=== PATIENT | male | born 1950 | race Caucasian/White ===

== ENCOUNTER 2018-02-23 08:00 | Outpatient (RCR) | payer MEDICARE, BC, SELFPAY ==
--- NOTE | 2018-01-28 13:27 | HP.PTEVAL_ITS ---
Patient's Visit Information IZABEL WAHL is a 67 year old M referred to Physical Therapy by Aletha Moon with a diagnosis of Cervical radiculopathy and low back pain. Date of Evaluation: 01/28/18 Physical Therapist: Tyron Steinberg PT, - Visit Plan Frequency: 2x /Week Duration: 4 Weeks Plan: Cervical: manual work to improve L rotation, thoracic extension. Posture strengthening when mobility improves. Mech traction at end of session. Lumbar: REIL initially, LE flexibility, core strengthening when mobility improves. - Subjective Subjective: Pt is 67 y/o male referred for cervical radiculopathy and low back pain. He reports neck pain that started about 6 months ago and intermittent LBP. He has had previous PT for his neck pain 3 years ago that helped. His symptoms feel about the same as it did then. He reports L sided neck pain that worsens with L rotation. Describes as stiff. Denies radicular symptoms in UE/ LE's. He reports low back pain that worsens with prolonged sitting. Feels better when he sits with better support and when he stands up and walks around. Location of low back symptoms are in the R side and describes as achy. 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 - Pain Neck pain Pain Intensity (Out of 10): 5 Back pain Pain Intensity (Out of 10): 6 - Objective OBSERVATION: forward flexed sitting posture, forward head, exagerated thoracic kyphosis. PALPATION: No alignment issues. No tenderness. ROM: Lumbar: flexion nil, extension 75%, R LF 75%, L LF* 75%. Cervical flexion 50%, extension 50%, R rotation 75%, L rotation* 50%. STRENGTH: Gross B LE/UE 5/5. ASSESSORY MOTION: Hypomobile PA glides throughout cervical and thoracic spines. SPECIAL TESTS: Cervical distraction (+), Cervical flexion/rotation test (+) for L rotation. FLEXIBILITY: Decreased B hip flexors and hamstrings - Goals Goal 1:: Pt will improve L cervical rotation to 75% of uninvolved side to improve tolerance with driving. Goal Time Frame: 4-6 Weeks Goal 2:: Pt will demonstrate correct seated posture without VC's to improve self management of low back symptoms. Goal Time Frame: 4-6 Weeks Goal 3:: Pt will report min limitation with sitting at home to improve tolerance with leisure tasks. Goal Time Frame: 4-6 Weeks Goal 4:: Pt will be independent with HEP to sustain gains made in the clinic. Goal Time Frame: 4-6 Weeks Goal 5:: Pt will demonstrate full lumbar ROM without pain to improve tolerance to self care tasks. Goal Time Frame: 4-6 Weeks - Rehabilitation Potential Physical Therapy Diagnosis: Pt is 67 y/o male referred for cervical radiculopathy and low back pain. He reports gradually worsening neck pain and low back pain that worsens with prolonged sitting. Lumbar objective testing shows a minimal loss of extension. His symptoms likely coorelate with a posterior derangement with a directional preference of extension. Cervical testing reveals a moderate loss of motion with reproduction of pain at end range , predominantely rotation and extension, and hypomobile assessory motion for the cervical and thoracic spines. He has activity limitations that affect his sitting and turning his head. Pt will benefit from skilled PT to address the above mentioned impairments. Rehabilitation Potential: Good - Anticipated Interventions Patient/Client Instruction: Educate patient on: Condition, Plan of Care For the Purpose of:: To decrease pain, To increase ROM, To improve muscle performance and motor function, To increase tolerance to activity/condition/ position, To improve ability of physical actions for home/community/work/leisure , To improve health of tissue, To decrease soft tissue restriction, To increase flexibility/ROM, To reduce risk of recurrence, To improve self management Therapeutic Exercise to Include: Strength training, Endurance training, Body mechanics, Postural training, Flexibilty training, Passive ROM, Active ROM, Mart Exercises For the Purpose of:: To decrease pain, To increase ROM, To improve muscle performance and motor function, To improve performance and independence with ADL 's, To improve ability of physical actions for home/community/work/leisure, To improve health of tissue, To decrease soft tissue restriction, To increase flexibility/ROM, To reduce risk of recurrence, To improve self management Manual Therapy Techniques to Include: Mobilization, Soft tissue mobilization For the Purpose of:: To decrease pain, To increase ROM, To improve muscle performance and motor function, To increase tolerance to activity/condition/ position, To improve ability of physical actions for home/community/work/leisure , To decrease soft tissue restriction, To increase flexibility/ROM, To improve endurance, To reduce risk of recurrence TENS: Yes IF ES: Yes Other electric stimulation: Yes Cryotherapy (ice pack, ice massage): Yes Thermo therapy (hot pack): Yes Ultrasound (thermal/non thermal): Yes Intermittent cervical traction: Yes For the Purpose of:: To decrease pain, To increase ROM, To improve muscle performance and motor function, To increase tolerance to activity/condition/ position, To improve performance and independence with ADL's, To improve ability of physical actions for home/community/work/leisure, To decrease soft tissue restriction, To increase flexibility/ROM Thank you for the opportunity to evaluate your patient. For Medicare and Medicare HMO plans, please review the plan of care and approve it. It will need to be FAXED BACK to us at [phone] for Medicare purposes. Please let me know if there are questions or concerns regarding this plan of care. Physician Signature: Date:
--- NOTE | 2018-06-09 09:53 | HP.PTDCNRP_ITS ---
HP - Discharge Summary (1) - Patient Information IZABEL WAHL was seen in my office for initial evaluation on 01/28/18. The following Plan of Care was established for this patient: Initial Frequency: 2x /Week Initial Duration: 4 Weeks - Anticipated Interventions Patient/Client Instruction: Educate patient on: Condition, Plan of Care For the Purpose of:: To decrease pain, To increase ROM, To improve muscle perfo rmance and motor function, To increase tolerance to activity/condition/position, To improve ability of physical actions for home/community/work/leisure, To improve health of tissue, To decrease soft tissue restriction, To increase flexibility/ROM, To reduce risk of recurrence, To improve self management Therapeutic Exercise to Include: Strength training, Endurance training, Body mechanics, Postural training, Flexibilty training, Passive ROM, Active ROM, Mart Exercises For the Purpose of:: To decrease pain, To increase ROM, To improve muscle performance and motor function, To improve performance and independence with ADL's, To improve ability of physical actions for home/community/work/leisure, To improve health of tissue, To decrease soft tissue restriction, To increase flexibility/ROM, To reduce risk of recurrence, To improve self management Manual Therapy Techniques to Include: Mobilization, Soft tissue mobilization For the Purpose of:: To decrease pain, To increase ROM, To improve muscle performance and motor function, To increase tolerance to activity/condition/position, To improve ability of physical actions for home/community/work/leisure, To decrease soft tissue restriction, To increase flexibility/ROM, To improve endurance, To reduce risk of recurrence TENS: Yes IF ES: Yes Other electric stimulation: Yes Cryotherapy (ice pack, ice massage): Yes Thermo therapy (hot pack): Yes Ultrasound (thermal/non thermal): Yes Intermittent cervical traction: Yes For the Purpose of:: To decrease pain, To increase ROM, To improve muscle performance and motor function, To increase tolerance to activity/condition/position, To improve performance and independence with ADL's, To improve ability of physical actions for home/community/work/leisure, To decrease soft tissue restriction, To increase flexibility/ROM This patient was last seen in our office 02/23/18. Pertinent comments regarding their Physical therapy will appear below: This patient seen for PT for cervcal radiculopathy for 7 visits focusing on manual therapy ,ICTX,CERVICAL POSTURAL EX'S . Patient progressing well towards goals thus is d/c. At this point I will be discontinuing this patient from physical therapy. I would be happy to see this patient again in the future if found appropriate by the physician. Thank you! Tyron Steinberg, PT,
== END 2018-02-23 19:00 | disposition home or self-care (01) ==
LOC: PT 08:00
PROVIDERS: Family Provider Internal Medicine; PCP Internal Medicine; Visit Provider Internal Medicine
DX: M54.12 Radiculopathy, cervical region (principal); M54.5 Low back pain
CPT/HCPCS: 97012; 97035; 97110; 97140; 97161

== ENCOUNTER 2018-06-05 21:42 | Emergency (ER) | payer MEDICARE, BC, SELFPAY ==
[2018-06-05 21:42] VITALS: BP 145/75; PULSE 66; RESP 16; TEMP 36.9; O2SAT 100; BMI 28.0
--- NOTE | 2018-06-05 22:20 | RAD_ITS ---
STUDY: X-RAY - PELVIS AND RIGHT HIP REASON FOR EXAM: Male, 68 years old. Hip pain. TECHNIQUE: Radiological exam, hip, unilateral, with pelvis when performed; 2 or 3 views. COMPARISON: None. FINDINGS: There is a non-specific bowel gas pattern. There are anchoring appearing densities projecting over the pelvis which may be postsurgical in nature. There are surgical clips projecting over the right humeral head. Normal bilateral iliac wings, sacroiliac joints and visualized sacrum. Normal bilateral superior and inferior pubic rami. Normal pubic symphysis. Normal bilateral ischial tuberosities. There are mild degenerative changes of the hips. RAD/HIP, UNI W/ Pelvis 2-3 Views IMPRESSION: Degenerative changes of the hips. Electronically Signed: Arely Viramontes MD at 23:15 EDT Tel , Service support ,
[2018-06-05 22:26] LABS: Absolute Lymphocyte Count 1.68 X10^3/ul (0.83-4.51); Absolute Neutrophil Count 2.2 X10^3/uL (2.0-7.7); Basophil# 0.02 X10^3/uL; Basophil% 0.5 % (0-1); Eosinophil# 0.11 X10^3/uL; Eosinophils% 2.5 % (0-5); Hematocrit 44.3 % (40-54); Hemoglobin 14.9 g/dl (13.0-16.5); Lymphocyte # 1.68 X10^3/ul (4.0); Lymphocyte % 38.4 % (19-41); Mean Corp Hgb Conc 33.6 g/gl (32-36); Mean Corpuscular Hgb 30.1 pg (27.0-32.0); Mean Corpuscular Volume 89.5 fL (80-94); Mean Platelet Vol. 10.9 fl (6.2-12.0); Monocyte% 9.2 % (0-10); Neutrophil # 2.15 X10^3/uL (2.7-7.7); Neutrophil % 49.2 % (47-70); Platelet Count 133 K/mm3 (150-450); RBC Distribution Width CV 13.6 % (11.6-14.6); RBC Distribution Width SD 44.1 fl (35.1-43.9); Red Blood Count 4.95 M/mm3 (4.6-6.2); White Blood Count 4.4 K/mm3 (4.4-11.0)
[2018-06-05 22:27] LABS: POSITIVE COUNT NO; POSITIVE DIFFERENTIAL NO; POSITIVE MORPHOLOGY NO
[2018-06-05 22:29] LABS: International Normalized Ratio 2.8
[2018-06-05 22:36] LABS: Erythrocyte Sedimentation Rate 5 mm/hr (0-20)
[2018-06-05] MEDS: Triamcinolone Acetonide 40 MG/ML Vial IM (23:05)
[2018-06-05] MEDS: HYDROcodone Bitartrate/Apap 5/325 Tablet PO ×2 (23:05→23:53)
--- NOTE | 2018-06-05 23:30 | ED.DCSUM_ITS ---
- ER Visit Summary Date of Service: 06/05/18 Chief Complaint: Hip pain History of Present Illness: The patient is a 68 M with right hip pain. This started yesterday overnight. Nothing seemed to bring it on. It is worse with weightbearing. Better with rest. Pain is isolated in his right hip and does not radiate. No other associated symptoms like back pain or other leg pain. No weakness or numbness. No fevers or skin changes. He had this in the past quite a while ago. His doctor put him on some medications and did x-rays, and his pain resolved. Denies any surgical history. Denies any history of septic joints. Denies any history of gout. He does have a history of mitral valve replacement and takes Coumadin. Physical Examination: Afebrile and vital signs unremarkable. Patient is alert and oriented and in no acute distress. Inspection normal. Skin normal. No shortening or abnormal rotation. Negative logroll. Full range of motion. Normal strength and sensation. No edema noted. Calf soft and supple. Neurovascular intact distally. Test Results: X-rays show degenerative changes but nothing acute. CBC shows a platelets of 133, stable. INR 2.8, therapeutic. ESR 5. Emergency Department Course and Treatment: Patient treated with Kenalog and [place]. I am not sure what is causing his pain. He has some degenerative changes but otherwise his evaluation is unremarkable. No trauma or inciting event. I do not believe there is indication for further imaging with CT or MRI. Nothing to suggest gout or septic arthropathy. Nothing to suggest vascular pathology. Skin appears normal. Patient will be treated with a short course of [place]. He has a walker that he can use at home. He will follow-up with his primary care doctor. Return for any new or worsening issues. Treatment Plan: As above Disposition: Discharge Impression: 1. Right hip pain This note was generated with [employer] dictation software. It may contain incorrect words, spelling, and punctuation that were not noted in review of the chart prior to signing ED Disposition - Plan for ED Patient: Chief Complaint: Lower Extremity Injury Referrals: Aletha Moon DO [Primary Care Provider] -
--- NOTE | 2018-06-05 23:30 | ED.DEP ---
ED Disposition - Plan for ED Patient: Chief Complaint: Lower Extremity Injury Instructions: ED Sprain Hip Prescriptions: Hydrocodone Bitart/Apap 5-325 [[place] 5MG-325MG] 1 tab PO Q6H PRN PRN 3 Days #10 tab PRN Reason: Pain Referrals: Aletha Moon DO [Primary Care Provider] -
--- NOTE | 2018-06-05 23:33 | DCINST.ED_ITS ---
ED Disposition - Plan for ED Patient: Chief Complaint: Lower Extremity Injury Instructions: ED Sprain Hip Prescriptions: Hydrocodone Bitart/Apap 5-325 [[place] 5MG-325MG] 1 tab PO Q6H PRN PRN 3 Days #10 tab PRN Reason: Pain Referrals: Aletha Moon DO [Primary Care Provider] -
[2018-06-05 23:50] VITALS: BP 124/71; PULSE 65; RESP 17; O2SAT 99
== END 2018-06-05 23:58 | disposition home or self-care (01) ==
PROVIDERS: Emergency Provider Emergency Medicine; Family Provider Internal Medicine; PCP Internal Medicine
DX: M25.551 Pain in right hip (principal); K21.9 Gastro-esophageal reflux disease without esophagitis; K51.90 Ulcerative colitis, unspecified, without complications; Z95.2 Presence of prosthetic heart valve; Z79.01 Long term (current) use of anticoagulants; Z79.899 Other long term (current) drug therapy
CPT/HCPCS: 73502; 85025; 85610; 85652; 96372; 99284; A4216

== ENCOUNTER 2018-06-22 08:15 | Outpatient (RCR) | payer MEDICARE, BC, SELFPAY ==
--- NOTE | 2018-06-22 09:34 | HP.PTEVAL_ITS ---
Patient's Visit Information IZABEL WAHL is a 68 year old M referred to Physical Therapy by Aletha Zamudio with a diagnosis of RIGHT HIP IT BAND/GREATER TROCH BURSITIS AND HIP PAIN - OA.. Date of Evaluation: 06/22/18 Physical Therapist: Socorro Scherer Visit Plan Frequency: 1x/Week Duration: 1 Week Plan: D/C - Subjective Subjective: Work/Leisure: RETIRED. DOES WORK IN [employer]. Disability: NO. Present symptoms: PATIENT CURRENTLY DENIES ANY SX'S. STATES THAT THE HIP PAIN THAT HE WAS SENT FOR IS ALL GONE AND HE HAS RECOVERED ALL OF HIS FUNCTION TO PRIOR LEVEL. HE REPORTS THAT ABOUT 2 AND A HALF WEEKS AGO THE PAIN WAS SO BAD HE COULDN'T WALK AND HAD TO EVEN USE A WALKER. JUST RETURNED FROM [place] VACATION AND STATES HIS ACTIVITY WAS UNLIMITED AND PAINFREE WHILE THERE. Present since: ABOUT 2 AND A HALF WEEKS AGO. Pain Scale: N/A. Currently: 0/10. Commenced as a result of: 06/04/18 WORKED IN [employer] FOR ABOUT 12 HOURS IN THE COLD ON HIS FEET AND THE NEXT DAY SEVERE RIGH T HIP PAIN AND COULDN'T WALK. ENDED UP GOING TO THE EMERGENCY ROOM. Symptoms at onset: RIGHT HIP. Worse: N/A. Better: N/A. Disturbed sleep: NOT ANY LONGER. Previous history/Previous treatment: UNREMARKABLE. Coughing/sneezing/straining: NEGATIVE. Gait: INDEP AND PAINFREE AT THIS TIME. Difficulty initiating urinatin: NO. Accidents: NO. Unexplained weight loss: NO. Imaging: RIGHT HIP AND PELVIC X-RAY IN ED 06/05/18 SHOWING MILD DEGENERATIVE CHANGES RIGHT HIP. PMH: HEART SURGERY FOR VALVE REPLACEMENT 3 YEARS. HERNIA REPAIR. HTN. ULCERATIVE COLITIS. H/O NECK PAIN AND STIFFNESS - RESOLVED WITH PT HERE AT [facility] EARLIER THIS YEAR. PLOF (Prior Level of Function): UNLIMITED. OTHER: RECEIVED SHOT IN RIGHT HIP FROM DR. ZAMUDIO AND A COUPLE DAYS LATER ALL OF HIS PAIN WENT AWAY AND HIS FULL FUNCTION RETURNED. IS INTERESTED IN KNOWING IF THERE ARE ANY EX'S HE SHOULD DO AT HOME AT THIS POINT. - Objective THIS PATIENT AMBULATES INDEP INTO PT WITHOUT ANY ASSISTIVE DEVICES OR GROSS DEVICATIONS NOTED. MARGOT LE LIGHT TOUCH SENSATION IS INTACT AND SYMMETRICAL. MARGOT LE DTR'S ARE 2/3. MARGOT LE STRENGTH IS 5/5 WITH MMT'ING AND THERE IS NO C/O PAIN WITH TESTING. MARGOT LE ROM WFL WITH MILD TIGHTNESS OF HS'S AND GASTROC SOLEUS COMPLEX'S BUT RIGHT HIP IR, ER AND EXTENSION ARE MILDLY TIGHTER THAN LEFT. MARGOT JENNIFER TESTING IS NEGATIVE. LUMBAR SPINE WAS SCREENED AND ALL TESTING WAS NEGATIVE INCLUDING MARGOT LE DURAL TESTING AND SLR TESTING. CORE STRENGTH IS FAIR. LUMBAR MVMT LOSS: FLEX - MIN, EXT - MOD, MARGOT SG - MOD. NO C/O PAIN OR ASSYMETRY WITH LUMBAR ROM TESTING. NO TENDERNESS WITH PALPATION OF LUMBAR, SACRAL, PELVIC, BUTTOCK OR HIP REGIONS. TREATMENT: PATIENT WAS SEEN TODAY FOR HOME INSTRUCTIONS INCLUDING PROPER BODY MECHANICS FOR ADL'S AND HEP. HEP: STANDING HIP ABD AND EXT, KNEE FLEX, HEEL RAISES, CHAIR SITS, CALF STRETCHING, HAMSTRING STRETCHING AND PIRIFORMIS STRETCHING IN SITTING. EMPHASIS ON PROPER POSTURE CONTROL AND ISO ABDOMINALS WITH ALL EX'S. WRITTEN HEP GIVEN. PATIENT DEMONSTRATED AND COMMUNICATED A GOOD UNDERSTANDING OF ALL INSTRUCTIONS AFTER GIVEN. CHALLENGE BUT NO C/O PAIN WITH EX. - Goals Goal 1:: INDEP HEP Goal Time Frame: 1 VISIT - Rehabilitation Potential Rehabilitation Potential: Excellent - Anticipated Interventions Therapeutic Exercise to Include: Strength training, Flexibilty training For the Purpose of:: To increase ROM, To improve muscle performance and motor function Thank you for the opportunity to evaluate your patient. For Medicare and Medicare HMO plans, please review the plan of care and approve it. It will need to be FAXED BACK to us at [phone] for Medicare purposes. Please let me know if there are questions or concerns regarding this plan of care. Physician Sign ature: Date:
--- NOTE | 2018-10-29 16:46 | HP.PTDCSUM ---
HP - PT D/C Summary It has been my pleasure to treat IZABEL WAHL under orders from Aletha Moon DO, for the diagnosis of RIGHT HIP IT BAND/GREATER TROCH BURSITIS AND HIP PAIN - OA. for a total of 1 visit(s). Discharge Date: Please see the following information for a summary of their discharge status. - Goals Goal 1:: INDEP HEP - Plan Plan: D/C - D/C Information If there are questions or concerns regarding this patient's physical therapy, please feel free to call me at [phone]. Thank you for the referral of this patient. Sincerely, Socorro Dejesus, PT, Cert MDT
== END 2018-06-22 19:00 | disposition home or self-care (01) ==
LOC: PT 08:15
PROVIDERS: Family Provider Internal Medicine; PCP Internal Medicine; Referring Provider Internal Medicine; Visit Provider Internal Medicine
DX: M76.31 Iliotibial band syndrome, right leg (principal); M76.01 Gluteal tendinitis, right hip; M25.551 Pain in right hip; M16.11 Unilateral primary osteoarthritis, right hip
CPT/HCPCS: 97161; 97530

== ENCOUNTER → 2018-06-28 16:11 | Outpatient (CLI) | payer MEDICARE, BC, SELFPAY ==
[2018-06-05 21:42] VITALS: BMI 28.0
[2018-06-28 17:53] LABS: Hemoglobin A1c 5.5 % (4.2-6.3)
== END ==
PROVIDERS: Family Provider Internal Medicine; PCP Internal Medicine
DX: N48.1 Balanitis (principal)
CPT/HCPCS: 36415; 83036

== ENCOUNTER → 2018-07-06 08:23 | Outpatient (CLI) | payer MEDICARE, BC, SELFPAY ==
--- NOTE | 2018-07-06 09:00 | RAD_ITS ---
STUDY: X-RAY - ESOPHAGUS (BARIUM SWALLOW) WITH FLUOROSCOPY REASON FOR EXAM: Male, 68 years old. Dysphagia. History of gastroesophageal reflux. TECHNIQUE: 13 view(s) of the esophagus were obtained following swallowing of barium. FLUOROSCOPY TIME (if supplied): (0:29) minutes/seconds COMPARISON: None. FINDINGS: There is no demonstrated esophageal foreign body. There is no demonstrated stricture or mucosal abnormality. Normal gastroesophageal junction, without a demonstrated hiatal hernia. The patient ingested a 12 mm tablet of barium without any difficulty. There is atherosclerotic tortuosity of the aortic arch and descending thoracic aorta. Normal visualized pulmonary parenchyma. Normal visualized osseous structures of the thorax. RAD/Esophagus Only IMPRESSION: Normal plain film x-ray examination (barium swallow) of the esophagus. Electronically Signed: Tanner Shaffer MD at 13:21 EST Tel [phone], Service support ,
--- OUTSIDE RECORDS SUMMARY | 2018-08-17 20:46 | XMS RPT_ITS | Continuity of Care Document ---
:1950 Author Organization [facility] Address [facility] [address] [place] [address] Phone Care Team Providers Name Role Phone Aletha Zamudio DO Unavailable Dr. Fabrizio Moran Unavailable [facility], [facility] Unavailable MARY ANN Gardner Unavailable Unavailable Long Katherine REESE Unavailable Unavailable Jennifer Wong Unavailable Unavailable FIDELIA Garcia Unavailable Unavailable Unavailable Unavailable Problems Name Dates Details Abnormal urine (R82.90, 791.9) Status: Active Acute maxillary sinusitis, recurrence not specified (J01.00, 461.0) Status: Active Acute pain of right hip (M25.551, 719.45) Status: Active Acute pharyngitis (J02.9, 462) Status: Active Acute sinusitis, unspecified (J01.90, 461.9) Status: Active Allergic rhinitis (J30.9, 477.9) Status: Active Anemia due to blood loss (D50.0, 280.0) Status: Active Annual Medicare Physical WITH abnormal findings (Renamed from Encounter for general adult medical examination with abnormal findings) (Z00.01, V70.0) Status: Active Atrial fibrillation, controlled (I48.91, 427.31) Comments: rate controlled Status: Active Balantidiasis (A07.0, 007.0) Comments: has yeast infection and likely transferred to treating with monistat and probiotic Status: Active 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 Contact dermatitis (L25.9, 692.9) Status: Active DISORDER, MITRAL VALVE (424.0) Status: Active Dysuria (R30.0, 788.1) Status: Active Dysuria (R30.0, 788.1) Status: Active ED (erectile dysfunction) (N52.9, 607.84) Comments: on integratvie support Status: Active Elevated blood-pressure reading without diagnosis of hypertension (R03.0, 796.2) Status: Active Encounter for immunization (Z23, V03.89) Status: Active Encounter for screening for malignant neoplasm of prostate (Renamed from Screening for prostate cancer) (Z12.5, V76.44) Status: Active Esophageal reflux disease (K21.9, 530.81) Status: Active Eustachian tube dysfunction (H69.80, 381.81) Status: Active Family history of 5,10-methylenetetrahydrofolate reductase (MTHFR) deficiency (Z83.49, V18.9) Status: Active Family history of carcinoma in situ of prostate (Z84.89, V19.8) Status: Active Fatigue (R53.83, 780.79) Status: Active GERD (gastroesophageal reflux disease) (K21.9, 530.81) Status: Active Greater trochanteric bursitis, right (M70.61, 726.5) Status: Active Hemorrhoids (455.8) Comments: Internal, non-bleeding - Colonoscopy otherwise normal Status: Active Hyperglyceridemia (E78.1, 272.1) Status: Active Hypertensive heart disease without congestive heart failure (I11.9, 402.90) Status: Active Hypoglycemia (E16.2, 251.2) Status: Active Influenza A (J10.1, 487.1) Status: Active It band syndrome, right (M76.31, 728.89) Status: Active Laryngitis (J04.0, 464.00) Status: Active Lipoma of back (D17.1, 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) Comments: watch and follow - its not infected and never noticed before Status: Active Low back pain, episodic (M54.5, 724.2) Status: Active Low HDL (under 40) (E78.6, 272.5) Comments: increase exercise Status: Active Metabolic syndrome (E88.81, 277.7) Status: Active Mitral regurgitation, acute (I34.0, 424.0) Status: Active Mitral valve prolapse (I34.1, 424.0) Comments: stable Status: Active Nausea (R11.0, 787.02) Comments: i think drainage related or acid -- will add and refill nasal spray qhs& cont antihistamine// also swith ppi to qhs and see if helsp Status: Active Neck Pain (Renamed from Cervical pain) (M54.2, 723.1) Status: Active Need for prophylactic vaccination (Renamed from Need for immunization against influenza) (Z23, V04.81) Status: Active Need for prophylactic vaccination and inoculation against influenza (Renamed from Need for immunization against influenza) (Z23, V04.81) Status: Active Neoplasm of unspecified behavior of bone, soft tissue, and skin (D49.2, 239.2) Status: Active Non-smoker (Z78.9, V49.89) Status: Active Nutritional counseling (Z71.3, V65.3) Status: Active Otalgia (H92.09, 388.70) Status: Active Other and unspecified hyperlipidemia (E78.5, 272.4) Status: Active Other and unspecified hyperlipidemia (E78.5, 272.4) Status: Active Other specified abnormal findings of blood chemistry (R79.89, 790.6) Status: Active Other specified viral infection, in conditions classified elsewhere and of unspecified site (B97.89, 079.89) Comments: oral ulcers ? HSV Status: Active Other ulcerative colitis (K51.80, 556.8) Status: Active Pharyngitis, acute (J02.9, 462) Comments: think viral if not getting better by day 7-10 may need atb Status: Active Post-nasal drainage (R09.82, 473.9) Status: Active Prostate cancer screening (Z12.5, V76.44) Comments: 01/25 Status: Active Rash (R21, 782.1) Status: Active S/P mitral valve replacement with porcine valve (Z95.3, V42.2) Status: Active SCREENING FOR CANCER OF THE PROSTATE (Z12.5, V76.44) Status: Active Sore throat (J02.9, 462) Status: Active Sore throat and laryngitis (J06.0, 465.0) Status: Active Thrombocytopenia, unspecified (D69.6, 287.5) Status: Active Medications Name Dates Details Aspirin EC Low Strength 81 MG Oral Tablet Delayed Release 1 (one) Tablet DR qd for 30 days Refills: 0 Ordered:18-Feb-2016 Viji Zamudio DO, DO, Kathleen Start : 18-Feb-2016 Active Balsalazide Disodium 750 MG Oral Capsule 6-9 Capsule daily as directed for 30 days Quantity: 180 {Capsule} Refills: 12 Ordered:22-Jan-2018 Viji Zamudio DO, DO, Kathleen Start : 22-Jan-2018 Active Coumadin 1 MG Oral Tablet 1 (one) Tablet daily as directed for 30 days Quantity: 30 {Tablet} Refills: 6 Ordered:22-Jan-2018 Viji Zamudio DO, DO, Kathleen Start : 22-Jan-2018 Active Comments:Dr Milton DE LA PAZ, 50MCG/ACT (Nasal Suspension) 2 (two) Puff Puff daily for 0 days Quantity: 1 {Bottle} Refills: 0 Ordered:03-Oct-2014 Karla Gardner LPN Start : 03-Oct-2014 Active Lisinopril 5 MG Oral Tablet 1 qd (5 MG) Active Magnesium Oxide 400 MG Oral Capsule 2 (two) Capsule daily for 30 days Quantity: 60 {Capsule} Refills: 3 Ordered:22-Jan-2018 Viji Zamudio DO, DO, Kathleen Start : 22-Jan-2018 Active OMEPRAZOLE, 20MG (Oral Capsule Delayed Release) [address] QD for 0 days Quantity: 90 {Capsule_DR} Refills: 3 Ordered:15-Aug-2011 Karla Gardner LPN Start : 15-Aug-2011 Active Zocor 20 MG Oral Tablet 1 Tablet QD for 0 days Quantity: 90 {Tablet} Refills: 3 Ordered:03-May-2018 Viji Zamudio DO, DO, Kathleen Start : 03-May-2018 Active Amiodarone HCl 200 MG Oral Tablet 1 (one) Tablet bid for 30 days Refills: 0 Ordered:06-Nov-2016 Karla Gardner LPN Start : 18-Feb-2016 End : 06-Nov-2016 Inactive Augmentin 875-125 MG Oral Tablet 1 (one) Tablet bid for 0 days Quantity: 20 {Tablet} Refills: 0 Ordered:05-May-2018 Jennifer Wong Start : 21-Apr-2018 End : 05-May-2018 Inactive AUGMENTIN, 875-125MG (Oral Tablet) 1 Tablet bid for 0 days Quantity: 20 {Tablet} Refills: 0 Ordered:18-Oct-2013 Zoe Mercado LPN Start : 06-Jun-2013 End : 18-Oct-2013 Inactive BIAXIN XL PAC, 500MG (Oral Tablet Extended Release 24 Hour) 2 (two) Tablet ER 24HR daily for 14 days Quantity: 28 {Tablet_ER_24HR} Refills: 0 Ordered:13-Jul-2007 Shannon PEREZ Rosanne Start : 13-Jul-2007 End : 13-Sep-2007 Inactive CELEBREX, 200MG (Oral Capsule) 1 Capsule bid for 7 days Quantity: 14 {Capsule} Refills: 0 Ordered:20-Aug-2012 Viji Zamudio DO, DO, Kathleen Start : 30-Jul-2012 End : 06-Aug-2012 Inactive CHERATUSSIN AC, 100-10MG/5ML (Oral Syrup) 1-2 Teaspoon qhs prn for 0 days Quantity: 6 {Ounce} Refills: 0 Ordered:09-Oct-2014 Karla Gardner LPN Start : 03-Oct-2014 End : 09-Oct-2014 Inactive Ciprofloxacin HCl 500 MG Oral Tablet 1 (one) Tablet bid for 0 days Quantity: 20 {Tablet} Refills: 0 Ordered:27-Oct-2016 FIDELIA Garcia Start : 23-Jun-2016 End : 27-Oct-2016 Inactive Diflucan 150 MG Oral Tablet 1 (one) Tablet repeat in 3 days for 2 days Quantity: 2 {Tablet} Refills: 0 Ordered:31-May-2018 Viji Zamudio DO, DO, Kathleen Start : 31-May-2018 End : 02-Jun-2018 Inactive Dipentum 250 MG Oral Capsule 1 Capsule QD for 90 days Quantity: 90 {Capsule} Refills: 3 Ordered:22-Jan-2018 Katherine Spangler LPN Start : 18-Feb-2016 End : 22-Jan-2018 Inactive HYCODEN (Oral Syrup) (Free Text) 1 Teaspoon(s) q 6 hr prn for 30 days Quantity: 60 {Milliliter} Refills: 0 Ordered:06-Jun-2013 Viji Zamudio DO, DO, Kathleen Start : 06-Jun-2013 End : 06-Jul-2013 Inactive Comments:sixty LEVAQUIN, 500MG (Oral Tablet) 1 Tablet qd for 10 days Quantity: 10 {Tablet} Refills: 0 Ordered:09-Oct-2014 Karla Gardner LPN Start : 03-Oct-2014 End : 09-Oct-2014 Inactive Lisinopril-Hydrochlorothiazide 20-12.5 MG Oral Tablet 1 (one) Tablet bid for 0 days Quantity: 180 {Tablet} Refills: 3 Ordered:18-Feb-2016 Karla Gardner LPN Start : 28-May-2015 End : 18-Feb-2016 Inactive Lisinopril-Hydrochlorothiazide 20-12.5 MG Oral Tablet 1 (one) Tablet bid for 0 days Quantity: 180 {Tablet} Refills: 3 Ordered:18-Feb-2016 Karla Gardner LPN Start : 28-May-2015 End : 18-Feb-2016 Inactive Metoprolol Tartrate 25 MG Oral Tablet 1/2 (one half) Tablet bid for 30 days Quantity: 30 {Tablet} Refills: 3 Ordered:20-Apr-2018 Jennifer Wong Start : 22-Jan-2018 End : 20-Apr-2018 Inactive Montelukast Sodium 10 MG Oral Tablet 1 (one) Tablet qd for 30 days Refills: 0 Ordered:22-Jan-2018 Katherine Spangler LPN Start : 18-Feb-2016 End : 22-Jan-2018 Inactive OxyCODONE HCl 5 MG Oral Capsule 1 (one) Capsule qhs for 10 days Refills: 0 Ordered:06-Nov-2016 Karla Gardner LPN Start : 18-Feb-2016 End : 06-Nov-2016 Inactive PENICILLIN V POTASSIUM, 250MG (Oral Tablet) 1 (one) Tablet tid for 10 days Quantity: 30 {Tablet} Refills: 0 Ordered:21-Dec-2008 Natali Ortega CNP Start : 21-Dec-2008 End : 24-Jan-2009 Inactive Potassium Chloride ER 10 MEQ Oral Capsule Extended Release 1 (one) Capsule ER qd for 30 days Refills: 0 Ordered:22-Jan-2018 Katherine Spangler LPN Start : 18-Feb-2016 End : 22-Jan-2018 Inactive PREDNISONE, 20MG (Oral Tablet) 1 (one) Tablet bid for 2days then 1 qd for 4 days then 1/2 qd for 4days for 10 days Refills: 0 Ordered:19-Apr-2015 Viji Zamudio DO, DO, Kathleen Start : 19-Apr-2015 End : 29-Apr-2015 Inactive ProAir HFA 108 (90 Base) MCG/ACT Inhalation Aerosol Solution 2 (two) Puff Puff daily for 0 days Quantity: 1 {Inhaler} Refills: 0 Ordered:18-Feb-2016 Karla Gardner LPN Start : 03-Oct-2014 End : 18-Feb-2016 Inactive SINGULAIR, 10MG (Oral Tablet) 1 Tablet qd for 30 days Refills: 0 Ordered:15-Jul-2010 Karla Gardner LPN Start : 03-Jun-2010 End : 03-Jul-2010 Inactive TAMIFLU, 75MG (Oral Capsule) 1 (one) Tablet bid for 5 days Quantity: 10 {Tablet} Refills: 0 Ordered:26-Sep-2014 Natali Ortega CNP Start : 26-Sep-2014 End : 01-Oct-2014 Inactive TESSALON PERLES, 100MG (Oral Capsule) 1 (one) Capsule tid prn cough for 0 days Quantity: 30 {Capsule} Refills: 0 Ordered:09-Oct-2014 Karla Gardner LPN Start : 03-Oct-2014 End : 09-Oct-2014 Inactive Topicort 0.25 % External Cream apply to affected area Cream Cream bid for 0 days Quantity: 15 {Gram} Refills: 0 Ordered:06-Nov-2016 Karla Gardner LPN Start : 19-Apr-2015 End : 06-Nov-2016 Inactive VALTREX, 1GM (Oral Tablet) 2 (two) Tablet bid for 3 days Quantity: 12 {Tablet} Refills: 0 Ordered:16-Feb-2008 Shannon DINKEY ENGINE FIRER/FIREMANNatali Start : 16-Feb-2008 End : 21-Feb-2008 Inactive DALLERGY, 12-20-2.5MG (PO Tab SR 12HR) 1 BID for 0 days Refills: 0 Ordered:22-Jan-2018 Katherine Spangler LPN End : 22-Jan-2018 Discontinued Comments:This order discontinued per [employer]. HYDROCHLOROTHIAZIDE, 25MG (Oral Tablet) 1 (one) Tablet Daily for 0 days Refills: 0 Ordered:04-Jun-2009 Viji Zamudio DO, DO, Kathleen Start : 03-May-2009 End : 04-Jun-2009 Discontinued MUCINEX, 600MG (Oral Tablet Extended Release 12 Hour) 1 for 0 days Refills: 0 Ordered:26-Sep-2014 Zoe Mercado LPN Start : 18-Oct-2013 End : 26-Sep-2014 Discontinued NASACORT AQ, 55MCG/ACT (Nasal Aerosol Solution) 2 (two) Aerosol Soln daily for 0 days Refills: 0 Ordered:13-Jul-2007 Zee Ashton Start : 13-Jul-2007 End : 21-Dec-2008 Discontinued NASONEX, 50MCG/ACT (Nasal Suspension) 2 (two) Suspension qd for 0 days Quantity: 1 {Canister} Refills: 2 Ordered:26-Sep-2014 Zoe Mercado LPN Start : 03-Apr-2014 End : 26-Sep-2014 Discontinued Allergies and Adverse Reactions Name Dates Details bee stings carries an epi pen. (Allergy) Status: Active Shellfish (Allergy) Status: Active Past Medical History Name Dates Details Acute bronchospasm due to viral infection (J98.01, 519.11) Status: Inactive as of 09-Oct-2014 Benign essential hypertension (I10, 401.1) Status: Inactive as of 22-Jan-2018 BMI 27.0-27.9,adult (Z68.27, V85.23) Status: Inactive as of 22-Jan-2018 Bronchitis (J40, 490) Status: Inactive as of 09-Oct-2014 Cerumen impaction (H61.20, 380.4) Status: Inactive as of 09-Oct-2014 Cough (R05, 786.2) Status: Inactive as of 09-Oct-2014 Encounter for screening for malignant neoplasm of testis (Z12.71, V76.45) Status: Inactive as of 31-Jan-2009 Fever (R50.9, 780.60) Status: Inactive as of 09-Oct-2014 Heart murmur (R01.1, 785.2) Status: Resolved as of 18-Feb-2016 Hip pain (M25.559, 719.45) Comments: improving Status: Inactive as of 09-Oct-2014 Irritation of external ear canal (H61.899, 380.89) Status: Inactive as of 24-Jan-2009 Pain in unspecified hip (M25.559, 719.45) Status: Inactive as of 09-Oct-2014 Shoulder pain (M25.519, 719.41) Status: Inactive as of 09-Oct-2014 Throat pain (R07.0, 784.1) Status: Inactive as of 24-Jan-2009 Thumb pain, left (M79.645, 729.5) Status: Inactive as of 22-Jan-2018 Trigger finger of left thumb (M65.312, 727.03) Status: Inactive as of 22-Jan-2018 Procedures Procedure Dates Details PNEUM VAC ADLT/IMUMNOSPR, SBC/INTRM (06818) Date: 28-May-2015 Completed 28-May-2015 Heart Surgery Completed Heart Valve Surgery Completed Comments: Date Value Details 23-Jun-2018 Inital Evaluation (1) - PT Result: Comments: See Note; NOTES: [facility] Physical [facility] [address] [place] [address]. [address] [place] [address] Fax REHABILITATION SERVICES INITIAL EVALUATION MR#: [id number] Acct: [id number] Name: IZABEL GARCÍA Rep #: [id number] : 1950 68 From: Socorro Dejesus PT, Cert. MDT Referring Dr.: Aletha Zamudio DO Status: REG RCR Insurance: MEDICARE PART A B ANTHEM Patient's Visit Information IZABEL GARCÍA is a 68 year old M referred to Physical Therapy by Aletha Zamudio with a diagnosis of RIGHT HIP IT BAND/GREATER TROCH BURSITIS A ND HIP PAIN - OA.. Date of Evaluation: 06/22/18 Physical Therapist: Socorro Dejesus - Visit Plan Frequency: 1x/Week Duration: 1 Week Plan: D/C - Subjective Subjective: Work/Leisure: RETIRED. DOES WORK IN [employer]. Disability: NO. Present symptoms: PATIENT CURRENTLY DENIES ANY SX'S. STATES THAT THE HIP PAIN THAT HE WAS SENT FOR IS ALL GONE AND HE HAS RECOVERED ALL OF HIS FUNCTION TO PRIOR LE MARTY. HE REPORTS THAT ABOUT 2 AND A HALF WEEKS AGO THE PAIN WAS SO BAD HE COULDN'T WALK AND HAD TO EVEN USE A WALKER. [facility] AND STATES HIS ACTIVITY WAS UNLIMITED AND PAINFRE E WHILE THERE. Present since: ABOUT 2 AND A HALF WEEKS AGO. Pain Scale: N/A. Currently: 0/10. Commenced as a result of: 06/04/18 WORKED IN [employer] FOR ABOUT 12 HOURS IN THE COLD ON HIS FEET AND THE NEXT DAY SEVERE RIGHT HIP PAIN AND COULDN'T WALK. ENDED UP GOING TO THE EMERGENCY ROOM. Symptoms at onset: RIGHT HIP. Worse: N/A. Better: N/A. Disturbed sleep: NOT ANY LONGER. Previous history/ Previous treatment: UNREMARKABLE. Coughing/sneezing/straining: NEGATIVE. Gait: INDEP AND PAINFREE AT THIS TIME. Difficulty initiating urinatin: NO. Accidents: NO. Unexplained weight loss: NO. Imaging: R IGHT HIP AND PELVIC X-RAY IN ED 06/05/18 SHOWING MILD DEGENERATIVE CHANGES RIGHT HIP. PMH: HEART SURGERY FOR VALVE REPLACEMENT 3 YEARS. HERNIA REPAIR. HTN. ULCERATIVE COLITIS. H/O NECK PAIN AND STIFFNES S - RESOLVED WITH PT HERE AT [facility] EARLIER THIS YEAR. PLOF (Prior Level of Function): UNLIMITED. OTHER: RECEIVED SHOT IN RIGHT HIP FROM DR. ZAMUDIO AND A COUPLE DAYS LATER ALL OF HIS PAIN WENT AWAY AND HIS FULL FUNCTION RETURNED. IS INTERESTED IN KNOWING IF THERE ARE ANY EX'S HE SHOULD DO AT HOME AT THIS POINT. - Objective THIS PATIENT AMBULATES INDEP INTO PT WITHOUT ANY ASSISTIVE DEVICES OR KEVIN SS DEVICATIONS NOTED. MARGOT LE LIGHT TOUCH SENSATION IS INTACT AND SYMMETRICAL. MARGOT LE DTR'S ARE 2/3. MARGOT LE STRENGTH IS 5/5 WITH MMT'ING AND THERE IS NO C/O PAIN WITH TESTING. MARGOT LE ROM WFL WITH MILD TI GHTNESS OF HS'S AND GASTROC SOLEUS COMPLEX'S BUT RIGHT HIP IR, ER AND EXTENSION ARE MILDLY TIGHTER THAN LEFT. MARGOT JENNIFER TESTING IS NEGATIVE. LUMBAR SPINE WAS SCREENED AND ALL TESTING WAS NEGATIVE INCLUD ING MARGOT LE DURAL TESTING AND SLR TESTING. CORE STRENGTH IS FAIR. LUMBAR MVMT LOSS: FLEX - MIN, EXT - MOD, MARGOT SG - MOD. NO C/O PAIN OR ASSYMETRY WITH LUMBAR ROM TESTING. NO TENDERNESS WITH PALPATION OF LUMBAR, SACRAL, PELVIC, BUTTOCK OR HIP REGIONS. TREATMENT: PATIENT WAS SEEN TODAY FOR HOME INSTRUCTIONS INCLUDING PROPER BODY MECHANICS FOR ADL'S AND HEP. HEP: STANDING HIP ABD AND EXT, KNEE FLEX, HEEL RAISES, CHAIR SITS, CALF STRETCHING, HAMSTRING STRETCHING AND PIRIFORMIS STRETCHING IN SITTING. EMPHASIS ON PROPER POSTURE CONTROL AND ISO ABDOMINALS WITH ALL EX'S. WRITTEN HEP GIVEN. PATIENT DEMONSTRAT ED AND COMMUNICATED A GOOD UNDERSTANDING OF ALL INSTRUCTIONS AFTER GIVEN. CHALLENGE BUT NO C/O PAIN WITH EX. - Goals Goal 1:: INDEP HEP Goal Time Frame: 1 VISIT - Rehabilitation Potential Rehabilitati on Potential: Excellent - Anticipated Interventions Therapeutic Exercise to Include: Strength training, Flexibilty training For the Purpose of:: To increase ROM, To improve muscle performance and motor function Thank you for the opportunity to evaluate your patient. For Medicare and Medicare HMO plans, please review the plan of care and approve it. It will need to be FAXED BACK to us at [phone] for Medicare purposes. Please let me know if there are questions or concerns regarding this plan of care. Physician Signature: Date: <Electronically signed by Socorro Dejesus PTCheo. MDT> 06/23/18 0845 CC: Aletha Zamudio DO FRANSISCA Signed For Medicare only, by signing this I certify the p noel of care. Physicians Signature Date 05-Jun-2018 Discharge Instruction Result: Comments: See Note; NOTES: [facility] Medical Records Department [address] [place] [address] Discharge Instruction 06/05/18 2330 MR#: [id number] Acct: [id number] Name: IZABEL GARCÍA Rep #: [id number] : 1950 68 From: Frederick Hoskins MD PCP: Aletha Zamudio DO Status: REG ER ED Disposition - Plan for ED Patient: Chief Complaint: Lower Extremity Injury Instructions: ED Sprain Hip Prescriptions: Hydrocodone Bitart/Apap 5-325 [[place] 5MG-325MG] 1 tab PO Q6H PRN PRN 3 Days #10 tab PRN Reason: Pain Referrals: Aletha Zamudio DO [Primary Care Provider] - What to do if you have Problems For any increased pain, shortness of breath, bleeding, nausea or vomiting, chest pain, or any unexpected problems, contact your Primary Care Provider. Call [facility] ([phone]) or report to the closest Emergency Room. Call 911 if necessary. 06/05/18 8296 <Electronically signed by Frederick Hoskins MD> Date Da brittanie Hoskins MD Cosigner Signature (If Indicated): Date CC: Aletha Zamudio DO 05-Jun-2018 Emergency Department Summary Result: Comments: See Note; NOTES: [facility] Medical Records Department [address] [place] [address] Emergency Department Summary 06/05/18 2326 MR#: [id number] Acct: [id number] Name: IZABEL GARCÍA Rep #: [id number] : 1950 68 From: Frederick Hoskins MD PCP: Aletha Zamudio DO Status: REG ER - ER Visit Summary Date of Service: 06/05/18 Chief Complaint: Hip pain History of P resent Illness: The patient is a 68 M with right hip pain. This started yesterday overnight. Nothing seemed to bring it on. It is worse with weightbearing. Better with rest. Pain is isolated in his righ t hip and does not radiate. No other associated symptoms like back pain or other leg pain. No weakness or numbness. No fevers or skin changes. He had this in the past quite a while ago . His doctor put him on some medications and did x-rays, and his pain resolved. Denies any surgical history. Denies any history of septic joints. Denies any history of gout. He does have a history of mi tral valve replacement and takes Coumadin. Physical Examination: Afebrile and vital signs unremarkable. Patient is alert and oriented and in no acute distress. Inspection normal. Skin normal. No shorte enedelia or abnormal rotation. Negative logroll. Full range of motion. Normal strength and sensation. No edema noted. Calf soft and supple. Neurovascular intact distally. Test Results: X-rays show degenera tive changes but nothing acute. CBC shows a platelets of 133, stable. INR 2.8, therapeutic. ESR 5. Emergency Department Course and Treatment: Patient treated with Kenalog and [place]. I am not sure what is causing his pain. He has some degenerative changes but otherwise his evaluation is unremarkable. No trauma or inciting event. I do not believe there is indication for further imaging with CT or MRI. Nothing to suggest gout or septic arthropathy. Nothing to suggest vascular pathology. Skin appears normal. Patient will be treated with a short course of [place]. He has a walker that he can use at home . He will follow-up with his primary care doctor. Return for any new or worsening issues. Treatment Plan: As above Disposition: Discharge Impression: 1. Right hip pain This note was generated with Fanear dictation software. It may contain incorrect words, spelling, and punctuation that were not noted in review of the chart prior to signing ED Disposition - Plan for ED Patient: Chief Complaint : Lower Extremity Injury Referrals: Aletha Zamudio, [Primary Care Provider] - What to do if you have Problems For any increased pain, shortness of breath, bleeding, nausea or vomiting, chest vannessa n, or any unexpected problems, contact your Primary Care Provider. Call [facility] ([phone]) or report to the closest Emergency Room. Call 911 if necessary. 06/05/18 2346 <Electroni olga signed by Frederick Hoskins MD> Date Frederick Hoskins MD Cosigner Signature (If Indicated): Date CC: Aletha Zamudio DO 05-Jun-2018 HIP, UNI W/ Pelvis 2-3 Views Result: Comments: See Note; NOTES: [facility] Imaging Services [address] [place] [address] HIP, UNI W/ Pelvis 2-3 Views MR#: [id number] Acct: [id number] Name: IZABEL GARCÍA Rep # : [id number] : 1950 68 From: Arely Viramontes MD PCP: Aletha Zamudio DO Status: [facility] ER Study: HIP, UNI W/ Pelvis 2-3 Views Date of Exam: 06/05/18 Exam# [id number] Ordering Dr: Frederick Hoskins MD STUDY: X-RAY - PELVIS AND RIGHT HIP REASON FOR EXAM: Male, 68 years old. Hip pain. TECHNIQUE: Radiological exam, hip, unilateral, with pelvis when performed; 2 or 3 views. COMPARISON: None. FINDINGS: There is a non-specific bowel gas pattern. There are anchoring appearing densities projecting over the pelvis which may be postsurgical in nature. There are surgic al clips projecting over the right humeral head. Normal bilateral iliac wings, sacroiliac joints and visualized sacrum. Normal bilateral superior and inferior pubic rami. Normal pubic symphysis. Normal bilateral ischial tuberosities. There are mild degenerative changes of the hips. RAD/HIP, UNI W/ Pelvis 2-3 Views IMPRESSION: Degenerative gay ges of the hips. Electronically Signed: Arely Viramontes MD at 23:15 EDT Tel , Service support , CC: Frederick Hoskins MD; Aletha Zamudio DO Clinical Assoc: Signed 29-Jan-2018 Inital Evaluation (1) - PT Result: Comments: See Note; NOTES: [facility] Physical Therapy [facility] [address] [place] [address]. [address] [place] [address] Fax REHABILITATION SERVICES INITIAL EVALUATION MR#: [id number] Acct: [id number] Name: IZABEL GARCÍA Rep #: [id number] : 1950 67 From: Tyron Steinberg PT, Cert. T, OCS Referring DrZbigniew: Aletha Zamudio DO Status: REG RCR Insu loraine: MEDICARE PART A B ANTHEM Patient's Visit Information IZABEL GARCÍA is a 67 year old M referred to Physical Therapy by Aletha Zamudio with a diagnosis of Cervical radiculopathy and low back pain. Date of Evaluation: 01/28/18 Physical Therapist: Tyron Steinberg PT, - Visit Plan Frequency: 2x /Week Duration: 4 Weeks Plan: Cervical: manual work to improve L rotation, thoracic extension. P osture strengthening when mobility improves. Mech traction at end of session. Lumbar: REIL initially, LE flexibility, core strengthening when mobility improves. - Subjective Subjective: Pt is 67 y/o ma nancie referred for cervical radiculopathy and low back pain. He reports neck pain that started about 6 months ago and intermittent LBP. He has had previous PT for his neck pain 3 years ago that helped. His symptoms feel about the same as it did then. He reports L sided neck pain that worsens with L rotation. Describes as stiff. Denies radicular symptoms in UE/LE's. He reports low back p ain that worsens with prolonged sitting. Feels better when he sits with better support and when he stands up and walks around. Location of low back symptoms are in the R side and describes as achy. 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 - Pain Neck pain Pain Intensity (Out of 10): 5 Back pain Pain Intensity (Out of 10): 6 - Objective OBSERVATION: forward flexed sitting posture, forward hea d, exagerated thoracic kyphosis. PALPATION: No alignment issues. No tenderness. ROM: Lumbar: flexion nil, extension 75%, R LF 75%, L LF* 75%. Cervical flexion 50%, extension 50%, R rotation 75%, L rotat ion* 50%. STRENGTH: Gross B LE/UE 5/5. ASSESSORY MOTION: Hypomobile PA glides throughout cervical and thoracic spines. SPECIAL TESTS: Cervical distraction (+), Cervical flexion/rotation test (+) for L r otation. FLEXIBILITY: Decreased B hip flexors and hamstrings - Goals Goal 1:: Pt will improve L cervical rotation to 75% of uninvolved side to improve tolerance with driving. Goal Time Frame: 4-6 Weeks Goal 2:: Pt will demonstrate correct seated posture without VC's to improve self management of low back symptoms. Goal Time Frame: 4-6 Weeks Goal 3:: Pt will report min limitation with sitting at home to improve tolerance with leisure tasks. Goal Time Frame: 4-6 Weeks Goal 4:: Pt will be independent with HEP to sustain gains made in the clinic. Goal Time Frame: 4-6 Weeks Goal 5:: Pt will demonstrate full lumbar ROM without pain to improve tolerance to self care tasks. Goal Time Frame: 4-6 Weeks - Rehabilitation Potential Physical Therapy Diagnosis: Pt is 67 y/o male referred for cervical radiculop athy and low back pain. He reports gradually worsening neck pain and low back pain that worsens with prolonged sitting. Lumbar objective testing shows a minimal loss of extension. His symptoms likely co orelate with a posterior derangement with a directional preference of extension. Cervical testing reveals a moderate loss of motion with reproduction of pain at end range, predominantely rotation and ex tension, and hypomobile assessory motion for the cervical and thoracic spines. He has activity limitations that affect his sitting and turning his head. Pt will benefit from skilled PT to address the ab ove mentioned impairments. Rehabilitation Potential: Good - Anticipated Interventions Patient/Client Instruction: Educate patient on: Condition, Plan of Care For the Purpose of:: To decrease pain, To i ncrease ROM, To improve muscle performance and motor function, To increase tolerance to activity/condition/position, To improve ability of physical actions for home/community/work/leisure, To improve he alth of tissue, To decrease soft tissue restriction, To increase flexibility/ROM, To reduce risk of recurrence, To improve self management Therapeutic Exercise to Include: Strength training, Endurance t raining, Body mechanics, Postural training, Flexibilty training, Passive ROM, Active ROM, Mart Exercises For the Purpose of:: To decrease pain, To increase ROM, To improve muscle performance and mot or function, To improve performance and independence with ADL's, To improve ability of physical actions for home/community/work/leisure, To improve health of tissue, To decrease soft tissue restriction, To increase flexibility/ROM, To reduce risk of recurrence, To improve self management Manual Therapy Techniques to Include: Mobilization, Soft tissue mobilization For the Purpose of:: To decrease pain, To increase ROM, To improve muscle performance and motor function, To increase tolerance to activity/condition/position, To improve ability of physical actions for home/community/work/leisure, To decre ase soft tissue restriction, To increase flexibility/ROM, To improve endurance, To reduce risk of recurrence TENS: Yes IF ES: Yes Other electric stimulation: Yes Cryotherapy (ice pack, ice massage): Yes Thermo therapy (hot pack): Yes Ultrasound (thermal/non thermal): Yes Intermittent cervical traction: Yes For the Purpose of:: To decrease pain, To increase ROM, To improve muscle performance and motor function, To increase tolerance to activity/condition/position, To improve performance and independence with ADL's, To improve ability of physical actions for home/community/work/leisure, To decrease so ft tissue restriction, To increase flexibility/ROM Thank you for the opportunity to evaluate your patient. For Medicare and Medicare HMO plans, please review the plan of care and approve it. It maira l need to be FAXED BACK to us at [phone] for Medicare purposes. Please let me know if there are questions or concerns regarding this plan of care. Physician Signature: Date: <Electronically signed by Tyron Steinberg PT, Cert. T, OCS> 01/29/18 0835 CC: Aletha Zamudio DO JLA Signed Fo r Medicare only, by signing this I certify the plan of care. Physicians Signature Date 06-Nov-2016 Finger(s) Min 2 Views Result: Comments: See Note; NOTES: [facility] Imaging Services [address] [place] [address] Verdana 4d Finger(s) Min 2 Views MR#: [id number] Acct: [id number] Name: IZABEL GARCÍA ep #: [id number] : 1950 M 66 From: Tanner Shaffer MD PCP: Aletha Zamudio DO Status: REG CLI Study: Finger(s) Min 2 Views Date of Exam: 11/06/16 Exam# [id number] Ordering Dr: Itzel Zamudio DO STUDY: X-RAY - LEFT HAND, ATTENTION LEFT THUMB. REASON FOR EXAM: Male, 66 years old. Pain following injury. TECHNIQUE: 3 view(s) of the finger were obtained. COMPARISON: None. FINDINGS: Normal metacarpal head. Normal metacarpophalangeal joint. Normal proximal phalanx. Normal middle phalanx. Normal distal phalanx. Normal proximal interphalangeal joint. N ormal distal interphalangeal joint. RAD/Finger(s) Min 2 Views IMPRESSION: Normal x-ray examination of the finger. Electronically Signed: Matthew Meyer MD at 13:48 EDT Tel [phone], Service support [phone], CC: Aletha Zamudio DO Clinical Assoc: Signed 20-Jun-2015 Sinus/Facial Bone Result: Comments: See Note; NOTES: [facility] Imaging Services [address] [place] [address] Verdana 4d Sinus/Facial Bone MR#: [id number] Acct: [id number] Name: DM GARCÍA Rep #: [id number] : 1950 65 From: Claribel Luna MD PCP: Aletha Zamudio DO Status: REG CLI Study: Sinus/Facial Bone Date of Exam: 06/20/15 Exam# [id number] Ordering Dr: Mauri Lopez MD STUDY: CT MAXILLOFACIAL SINUSES REASON FOR EXAM: Male, 65 years old sinusitis possible antral fistula history of tooth extraction. RADIATION DOSAGE (If Supplied By Facility): CTDIvol = ( 42.79 ) mGy, DLP = ( 593.83 ) mGycm TECHNIQUE: The patient was scanned in a multi detector CT scanner. High resolution axial imaging was performed without the administration of intraven ous contrast material. Sagittal and coronal images were reconstructed. COMPARISON: None. FINDINGS: FRONTAL SINUSES: Normal aeration, without mucosal inflammat ory disease. ETHMOIDAL SINUSES: There is mild scattered chronic mucosal inflammatory disease. MAXILLARY SINUSES: There is moderate opacification of the right maxillary sinus with a defect in the f osmel of the right maxillary sinus at the site of extraction consistent with silvano- antral fistula. Left maxillary sinus is clear. SPHENOIDAL SINUSES: Normal aeration, without mucosal inflammatory disea se. There is patency narrowing of the right maxillary sinus. Normal bilateral middle turbinates. Normal bilateral inferior turbinates. There is deviation of the nasal septum. There is patency of th e bilateral nasal airways. The visualized osseous structures are normal. The visualized bilateral orbital contents are normal. IMPRESSION: Moderate opacifica tion of the right maxillary sinus with a defect at the site of tooth extraction, in the location of the right posterior maxillary molar confirming presence of silvano-antral fistula. Electronically Sign ed: Claribel Luna MD at 22:37 EST Tel , Service support [phone], CC: Satinder Chavez MD; Aletha Zamudio DO Clinical Assoc: Signed 17-Jan-2015 Emergency Department Summary Result: Comments: See Note; NOTES: [facility] Medical Records Department [address] [place] [address] Emergency Department Summary MR#: [id number] Acct: [id number] Name: IZABEL CERDA Rep #: [id number] : 1950 64 From: Izabel Jones MD PCP: Aletha Zamudio DO Status: DEP ER DATE OF SERVICE: 01/15/2015 METHOD OF ARRIVAL: By private car. CHIEF COMPLAINT: N ear-syncope. PRIMARY CARE: Dr. Zamudio. SUMNER HISTORY: A 64-year-old male with history of hypertension, ulcerative colitis, mitral valve prolapse. The patient comes in with near-syncope. This occurr ed today about 3:00 p.m. The patient states he had a tooth extracted about 10:30 or 11:30 this morning. It is in the right upper. He was given a local, also given Vicodin. He was home sitting and sta rted having some pain in his tooth and then took a Vicodin at about 1:30. Later on, he got up again about 3, could he felt nauseated, lightheaded and sweaty. He felt like he might pass out, but he sta milad he did not. He denies any fever, chest pain, shortness of breath, cough. No vomiting or diarrhea. He just state he got a little bit nauseous, no abdominal pain, urinary symptoms. Denies any weakne ss, paresthesias, speech problems or anything to suggest localizing or focal neurologic symptoms. He states by the time he comes in he feels back to normal. PHYSICAL EXAMINATION: VITAL SIGNS: Stabl e, a little bit bradycardic, but afebrile. HEENT: No visible signs of trauma. He has got a tooth extraction, right upper tooth. There are no signs of dry socket, has a cotton placed. NECK: Supple. H EART: Regular, but bradycardic. LUNGS: Clear with no wheezes, rhonchi, stridor or accessory muscle use. ABDOMEN: Soft, nontender. No CVA tenderness. EXTREMITIES: Show no swelling or edema or calf ten derness. NEUROLOGIC: He is intact with no focal findings. NIH is 0. TESTS: EKG is sinus cleo at 52, no ischemia. CBC: His white count is normal, hemoglobin is slightly up at 15.7, platelet count i s 121. I have no old to compare to, 81 percent neutrophils, 11 percent lymphocytes. Chemistry panel is remarkable for sodium of 134, his troponin is negative. EMERGENCY DEPARTMENT COURSE: He was gi everton IV fluids. I checked orthostatics, they are negative. The heart rate did go up a little bit, but is not considered positive. At this time, on reevaluation, he feels a lot better. He wishes to go h ome. I do suspect this may be a vasovagal or combination with his tooth extraction, pain, the Vicodin as well he had not been eating as much. The patient agrees and plan will be home. Encouraged to fo llow up with his primary care. CLINICAL IMPRESSION: 1. Near syncopal, suspect vasovagal. 2. Recent tooth extraction. DISPOSITION: Home. MD Nael Dumont C: Alteha Zamudio DO T: NTS J OB: [id number] 01/17/15 0902 <Electronically signed by Izabel Jones MD> Date Izabel Jones MD CC: Aletha Zamudio DO Date Dictated: 1839 Date Transcribed: 01/15/151839 Clinical Assoc: Signed 16-Jan-2015 12 Lead Electrocardiogram Result: Comments: See Note; NOTES: [facility] Cardiovascular Services [address] [place] [address] 12 Lead EKG 01/15/151644 MR#: [id number] Acct: [id number] Name: BRANDIE GARCÍA Rep #: [id number] : 1950 64 From: Roberto Haynes MD Attending Dr: Status: DEP ER Ordering Dr: Izabel Jones MD Date: 01/15/15 Location: ED Sex: M C Admitted: Test Reason : NEAR S YNCOPE Blood Pressure : / mmHG Vent. Rate : 052 BPM Atrial Rate : 052 BPM P-R Int : 148 ms QRS Dur : 096 ms QT Int : 438 ms P-R-T Axes : 028 036 032 degrees QTc Int : 407 ms Sinus bradyc ardia Otherwise normal ECG Confirmed by IVY LEAVITT, ROBERTO ([id number]), graphic editor GEO WATTERS ([id number]) on 01/16/2015 9:52:23 AM Referred By: PRINCESS Confirmed By:ROBERTO HAYNES MD 01/16/15 0952 Date ____ Roberto Haynes MD CC: Aletha Zamudio DO Date Dictated: 01/15/151644 Date Transcribed: 01/15/151644 Clinical Assoc: Signed 15-Jan-2015 Discharge Instruction Result: Comments: See Note; NOTES: [facility] Medical Records Department [address] [place] [address] Discharge Instruction 01/15/15 1836 MR#: [id number] Acct: [id number] Name: IZABEL GARCÍA Rep #: [id number] : 1950 64 From: Izabel Jones MD PCP: Aletha Zamudio DO Status: REG ER ED Disposition - Plan for ED Patient: Disposition: Home Chief Complaint: Syn cope Instructions: ED Near Syncope, Vasovagal Referrals: Aletha Zamudio DO [Primary Care Provider] - 2 Days Additional Instructions: follow up with Dr Zamudio. fluids. return with problems. rest. recommend try to avoid taking vicodin What to do if you have Problems For any increased pain, shortness of breath, bleeding, nausea or vomiting, chest pain, or any unexpected problems, contact [facility]. Call [facility] ([phone]) or report to the closest Emergency Room. Call 911 if necessary. 01/15/15 1837 <Electronically signed by Izabel Jones MD> Date Izabel Jones MD Cosigner Signature (If Indicated): Date CC: Aletha Zamudio DO 17-Nov-2014 Inital Evaluation - PT Result: Comments: See Note; NOTES: [facility] Physical Therapy [facility] [address] [place] [address]. [address] [place] [address] Fax REHABILITATION SERVICES INITIAL EVALUATION MR#: [id number] Acct: [id number] Name: IZABEL GARCÍA Rep #: [id number] : 1950 64 From: Socorro Dejesus Referring : Aletha Zamudio DO Status: REG R Insurance: [facility] [employer] Eval Date: DATE OF SERVICE: 11/10/2014 SUBJECTIVE: This patient was referred to physical therapy by Dr. Aletha Zamudio with diagnoses of neck pain, cervical radiculitis and trap ezius spasm. 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 It started 5-6 weeks ago for no apparent reason and is currently unchanging. He reports he gets pain when he sleeps on his right side and it is stiff in the morning. The pain is disturbing his sleep. He has had some pain in the past, but yuniel berry reports this is different. He has had physical therapy for upper back pain and shoulder and neck pain a few years ago. He currently denies dizziness, ringing in the ears, nausea or difficulty swallowing. He reports being able to use his arms normally. He denies any recent or major surgery, having been in any accidents or any unexplained weight loss. He reports that neck x- rays revealed normal deterioration of the neck. He has not had a cervical MRI. PAST MEDICAL HISTORY: Significant for high cholesterol, ulcerative colitis, high blood pressure and mitral valve pro lapse. OBJECTIVE: This patient ambulates independently into physical therapy with no gross deviations noted. His sitting posture is poor. His standing posture is fair. He has a protruded head, but no torticollis. Active correction of his sitting posture has no effect on his symptoms. Bilateral upper extremity strength is 5/5 with manual muscle testing with a bilateral wildland fire fighter strength of 95 margarita nds. Bilateral upper extremity light touch sensation is intact and symmetrical. Bilateral upper extremity reflexes are 1/2. Cervical movement loss: Protrusion -- nil, flexion -- nil, retraction -- m oderate, extension -- moderate , right side bending -- moderate, left side bending -- moderate, bilateral rotation -- minimal. The patient denies pain with cervical range of motion testing in all stacia tabatha. He has a negative right rotator cuff test. He is not tender with palpation. Bilateral external rotation testing is strong, but right rotator cuff testing provokes right upper trapezius pain in the area of the pain that he came here for today and then it quickly abolished. He has increased muscle tone of bilateral posterior cervical and upper trapezius regions with palpation. ASSESSMENT: This patient is a 64-year-old male with complaint of intermittent right neck pain with chief complaint of not being able to sleep on his right side. This is disturbing his sleep. GOALS: 1. Decr ease complaint of right neck pain. 2. Improve sleep function. 3. Instruct in prophylaxis. PLAN: We plan to see this patient 2 times a week x5 weeks for cervical soft tissue mobilization, modaliti es as needed, posture correction/strengthening, instruction in proper workstation ergonomics and home exercise program instruction. We will consider cervical traction too, but try manual first. Ailyn goldman cervical traction testing today had no overall effect. He was agreeable with this plan of care. Socorro Dejesus, PT T: NTS JOB: [id number] <Electronically signed by Socorro Dejesus &# 62; 11/17/14 1538 CC: Signed For Medicare only, by signing this I certify the plan of care. Physicians Signature Date 03-Nov-2014 Cerv Spine 4 or 5 Views Result: Comments: See Note; NOTES: [facility] Imaging Services [address] [place] [address] Radiology Report MR#: [id number] Acct: [id number] Name: IZABEL GARCÍA Rep #: [id number] : 1950 64 From: Carter Pavon MD PCP: Aletha Zamudio DO Status: REG CLI Study: Cerv Spine 4 or 5 Views Date of Exam: 11/03/14 Exam# [id number] Ordering Dr: Aletha Zamudio DO STUDY: X-RAY - CERVICAL SPINE REASON FOR EXAM: Male, 64 years old. Right posterior neck pain. TECHNIQUE: 6 view(s) of the cervical spine were obtained. COMPARISON: None FINDINGS: Normal anterior atlantoaxial articulation. Normal odontoid process. Normal cervical lordosis. Degenerative endplate spondylosis seen at C4-5 and C5-6. There is degenerative luicna rowing of the C4-5 and C5-6 intervertebral disc heights. Degenerative change at the uncovertebral and apophyseal joints result in mild to moderate bony encroachment on the right C4-5 intervertebral n euroforamen. There are atherosclerotic vascular calcifications of the right carotid artery. There is no demonstrated osseous destructive process or fracture of the cervical spine. IMPRESSION: Degenerative changes of the cervical spine, as described. Electronically Signed: Adrian Pavon MD at 19:55 EDT , Service support [phone], CC: Aletha Zamudio DO Clinical Assoc: Signed Immunization Name Dates Details Pneumococcal (2 years and up) on: 28-May-2015 Comments: Site: Deltoid (Left) Lot #: [id number] Tdap (7 years and up) on: 28-Mar-2009 Comments: Tdap given in Left DeltoidLot# [id number] 07-14-2011 Social History Name Dates Details Caffeine Use Comments: occ. 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 Comments: 09/01/11 Status: Active Smoking Status Name Dates Details Never smoker Vital Signs Date Test Result Details [id number] Pulse 62 /min Comments: Pattern: Regular Respiration Rate 18 /min Comments: Pattern: Unlabored O2 SAT 98 % Comments: Room air BP Systolic 142 mm[Hg] Comments: Patient Position: Sitting; Cuff Location: Left Arm; Cuff Size: Large BP Diastolic 80 mm[Hg] Comments: Patient Position: Sitting; Cuff Location: Left Arm; Cuff Size: Large Weight 194.375 lb Height 70 in Body Mass Index Calculated 27.89 kg/m2 Body Surface Area Calculated 2.06 m2 [id number] Comments: Dr. Mcneill and had a glaucoma test donehearing wn Temperature 97.4 f Comments: Method: Temporal Pulse 69 /min Comments: Pattern: Regular Respiration Rate 16 /min Comments: Pattern: Unlabored O2 SAT 97 % Comments: Room air BP Systolic 124 mm[Hg] Comments: Patient Position: Standing; Cuff Location: Left Arm; Cuff Size: Large BP Diastolic 76 mm[Hg] Comments: Patient Position: Standing; Cuff Location: Left Arm; Cuff Size: Large Weight 194.375 lb Height 70 in Body Mass Index Calculated 27.89 kg/m2 Body Surface Area Calculated 2.06 m2 :30 Temperature 98.3 f Comments: Method: Temporal Pulse 64 /min Comments: Pattern: Regular Respiration Rate 16 /min Comments: Pattern: Unlabored O2 SAT 98 % Comments: Room air BP Systolic 122 mm[Hg] Comments: Patient Position: Sitting; Cuff Location: Left Arm; Cuff Size: Standard BP Diastolic 68 mm[Hg] Comments: Patient Position: Sitting; Cuff Location: Left Arm; Cuff Size: Standard Weight 205 lb Height 70 in Body Mass Index Calculated 29.41 kg/m2 Body Surface Area Calculated 2.11 m2 :00 Temperature 97.9 f Comments: Method: Temporal Pulse 64 /min Comments: Pattern: Regular Respiration Rate 16 /min Comments: Pattern: Unlabored O2 SAT 98 % Comments: Room air BP Systolic 132 mm[Hg] Comments: Patient Position: Sitting; Cuff Location: Left Arm; Cuff Size: Standard BP Diastolic 78 mm[Hg] Comments: Patient Position: Sitting; Cuff Location: Left Arm; Cuff Size: Standard Weight 205 lb Height 70 in Body Mass Index Calculated 29.41 kg/m2 Body Surface Area Calculated 2.11 m2 :47 Comments: Pulse 54 - takes BB but has not taken his dose 0- Sees Dr Juárez and he has him splitting them to 12.5 bid. Blood Pressures at home -- 122/80, 118/80 -- in that area Temperature 94 f Comments: Method: Temporal Pulse 54 /min Comments: Pattern: Regular Respiration Rate 16 /min Comments: Pattern: Unlabored O2 SAT 94 % Comments: Room air BP Systolic 126 mm[Hg] Comments: Patient Position: Sitting; Cuff Location: Left Arm; Cuff Size: Standard BP Diastolic 70 mm[Hg] Comments: Patient Position: Sitting; Cuff Location: Left Arm; Cuff Size: Standard Weight 205 lb Height 70 in Body Mass Index Calculated 29.41 kg/m2 Body Surface Area Calculated 2.11 m2 :44 Pulse 61 /min Comments: Pattern: Regular Respiration Rate 18 /min Comments: Pattern: Unlabored O2 SAT 97 % Comments: Room air BP Systolic 128 mm[Hg] Comments: Patient Position: Sitting; Cuff Location: Left Arm; Cuff Size: Standard BP Diastolic 78 mm[Hg] Comments: Patient Position: Sitting; Cuff Location: Left Arm; Cuff Size: Standard Weight 206.125 lb Height 70 in Body Mass Index Calculated 29.58 kg/m2 Body Surface Area Calculated 2.11 m2 :36 Pulse 67 /min Comments: Pattern: Regular Respiration Rate 18 /min Comments: Pattern: Unlabored O2 SAT 98 % Comments: Room air BP Systolic 132 mm[Hg] Comments: Patient Position: Sitting; Cuff Location: Left Arm; Cuff Size: Large BP Diastolic 80 mm[Hg] Comments: Patient Position: Sitting; Cuff Location: Left Arm; Cuff Size: Large Weight 191.375 lb Height 70 in Body Mass Index Calculated 27.46 kg/m2 Body Surface Area Calculated 2.05 m2 :55 Temperature 98.5 f Comments: Method: Temporal Pulse 67 /min Comments: Pattern: Regular Respiration Rate 18 /min Comments: Pattern: Unlabored O2 SAT 100 % Comments: Room air BP Systolic 122 mm[Hg] Comments: Patient Position: Sitting; Cuff Location: Left Arm; Cuff Size: Large BP Diastolic 82 mm[Hg] Comments: Patient Position: Sitting; Cuff Location: Left Arm; Cuff Size: Large Weight 175 lb Height 70 in Body Mass Index Calculated 25.11 kg/m2 Body Surface Area Calculated 1.97 m2 :21 Pulse 57 /min Comments: Pattern: Regular Respiration Rate 18 /min Comments: Pattern: Unlabored O2 SAT 97 % Comments: Room air BP Systolic 102 mm[Hg] Comments: Patient Position: Sitting; Cuff Location: Left Arm; Cuff Size: Standard BP Diastolic 64 mm[Hg] Comments: Patient Position: Sitting; Cuff Location: Left Arm; Cuff Size: Standard Weight 175 lb Height 70 in Body Mass Index Calculated 25.11 kg/m2 Body Surface Area Calculated 1.97 m2 :07 Pulse 64 /min Comments: Pattern: Regular Respiration Rate 18 /min Comments: Pattern: Unlabored O2 SAT 98 % Comments: Room air BP Systolic 118 mm[Hg] Comments: Patient Position: Sitting; Cuff Location: Left Arm; Cuff Size: Standard BP Diastolic 64 mm[Hg] Comments: Patient Position: Sitting; Cuff Location: Left Arm; Cuff Size: Standard Weight 175 lb Height 70 in Body Mass Index Calculated 25.11 kg/m2 Body Surface Area Calculated 1.97 m2 :23 Comments: recheck BP 138/78 Pulse 62 /min Comments: Pattern: Regular Respiration Rate 18 /min Comments: Pattern: Unlabored O2 SAT 98 % Comments: Room air BP Systolic 148 mm[Hg] Comments: Patient Position: Sitting; Cuff Location: Left Arm; Cuff Size: Large BP Diastolic 82 mm[Hg] Comments: Patient Position: Sitting; Cuff Location: Left Arm; Cuff Size: Large Weight 189.25 lb Height 70 in Body Mass Index Calculated 27.15 kg/m2 Body Surface Area Calculated 2.04 m2 :54 Temperature 97.8 f Comments: Method: Temporal Pulse 79 /min Comments: Pattern: Regular Respiration Rate 16 /min Comments: Pattern: Unlabored O2 SAT 99 % Comments: Room air BP Systolic 124 mm[Hg] Comments: Patient Position: Sitting; Cuff Location: Left Arm; Cuff Size: Standard BP Diastolic 64 mm[Hg] Comments: Patient Position: Sitting; Cuff Location: Left Arm; Cuff Size: Standard Weight 193.375 lb Height 70 in Body Mass Index Calculated 27.75 kg/m2 Body Surface Area Calculated 2.06 m2 :02 Temperature 98.8 f Comments: Method: Temporal Pulse 60 /min Comments: Pattern: Regular Respiration Rate 18 /min Comments: Pattern: Unlabored O2 SAT 98 % Comments: Room air BP Systolic 132 mm[Hg] Comments: Patient Position: Sitting; Cuff Location: Left Arm; Cuff Size: Large BP Diastolic 72 mm[Hg] Comments: Patient Position: Sitting; Cuff Location: Left Arm; Cuff Size: Large Weight 193.375 lb Height 70 in Body Mass Index Calculated 27.75 kg/m2 Body Surface Area Calculated 2.06 m2 :14 Pulse 61 /min Comments: Pattern: Regular Respiration Rate 18 /min Comments: Pattern: Unlabored O2 SAT 98 % Comments: Room air BP Systolic 132 mm[Hg] Comments: Patient Position: Sitting; Cuff Location: Left Arm; Cuff Size: Large BP Diastolic 82 mm[Hg] Comments: Patient Position: Sitting; Cuff Location: Left Arm; Cuff Size: Large Weight 193.375 lb Height 70 in Body Mass Index Calculated 27.75 kg/m2 Body Surface Area Calculated 2.06 m2 :32 Temperature 98.2 f Comments: Method: Oral Pulse 60 /min Comments: Pattern: Regular O2 SAT 98 % Comments: Room air BP Systolic 110 mm[Hg] Comments: Patient Position: Sitting; Cuff Location: Left Arm; Cuff Size: Standard BP Diastolic 70 mm[Hg] Comments: Patient Position: Sitting; Cuff Location: Left Arm; Cuff Size: Standard Weight 193.1875 lb Height 70 in Body Mass Index Calculated 27.72 kg/m2 Body Surface Area Calculated 2.06 m2 :26 Temperature 98.6 f Comments: Method: Oral Pulse 66 /min Comments: Pattern: Regular Respiration Rate 18 /min O2 SAT 98 % Comments: Room air BP Systolic 120 mm[Hg] Comments: Patient Position: Sitting; Cuff Location: Left Arm; Cuff Size: Standard BP Diastolic 72 mm[Hg] Comments: Patient Position: Sitting; Cuff Location: Left Arm; Cuff Size: Standard Weight 193.1875 lb Height 70 in Body Mass Index Calculated 27.72 kg/m2 Body Surface Area Calculated 2.06 m2 :23 Temperature 96.6 f Comments: Method: Oral Pulse 66 /min Comments: Pattern: Regular Respiration Rate 18 /min Comments: Pattern: Unlabored O2 SAT 98 % Comments: Room air BP Systolic 132 mm[Hg] Comments: Patient Position: Sitting; Cuff Location: Left Arm; Cuff Size: Standard BP Diastolic 70 mm[Hg] Comments: Patient Position: Sitting; Cuff Location: Left Arm; Cuff Size: Standard Weight 193.1875 lb Height 70 in Body Mass Index Calculated 27.72 kg/m2 Body Surface Area Calculated 2.06 m2 :05 Temperature 97.9 f Comments: Method: Oral Pulse 64 /min Comments: Pattern: Regular Respiration Rate 16 /min O2 SAT 97 % Comments: Room air BP Systolic 126 mm[Hg] Comments: Patient Position: Sitting; Cuff Location: Left Arm; Cuff Size: Standard BP Diastolic 74 mm[Hg] Comments: Patient Position: Sitting; Cuff Location: Left Arm; Cuff Size: Standard Weight 193 lb Height 70 in Body Mass Index Calculated 27.69 kg/m2 Body Surface Area Calculated 2.06 m2 :53 Temperature 97 f Comments: Method: Oral Pulse 60 /min Comments: Pattern: Regular Respiration Rate 20 /min Comments: Pattern: Unlabored BP Systolic 122 mm[Hg] Comments: Patient Position: Sitting; Cuff Location: Left Arm; Cuff Size: Standard BP Diastolic 78 mm[Hg] Comments: Patient Position: Sitting; Cuff Location: Left Arm; Cuff Size: Standard Weight 193 lb Height 70 in Body Mass Index Calculated 27.69 kg/m2 Body Surface Area Calculated 2.06 m2 :56 Temperature 97.9 f Comments: Method: Oral Pulse 60 /min Comments: Pattern: Regular Respiration Rate 16 /min Comments: Pattern: Unlabored BP Systolic 142 mm[Hg] Comments: Patient Position: Sitting; Cuff Location: Left Arm; Cuff Size: Standard BP Diastolic 98 mm[Hg] Comments: Patient Position: Sitting; Cuff Location: Left Arm; Cuff Size: Standard Weight 193 lb Height 70 in Body Mass Index Calculated 27.69 kg/m2 Body Surface Area Calculated 2.06 m2 :56 Temperature 97.3 f Comments: Method: Oral Pulse 72 /min Comments: Pattern: Regular Respiration Rate 18 /min Comments: Pattern: Unlabored BP Systolic 142 mm[Hg] Comments: Patient Position: Sitting; Cuff Location: Left Arm; Cuff Size: Standard BP Diastolic 80 mm[Hg] Comments: Patient Position: Sitting; Cuff Location: Left Arm; Cuff Size: Standard Weight 191.25 lb Height 70 in Body Mass Index Calculated 27.44 kg/m2 Body Surface Area Calculated 2.05 m2 :03 Temperature 97.7 f Comments: Method: Oral Pulse 68 /min Comments: Pattern: Regular Respiration Rate 20 /min Comments: Pattern: Unlabored BP Systolic 138 mm[Hg] Comments: Patient Position: Sitting; Cuff Location: Left Arm; Cuff Size: Large BP Diastolic 78 mm[Hg] Comments: Patient Position: Sitting; Cuff Location: Left Arm; Cuff Size: Large Weight 0.25 lb Height 70 in Body Mass Index Calculated 0.04 kg/m2 Body Surface Area Calculated 0.12 m2 :57 Temperature 98.3 f Comments: Method: Oral Pulse 64 /min Comments: Pattern: Regular Respiration Rate 18 /min Comments: Pattern: Unlabored BP Systolic 122 mm[Hg] Comments: Patient Position: Sitting; Cuff Location: Left Arm; Cuff Size: Large BP Diastolic 80 mm[Hg] Comments: Patient Position: Sitting; Cuff Location: Left Arm; Cuff Size: Large Weight 213.25 lb Height 70 in Body Mass Index Calculated 30.6 kg/m2 Body Surface Area Calculated 2.15 m2 :07 Pulse 60 /min Comments: Pattern: Regular Respiration Rate 20 /min Comments: Pattern: Unlabored BP Systolic 124 mm[Hg] Comments: Patient Position: Sitting; Cuff Location: Left Arm; Cuff Size: Large BP Diastolic 70 mm[Hg] Comments: Patient Position: Sitting; Cuff Location: Left Arm; Cuff Size: Large Weight 215.25 lb Height 70 in Body Mass Index Calculated 30.88 kg/m2 Body Surface Area Calculated 2.15 m2 :25 Temperature 96.2 f Comments: Method: Oral Pulse 60 /min Comments: Pattern: Regular Respiration Rate 18 /min Comments: Pattern: Unlabored BP Systolic 124 mm[Hg] Comments: Patient Position: Sitting; Cuff Location: Left Arm; Cuff Size: Standard BP Diastolic 80 mm[Hg] Comments: Patient Position: Sitting; Cuff Location: Left Arm; Cuff Size: Standard Weight 209.3125 lb Height 70 in Body Mass Index Calculated 30.03 kg/m2 Body Surface Area Calculated 2.13 m2 :00 Pulse 60 /min Comments: Pattern: Regular Respiration Rate 20 /min Comments: Pattern: Unlabored BP Systolic 122 mm[Hg] Comments: Patient Position: Sitting; Cuff Location: Left Arm; Cuff Size: Large BP Diastolic 78 mm[Hg] Comments: Patient Position: Sitting; Cuff Location: Left Arm; Cuff Size: Large Weight 212.5 lb Height 70 in Body Mass Index Calculated 30.49 kg/m2 Body Surface Area Calculated 2.14 m2 :03 Pulse 68 /min Comments: Pattern: Regular Respiration Rate 20 /min Comments: Pattern: Unlabored BP Systolic 122 mm[Hg] Comments: Patient Position: Sitting; Cuff Location: Left Arm; Cuff Size: Large BP Diastolic 60 mm[Hg] Comments: Patient Position: Sitting; Cuff Location: Left Arm; Cuff Size: Large Weight 214.5 lb Height 70 in Body Mass Index Calculated 30.78 kg/m2 Body Surface Area Calculated 2.15 m2 :59 Pulse 64 /min Comments: Pattern: Regular Respiration Rate 20 /min Comments: Pattern: Unlabored BP Systolic 140 mm[Hg] Comments: Patient Position: Sitting; Cuff Location: Left Arm; Cuff Size: Large BP Diastolic 78 mm[Hg] Comments: Patient Position: Sitting; Cuff Location: Left Arm; Cuff Size: Large Weight 208.0625 lb Height 70 in Body Mass Index Calculated 29.85 kg/m2 Body Surface Area Calculated 2.12 m2 :03 Pulse 72 /min Comments: Pattern: Regular Respiration Rate 20 /min Comments: Pattern: Unlabored BP Systolic 122 mm[Hg] Comments: Patient Position: Sitting; Cuff Location: Left Arm; Cuff Size: Large BP Diastolic 78 mm[Hg] Comments: Patient Position: Sitting; Cuff Location: Left Arm; Cuff Size: Large Weight 217.375 lb Height 70 in Body Mass Index Calculated 31.19 kg/m2 Body Surface Area Calculated 2.16 m2 Head Circumference 0.00 cm :46 Pulse 80 /min Comments: Pattern: Regular Respiration Rate 20 /min Comments: Pattern: Unlabored BP Systolic 142 mm[Hg] Comments: Patient Position: Sitting; Cuff Location: Left Arm; Cuff Size: Large BP Diastolic 84 mm[Hg] Comments: Patient Position: Sitting; Cuff Location: Left Arm; Cuff Size: Large Weight 217.375 lb Height 70 in Body Mass Index Calculated 31.19 kg/m2 Body Surface Area Calculated 2.16 m2 Head Circumference 0.00 cm :20 Temperature 95.3 f Comments: Method: Oral Pulse 60 /min Comments: Pattern: Regular Respiration Rate 16 /min Comments: Pattern: Unlabored BP Systolic 142 mm[Hg] Comments: Patient Position: Sitting; Cuff Location: Left Arm; Cuff Size: Standard BP Diastolic 76 mm[Hg] Comments: Patient Position: Sitting; Cuff Location: Left Arm; Cuff Size: Standard Weight 0 lb Height 0 in Head Circumference 0.00 cm :24 Pulse 60 /min Comments: Pattern: Regular Respiration Rate 16 /min Comments: Pattern: Unlabored BP Systolic 140 mm[Hg] Comments: Patient Position: Supine; Cuff Location: Left Arm; Cuff Size: Large BP Diastolic 78 mm[Hg] Comments: Patient Position: Supine; Cuff Location: Left Arm; Cuff Size: Large Weight 217.375 lb Height 70 in Body Mass Index Calculated 31.19 kg/m2 Body Surface Area Calculated 2.16 m2 Head Circumference 0.00 cm :51 Pulse 60 /min Comments: Pattern: Regular Respiration Rate 12 /min Comments: Pattern: Unlabored BP Systolic 120 mm[Hg] Comments: Patient Position: Sitting; Cuff Location: Left Arm; Cuff Size: Standard BP Diastolic 78 mm[Hg] Comments: Patient Position: Sitting; Cuff Location: Left Arm; Cuff Size: Standard Weight 217.375 lb Height 70 in Body Mass Index Calculated 31.19 kg/m2 Body Surface Area Calculated 2.16 m2 Head Circumference 0.00 cm :52 Temperature 99.2 f Comments: Method: Oral Pulse 66 /min Comments: Pattern: Regular Respiration Rate 16 /min Comments: Pattern: Unlabored O2 SAT 96 % Comments: Room air BP Systolic 132 mm[Hg] Comments: Patient Position: Sitting; Cuff Location: Left Arm; Cuff Size: Large BP Diastolic 82 mm[Hg] Comments: Patient Position: Sitting; Cuff Location: Left Arm; Cuff Size: Large Weight 217.375 lb Height 70 in Body Mass Index Calculated 31.19 kg/m2 Body Surface Area Calculated 2.16 m2 Head Circumference 0.00 cm :48 Temperature 98 f Comments: Method: Oral Pulse 68 /min Comments: Pattern: Regular Respiration Rate 20 /min Comments: Pattern: Unlabored BP Systolic 142 mm[Hg] Comments: Patient Position: Sitting; Cuff Location: Left Arm; Cuff Size: Standard BP Diastolic 80 mm[Hg] Comments: Patient Position: Sitting; Cuff Location: Left Arm; Cuff Size: Standard Weight 217.375 lb Height 70 in Body Mass Index Calculated 31.19 kg/m2 Body Surface Area Calculated 2.16 m2 Head Circumference 0.00 cm :53 Pulse 64 /min Comments: Pattern: Regular Respiration Rate 20 /min Comments: Pattern: Unlabored BP Systolic 132 mm[Hg] Comments: Patient Position: Sitting; Cuff Location: Left Arm; Cuff Size: Standard BP Diastolic 78 mm[Hg] Comments: Patient Position: Sitting; Cuff Location: Left Arm; Cuff Size: Standard Weight 217.375 lb Height 70 in Body Mass Index Calculated 31.19 kg/m2 Body Surface Area Calculated 2.16 m2 Head Circumference 0.00 cm :53 Temperature 98.4 f Comments: Method: Oral Pulse 74 /min Comments: Pattern: Regular Respiration Rate 18 /min Comments: Pattern: Unlabored BP Systolic 120 mm[Hg] Comments: Patient Position: Sitting; Cuff Location: Left Arm; Cuff Size: Standard BP Diastolic 80 mm[Hg] Comments: Patient Position: Sitting; Cuff Location: Left Arm; Cuff Size: Standard Weight 0 lb Height 0 in Head Circumference 0.00 cm :48 Temperature 98.4 f Comments: Method: Undefined Pulse 88 /min Comments: Pattern: Regular Respiration Rate 16 /min Comments: Pattern: Undefined BP Systolic 142 mm[Hg] Comments: Patient Position: Sitting; Cuff Location: Left Arm; Cuff Size: Standard BP Diastolic 70 mm[Hg] Comments: Patient Position: Sitting; Cuff Location: Left Arm; Cuff Size: Standard Weight 213.0625 lb Height 70 in Body Mass Index Calculated 30.57 kg/m2 Body Surface Area Calculated 2.14 m2 Head Circumference 0.00 cm Results Date Description Value Details :15 CBC W/Diff, Automated Comments: [facility] [id number] [place], [place], [id number] Absolute Lymph 1.68 {X10_3/ul} (Normal) Range: 0.83-4.51 Absolute Neut 2.2 {X10_3/uL} (Normal) Range: 2.0-7.7 IM GRAN % 0.200 % (Normal) Range: 0.0-0.9 Comments: IG% - Immature Granulocytes (promyelocytes, myelocytes andmetamyelocytes) > 1% indicates that a LEFT SHIFT is Present. BASO% 0.5 % (Normal) Range: 0-1 EO% 2.5 % (Normal) Range: 0-5 MONO% 9.2 % (Normal) Range: 0-10 LY% 38.4 % (Normal) Range: 19-41 NEUT% 49.2 % (Normal) Range: 47-70 MPV 10.9 fL (Normal) Range: 6.2-12.0 PLT 133 K/mm3 (Abnormal) Range: 150-450 RDW SD 44.1 fL (Abnormal) Range: 35.1-43.9 RDW CV 13.6 % (Normal) Range: 11.6-14.6 MCHC 33.6 {g/gl} (Normal) Range: 32-36 MCH 30.1 pg (Normal) Range: 27.0-32.0 MCV 89.5 fL (Normal) Range: 80-94 HCT 44.3 % (Normal) Range: 40-54 HGB 14.9 g/dL (Normal) Range: 13.0-16.5 RBC 4.95 {M/mm3} (Normal) Range: 4.6-6.2 WBC 4.4 K/mm3 (Normal) Range: 4.4-11.0 :15 Erythrocyte Sed Rate Comments: [facility] [id number] [place], [place], [id number] SED RATE 5 mm/h (Normal) Range: 0-20 [id number]-[id number]:15 Prothrombin Time w/INR Comments: [facility] [id number] [place], [address] INR 2.8 (Normal) PROTIME 30.0 s (Abnormal) Range: 11.7-14.9 21-Gfd-[id number]:55 Urinalysis, Office ([id number]) UA - LEUKOCYTE ESTERASE Trace (Normal) UA - NITRITE Negative (Normal) URINE UROBILINGN SHANIQUE TIMED Normal mg/dL (Normal) UA - PROTEIN Negative mg/dL (Normal) UA - PH 6 (Abnormal) UA - BLOOD Non Hemolyzed Trace (Normal) UA - SPECIFIC GRAVITY 1.025 (Normal) UA - KETONES Negative mg/dL (Normal) UA - BILIRUBIN Negative (Normal) UA - GLUCOSE Negative (Normal) 78-Ltq-43511:36 THROAT CULTURE ([id number]) Comments: PATIENT NOT FASTINGPERFORMED BY: [employer] [facility] [id number] Information: SRC:TH Result 1 RRF (Normal) Comments: Routine respiratory natalie Upper Respiratory Culture Final report (Normal) 63-Scf-28572:01 Rapid Strep Test, Office ([id number]) Rapid Strep Test, Office Negative (Normal) 26-Lii-977543:48 PSA (Medicare - G0103) Comments: PATIENT WAS FASTINGPERFORMED BY: [employer] [facility] [id number] ([id number]) Prostate Specific Ag, 0.8 ng/mL (Normal) Range: 0.0-4.0 Serum Comments: [employer] ECLIA methodology. .According to the [employer] [employer], Serum PSA shoulddecrease and remain at undetectable levels after radicalprostatectomy. The AUA defines biochemical recurrence as an initialPSA value 0.2 ng/mL or greater followed by a subsequent confirmatoryPSA value 0.2 ng/mL or greater.Values obtained with d ifferent assay methods or kits cannot be usedinterchangeably. Results cannot be interpreted as absolute evidenceof the presence or absence of malignant disease. [id number]-Atr-[id number]:48 TSH ([id number]) Comments: PATIENT WAS FASTINGPERFORMED BY: [facility] RehabilitationFfebqb3516 [facility] [id number] TSH 0.464 {uIU/mL} (Normal) Range: 0.450-4.500 89-Lhe-448536:48 Metabolic Panel, Comprehensive Comments: PATIENT WAS FASTINGPERFORMED BY: [facility]ageUN[facility] HospitalGtafaf2984 [facility] [id number] (20203) ALT (SGPT) 26 [iU]/L (Normal) Range: 0-44 AST (SGOT) 32 [iU]/L (Normal) Range: 0-40 Alkaline Phosphatase 77 [iU]/L (Normal) Range: 39-117 Bilirubin, Total 0.7 mg/dL (Normal) Range: 0.0-1.2 A/G Ratio 1.8 (Normal) Range: 1.2-2.2 Globulin, Total 2.5 g/dL (Normal) Range: 1.5-4.5 Albumin 4.6 g/dL (Normal) Range: 3.6-4.8 Protein, Total 7.1 g/dL (Normal) Range: 6.0-8.5 Calcium 9.2 mg/dL (Normal) Range: 8.6-10.2 Carbon Dioxide, Total 21 mmol/L (Normal) Range: 20-29 Comments: Please note reference interval change Chloride 101 mmol/L (Normal) Range: 96-106 Potassium 5.0 mmol/L (Normal) Range: 3.5-5.2 Sodium 139 mmol/L (Normal) Range: 134-144 BUN/Creatinine Ratio 23 (Normal) Range: 10-24 eGFR If Africn Am 100 mL/min/1.73 (Normal) eGFR If NonAfricn Am 87 mL/min/1.73 (Normal) Creatinine 0.91 mg/dL (Normal) Range: 0.76-1.27 BUN 21 mg/dL (Normal) Range: 8-27 Glucose 98 mg/dL (Normal) Range: 65-99 12-Jcd-855054:48 Lipid Panel ([id number]) Comments: PATIENT WAS FASTINGPERFORMED BY: [facility] RehabilitationKdggxg8393 [facility] [id number] LDL/HDL Ratio 2.4 {ratio} (Normal) Range: 0.0-3.6 Comments: LDL/HDL Ratio Men Women 1/2 Avg.Risk 1.0 1.5 Av g.Risk 3.6 3.2 2X Avg.Risk 6.2 5.0 3X Avg.Risk 8.0 6.1 LDL Cholesterol Calc 92 mg/dL (Normal) Range: 0-99 VLDL Cholesterol Brandon 29 mg/dL (Normal) Range: 5-40 HDL Cholesterol 38 mg/dL (Abnormal) Triglycerides 146 mg/dL (Normal) Range: 0-149 Cholesterol, Total 159 mg/dL (Normal) Range: 100-199 96-Ceb-624305:48 URINALYSIS (15251) Comments: PATIENT WAS FASTINGPERFORMED BY: [employer] [facility] [id number] Microscopic Examination MICNIP (Normal) Comments: Microscopic not indicated and not performed. Nitrite, Urine Negative (Normal) Urobilinogen,Semi-Qn 0.2 mg/dL (Normal) Range: 0.2-1.0 Bilirubin Negative (Normal) Occult Blood Negative (Normal) Ketones Negative (Normal) Glucose Negative (Normal) Protein Trace (Normal) WBC Esterase Negative (Normal) Appearance Clear (Normal) Urine-Color Yellow (Normal) pH 7.0 (Normal) Range: 5.0-7.5 Specific Ramsey 1.026 (Normal) Range: 1.005-1.030 18-Lfz-[id number]:48 MICROALBUMIN: CREATININE RATIO Comments: PATIENT WAS FASTINGPERFORMED BY: [employer] [facility] [id number] ([id number]) AND (76576) Alb/Creat Ratio 9.9 {mg/g_creat} (Normal) Range: 0.0-30.0 Albumin, Urine 19.3 ug/mL (Normal) Creatinine, Urine 194.2 mg/dL (Normal) 45-Zee-[id number]:48 CBC WITH MANUAL DIFF ([id number]) Comments: PATIENT WAS FASTINGPERFORMED BY: [employer] Knmdds6564 [facility] [id number] Immature Grans (Abs) 0.0 {x10E3/uL} (Normal) Range: 0.0-0.1 Immature Granulocytes 0 % (Normal) Baso (Absolute) 0.0 {x10E3/uL} (Normal) Range: 0.0-0.2 Eos (Absolute) 0.1 {x10E3/uL} (Normal) Range: 0.0-0.4 Monocytes(Absolute) 0.5 {x10E3/uL} (Normal) Range: 0.1-0.9 Lymphs (Absolute) 1.6 {x10E3/uL} (Normal) Range: 0.7-3.1 Neutrophils (Absolute) 2.6 {x10E3/uL} (Normal) Range: 1.4-7.0 Basos 0 % (Normal) Eos 1 % (Normal) Monocytes 10 % (Normal) Lymphs 33 % (Normal) Neutrophils 56 % (Normal) Platelets 149 {x10E3/uL} (Abnormal) Range: 150-379 RDW 14.6 % (Normal) Range: 12.3-15.4 MCHC 33.5 g/dL (Normal) Range: 31.5-35.7 MCH 29.9 pg (Normal) Range: 26.6-33.0 MCV 89 fL (Normal) Range: 79-97 Hematocrit 49.6 % (Normal) Range: 37.5-51.0 Hemoglobin 16.6 g/dL (Normal) Range: 13.0-17.7 RBC 5.56 {x10E6/uL} (Normal) Range: 4.14-5.80 WBC 4.8 {x10E3/uL} (Normal) Range: 3.4-10.8 :00 Homocysteine, Plasma (07885) Comments: PATIENT NOT FASTINGPERFORMED BY: [facility] Wolefc0546 [facility] [id number] Homocyst(e)ine, Plasma 11.5 umol/L (Normal) Range: 0.0-15.0 :41 MTHFR (85476) Comments: PATIENT NOT FASTINGPERFORMED BY: TG [facility] [id number] [facility] [id number] MTHFR, DNA Analysis [id number] (Normal) Comments: Result: C677T/C677T Two copies of the same mutation (C677T and C677T) identified .Interpretation: .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 Homozygosity for [id number] mutation confers an increased risk for the development ofhyperhomocysteinemia when the individual is deficient in folate,vitamin B6, or vitamin B12. A fasting homocysteine level should bemeasured. Hyperhomocysteinemia may also occur due to mutations inenzymes other than MTHFR that are involved in homocysteine metabolism,or arise due to acquired factors. If homocysteine falls within thenormal range, there is no increased risk for venous thromboembolism vera women, recurrent loss. Elevated homocysteine may beassociated with a mildly increased risk for venous thrombosis, coronaryartery disease and recurrent preg ted loss. Women homozygous forMTHFR C677T also have a modestly increased risk of neural tube defectswith , with a greater risk if the fetus is also homozygousfor MTHFR C677T. Other risk facto rs may be detected through systematicclinical laboratory analysis.Methylenetetrahydrofoloate reductase (MTHFR) is a smuner enzyme in thefolate pathway and is responsible for the metabolism of homocysteine. There are two common variants in the MTHFR gene, c.655c>T([id number]), referred to as C677T, and c.1286A>C (p.Lyq430Lrv),referred to as [id number]. Individuals homozygous for C677T (two copiesof the variant), have decreased activity of the MTHFR enzyme and apredisposition to hyperhomocysteinemia, particularly when deficient infolate. Hyperhomocysteinemia is a risk factor for venous thrombosisand c oronary artery disease and is associated with an increased riskof open neural tube defects. The C677T variant does notindependently increase risk of these conditions in the absence ofhyperhomocyst einemia. The X3301P variant is not associated withelevated homocysteine levels unless a C677T variant is also present;however, the clinical significance of heterozygosity for both [id number] is con troversial. Population data suggest that these twovariants are not present on the same chromosome, but rare exceptionshave been reported of triple variant MTHFR genotypes (ie. homozygousfor one variant and heterozygous for the other). Homozygosity [id number] has an estimated frequency of 10% to 15% in Caucasians and 25%in Hispanics. .Ad ditional information:Dietary folic acid, B6 and B12 supplementation has been suggested tolower homocysteine levels in some people. Folic acid supplementationhas been shown to reduce the occurrence of ne ural tube defects. .Genetic counselors are available for health care providers to discussresults at [phone]. .Methodology:DNA analysis of the MTHFR gene was performed by PCRamplification followed by restriction analysis. Thediagnostic sensitivity is >99% for both. Molecular-basedtesting is highly accurate, but as in any laboratory test,rare diagnostic errors may occur. All test results must becombined with clinical information for the most accurateinterpre tation. .This test was developed and its performance characteristicsdetermined by [employer]. It has not been cleared or approved byUT [facility] od and Drug Administration. .References:Sima LD, Franklyn Q. Am J Epidemiol 2000; 151(9):862-877.Kurt MM, Rhiannon JA. Arch Pathol Lab Med 2007; 131(6):872-884.Frosst P et al. Nuris Fifi 1995; 10(1):111-113.Hickey SE et al. Fifi Med 2013; 15(2):153-156.[place] C et al. Obstet Gynecol 2011; 118(3):730-740.Nicolas B et al. Eur J Epidemio l 2013; 28(8):621-647. .Nba Lopes, PhD, Raphael Valladares, PhD, Jose Yepez, PhD, Armand Flores MZbigniewSZbigniew, PhD, Jane Castaneda, PhD, Georgia Mcgee, PhD, Cici Rosa, PhD, [facility] 1-Zzh-229854:52 Miscellaneous Lab Procedure Comments: Test(s) Ordered: [id number] ALLERGEN PROFILE FOOD IGE W REFL 3TI [facility] [address] [place], [address] [facility] [place]: TEST RESULT LIMITSIgE Food w/Component Reflex IIClass DescriptionLevels of Specific IgE Class Description of Class ----- --------- LAB (Normal) < 0.10 0 Negative 0.10 - 0.31 0/I Equivocal/Low 0.32 - 0.55 I Low 0.56 - 1.40 TEST II Moderate 1.41 - 3.90 III High 3.91 - 19.00 IV Very High 19.01 - 100.00 V Very High >100.0 0 Very QcwlQ681-CmK Clam <0.10 kU/L Class 8Y570-WzQ Codfish <0.10 kU/L Class 0F008- IgE [place] <0.10 kU/L Class 8T409-SjP Scallop 0.12 Abnormal kU/L Class 0/IF010- IgE Sesame Seed <0.10 kU/L Class 4K675-RqY Shrimp 1.83 Abnormal kU/L Class MVRB858-CqL Soybean <0.10 kU/L Class 0O259-EiL Wheat <0.10 kU/L Class 2V104-PzE Milk 0.49 Abnormal kU/L Class IF076- IgE Alpha Lactalbumin 0.19 Abnormal kU /L Class 0/QC810-ToQ Beta Lactoglobulin 0.32 Abnormal kU/L Class IF078- IgE Casein 0.20 Abnormal kU/L Class 0/UL588-FeA Egg White 0.12 Abnormal kU/L Class 0/IG615-EvQ Peanut 0.12 Abnormal kU/L Class 0/MT803-DuS Margy h 1 <0.10 kU/L Class 6J025-JjU Margy h 2 <0.10 kU/L Class 0Z005-ScZ Margy h 3 <0.10 kU/L Class 3X706-WmH Margy h 8 0.53 Abnormal kU/L Class IF427- IgE Margy h 9 <0.10 kU/L Class 7J901-IhX Hazelnut ([place]) 1.86 Abnormal kU/L Class SAAD262-YpJ Cor a 1 2.55 Abnormal kU/L Class ADPZ165-ZqH Cor a 8 <0.10 kU/L Class 5Y227-InY Cor a 9 <0.10 kU/L Class 8Q977-IgI Cor a 14 <0.10 kU /L Class 1W613-QkL [place] <0.10 kU/L Class 8H046-MyS Cashew Nut <0.10 kU/L Class 9N734-FtL [place] Nut <0.10 kU/L Class 0*F34 5-IgE Macadamia Nut <0.10 kU/L Class 6B326-ApC Pecan Nut <0.10 kU/L Class 8C416-WpN Pistachio Nut <0.10 kU/L Class 3S289-OzB [place] 0 .31 Abnormal kU/L Class 0/I TESTING PERFORMED AT [facility]. ORIGINAL REPORT ON FILE IN LAB CONTAINS ADDITIONAL TEST SITE INFORMATION. :52 Miscellaneous Lab Procedure 2 Comments: List Test(s) Ordered by Physician: [id number], kirti, [facility] [address] [place], [address] [facility]: TEST RESULT PIQPMLB949-CvI [place] 0.16 Abnormal kU/L Class 0/I TESTING PERFORMED AT [facility]. ORIG LAB (Normal) INAL REPORT ON FILE IN LAB CONTAINS ADDITIONAL TEST SITE INFORMATION. TEST 2 :52 Miscellaneous Lab Procedure 3 Comments: List Test(s) Ordered by Physician: [id number], yellow jacket, 1 [facility] [address] [place], [address] [facility] [place]: TEST RESULT EVBDTZH772-XdC [place] <0.10 kU/L Class 0 TESTING PERFORMED AT [facility]. ORIGI LAB (Normal) NAL REPORT ON FILE IN LAB CONTAINS ADDITIONAL TEST SITE INFORMATION. TEST 3 04-Cun-538909:44 URINE CHEPE CULTURE-IDENTIFICATN Comments: PATIENT NOT FASTINGPERFORMED BY: [employer] [facility] BiosciencesMiss[facility] CenterThe [facility]EC[facility] [id number] Information: SRC: ([id number]) Result 1 Yeast isolated. (Abnormal) Comments: 100 Colonies/mL .Request for further identification must be madewithin 1 week. Urine Final report (Abnormal) Culture,Comprehensive 93-Fwi-[id number]:38 Urinalysis, Office (65814) UA - LEUKOCYTE ESTERASE Moderate (Normal) UA - NITRITE Negative (Normal) URINE UROBILINGN SHANIQUE TIMED Normal mg/dL (Normal) UA - PROTEIN Negative mg/dL (Normal) UA - PH 7 (Normal) UA - BLOOD Hemolyzed Trace (Normal) UA - SPECIFIC GRAVITY 1.025 (Normal) UA - KETONES Negative mg/dL (Normal) UA - BILIRUBIN Negative (Normal) UA - GLUCOSE Negative (Normal) 70-Lii-836402:13 PSA (PROSTATE SPECIFIC Comments: PATIENT NOT FASTINGPERFORMED BY: [employer] [facility] [id number] ANTIGEN) (V76.44) Prostate Specific Ag, 0.9 ng/mL (Normal) Range: 0.0-4.0 Serum Comments: [place] ECLIA methodology. .According to the [place] [employer], Serum PSA shoulddecrease and remain at undetectable levels after radicalprostatectomy. The AUA defines biochemical recurrence as an initialPSA value 0.2 ng/mL or greater followed by a subsequent confirmatoryPSA value 0.2 ng/mL or greater.Values obtained with d ifferent assay methods or kits cannot be usedinterchangeably. Results cannot be interpreted as absolute evidenceof the presence or absence of malignant disease. 45-Svc-872047:18 Rapid Strep Test, Office (30138) Rapid Strep Test, Office Negative (Normal) :01 CBC W/AUTO DIFF WBC Comments: PATIENT WAS FASTINGPERFORMED BY: [facility]CoK[facility] for RehabilitationOplbpf8922 [facility] [id number] Information: [id number], [id number] (06853) Immature Grans (Abs) 0.0 {x10E3/uL} (Normal) Range: 0.0-0.1 Immature Granulocytes 0 % (Normal) Baso (Absolute) 0.0 {x10E3/uL} (Normal) Range: 0.0-0.2 Eos (Absolute) 0.0 {x10E3/uL} (Normal) Range: 0.0-0.4 Monocytes(Absolute) 0.6 {x10E3/uL} (Normal) Range: 0.1-0.9 Lymphs (Absolute) 1.0 {x10E3/uL} (Normal) Range: 0.7-3.1 Neutrophils (Absolute) 4.0 {x10E3/uL} (Normal) Range: 1.4-7.0 Basos 0 % (Normal) Eos 1 % (Normal) Monocytes 11 % (Normal) Lymphs 17 % (Normal) Neutrophils 71 % (Normal) Platelets 328 {x10E3/uL} (Normal) Range: 150-379 RDW 15.0 % (Normal) Range: 12.3-15.4 MCHC 32.2 g/dL (Normal) Range: 31.5-35.7 MCH 28.6 pg (Normal) Range: 26.6-33.0 MCV 89 fL (Normal) Range: 79-97 Hematocrit 37.3 % (Abnormal) Range: 37.5-51.0 Hemoglobin 12.0 g/dL (Abnormal) Range: 12.6-17.7 RBC 4.19 {x10E6/uL} (Normal) Range: 4.14-5.80 WBC 5.6 {x10E3/uL} (Normal) Range: 3.4-10.8 :01 TSH (16830) Comments: PATIENT WAS FASTINGPERFORMED BY: [facility]6370 [facility] [id number] TSH 1.990 {uIU/mL} (Normal) Range: 0.450-4.500 :01 METABOLIC PANEL, COMPREHENSIVE Comments: PATIENT WAS FASTINGPERFORMED BY: [facility]6370 [facility] [id number] (77903) ALT (SGPT) 52 [iU]/L (Abnormal) Range: 0-44 AST (SGOT) 29 [iU]/L (Normal) Range: 0-40 Alkaline Phosphatase, S 117 [iU]/L (Normal) Range: 39-117 Bilirubin, Total 0.4 mg/dL (Normal) Range: 0.0-1.2 A/G Ratio 1.3 (Normal) Range: 1.1-2.5 Globulin, Total 2.7 g/dL (Normal) Range: 1.5-4.5 Albumin, Serum 3.6 g/dL (Normal) Range: 3.6-4.8 Protein, Total, Serum 6.3 g/dL (Normal) Range: 6.0-8.5 Calcium, Serum 9.3 mg/dL (Normal) Range: 8.6-10.2 Carbon Dioxide, Total 24 mmol/L (Normal) Range: 18-29 Chloride, Serum 98 mmol/L (Normal) Range: 97-108 Potassium, Serum 4.9 mmol/L (Normal) Range: 3.5-5.2 Sodium, Serum 139 mmol/L (Normal) Range: 134-144 BUN/Creatinine Ratio 21 (Normal) Range: 10-22 eGFR If Africn Am 101 mL/min/1.73 (Normal) eGFR If NonAfricn Am 87 mL/min/1.73 (Normal) Creatinine, Serum 0.92 mg/dL (Normal) Range: 0.76-1.27 BUN 19 mg/dL (Normal) Range: 8-27 Glucose, Serum 86 mg/dL (Normal) Range: 65-99 3-Dec-73967:00 NASAL POLYPS See Note (Normal) Comments: [facility] [address] [place], [place], [address] ; ordered by tip Comments: Patient: IZABEL GARCÍA : 1950 (65/M) Acct Num: [id number] Phys: Tip LEAVITT,[place] Unit Num: [id number] Loc: LABSPEC Specimen: [id number] Received: 07/12/15 - 1627 S pec Type: JACQUELINE POLYPS TISSUES TISSUES: GROSS DESCRIPTION A - Received is one container labeled with the patient name and designated sinus contents right. The specimen consists of mu ltiple irregular glistening fragments of light valladares mucosa with minute fragments of gritty bony tissue measuring in aggregate 7 x 3 x 0.2 cm. The specimen is totally submitted in three cassettes after l ight decalcification. B - Received is one container labeled with the patient name and designated sinus contents left. The specimen consists of multiple irregular glistening fragments of light valladares mucosa with minute fragments of gritty bony tissue measuring in aggregate 7 x 3 x 0.2 cm. The specimen is totally submitted in three cassettes after light decalcification. / AM: 07/13/15 TC: 3 CPT : 99767 x2, 46491 x2 HEADER OPERATION: Functional endoscopic sinus surgery, closure oroantral fistula PRE-OP DIAGNOSIS: Chronic pain sinusitis, right maxillary oroantral fistula TISSUE SUBMITTE D: A. Right sinus content, B. Left sinus content MICROSCOPIC DESCRIPTION Slides are reviewed. MICROSCOPIC DIAGNOSIS A. Right sinus contents: Fragments of respiratory mucosa with acute and chronic inflammation and bone. B. Left sinus contents: Fragments of respiratory mucosa with acute and chronic inflammation and bone. : 07/18/15 Signed Eric Avila 07/18/15 <signature on file> 04-Etx-988973:10 Basic Metabolic Profile (BMP) Comments: PER AMMERIST AT OFFICE, BMP AND CBCD.[facility] [address] [place], [address] GAP 6 (Normal) Range: 5-15 CO2 29.0 mmol/L (Normal) Range: 21.0-32.0 CL 101 mmol/L (Normal) Range: 98-107 K 3.8 mmol/L (Normal) Range: 3.5-5.1 NA 136 mmol/L (Normal) Range: 136-145 CA 8.7 mg/dL (Normal) Range: 8.5-10.1 BUN/CRE 16.4 {RATIO} (Normal) Range: 10-20 EST GFR - AA 107 mL/min (Normal) Comments: GFR Calc EST GFR 88 mL/min (Normal) Comments: Non- GFR Calc CREAT,SERUM 0.92 mg/dL (Normal) Range: 0.70-1.30 Comments: The validity of the calculated GFR AND GFRAA in patients over70 years has not been determined. Clinical correlation isessential. BUN 15 mg/dL (Normal) Range: 7-18 GLU 84 mg/dL (Normal) Range: 70-110 53-Hvy-276427:10 CBC W/Diff, Automated Comments: [facility] [address] [place], [address] Absolute Lymph 1.48 {X10_3/ul} (Normal) Range: 0.83-4.51 Absolute Neut 3.0 {X10_3/uL} (Normal) Range: 2.0-7.7 IM GRAN % 0.000 % (Normal) Range: 0.0-0.9 Comments: IG% - Immature Granulocytes (promyelocytes, myelocytes andmetamyelocytes) > 1% indicates that a LEFT SHIFT is Present. BASO% 0.2 % (Normal) Range: 0-1 EO% 0.0 % (Normal) Range: 0-5 MONO% 9.1 % (Normal) Range: 0-10 LY% 29.9 % (Normal) Range: 19-41 NEUT% 60.8 % (Normal) Range: 47-70 MPV 11.0 fL (Normal) Range: 6.2-12.0 PLT 136 K/mm3 (Abnormal) Range: 150-450 RDW SD 42.3 fL (Normal) Range: 35.1-43.9 RDW CV 13.7 % (Normal) Range: 11.6-14.6 MCHC 35.0 {g/gl} (Normal) Range: 32-36 MCH 30.3 pg (Normal) Range: 27.0-32.0 MCV 86.5 fL (Normal) Range: 80-94 HCT 41.7 % (Normal) Range: 40-54 HGB 14.6 g/dL (Normal) Range: 13.0-16.5 RBC 4.82 {M/mm3} (Normal) Range: 4.6-6.2 WBC 5.0 K/mm3 (Normal) Range: 4.4-11.0 :54 HEPATIC FUNCTION PANEL Comments: PATIENT WAS FASTINGPERFORMED BY: Lamsa Hwtrvq7734 [facility] [id number] (75790) ALT (SGPT) 40 [iU]/L (Normal) Range: 0-44 AST (SGOT) 39 [iU]/L (Normal) Range: 0-40 Alkaline Phosphatase, S 64 [iU]/L (Normal) Range: 39-117 Bilirubin, Direct 0.21 mg/dL (Normal) Range: 0.00-0.40 Bilirubin, Total 0.7 mg/dL (Normal) Range: 0.0-1.2 Albumin, Serum 4.1 g/dL (Normal) Range: 3.6-4.8 Protein, Total, Serum 6.5 g/dL (Normal) Range: 6.0-8.5 :54 LIPID PANEL (25171) Comments: PATIENT WAS FASTINGPERFORMED BY: Lamsa Jirsfi9161 [facility] [id number] LDL/HDL Ratio 2.5 {ratio_units} (Normal) Range: 0.0-3.6 Comments: LDL/HDL Ratio Men Women 1/2 Avg.Risk 1.0 1.5 Av g.Risk 3.6 3.2 2X Avg.Risk 6.2 5.0 3X Avg.Risk 8.0 6.1 LDL Cholesterol Calc 96 mg/dL (Normal) Range: 0-99 VLDL Cholesterol Brandon 22 mg/dL (Normal) Range: 5-40 HDL Cholesterol 38 mg/dL (Abnormal) Comments: According to ATP-III Guidelines, HDL-C >59 mg/dL is considered anegative risk factor for CHD. Triglycerides 110 mg/dL (Normal) Range: 0-149 Cholesterol, Total 156 mg/dL (Normal) Range: 100-199 :45 Basic Metabolic Profile (BMP) Comments: 'TROP' Serial specimen #1, #2, #3, or #4: 1Test performed at:[facility] [address] [place] [address] GAP 5 (Normal) Range: 5-15 CO2 28.0 mmol/L (Normal) Range: 21.0-32.0 CL 101 mmol/L (Normal) Range: 98-107 K 3.7 mmol/L (Normal) Range: 3.5-5.1 NA 134 mmol/L (Abnormal) Range: 136-145 CA 8.8 mg/dL (Normal) Range: 8.5-10.1 BUN/CRE 20.0 {RATIO} (Normal) Range: 10-20 Estimated CRCL 85.62 ml/min (Normal) EST GFR - AA 109 mL/min (Normal) EST GFR 90 mL/min (Normal) CREAT,SERUM 0.9 mg/dL (Normal) Range: 0.8-1.3 BUN 18 mg/dL (Normal) Range: 7-18 GLU 92 mg/dL (Normal) Range: 70-110 :45 CBC W/Diff, Automated Comments: Test performed at:[facility] [address] [place], [place] [id number] Absolute Lymph 1.04 {X10_3/ul} (Normal) Range: 0.83-4.51 Absolute Neut 7.1 {X10_3/uL} (Normal) Range: 2.0-7.7 IM GRAN % 0.200 % (Normal) Range: 0.0-0.9 Comments: IG% - Immature Granulocytes (promyelocytes, myelocytes andmetamyelocytes) > 1% indicates that a LEFT SHIFT is Present. BASO% 0.1 % (Normal) Range: 0-1 EO% 0.0 % (Normal) Range: 0-5 MONO% 6.7 % (Normal) Range: 0-10 LY% 11.8 % (Abnormal) Range: 19-41 NEUT% 81.2 % (Abnormal) Range: 47-70 MPV 11.0 fL (Normal) Range: 6.2-12.0 PLT 121 K/mm3 (Abnormal) Range: 150-450 RDW SD 41.1 fL (Normal) Range: 35.1-43.9 RDW CV 13.5 % (Normal) Range: 11.6-14.6 MCHC 36.2 {g/gl} (Abnormal) Range: 32-36 MCH 31.7 pg (Normal) Range: 27.0-32.0 MCV 87.5 fL (Normal) Range: 80-94 HCT 43.4 % (Normal) Range: 40-54 HGB 15.7 g/dL (Normal) Range: 13.0-16.5 RBC 4.96 {M/mm3} (Normal) Range: 4.6-6.2 WBC 8.8 K/mm3 (Normal) Range: 4.4-11.0 7-Ccg-997264:45 Troponin-I Comments: 'TROP' Serial specimen #1, #2, #3, or #4: 1Test performed at:[facility] [address] [place], [place] [address] TROPONIN-I < 0.02 ng/mL (Normal) Comments: TROPONIN-I EXPECTED VALUES <0.05 NEGATIVE 0.06 - 0.59 AT RISK OF MO > OR = 0.60 SUGGEST MO 60-Xog-876716:26 Rapid Flu (26306 x 2) Influenza A Ag positive A (Normal) 1-Ahv-909812:24 DHEA, Serum Comments: PATIENT NOT FASTINGPERFORMED BY: [employer] [address] [place] [address] [id number] BY: [address] [id number] Dehydroepiandrosterone (DHEA) 45 ng/dL (Normal) Range: 31-701 Comments: Age 1 - 5 years 0 - 67 6 - 7 years 0 - 110 8 - 10 years 0 - 185 11 - 12 years 0 - 201 13 - 14 years 0 - 318 15 - 16 years 3 9 - 481 17 - 19 years 40 - 491 >19 years 31 - 701 9-Jdd-891832:24 TESTOSTERONE TOTAL (28333) Comments: PATIENT NOT FASTINGPERFORMED BY: [facility]6370 [facility] [id number] BY: [address] [id number] Comment: TESTM (Normal) Comments: Adult male reference interval is based on a population of lean malesup to 40 years old. Testosterone, Serum 409 ng/dL (Normal) Range: 348-1197 :24 PSA (PROSTATE SPECIFIC Comments: PATIENT NOT FASTINGPERFORMED BY: EngageKessler Institute for RehabilitationQgjobv2033 [facility] [id number] BY: [address] [id number] ANTIGEN) (15682) Prostate Specific Ag, 0.8 ng/mL (Normal) Range: 0.0-4.0 Serum Comments: [employer] ECLIA methodology. .According to the [place] U[employer], Serum PSA shoulddecrease and remain at undetectable levels after radicalprostatectomy. The AUA defines biochemical recurrence as an initialPSA value 0.2 ng/mL or greater followed by a subsequent confirmatoryPSA value 0.2 ng/mL or greater.Values obtained with d ifferent assay methods or kits cannot be usedinterchangeably. Results cannot be interpreted as absolute evidenceof the presence or absence of malignant disease. :24 Metabolic Panel, Comments: PATIENT NOT FASTINGPERFORMED BY: [facility]ageKessler Institute for RehabilitationIviutg9773 [facility] [id number] BY: [address] [id number] Comprehensive (85234) ALT (SGPT) 35 [iU]/L (Normal) Range: 0-44 AST (SGOT) 27 [iU]/L (Normal) Range: 0-40 Alkaline Phosphatase, S 57 [iU]/L (Normal) Range: 39-117 Bilirubin, Total 0.8 mg/dL (Normal) Range: 0.0-1.2 A/G Ratio 2.3 (Normal) Range: 1.1-2.5 Globulin, Total 2.0 g/dL (Normal) Range: 1.5-4.5 Albumin, Serum 4.5 g/dL (Normal) Range: 3.6-4.8 Protein, Total, Serum 6.5 g/dL (Normal) Range: 6.0-8.5 Calcium, Serum 9.2 mg/dL (Normal) Range: 8.6-10.2 Carbon Dioxide, Total 24 mmol/L (Normal) Range: 18-29 Chloride, Serum 96 mmol/L (Abnormal) Range: 97-108 Potassium, Serum 4.5 mmol/L (Normal) Range: 3.5-5.2 Sodium, Serum 136 mmol/L (Normal) Range: 134-144 BUN/Creatinine Ratio 19 (Normal) Range: 10-22 eGFR If Africn Am 75 mL/min/1.73 (Normal) eGFR If NonAfricn Am 65 mL/min/1.73 (Normal) Creatinine, Serum 1.18 mg/dL (Normal) Range: 0.76-1.27 BUN 22 mg/dL (Normal) Range: 8-27 Glucose, Serum 81 mg/dL (Normal) Range: 65-99 6-Lfm-822797:24 CBC WITH MANUAL DIFF Comments: PATIENT NOT FASTINGPERFORMED BY: CB [facility] Jnnpbd1500 [facility] [id number] BY: BN [facility] [address] [id number] Inf ormation: [id number] (61667) Immature Grans (Abs) 0.0 {x10E3/uL} (Normal) Range: 0.0-0.1 Immature Granulocytes 0 % (Normal) Baso (Absolute) 0.0 {x10E3/uL} (Normal) Range: 0.0-0.2 Eos (Absolute) 0.0 {x10E3/uL} (Normal) Range: 0.0-0.4 Monocytes(Absolute) 0.4 {x10E3/uL} (Normal) Range: 0.1-0.9 Lymphs (Absolute) 1.3 {x10E3/uL} (Normal) Range: 0.7-3.1 Neutrophils (Absolute) 2.8 {x10E3/uL} (Normal) Range: 1.4-7.0 Basos 0 % (Normal) Eos 0 % (Normal) Monocytes 9 % (Normal) Lymphs 29 % (Normal) Neutrophils 62 % (Normal) Platelets 148 {x10E3/uL} (Abnormal) Range: 150-379 RDW 13.4 % (Normal) Range: 12.3-15.4 MCHC 34.6 g/dL (Normal) Range: 31.5-35.7 MCH 30.3 pg (Normal) Range: 26.6-33.0 MCV 88 fL (Normal) Range: 79-97 Hematocrit 43.1 % (Normal) Range: 37.5-51.0 Hemoglobin 14.9 g/dL (Normal) Range: 12.6-17.7 RBC 4.92 {x10E6/uL} (Normal) Range: 4.14-5.80 WBC 4.6 {x10E3/uL} (Normal) Range: 3.4-10.8 6-Hij-853175:24 TSH (36266) Comments: PATIENT NOT FASTINGPERFORMED BY: [employer] [facility] [id number] BY: [address] [id number] TSH 0.573 {uIU/mL} (Normal) Range: 0.450-4.500 :02 HEMOGLOBIN GLYCLATED (HGB A1C) Comments: PERFORMED BY: [employer] [facility] [id number] (21091) Hemoglobin A1c 5.1 % (Normal) Range: 4.8-5.6 Comments: . Increased risk for diabetes: 5.7 - 6.4 Diabetes: >6.4 Glycemic control for adults with diabetes: <7.0 :02 PSA (PROSTATE SPECIFIC Comments: PERFORMED BY: [employer] [facility] [id number] ANTIGEN) (19785) Prostate Specific Ag, 0.8 ng/mL (Normal) Range: 0.0-4.0 Serum Comments: [place] ECLIA methodology. .According to the [place] [employer], Serum PSA shoulddecrease and remain at undetectable levels after radicalprostatectomy. The AUA defines biochemical recurrence as an initialPSA value 0.2 ng/mL or greater followed by a subsequent confirmatoryPSA value 0.2 ng/mL or greater.Values obtained with d ifferent assay methods or kits cannot be usedinterchangeably. Results cannot be interpreted as absolute evidenceof the presence or absence of malignant disease. : TSH (THYROID STIMULATING Comments: PERFORMED BY: [facility]6370 [facility] [id number] HORMONE) (21001) TSH 0.985 {uIU/mL} (Normal) Range: 0.450-4.500 :02 URINALYSIS W MICROSCOPY (24210) Comments: PERFORMED BY: [facility] [place] [address] [id number] Microscopic Examination MICNIP (Normal) Comments: Microscopic not indicated and not performed. Nitrite, Urine Negative (Normal) Urobilinogen,Semi-Qn 0.2 mg/dL (Normal) Range: 0.0-1.9 Bilirubin Negative (Normal) Occult Blood Negative (Normal) Ketones Negative (Normal) Glucose Negative (Normal) Protein Trace (Normal) Appearance Clear (Normal) WBC Esterase Negative (Normal) pH 7.5 (Normal) Range: 5.0-7.5 Urine-Color Yellow (Normal) Specific Ramsey 1.020 (Normal) Range: 1.005-1.030 : MICROALB;CREAT RATION, RAND UR Comments: PERFORMED BY: [facility]6370 [facility] [id number] (48657) Microalb/Creat Ratio 3.5 {mg/g_creat} (Normal) Range: 0.0-30.0 Creatinine, Urine 163.4 mg/dL (Normal) Range: 22.0-328.0 Microalbumin, Urine 5.7 ug/mL (Normal) Range: 0.0-17.0 :02 METABOLIC PANEL, COMPREHENSIVE Comments: PERFORMED BY: [facility]6370 [facility] [id number] (76861) ALT (SGPT) 29 [iU]/L (Normal) Range: 0-44 AST (SGOT) 21 [iU]/L (Normal) Range: 0-40 Alkaline Phosphatase, S 57 [iU]/L (Normal) Range: 39-117 Bilirubin, Total 1.1 mg/dL (Normal) Range: 0.0-1.2 A/G Ratio 2.2 (Normal) Range: 1.1-2.5 Globulin, Total 2.1 g/dL (Normal) Range: 1.5-4.5 Albumin, Serum 4.6 g/dL (Normal) Range: 3.6-4.8 Protein, Total, Serum 6.7 g/dL (Normal) Range: 6.0-8.5 Calcium, Serum 9.3 mg/dL (Normal) Range: 8.6-10.2 Carbon Dioxide, Total 23 mmol/L (Normal) Range: 18-29 Chloride, Serum 99 mmol/L (Normal) Range: 97-108 Potassium, Serum 4.3 mmol/L (Normal) Range: 3.5-5.2 Sodium, Serum 136 mmol/L (Normal) Range: 134-144 BUN/Creatinine Ratio 19 (Normal) Range: 10-22 eGFR If Africn Am 94 mL/min/1.73 (Normal) eGFR If NonAfricn Am 82 mL/min/1.73 (Normal) Creatinine, Serum 0.98 mg/dL (Normal) Range: 0.76-1.27 BUN 19 mg/dL (Normal) Range: 8-27 Glucose, Serum 96 mg/dL (Normal) Range: 65-99 :02 LIPID PANEL (68265) Comments: PERFORMED BY: [facility] [id number] LDL/HDL Ratio 2.0 {ratio_units} (Normal) Range: 0.0-3.6 LDL Cholesterol Calc 73 mg/dL (Normal) Range: 0-99 VLDL Cholesterol Brandon 22 mg/dL (Normal) Range: 5-40 HDL Cholesterol 37 mg/dL (Abnormal) Comments: According to ATP-III Guidelines, HDL-C >59 mg/dL is considered anegative risk factor for CHD. Triglycerides 109 mg/dL (Normal) Range: 0-149 Cholesterol, Total 132 mg/dL (Normal) Range: 100-199 :02 CBC with manual diff (63644) Comments: PERFORMED BY: [facility] [id number] Immature Grans (Abs) 0.0 {x10E3/uL} (Normal) Range: 0.0-0.1 Immature Granulocytes 0 % (Normal) Range: 0-2 Baso (Absolute) 0.0 {x10E3/uL} (Normal) Range: 0.0-0.2 Eos (Absolute) 0.0 {x10E3/uL} (Normal) Range: 0.0-0.4 Monocytes(Absolute) 0.5 {x10E3/uL} (Normal) Range: 0.1-0.9 Lymphs (Absolute) 1.4 {x10E3/uL} (Normal) Range: 0.7-3.1 Neutrophils (Absolute) 2.8 {x10E3/uL} (Normal) Range: 1.4-7.0 Basos 0 % (Normal) Range: 0-3 Eos 0 % (Normal) Range: 0-5 Monocytes 11 % (Normal) Range: 4-12 Lymphs 30 % (Normal) Range: 14-46 Neutrophils 59 % (Normal) Range: 40-74 Platelets 134 {x10E3/uL} (Abnormal) Range: 150-379 RDW 13.7 % (Normal) Range: 12.3-15.4 MCH 30.3 pg (Normal) Range: 26.6-33.0 MCHC 33.8 g/dL (Normal) Range: 31.5-35.7 MCV 90 fL (Normal) Range: 79-97 Hematocrit 46.5 % (Normal) Range: 37.5-51.0 Hemoglobin 15.7 g/dL (Normal) Range: 12.6-17.7 RBC 5.19 {x10E6/uL} (Normal) Range: 4.14-5.80 WBC 4.8 {x10E3/uL} (Normal) Range: 3.4-10.8 :21 Microscopic Examination Comments: PATIENT WAS FASTINGPERFORMED BY: [id number] [id number] Bacteria None seen (Normal) Mucus Threads Present (Normal) Epithelial Cells (non renal) None seen {/hpf} (Normal) Range: 0 - 10 RBC 0-3 {/hpf} (Normal) Range: 0 - 3 WBC 0-5 {/hpf} (Normal) Range: 0 - 5 :21 PSA (PROSTATE SPECIFIC Comments: PATIENT WAS FASTINGPERFORMED BY: [id number] [id number] ANTIGEN) (V76.44) Prostate Specific Ag, 0.8 ng/mL (Normal) Range: 0.0-4.0 Serum Comments: [place] ECLIA methodology. .According to the [employer] [employer], Serum PSA shoulddecrease and remain at undetectable levels after radicalprostatectomy. The AUA defines biochemical recurrence as an initialPSA value 0.2 ng/mL or greater followed by a subsequent confirmatoryPSA value 0.2 ng/mL or greater.Values obtained with d ifferent assay methods or kits cannot be usedinterchangeably. Results cannot be interpreted as absolute evidenceof the presence or absence of malignant disease. :21 Hemoglobin Glyclated (HGB A1C) Comments: PATIENT WAS FASTINGPERFORMED BY: [employer]nuts70 [facility] [id number] ([id number]) Hemoglobin A1c 5.4 % (Normal) Range: 4.8-5.6 Comments: . Increased risk for diabetes: 5.7 - 6.4 Diabetes: >6.4 Glycemic control for adults with diabetes: <7.0 :21 TSH (13534) Comments: PATIENT WAS FASTINGPERFORMED BY: [employer]6370 [facility] [id number] TSH 1.280 {uIU/mL} (Normal) Range: 0.450-4.500 :21 URINALYSIS, W/ MICRO (15188) Comments: PATIENT WAS FASTINGPERFORMED BY: [employer]6370 [facility] [id number] Microscopic Examination See below: (Normal) Microscopic Examination MICRON (Normal) Comments: Microscopic follows if indicated. Nitrite, Urine Negative (Normal) Urobilinogen,Semi-Qn 0.2 mg/dL (Normal) Range: 0.0-1.9 Bilirubin Negative (Normal) Occult Blood Negative (Normal) Ketones Negative (Normal) Glucose Negative (Normal) Protein Negative (Normal) WBC Esterase Negative (Normal) Appearance Clear (Normal) Urine-Color Yellow (Normal) pH 6.5 (Normal) Range: 5.0-7.5 Specific Ramsey 1.014 (Normal) Range: 1.005-1.030 :21 MICROALBUMIN: CREATININE RATIO Comments: PATIENT WAS FASTINGPERFORMED BY: EngageKessler Institute for RehabilitationYnckjn8136 [facility] [id number] ([id number]) AND (70803) Microalb/Creat Ratio 2.6 {mg/g_creat} (Normal) Range: 0.0-30.0 Creatinine, Urine 97.0 mg/dL (Normal) Range: 22.0-328.0 Microalbumin, Urine 2.5 ug/mL (Normal) Range: 0.0-17.0 :21 METABOLIC PANEL, COMPREHENSIVE Comments: PATIENT WAS FASTINGPERFORMED BY: Lamsa Hdwvfu9402 [facility] [id number] ([id number]) ALT (SGPT) 32 [iU]/L (Normal) Range: 0-44 AST (SGOT) 24 [iU]/L (Normal) Range: 0-40 Alkaline Phosphatase, S 60 [iU]/L (Normal) Range: 25-160 Bilirubin, Total 0.6 mg/dL (Normal) Range: 0.0-1.2 A/G Ratio 2.2 (Normal) Range: 1.1-2.5 Globulin, Total 2.1 g/dL (Normal) Range: 1.5-4.5 Albumin, Serum 4.6 g/dL (Normal) Range: 3.6-4.8 Protein, Total, Serum 6.7 g/dL (Normal) Range: 6.0-8.5 Calcium, Serum 9.5 mg/dL (Normal) Range: 8.6-10.2 Carbon Dioxide, Total 25 mmol/L (Normal) Range: 20-32 Chloride, Serum 100 mmol/L (Normal) Range: 97-108 Potassium, Serum 4.2 mmol/L (Normal) Range: 3.5-5.2 Sodium, Serum 137 mmol/L (Normal) Range: 134-144 BUN/Creatinine Ratio 24 (Abnormal) Range: 10-22 eGFR If Africn Am 95 mL/min/1.73 (Normal) eGFR If NonAfricn Am 82 mL/min/1.73 (Normal) Creatinine, Serum 0.98 mg/dL (Normal) Range: 0.76-1.27 BUN 24 mg/dL (Normal) Range: 8-27 Glucose, Serum 92 mg/dL (Normal) Range: 65-99 :21 LIPID PANEL (01707) Comments: PATIENT WAS FASTINGPERFORMED BY: EngageKessler Institute for RehabilitationYrivyh7071 [facility] [id number] LDL Cholesterol Calc 82 mg/dL (Normal) Range: 0-99 LDL/HDL Ratio 2.1 {ratio_units} (Normal) Range: 0.0-3.6 VLDL Cholesterol Brandon 23 mg/dL (Normal) Range: 5-40 HDL Cholesterol 39 mg/dL (Abnormal) Comments: According to ATP-III Guidelines, HDL-C >59 mg/dL is considered anegative risk factor for CHD. Triglycerides 116 mg/dL (Normal) Range: 0-149 Cholesterol, Total 144 mg/dL (Normal) Range: 100-199 :21 CBC WITH MANUAL DIFF Comments: PATIENT WAS FASTINGPERFORMED BY: LabAdvanced Manufacturing Control SystemsKessler Institute for RehabilitationBfbmaa8011 [facility] [id number] Information: [id number] ([id number]) Immature Grans (Abs) 0.0 {x10E3/uL} (Normal) Range: 0.0-0.1 Immature Granulocytes 0 % (Normal) Range: 0-2 Baso (Absolute) 0.0 {x10E3/uL} (Normal) Range: 0.0-0.2 Eos (Absolute) 0.2 {x10E3/uL} (Normal) Range: 0.0-0.4 Monocytes(Absolute) 0.6 {x10E3/uL} (Normal) Range: 0.1-1.0 Lymphs (Absolute) 1.7 {x10E3/uL} (Normal) Range: 0.7-4.5 Neutrophils (Absolute) 3.2 {x10E3/uL} (Normal) Range: 1.8-7.8 Basos 0 % (Normal) Range: 0-3 Eos 3 % (Normal) Range: 0-7 Monocytes 10 % (Normal) Range: 4-13 Lymphs 31 % (Normal) Range: 14-46 Neutrophils 56 % (Normal) Range: 40-74 Platelets 130 {x10E3/uL} (Abnormal) Range: 140-415 RDW 13.5 % (Normal) Range: 12.3-15.4 MCHC 35.0 g/dL (Normal) Range: 31.5-35.7 MCH 30.4 pg (Normal) Range: 26.6-33.0 MCV 87 fL (Normal) Range: 79-97 Hematocrit 45.2 % (Normal) Range: 37.5-51.0 Hemoglobin 15.8 g/dL (Normal) Range: 12.6-17.7 RBC 5.19 {x10E6/uL} (Normal) Range: 4.14-5.80 WBC 5.6 {x10E3/uL} (Normal) Range: 4.0-10.5 [id number]:11 FEMUR,2 VIEWS Radiology Report See Note (Normal) Comments: PROCEDURE: X-RAY - RIGHT FEMUR REASON FOR STUDY: Male, 62 years old. Right hip pain. TECHNIQUE: Four views of the femur. COMPARISON: None. FINDINGS:Normal visualized femur. Normal visualized so ft tissue structure. IMPRESSION:Normal x-ray examination of the femur. Signed:Tanner Shaffer M.D.July 30, 2012 at 2:34:05 PM [id number] Signed GP/GP If you are the referring physician and would like to consult with theradiologist who provided this interpretation, please contact Scar Nazario at [phone]. If this radiologist is unavailable, youwill be directed to another radiologist to assist. If you are a patient with a question regarding this report, pleasecontactyour referring physician directly. Professional Interpretation Provided By: [employer], Phone , These documents contain legally protected and confidential healthinformation intended only for the use of the individual or entity namedabove. If you are not the intended recipient, you are hereby notifiedthatany disclosure, copying, distribution, or other use of these documents isstrictly prohibited. If you have received this information in error,pleasenotify the sende r immediately and arrange for the return or destructionofthese documents. Dictated on 07/30/12 1313 by Deena LEAVITT,GabrieleTranscribed on 07/30/12 1439 by ITS IMPORTSign by Deena LEAVITT,Tanner on 07/30/12 1440 Sign by: Deena LEAVITT,Tanner :51 CBCMD RBCM NORM C+C {NORMAL} (Normal) PE SLT DEC (Normal) BAS 1 % (Normal) Range: 0-1 MON 1 % (Normal) Range: 0-10 LYMPH 31 % (Normal) Range: 19-41 BAND 1 % (Normal) Range: 0-5 PMN 66 % (Normal) Range: 47-70 SARAN 100 (Normal) ANC 2.7 3/uL (Normal) Range: 2.0-7.7 PLT 117 K/mm3 (Abnormal) Range: 150-450 RDW 13.6 % (Normal) Range: 11.6-14.6 MCHC 35.5 g/dL (Normal) Range: 32-36 MCH 31.1 pg (Normal) Range: 27.0-32.0 MCV 87.6 fL (Normal) Range: 80-94 HCT 41.8 % (Normal) Range: 40-54 HGB 14.8 g/dL (Normal) Range: 14.0-18.0 RBC 4.77 {M/mm3} (Normal) Range: 4.6-6.2 WBC 4.5 K/mm3 (Normal) Range: 4.4-11.0 :51 CMP GAP 8 (Normal) Range: 5-15 CO2 29.0 mmol/L (Normal) Range: 21.0-32.0 CL 103 mmol/L (Normal) Range: 98-107 K 4.7 mmol/L (Normal) Range: 3.5-5.1 NA 140 mmol/L (Normal) Range: 136-145 BIT 0.80 mg/dL (Normal) Range: 0.00-1.00 ALT 41 U/L (Normal) Range: 12-78 ALK 54 U/L (Normal) Range: 50-136 AST 20 U/L (Normal) Range: 15-37 CA 8.7 mg/dL (Normal) Range: 8.5-10.1 AG 1.3 {RATIO} (Normal) Range: 0.9-2.4 GLOB 3.0 g/dL (Normal) Range: 2.7-4.2 ALB 4.0 g/dL (Normal) Range: 3.4-5.0 TPROT 7.0 g/dL (Normal) Range: 6.4-8.2 BC 21.0 {RATIO} (Abnormal) Range: 10-20 GFRAA 98 mL/min (Normal) GFR 81 mL/min (Normal) CREAT 1.0 mg/dL (Normal) Range: 0.8-1.3 BUN 21 mg/dL (Abnormal) Range: 7-18 GLU 98 mg/dL (Normal) Range: 70-110 :51 LIPID VLDL 19 mg/dL (Normal) Range: 5-40 LDL 79 mg/dL (Normal) Range: 0-130 HDL 30 mg/dL (Abnormal) Comments: Reference Range HDL <40 mg/dL Low HDL Cholesterol HDL >or= 60 mg/dL High HDL Cholesterol TRIG 96 mg/dL (Normal) Comments: Serum Triglycerides Reference Interval Normal <150 mg/dL Borderline high 150 - 199 mg/dL High 200 - 499 mg/dL Very High > or = 500 mg/dL CHOL 128 mg/dL (Normal) Comments: <200 mg/dL Desirable 200-240 mg/dL Borderline >240 mg/dL High Risk :51 MIACRE tMICROCREAT 8.2 {mg/g_CRE} (Normal) MIALB 13.2 mg/L (Normal) CREU 159.7 mg/dL (Normal) :51 TSH 0.86 {uIU/mL} (Normal) Range: 0.358-3.74 :51 UAC UMUC 0 SEEN {/hpf} (Normal) UBAC 0 SEEN {/hpf} (Normal) UEPIS 0 SEEN {/hpf} (Normal) Range: 0-5 URBC 0 SEEN {/hpf} (Normal) Range: 0-5 UWBC 0 SEEN {/hpf} (Normal) Range: 0-5 MAY NEGATIVE (Normal) JANIS NEGATIVE (Normal) UOB NEGATIVE (Normal) uPROTU NEGATIVE (Normal) UROBU 0.2 EU/dl (Normal) Range: 0.2 - 1.0 GITA 7.0 (Normal) Range: 5.0-8.0 SGU 1.010 (Normal) Range: 1.002-1.030 KETU NEGATIVE mg/dL (Normal) BILIU NEGATIVE (Normal) GLUR NEGATIVE (Normal) UCLAR CLEAR (Normal) UCOL YELLOW (Normal) :35 CHEPE CULTURE-OTHER ([id number]) Comments: PATIENT NOT FASTINGPERFORMED BY: [facility] Mcjyft3311 [facility] [id number] Information: SRC:MARGARITA [id number] Result 1 RRF (Normal) Comments: Routine respiratory natalie Upper Respiratory Culture Final report (Normal) :04 Rapid Strep Test, Office ([id number]) Rapid Strep Test, Office Negative (Normal) :00 COMPLETE UA BACTERIA 0 SEEN {/hpf} (Normal) MUCUS, URINE 0 SEEN {/hpf} (Normal) RBC-UA 0 SEEN {/hpf} (Normal) Range: 0-5 SQUAM EPI 0 SEEN {/hpf} (Normal) Range: 0-5 WBC SeeNote {/hpf} (Normal) Range: 0-5 Comments: Result: 0-5 SEEN LEUK ESTERASE SeeNote (Normal) Comments: Result: NEGATIVE NITRITE UR SeeNote (Normal) Comments: Result: NEGATIVE OCCULT BLOOD-UR SeeNote (Normal) Comments: Result: NEGATIVE BILIRUBIN URINE SeeNote (Normal) Comments: Result: NEGATIVE KETONE UR SeeNote mg/dL (Normal) Comments: Result: NEGATIVE pH UR 6.5 (Normal) Range: 5.0-8.0 PROT DIPSTX SeeNote (Normal) Comments: Result: NEGATIVE SP.GR. DIPSTX 1.020 (Normal) Range: 1.002-1.030 UROBILI 0.2 EU/dl (Normal) Range: 0.2 - 1.0 CLARITY CLEAR (Normal) GLUCOSE, UR SeeNote (Normal) Comments: Result: NEGATIVE COLOR YELLOW (Normal) :00 MICROALB:CRE UR MALB:CREAT 9.2 {mg/g_CRE} (Normal) MICROALBUMIN,UR 16.4 mg/L (Normal) UR CREAT 178.2 mg/dL (Normal) :55 CBCD,SMEAR DIFF RED CELL MORPH SeeNote {NORMAL} (Normal) Comments: Result: NORM C+C PLT EST SeeNote (Normal) Comments: Result: ADEQUATE LYMPH 32 % (Normal) Range: 19-41 MONOCYTE 6 % (Normal) Range: 0-10 SEGS 62 % (Normal) Range: 47-70 ABSOLUTE NEUT 2.6 3/uL (Normal) Range: 2.0-7.7 CELLS COUNTED 100 (Normal) MCHC 34.2 g/dL (Normal) Range: 32-36 PLT 128 K/mm3 (Abnormal) Range: 150-450 RDW 13.6 % (Normal) Range: 11.6-14.6 HCT 45.8 % (Normal) Range: 40-54 MCH 31.1 pg (Normal) Range: 27.0-32.0 MCV 90.8 fL (Normal) Range: 80-94 HGB 15.7 g/dL (Normal) Range: 14.0-18.0 RBC 5.05 {M/mm3} (Normal) Range: 4.6-6.2 WBC 4.5 K/mm3 (Normal) Range: 4.4-11.0 45-[id number]-[id number]:55 COMP METABOLIC CO2 28.0 mmol/L (Normal) Range: 21.0-32.0 GAP 9 (Normal) Range: 5-15 CL 100 mmol/L (Normal) Range: 98-107 K 4.0 mmol/L (Normal) Range: 3.5-5.1 NA 137 mmol/L (Normal) Range: 136-145 ALK P 59 U/L (Normal) Range: 50-136 ALT 63 U/L (Normal) Range: 12-78 T BILI 0.70 mg/dL (Normal) Range: 0.00-1.00 A/G 1.3 {RATIO} (Normal) Range: 0.9-2.4 AST 29 U/L (Normal) Range: 15-37 CA 8.9 mg/dL (Normal) Range: 8.5-10.1 GLOB 3.0 g/dL (Normal) Range: 2.7-4.2 ALB 3.9 g/dL (Normal) Range: 3.4-5.0 BUN/CRE 17.3 {RATIO} (Normal) Range: 10-20 T PROT 6.9 g/dL (Normal) Range: 6.4-8.2 CREAT,SERUM 1.1 mg/dL (Normal) Range: 0.8-1.3 EST GFR 73 mL/min (Normal) EST GFR - AA 88 mL/min (Normal) BUN 19 mg/dL (Abnormal) Range: 7-18 GLU 104 mg/dL (Normal) Range: 70-110 :55 LIPID VLDL 41 mg/dL (Abnormal) Range: 5-40 HDL 26 mg/dL (Abnormal) Comments: Reference Range HDL <40 mg/dL Low HDL Cholesterol HDL >or= 60 mg/dL High HDL Cholesterol LDL 58 mg/dL (Normal) Range: 0-130 TRIG 204 mg/dL (Abnormal) Comments: Serum Triglycerides Reference Interval Normal <150 mg/dL Borderline high 150 - 199 mg/dL High 200 - 499 mg/dL Very High > or = 500 mg/dL CHOL 125 mg/dL (Normal) Comments: <200 mg/dL Desirable 200-240 mg/dL Borderline >240 mg/dL High Risk :55 TSH 0.82 {uIU/mL} (Normal) Range: 0.358-3.74 :23 BMP CO2 28.0 mmol/L (Normal) Range: 21.0-32.0 GAP 11 (Normal) Range: 5-15 CL 99 mmol/L (Normal) Range: 98-107 K 4.2 mmol/L (Normal) Range: 3.5-5.1 NA 138 mmol/L (Normal) Range: 136-145 BUN/CRE 17.3 {RATIO} (Normal) Range: 10-20 CA 9.1 mg/dL (Normal) Range: 8.5-10.1 EST GFR 73 mL/min (Normal) EST GFR - AA 88 mL/min (Normal) CREAT,SERUM 1.1 mg/dL (Normal) Range: 0.8-1.3 BUN 19 mg/dL (Abnormal) Range: 7-18 GLU 93 mg/dL (Normal) Range: 70-110 :43 Lipid Panel With LDL/HDL Comments: PATIENT WAS FASTINGPERFORMED BY: [facility] Qzobtz2469 [facility] [id number] Ratio LDL/HDL Ratio 3.1 {ratio_units} (Normal) Range: 0.0-3.6 LDL Cholesterol Calc 109 mg/dL (Abnormal) Range: 0-99 VLDL Cholesterol Brandon 21 mg/dL (Normal) Range: 5-40 HDL Cholesterol 35 mg/dL (Abnormal) Comments: According to ATP-III Guidelines, HDL-C >59 mg/dL is considered anegative risk factor for CHD. Triglycerides 103 mg/dL (Normal) Range: 0-149 Cholesterol, Total 165 mg/dL (Normal) Range: 100-199 34-[id number]-[id number]:35 B12/FOLATES FOLATES 18.60 ng/mL (Abnormal) Range: 3.1-17.5 VITAMIN B12 440 pg/mL (Normal) Range: 254-1320 26-Pef-699625:35 C-REACTIVE PROT < 2.90 mg/L (Normal) Range: 0.0-3.0 Comments: C-Reactive Protein (CRP) provides useful information for thediagnosis, therapy and monitoring of inflammatory processesand associated diseases. For the evaluation of Relative Riskfor Cardiovascular Dise ase, a High Sensitivity CRP (HSCRP)should be ordered. [id number] CBCD BASO% 0.3 % (Normal) Range: 0-1 EO% 0.1 % (Normal) Range: 0-5 MONO% 8.6 % (Normal) Range: 0-10 HCT 45.3 % (Normal) Range: 40-54 HGB 15.9 g/dL (Normal) Range: 14.0-18.0 LY% 31.7 % (Normal) Range: 19-41 MCH 30.2 pg (Normal) Range: 27.0-32.0 MCHC 35.0 g/dL (Normal) Range: 32-36 MCV 86.2 fL (Normal) Range: 80-94 MPV 9.3 fL (Normal) Range: 6.5-12.0 NEUT% 59.3 % (Normal) Range: 47-70 PLT 135 K/mm3 (Abnormal) Range: 150-450 RBC 5.26 {M/mm3} (Normal) Range: 4.6-6.2 RDW 13.3 % (Normal) Range: 11.6-14.6 WBC 5.1 K/mm3 (Normal) Range: 4.4-11.0 :35 COMP METABOLIC A/G 1.2 {RATIO} (Normal) Range: 0.9-2.4 ALB 3.9 g/dL (Normal) Range: 3.4-5.0 ALK P 79 U/L (Normal) Range: 50-136 ALT 65 U/L (Normal) Range: 30-65 AST 25 U/L (Normal) Range: 15-37 BUN 14 mg/dL (Normal) Range: 7-18 BUN/CRE 14.0 {RATIO} (Normal) Range: 10-20 CA 8.9 mg/dL (Normal) Range: 8.5-10.1 CL 108 mmol/L (Abnormal) Range: 98-107 CO2 27.0 mmol/L (Normal) Range: 21.0-32.0 CREAT,SERUM 1.0 mg/dL (Normal) Range: 0.8-1.3 EST GFR 82 mL/min (Normal) EST GFR - AA 99 mL/min (Normal) GAP 6 (Normal) Range: 5-15 GLOB 3.3 g/dL (Normal) Range: 2.7-4.2 GLU 89 mg/dL (Normal) Range: 70-110 K 4.1 mmol/L (Normal) Range: 3.5-5.1 NA 141 mmol/L (Normal) Range: 136-145 T BILI 0.50 mg/dL (Normal) Range: 0.00-1.00 T PROT 7.2 g/dL (Normal) Range: 6.4-8.2 :35 ESR SED RATE 1 (Normal) Range: 0-15 :35 RHEUMATOID FAC < 10 {IU/mL} (Normal) :35 TSH 0.98 {uIU/mL} (Normal) Range: 0.358-3.74 :56 CBC WITH MANUAL DIFF ([id number]) Comments: PATIENT NOT FASTINGClinical Information: ADD [id number], [id number] PERFORMED BY: LabCoKessler Institute for RehabilitationJtalbw4099 [facility] [id number] Baso (Absolute) 0.0 {x10E3/uL} (Normal) Range: 0.0-0.2 Basos 0 % (Normal) Range: 0-3 Eos 0 % (Normal) Range: 0-7 Eos (Absolute) 0.0 {x10E3/uL} (Normal) Range: 0.0-0.4 Hematocrit 45.6 % (Normal) Range: 36.0-50.0 Hemoglobin 15.8 g/dL (Normal) Range: 12.5-17.0 Lymphs 31 % (Normal) Range: 14-46 Lymphs (Absolute) 1.6 {x10E3/uL} (Normal) Range: 0.7-4.5 MCH 30.6 pg (Normal) Range: 27.0-34.0 MCHC 34.7 g/dL (Normal) Range: 32.0-36.0 MCV 88 fL (Normal) Range: 80-98 Monocytes 11 % (Normal) Range: 4-13 Monocytes(Absolute) 0.6 {x10E3/uL} (Normal) Range: 0.1-1.0 Neutrophils 58 % (Normal) Range: 40-74 Neutrophils (Absolute) 3.0 {x10E3/uL} (Normal) Range: 1.8-7.8 Platelets 126 {x10E3/uL} (Abnormal) Range: 140-415 RBC 5.17 {x10E6/uL} (Normal) Range: 4.10-5.60 RDW 13.9 % (Normal) Range: 11.7-15.0 WBC 5.1 {x10E3/uL} (Normal) Range: 4.0-10.5 :56 GEOVANNY (ANTINUCLEAR ANTIBODY) Comments: PATIENT NOT FASTINGPERFORMED BY: [employer]IS[employer] Lnawda3866 [facility] [id number] ([id number]) Antinuclear Antibodies Direct Negative (Normal) :56 PT (Prothrobim Time) (76303) Comments: PATIENT NOT FASTINGPERFORMED BY: LamsaKessler Institute for RehabilitationBkeizb3751 [facility] [id number] INR 1.0 (Normal) Range: 0.8-1.2 Comments: Reference interval is for non-anticoagulated patients. . Suggested INR therapeutic range for Vitamin K anta gonist therapy: Standard Dose (moderate intensity therapeutic range): 2.0 - 3.0 Higher intensity therapeutic range 2.5 - 3.5 Prothrombin Time 10.7 {sec} (Normal) Range: 8.7-11.5 :56 PTT (Activated Partial Comments: PATIENT NOT FASTINGPERFORMED BY: [facility]6370 [facility] [id number] Thromboplastin Time) (05187) aPTT 31 {sec} (Normal) Range: 24-33 Comments: This test has not been validated for monitoring unfractionated heparintherapy. aPTT-based therapeutic ranges for unfractionated heparintherapy have not been established. For general guidelines onHeparin monitoring, refer to the [facility] Directory of Services. 01-Jcn-90680:25 CBC With Differential/Platelet Comments: PATIENT WAS FASTINGPERFORMED BY: [facility]6370 [facility] [id number] Baso (Absolute) 0.0 {x10E3/uL} (Normal) Range: 0.0-0.2 Basos 0 % (Normal) Range: 0-3 Eos 0 % (Normal) Range: 0-7 Eos (Absolute) 0.0 {x10E3/uL} (Normal) Range: 0.0-0.4 Hematocrit 47.3 % (Normal) Range: 36.0-50.0 Hemoglobin 16.3 g/dL (Normal) Range: 12.5-17.0 Lymphs 35 % (Normal) Range: 14-46 Lymphs (Absolute) 1.6 {x10E3/uL} (Normal) Range: 0.7-4.5 MCH 30.7 pg (Normal) Range: 27.0-34.0 MCHC 34.5 g/dL (Normal) Range: 32.0-36.0 MCV 89 fL (Normal) Range: 80-98 Monocytes 11 % (Normal) Range: 4-13 Monocytes(Absolute) 0.5 {x10E3/uL} (Normal) Range: 0.1-1.0 Neutrophils 54 % (Normal) Range: 40-74 Neutrophils (Absolute) 2.5 {x10E3/uL} (Normal) Range: 1.8-7.8 Platelets 121 {x10E3/uL} (Abnormal) Range: 140-415 RBC 5.32 {x10E6/uL} (Normal) Range: 4.10-5.60 RDW 14.9 % (Normal) Range: 11.7-15.0 WBC 4.7 {x10E3/uL} (Normal) Range: 4.0-10.5 :25 Comp. Metabolic Panel (14) Comments: PATIENT WAS FASTINGPERFORMED BY: organgir.am6370 [facility] [id number] A/G Ratio 2.0 (Normal) Range: 1.1-2.5 Albumin, Serum 4.6 g/dL (Normal) Range: 3.5-5.5 Alkaline Phosphatase, S 68 [iU]/L (Normal) Range: 25-150 ALT (SGPT) 50 [iU]/L (Normal) Range: 0-55 AST (SGOT) 30 [iU]/L (Normal) Range: 0-40 Bilirubin, Total 1.1 mg/dL (Normal) Range: 0.1-1.2 BUN 19 mg/dL (Normal) Range: 5-26 BUN/Creatinine Ratio 15 (Normal) Range: 8-27 Calcium, Serum 9.7 mg/dL (Normal) Range: 8.5-10.6 Carbon Dioxide, Total 22 mmol/L (Normal) Range: 20-32 Chloride, Serum 103 mmol/L (Normal) Range: 97-108 Creatinine, Serum 1.25 mg/dL (Normal) Range: 0.76-1.27 eGFR 59 mL/min/1.73 (Abnormal) eGFR AfricanAmerican >59 mL/min/1.73 Comments: Note: Persistent reduction for 3 months or more in an eGFR<60 mL/min/1.73 m2 defines CKD. Patients with eGFR values>/=60 mL/min/1.73 m2 may also have CKD if evidence of persistentproteinuria is (Normal) present. Additional information may be found [email or web address]. Globulin, Total 2.3 g/dL (Normal) Range: 1.5-4.5 Glucose, Serum 98 mg/dL (Normal) Range: 65-99 Potassium, Serum 4.5 mmol/L (Normal) Range: 3.5-5.2 Protein, Total, Serum 6.9 g/dL (Normal) Range: 6.0-8.5 Sodium, Serum 138 mmol/L (Normal) Range: 135-145 :25 Hepatic Function Panel (7) Comments: PATIENT WAS FASTINGPERFORMED BY: [employer]6370 [facility] [id number] Bilirubin, Direct 0.27 mg/dL (Normal) Range: 0.00-0.40 :25 Lipid Panel With LDL/HDL Comments: PATIENT WAS FASTINGPERFORMED BY: EngageUNM Children's HospitalMeqfkj0104 [facility] [id number] Ratio Cholesterol, Total 165 mg/dL (Normal) Range: 100-199 HDL Cholesterol 34 mg/dL (Abnormal) Comments: According to ATP-III Guidelines, HDL-C >59 mg/dL is considered anegative risk factor for CHD. LDL Cholesterol Calc 106 mg/dL (Abnormal) Range: 0-99 LDL/HDL Ratio 3.1 {ratio_units} (Normal) Range: 0.0-3.6 Triglycerides 123 mg/dL (Normal) Range: 0-149 VLDL Cholesterol Brandon 25 mg/dL (Normal) Range: 5-40 :25 Prostate-Specific Ag, Serum Comments: PATIENT WAS FASTINGPERFORMED BY: organgir.am6370 [facility] [id number] Prostate Specific Ag, Serum 0.7 ng/mL (Normal) Range: 0.0-4.0 Comments: [employer] methodology. .According to the [employer], PSA should beundetectable after radical prostatectomy. A PSA of less than0.5 ng/mL (or undetectable) is not likely to be associated withdisease recurrence within five years of treatment.Values obtained with different assay methods or kits cannot be usedinterchang eably. Results cannot be interpreted as absolute evidenceof the presence or absence of malignant disease. :25 Urinalysis, Routine Comments: PATIENT WAS FASTINGPERFORMED BY: EngageKessler Institute for RehabilitationZfmoiv1510 [facility] [id number] Appearance Clear (Normal) Bilirubin Negative (Normal) Glucose Negative (Normal) Ketones Negative (Normal) Microscopic Examination MICRON (Normal) Comments: Microscopic follows if indicated. Nitrite, Urine Negative (Normal) Occult Blood Negative (Normal) pH 7.0 (Normal) Range: 5.0-7.5 Protein Negative (Normal) Specific Ramsey 1.018 (Normal) Range: 1.005-1.030 Urine-Color Yellow (Normal) Urobilinogen,Semi-Qn 0.2 mg/dL (Normal) Range: 0.0-1.9 WBC Esterase Negative (Normal) :28 CHEPE CULTURE-OTHER ([id number]) Comments: PATIENT NOT FASTINGClinical Information: SRC:THRT ADD [id number] PERFORMED BY: LabAdvanced Manufacturing Control SystemsUNM Children's HospitalUqbdjs5230 [facility] [id number] Result 1 RRF (Normal) Comments: Routine respiratory natalie Upper Respiratory Culture Final report (Normal) :52 Rapid Strep Test, Office ([id number]) Rapid Strep Test, Office Negative (Normal) Comments: aw :05 LIPID CHOL 163 mg/dL (Normal) Comments: <200 mg/dL Desirable 200-240 mg/dL Borderline >240 mg/dL High Risk HDL 32 mg/dL (Abnormal) Comments: Reference Range HDL <40 mg/dL Low HDL Cholesterol HDL >or= 60 mg/dL High HDL Cholesterol LDL 107 mg/dL (Normal) Range: 0-130 TRIG 118 mg/dL (Normal) Comments: Serum Triglycerides Reference Interval Normal <150 mg/dL Borderline high 150 - 199 mg/dL High 200 - 499 mg/dL Very High > or = 500 mg/dL VLDL 24 mg/dL (Normal) Range: 5-40 :05 PSA,TOT SCREEN 0.91 ng/mL (Normal) Range: 0.00-4.00 Comments: This test was performed using the TPSA method for the[employer] chemistry system.Values obtained with different assay methods cannot be usedinterchangably.When changing PSA assays in the course of monito ring apatient, additional sequential testing should be carriedout to confirm baseline values. :36 Upper Respiratory Culture Comments: Clinical Information: SRC:TH PERFORMED BY: [id number] [id number] Result 1 RRF (Normal) Comments: Routine respiratory natalie Upper Respiratory Culture Final report (Normal) :51 Rapid Strep Test, Office (98278) Comments: done km Rapid Strep Test, Office Negative (Normal) [id number] COLON BX P-COLBX (Normal) Comments: OPERATION Colonoscopy w/ bx PRE-OPERATIVE DIAGNOSIS Hx of ulcerative colitis, in remission TISSUE SUBMITTED A- Random biopsies of normal appearing mucosa, B- Bx of diminutive polyp, descending colon MICROSCOPIC DIAGNOSIS A. Colon, random biopsies: Mild acute colitis. Mild architectural change. No evidence of dysplasia. B. Descending colon polyp, biopsy: Tubular adenoma.? AM:cm 10/15/06 COMMENT Reference is made to the patient's right and left colon biopsies from 04/29/01 ([id number]) in which mild architectural change was identified. GROSS DESCRIPTION A - Received in formalin l abeled with patient name and number and designated random colon biopsies are multiple irregular fragments of light valladares soft tissue that in aggregate measure 0.5 x 0.5 x 0.1 cm. The specimen is total ly submitted in one cassette. B - Received in formalin labeled with patient name and number and designated descending colon polyp biopsy are two irregular fragments of light valladares soft tissue that in aggregate measure 0.4 x 0.2 x 0.1 cm. The specimen is totally submitted in one cassette. / JANE:mariela 10/14/06 TC:2 REPORT SIGNED: MICHELLE DAMIAN 10/15/0627-Jul-20069:00 CULTURE, THROAT See Note (Normal) Comments: Normal throat natalie isolated. No beta-hemolyticstreptococcus isolated. Plan of Care Name Dates Details Instructions Hypertensive heart disease without congestive heart failure : Continue Current Prescription(s) Indication: Hypertensive heart disease without congestive heart failure Hypertensive heart disease without congestive heart failure : BP MONITORING - SELF Indication: Hypertensive heart disease without congestive heart failure Greater trochanteric bursitis, right : Hip Bursa-right Indication: Greater trochanteric bursitis, right Greater trochanteric bursitis, right : Eprescribed prescriptions (G8553) Indication: Greater trochanteric bursitis, right Other and unspecified hyperlipidemia : Follow up in 6 months Indication: Other and unspecified hyperlipidemia Annual Medicare Physical WITH abnormal findings (Renamed from Encounter for general adult medical examination with abnormal findings) : fall reduction handout Indication: Annual Medicare Physical WITH abnormal findings (Renamed from Encounter for general adult medical examination with abnormal findings) Annual Medicare Physical WITH abnormal findings (Renamed from Encounter for general adult medical examination with abnormal findings) : elderly packet given Indication: Annual Medicare Physical WITH abnormal findings (Renamed from Encounter for general adult medical examination with abnormal findings) Annual Medicare Physical WITH abnormal findings (Renamed from Encounter for general adult medical examination with abnormal findings) : advance planning information Indication: Annual Medicare Physical WITH abnormal findings (Renamed from Encounter for general adult medical examination with abnormal findings) Other ulcerative colitis : Reviewed Freight Inspector Letter Indication: Other ulcerative colitis Esophageal reflux disease : GERD Education Indication: Esophageal reflux disease Other and unspecified hyperlipidemia : Cholesterol mgmt Indication: Other and unspecified hyperlipidemia Hypertensive heart disease without congestive heart failure : HTN/CAD Red Flags Indication: Hypertensive heart disease without congestive heart failure Atrial fibrillation, controlled : Continue Current Prescription(s) Indication: Atrial fibrillation, controlled Atrial fibrillation, controlled : Reviewed Freight Inspector Letter Indication: Atrial fibrillation, controlled Non-smoker : Eprescribed prescriptions (G8553) Indication: Non-smoker Sore throat : Sore Throat *: upper respiratory infection Indication: Sore throat Sore throat : Follow up if no improvement or if symptoms worsen Indication: Sore throat Non-smoker : Eprescribed prescriptions (G8553) Indication: Non-smoker Hypertensive heart disease without congestive heart failure : Follow up in 4 months Indication: Hypertensive heart disease without congestive heart failure Hypertensive heart disease without congestive heart failure : Diet, Exercise, and Wt loss Indication: Hypertensive heart disease without congestive heart failure Other and unspecified hyperlipidemia : Cholesterol mgmt Indication: Other and unspecified hyperlipidemia Hypertensive heart disease without congestive heart failure : HTN/CAD Red Flags Indication: Hypertensive heart disease without congestive heart failure Abnormal urine : Eprescribed prescriptions (G8553) Indication: Abnormal urine Dysuria : Bladder Infection: Brief Version *: uti Indication: Dysuria Sore throat and laryngitis : Eprescribed prescriptions (G8553) Indication: Sore throat and laryngitis Acute pharyngitis : Eprescribed prescriptions (G8553) Indication: Acute pharyngitis Acute pharyngitis : Sore Throat *: acute pharyngitis Indication: Acute pharyngitis Heart murmur : Reviewed Diagnostic Tests Indication: Heart murmur Heart murmur : Reviewed Freight Inspector Letter Indication: Heart murmur Benign essential hypertension : Follow up in 6 months Indication: Benign essential hypertension GERD (gastroesophageal reflux disease) : GERD Education Indication: GERD (gastroesophageal reflux disease) Benign essential hypertension : High Blood Pressure (Essential Hypertension) *: blood Indication: Benign essential hypertension Benign essential hypertension : Eprescribed prescriptions (G8553) Indication: Benign essential hypertension Rash : Eprescribed prescriptions (G8553) Indication: Rash Benign essential hypertension : Reviewed Lab Indication: Benign essential hypertension Benign essential hypertension : Continue Current Prescription(s) Indication: Benign essential hypertension Benign essential hypertension : Follow up in 6 months Indication: Benign essential hypertension Esophageal reflux disease : GERD Education Indication: Esophageal reflux disease Other and unspecified hyperlipidemia : Follow up in 6 months Indication: Other and unspecified hyperlipidemia Other and unspecified hyperlipidemia : Cholesterol mgmt Indication: Other and unspecified hyperlipidemia Benign essential hypertension : HTN/CAD Red Flags Indication: Benign essential hypertension Bronchitis : Follow up if no improvement or if symptoms worsen Indication: Bronchitis Influenza A : Flu (Influenza) *: influenza Indication: Influenza A Benign essential hypertension : Follow up in 6 months Indication: Benign essential hypertension Benign essential hypertension : Eprescribed prescriptions (G8553) Indication: Benign essential hypertension Benign essential hypertension : Reviewed Lab Indication: Benign essential hypertension Benign essential hypertension : Diet, Exercise, and Wt loss Indication: Benign essential hypertension Benign essential hypertension : HTN/CAD Red Flags Indication: Benign essential hypertension Allergic rhinitis : Continue Current Prescription(s) Indication: Allergic rhinitis Esophageal reflux disease : Continue Current Prescription(s) Indication: Esophageal reflux disease Esophageal reflux disease : GERD Education Indication: Esophageal reflux disease Other and unspecified hyperlipidemia : Cholesterol mgmt Indication: Other and unspecified hyperlipidemia Benign essential hypertension : High Blood Pressure (Essential Hypertension) *: blood Indication: Benign essential hypertension Acute pharyngitis : Follow up if no improvement or if symptoms worsen Indication: Acute pharyngitis Other specified viral infection, in conditions classified elsewhere and of unspecified site : *URI Symptoms Indication: Other specified viral infection, in conditions classified elsewhere and of unspecified site Other specified viral infection, in conditions classified elsewhere and of unspecified site : *URI Treatment Indication: Other specified viral infection, in conditions classified elsewhere and of unspecified site Acute pharyngitis : *URI Treatment Indication: Acute pharyngitis Encounter for immunization : Shingles Vaccine Education 2005 Indication: Encounter for immunization Acute sinusitis, unspecified : *URI Symptoms Indication: Acute sinusitis, unspecified Acute sinusitis, unspecified : *Antibiotic Usage Education - Male Indication: Acute sinusitis, unspecified Hyperglyceridemia : Cholesterol mgmt Indication: Hyperglyceridemia Hypertensive heart disease without congestive heart failure : HTN/CAD Red Flags Indication: Hypertensive heart disease without congestive heart failure GERD (gastroesophageal reflux disease) : GERD Education Indication: GERD (gastroesophageal reflux disease) Hypertensive heart disease without congestive heart failure : Reviewed Freight Inspector Letter: had stress echo in 07/21 Indication: Hypertensive heart disease without congestive heart failure Pain in unspecified hip : Follow up in 2 weeks jenae and do gen med Indication: Pain in unspecified hip Acute sinusitis, unspecified : *URI Symptoms Indication: Acute sinusitis, unspecified Acute sinusitis, unspecified : *Antibiotic Usage Education - Male Indication: Acute sinusitis, unspecified Pharyngitis, acute : *URI Treatment Indication: Pharyngitis, acute Pharyngitis, acute : Sore throat: diagnosis and treatment Indication: Pharyngitis, acute Acute sinusitis, unspecified : *URI Treatment Indication: Acute sinusitis, unspecified Acute sinusitis, unspecified : *URI Symptoms Indication: Acute sinusitis, unspecified Acute sinusitis, unspecified : *Antibiotic Usage Education - Female Indication: Acute sinusitis, unspecified Fatigue : *fatigue education Indication: Fatigue Heart murmur : Reviewed Diagnostic Tests Indication: Heart murmur Hypertensive heart disease without congestive heart failure : Continue Current Prescription(s) Indication: Hypertensive heart disease without congestive heart failure Benign essential hypertension : Continue Current Prescription(s) Indication: Benign essential hypertension Benign essential hypertension : FOLLOW UP IN 6 MONTHS Indication: Benign essential hypertension Benign essential hypertension : FOLLOW UP IN 3 WEEKS Indication: Benign essential hypertension Benign essential hypertension : BP MONITORING - SELF Indication: Benign essential hypertension GERD (gastroesophageal reflux disease) : GERD Education Indication: GERD (gastroesophageal reflux disease) Other and unspecified hyperlipidemia : CHOLESTEROL MGMT. Indication: Other and unspecified hyperlipidemia Benign essential hypertension : Diet, Exercise, and Wt loss Indication: Benign essential hypertension Benign essential hypertension : HTN/CAD Red Flags Indication: Benign essential hypertension Laryngitis : Laryngitis Education Indication: Laryngitis Benign essential hypertension : Continue Current Prescription(s) Indication: Benign essential hypertension Benign essential hypertension : FOLLOW UP IN 3 WEEKS Indication: Benign essential hypertension Benign essential hypertension : BP MONITORING - SELF Indication: Benign essential hypertension Benign essential hypertension : FOLLOW UP IN 3 WEEKS Indication: Benign essential hypertension Fatigue : *fatigue education Indication: Fatigue Other and unspecified hyperlipidemia : Continue Current Prescription(s) Indication: Other and unspecified hyperlipidemia Other and unspecified hyperlipidemia : Cholesterol - Nonprescription Treatment Indication: Other and unspecified hyperlipidemia Other and unspecified hyperlipidemia : CHOLESTEROL MGMT. Indication: Other and unspecified hyperlipidemia Other and unspecified hyperlipidemia : Cholesterol - Medication Side Effects Indication: Other and unspecified hyperlipidemia Elevated blood-pressure reading without diagnosis of hypertension : FOLLOW UP IN 1 MONTH Indication: Elevated blood-pressure reading without diagnosis of hypertension Elevated blood-pressure reading without diagnosis of hypertension : BP MONITORING - SELF Indication: Elevated blood-pressure reading without diagnosis of hypertension Pharyngitis, acute : URI Symptoms Indication: Pharyngitis, acute Pharyngitis, acute : *URI Treatment Indication: Pharyngitis, acute Pharyngitis, acute : Antibiotic Usage Education - Male Indication: Pharyngitis, acute Pharyngitis, acute : *URI Treatment Indication: Pharyngitis, acute Esophageal reflux disease : GERD Education Indication: Esophageal reflux disease Other and unspecified hyperlipidemia : CHOLESTEROL MGMT. Indication: Other and unspecified hyperlipidemia Other and unspecified hyperlipidemia : Cholesterol - Nonprescription Treatment Indication: Other and unspecified hyperlipidemia Other and unspecified hyperlipidemia : Cholesterol - Medication Side Effects Indication: Other and unspecified hyperlipidemia Irritation of external ear canal : FOLLOW UP NEEDED Indication: Irritation of external ear canal Acute sinusitis, unspecified : *Antibiotic Usage Education - Male Indication: Acute sinusitis, unspecified Acute sinusitis, unspecified : *URI Treatment Indication: Acute sinusitis, unspecified Acute sinusitis, unspecified : *URI Symptoms Indication: Acute sinusitis, unspecified Other and unspecified hyperlipidemia : Cholesterol - Nonprescription Treatment Indication: Other and unspecified hyperlipidemia Other and unspecified hyperlipidemia : Cholesterol - Medication Side Effects Indication: Other and unspecified hyperlipidemia Planned Observations TSH ([id number])Indication: Atrial fibrillation, controlled On: :56 Request URINALYSIS, W/ MICRO ([id number])Indication: Hypertensive heart disease without congestive heart failure On: :56 Request MICROALBUMIN: CREATININE RATIO (12849) AND ([id number])Indication: Hypertensive heart disease without congestive heart failure On: :56 Request METABOLIC PANEL, COMPREHENSIVE ([id number])Indication: Hypertensive heart disease without congestive heart failure On: :56 Request LIPOPROTEIN, BLD, BY NMR ([id number])Indication: Other and unspecified hyperlipidemia On: :55 Request CBC W/AUTO DIFF WBC ([id number])Indication: Hypertensive heart disease without congestive heart failure On: :55 Request Lipid Panel (61588)Indication: Other and unspecified hyperlipidemia On: 4-Rzz-742138:05 Request Comments: do in 6 mo HEPATIC FUNCTION PANEL ([id number])Indication: Other and unspecified hyperlipidemia On: 2-Ers-703019:05 Request Comments: do in 6 mo DHEA (DEHYDROEPIANDROSTERONE) (17134)Indication: ED (erectile dysfunction) On: 1-Ypr-820687:31 Request MICROALBUMIN: CREATININE RATIO (82355) AND (42095)Indication: Benign essential hypertension On: :17 Request METABOLIC PANEL, COMPREHENSIVE (84039)Indication: Benign essential hypertension On: :17 Request URINALYSIS, W/ MICRO (57135)Indication: Benign essential hypertension On: :17 Request TSH (34730)Indication: Benign essential hypertension On: : Request LIPID PANEL ([id number])Indication: Benign essential hypertension On: : Request CBC WITH MANUAL DIFF (43060)Indication: Benign essential hypertension On: : Request Metabolic Panel, Basic (91416)Indication: Benign essential hypertension On: :17 Request CALCIFIDIOL (83183) VIT D 25Indication: Fatigue On: :32 Request Folate (45122)Indication: Fatigue On: :32 Request VITAMIN B-12 (CYANOCOBALAMIN) (23427)Indication: Fatigue On: :32 Request TSH (34115)Indication: Fatigue On: :32 Request SED RATE ERYTHROCYTE (81470)Indication: Fatigue On: :32 Request METABOLIC PANEL, COMPREHENSIVE (71553)Indication: Fatigue On: :32 Request C-REACTIVE PROTEIN (52462)Indication: Fatigue On: :32 Request CBC (AUTO) (11744)Indication: Fatigue On: :32 Request Metabolic Panel, Basic (72932)Indication: Benign essential hypertension On: 86-Qhq-624261:16 Request C-REACTIVE PROTEIN (33530)Indication: Fatigue On: 18-Eav-861885:03 Request CBC (AUTO) ([id number])Indication: Thrombocytopenia, unspecified On: 89-Neb-302639:03 Request Folate (33270)Indication: Fatigue On: :03 Request METABOLIC PANEL, COMPREHENSIVE (63387)Indication: Fatigue On: :03 Request RHEUMATOID FACTOR-QUANT (64730)Indication: Fatigue On: :03 Request SED RATE ERYTHROCYTE (42214)Indication: Fatigue On: 95-Eoz-915246:03 Request TSH (85735)Indication: Fatigue On: :03 Request VITAMIN B-12 (CYANOCOBALAMIN) (57619)Indication: Fatigue On: 35-Ahs-786144:03 Request LIPID PANEL (78453)Indication: Other and unspecified hyperlipidemia On: 63-Knt-268362:45 Request Comments: do in 6 mo CHEPE CULTURE-OTHER (36737)Indication: Throat pain On: :52 Request Comments: throat cx km PSA (PROSTATE SPECIFIC ANTIGEN) (V76.44)Indication: Esophageal reflux disease On: :03 Request LIPID PANEL (27619)Indication: Other and unspecified hyperlipidemia On: 6-Rct-093903:02 Request PSA (PROSTATE SPECIFIC ANTIGEN) ([id number])Indication: SCREENING FOR CANCER OF THE PROSTATE On: :22 Request Planned Encounters Medical; 1 Month FU - On: 07-Jul-2018 11:45 [facility] Aletha Zamudio DO, DO, Kathleen Planned Procedures INTENSIVE BEHAVIORAL THERAPY TO On: 31-May-2018 Intent REDUCE CARDIOVASCULAR DISEASE RISK, INDIVIDUAL, [id number], ANNUAL, 15 MINUTES (G0446)By: Aletha Zamudio DO, DO, Kathleen Flu Vaccine (Quadrivalent) [id number]: On: 31-May-2018 Intent Aletha Zamudio DO, DO, Comments: Lot #[id number] Exp-02/06/19Site-L dltd, IMDose prefilled syringegiven by: Hanh SAHAVIS reviewed and ABN signed Aletha Owusu CurettesBy: Karla Dejesus On: 20-Apr-2018 Intent Ear Irrigation ([id number])By: Oleg On: 20-Apr-2018 Intent Karla Comments: bilateral ears irrigated. Left ear irritated so stopped and sent home with drops for that ear -- peroxide/debrox. R ear irrigated and currette used. Large amount hard, fatmata to broown wax removed. Tolerated well. MLONG, SLIP LASTER ELECTROCARDIOGRAM, COMPLETE (ECG) On: 22-Jan-2018 Intent ([id number])By: Aletha Zamudio DO Comments: sinus cleo on BB - no acute chg - IVCD- poor Rwave progression Aletha Zamudio DO X-RAY OF THUMB OF LEFT HAND On: 06-Nov-2016 Intent ([id number])By: Aletha Zamudio DO Comments: attention mcp jt Aletha Zamudio DO Flu Vaccine (Quadrivalent) 17185Ud: On: 09-Jun-2016 Intent Aletha Zamudio DO, DO, Comments: Lot:[id number]:02/06/17Dose:0.5mLRoute:IMSite:L DltdGiven By:CLOVER signed Aletha Radiology - Cervical SpineBy: Red On: 03-Nov-2014 Intent Aletha KOROMA DO, Kathleen Aerosol Treatment ([id number])By: Shannon On: 03-Oct-2014 Intent DINKEY ENGINE FIRER/FIREMAN, Rosanne EKG (75753)By: Aletha Zamudio DO On: 03-Apr-2014 Intent Aletha Zamudio DO Comments: nsr no acute chg IMMUNIZ ADMNIN, 1 VAC, SNGL/COMBO On: 12-Aug-2013 Intent ([id number])By: Mima Cruz Comments: diluentLot:[id number]:12/23Dose:0.7mLRoute:sub qSite:l armGiven By:CLOVER signedzostavacLot:[id number]:05/07/14Dose:0.65mLRoute:sub qSite:l armGiven By:CLOVER signed ZOSTER VACC, SC ([id number])By: Anthony, On: 12-Aug-2013 Intent [facility] - Femur - RightBy: Red On: 30-Jul-2012 Intent Aletha KOROMA DO, Kathleen Radiology - Hip - RightBy: Red On: 30-Jul-2012 Intent Aletha KOROMA DO, Kathleen SPECIMEN HNDLNG/TRNSPRT, OFFC > LAB On: 15-Aug-2011 Intent ([id number])By: Marco Antonio LEAVITT, Pamela Ramon Ear Irrigation (28688)By: Red On: 21-Oct-2010 Aletha Foy DO, DO, Kathleen Comments: R-- tolerated well Eprescribed prescriptions (G8553)By: On: 21-Oct-2010 Intent Aletha Zamudio DO, DO, Kathleen Wax CurettesBy: Aletha Zamudio DO On: 21-Oct-2010 Intent Aletha Zamudio DO Echo CompleteBy: Aletha Zamudio DO On: 15-Jul-2010 Intent Aletha Zamudio DO EKG ([id number])By: Aletha Zamudio DO On: 03-Jun-2010 Intent Aletha Zamudio DO Comments: nsr no acute changes TDAP VACCINE >7 IM ([id number])By: Red On: 03-Jun-2010 Aletha Foy DO, DO, Kathleen Comments: Lot:[id number]:11-3-12Amt:0.5ccRoute:imSite:ltGiven By: MARY ANN Sanon EKG ([id number])By: Aletha Zamudio DO On: 28-Mar-2009 Aletha Aldana DO Comments: nsr no avute changes TDAP VACCINE >7 IM ([id number])By: Red On: 28-Mar-2009 Aletha Foy DO, DO, Kathleen Comments: Tdap given in Left DeltoidLot# [id number] 07-14-2011 EKG ([id number])By: Aletha Zamudio DO On: 14-Feb-2008 Aletha Aldana DO Comments: nsr no acute ischemic changes Instructions Name Dates Details Greater trochanteric bursitis, right : How to access health information online Indication: Greater trochanteric bursitis, right Greater trochanteric bursitis, right : How to access health information online - Detail Indication: Greater trochanteric bursitis, right Greater trochanteric bursitis, right : Patient Instructions Indication: Greater trochanteric bursitis, right Atrial fibrillation, controlled : cardiovascular counseling Indication: Atrial fibrillation, controlled Non-smoker : How to access health information online Indication: Non-smoker Non-smoker : How to access health information online - Detail Indication: Non-smoker Non-smoker : Patient Instructions Indication: Non-smoker Non-smoker : How to access health information online Indication: Non-smoker Non-smoker : How to access health information online - Detail Indication: Non-smoker Non-smoker : Patient Instructions Indication: Non-smoker Non-smoker : How to access health information online Indication: Non-smoker Non-smoker : How to access health information online - Detail Indication: Non-smoker Sore throat : Patient Instructions Indication: Sore throat BMI 29.0-29.9,adult : How to access health information online Indication: BMI 29.0-29.9,adult BMI 29.0-29.9,adult : How to access health information online - Detail Indication: BMI 29.0-29.9,adult BMI 29.0-29.9,adult : Patient Instructions Indication: BMI 29.0-29.9,adult Dysuria : Patient Instructions Indication: Dysuria Abnormal urine : How to access health information online Indication: Abnormal urine Abnormal urine : How to access health information online - Detail Indication: Abnormal urine Sore throat and laryngitis : How to access health information online Indication: Sore throat and laryngitis Sore throat and laryngitis : How to access health information online - Detail Indication: Sore throat and laryngitis Sore throat and laryngitis : Patient Instructions Indication: Sore throat and laryngitis Acute pharyngitis : How to access health information online Indication: Acute pharyngitis Acute pharyngitis : How to access health information online - Detail Indication: Acute pharyngitis Acute pharyngitis : Patient Instructions Indication: Acute pharyngitis Benign essential hypertension : How to access health information online Indication: Benign essential hypertension Benign essential hypertension : How to access health information online - Detail Indication: Benign essential hypertension Benign essential hypertension : Patient Instructions Indication: Benign essential hypertension Rash : How to access health information online Indication: Rash Rash : How to access health information online - Detail Indication: Rash Rash : Patient Instructions Indication: Rash Neck Pain (Renamed from Cervical pain) : Patient Instructions Indication: Neck Pain (Renamed from Cervical pain) Benign essential hypertension : How to access health information online Indication: Benign essential hypertension Benign essential hypertension : How to access health information online - Detail Indication: Benign essential hypertension Benign essential hypertension : Patient Instructions Indication: Benign essential hypertension SCREENING FOR CANCER OF THE PROSTATE : Patient Instructions Indication: SCREENING FOR CANCER OF THE PROSTATE Pain in unspecified hip : Patient Instructions Indication: Pain in unspecified hip Pharyngitis, acute : Sore throat: diagnosis and treatment Indication: Pharyngitis, acute Encounters Phone Encounter On: 24-Jun-2018 16:19 Encounter Diagnosis: Rash End: 24-Jun-2018 16:21 [facility] Office Visit On: 09-Jun-2018 8:22 Encounter Reason: Follow up ER - Reason for hospitalization note: (rt hip pain went to [facility] er sat and he said it is a hip strian). Patient has been compliant with instructions. Current medication use: no side effects. Th End: 09-Jun-2018 13:14 e patient feels well with minor complaints, has good energy level and is sleeping well.Encounter Diagnosis: Acute pain of right hip, It band syndrome, right, Greater trochanteric bursitis, right, Hypertensive heart disease without congestive heart failure [facility] Office Visit On: 31-May-2018 8:15 Encounter Reason: Follow up for chronic medical issues - The patient feels well with minor complaints, has good energy level and is sleeping poorly. Patient has been compliant with instructions. Current medication use: n End: 31-May-2018 12:50 o side effects and compliant with dosing regimen. Patient sleeps 7 (broken -- with tylenol pm at night) hours per night. Nutrition: balanced diet and supplemental vitamins. The medical issues the patien t is following up for include All identified problems below, high blood pressure and high cholesterol. blood pressure range : and weight :., [ADDITIONAL REASON] Annual Medicare Exam - The patient had reviewed and updated the family history, medication/s, past medical history and social history. Yes the patient did have a mini mental status exam done today. The activities of daily living the patient needs help with are none. The patient has driven in past 6 months and put area rugs through house, but the patient has not had fecal incontinence, had urinary incontinence, missed or ran out of medications to soon, fallen in the past 6 months, gotten lost, has a medalert necklace or bracelet or put handrails in bathroom. The patient has completed the following preventative measures: PSA testing (2018) and colonoscopy (1 yr). The patient does not have durable power of die fitter or living will. Other providers contributing to the patient's care are electronic scale assembler and tester and gastrologist. Encounter Diagnosis: BMI 25.0-25.9,adult, Non-smoker, Need for prophylactic vaccination and inoculation against influenza (Renamed from Need for immunization against influenza), Other and unspecified hyperlipidemia (272.4), Hypertensive heart disease without congestive heart failure, Atrial fibrillation, controlled, Chronic anticoagulation, Esophageal reflux disease, S/P mitral valve replacement with porcine valve, Other ulcerative colitis, Colon cancer screening (Renamed from Encounter for screening for malignant neoplasm of colon), Prostate cancer screening, Annual Medicare Physical WITH abnormal findings (Renamed from Encounter for general adult medical ex amination with abnormal findings) [facility] Visit On: 05-May-2018 13:26 Encounter Reason: Skin Problems - The onset of the skin problems has been sudden and they have been occurring in a persistent pattern for days. The course has been constant. The problem is characterized as itching (groin End: 05-May-2018 14:13 area) and a change in skin color. Lesions are described as red., [ADDITIONAL REASON] Dysuria - Symptoms include dysuria and burning. Onset was day(s) ago. Note for Dysuria: Itching redness on end of privates Encounter Diagnosis: Non-smoker, BMI 29.0-29.9,adult, Dysuria, Balantidiasis [facility] Office Visit On: 20-Apr-2018 7:58 Encounter Reason: Sore Throat - Symptoms include sore throat, postnasal drainage and chills, while symptoms do not include nasal congestion or fever. The symptoms are left sided. There is no radiation. Onset was 1 hour(s End: 20-Apr-2018 10:27 ) ago. The patient describes this as worsening. Symptoms are exacerbated by swallowing liquids. Associated symptoms include headache, while associated symptoms do not include ear pain, nausea or vomitin g. Note for Sore throat: Symptoms started 2 days ago with sore throat, nasal draiange- clear, chills, headache yesterday. No cough, fever, ear pain, sinus pressure, SOB, CP, wheezing. Has taken asa.Encounter Diagnosis: Non-smoker, BMI 29.0-29.9,adult, Sore throat, Cerumen impaction, Post-nasal drainage [facility] Office Visit On: 22-Jan-2018 8:41 Encounter Reason: Follow up for chronic medical issues - The patient feels well with minor complaints, has good energy level and is sleeping poorly. Patient has been compliant with instructions. Current medication use: n End: 22-Jan-2018 11:33 o side effects and compliant with dosing regimen. Patient sleeps 7 (broken -- with tylenol pm at night) hours per night. Nutrition: balanced diet and supplemental vitamins. The medical issues the patien t is following up for include All identified problems below, high blood pressure and high cholesterol. blood pressure range : and weight :.Encounter Diagnosis: BMI 29.0-29.9,adult, Non-smoker, Prostate cancer screening, Chronic anticoagulation, Atrial fibrillation, controlled, Hypertensive heart disease without congestive heart failure, Other and unspecified hyperlipidemia (272.4), Cervical radiculopathy, Low back pain, episodic, Nutritional counseling [facility] Phone Encounter On: 11-Mar-2017 12:15 Encounter Diagnosis: Family history of 5,10-methylenetetrahydrofolate reductase (MTHFR) deficiency End: 11-Mar-2017 12:18 [facility] Phone Encounter On: 23-Feb-2017 13:08 Encounter Diagnosis: Family history of 5,10-methylenetetrahydrofolate reductase (MTHFR) deficiency End: 23-Feb-2017 13:09 [facility] Office Visit On: 06-Nov-2016 7:38 Encounter Reason: Thumb painEncounter Diagnosis: Non-smoker, BMI 29.0-29.9,adult, Chronic anticoagulation, Hypoglycemia, Trigger finger of left thumb, Thumb pain, left End: 06-Nov-2016 8:30 [facility] Phone Encounter On: 26-Jun-2016 14:48 Encounter Diagnosis: Abnormal urine End: 26-Jun-2016 15:59 [facility] Office Visit On: 23-Jun-2016 14:33 Encounter Reason: UTI - The urinary symptoms are described as painful urination, frequency and burning. The symptoms have been occurring for 4 days and have been constant. The urine is described as clear. The symptoms h End: 23-Jun-2016 15:27 ave been associated with low back pain. The patient denies the use of oral contraceptives, antibiotics, hormone replacement therapy or pyridium/uristat.Encounter Diagnosis: BMI 27.0-27.9,adult, Non-smoker, Dysuria, Chronic anticoagulation, Abnormal urine [facility] Visit On: 12-Jun-2016 9:52 Encounter Reason: Follow up acute care visit - The patient worsening. Patient has been compliant with instructions. Note for Follow up acute care visit: I cant swallow water it hurts, End: 12-Jun-2016 10:54 [ADDITIONAL REASON] Sore Throat - Symptoms include sore throat. The symptoms are symmetrical. There is no radiation. Onset was 3 day(s) ago. Encounter Diagnosis: Acute maxillary sinusitis, recurrence not specified, Sore throat and laryngitis, Lipoma of back [facility] Office Visit On: 09-Jun-2016 10:13 Encounter Reason: Sore Throat - Symptoms include sore throat. The symptoms are symmetrical. There is no radiation. Onset was 3 day(s) ago.Encounter Diagnosis: Acute pharyngitis, End: 09-Jun-2016 12:07 Encounter for screening for malignant neoplasm of prostate (Renamed from Screening for prostate cancer), Family history of carcinoma in situ of prostate, Need for prophylactic vaccination and inoculation against influenza (Renamed from Need for immunization against influenza) [facility] Visit On: 18-Feb-2016 8:07 Encounter Reason: Transition into care - The patient is transitioning into care from a hospital (was at [facility] and had a echo and said the leakage was sever and I went to and had aheart cath and then back again for more End: 18-Feb-2016 9:08 testing. Had sx on 01-30 and then another sx on 02-07 I had to have the valve replaced.) and a summary of care was reviewed .Encounter Diagnosis: Heart murmur (785.2), Atrial fibrillation, controlled, Mitral regurgitation, acute, S/P mitral valve replacement with porcine valve, Anemia due to blood loss, Hypertensive heart disease without congestive heart failure [facility] Office Visit On: 28-May-2015 15:17 Encounter Reason: Follow up tests - Date: (05/10/15 labs)., [ADDITIONAL REASON] Follow up for chronic medical issues - The patient feels well with minor complai End: 28-May-2015 16:57 nts, has good energy level and is sleeping well. Patient has been compliant with instructions. Current medication use: no side effects and compliant with dosing regimen. Patient sleeps 7 hours per night . Nutrition: balanced diet and supplemental vitamins. The medical issues the patient is following up for include All identified problems below, high blood pressure and high cholesterol. blood pressure range : and weight :. Encounter Diagnosis: Benign essential hypertension (401.1), GERD (gastroesophageal reflux disease), ED (erectile dysfunction), Mitral Valve Prolapse(746.9), Low HDL (272.5), Need for prophylactic vaccination (Renamed from Need for immunization against influenza) [facility] Phone Encounter On: 10-May-2015 10:48 Encounter Diagnosis: Other and unspecified hyperlipidemia End: 10-May-2015 10:50 [facility] Office Visit On: 19-Apr-2015 6:53 Encounter Reason: Rash - The skin rash is located on the left arm and right arm.Encounter Diagnosis: Rash, Contact dermatitis End: 19-Apr-2015 7:12 [facility] Visit On: 03-Nov-2014 11:25 Encounter Reason: Neck Pain - This condition occurred without any known injury. The injury occurred 1 month(s) ago. Symptoms include neck pain, neck stiffness, impaired range of motion and shoulder pain. Symptoms are loc End: 03-Nov-2014 12:23 ated in the right anterior neck and right lateral neck. The pain radiates to the right shoulder.Encounter Diagnosis: Cervical radiculopathy (723.4), Neck Pain (Renamed from Cervical pain) [facility] Phone Encounter On: 09-Oct-2014 16:02 Encounter Diagnosis: Hyperlipidemia (272.4) End: 09-Oct-2014 16:06 [facility] Visit On: 09-Oct-2014 15:07 Encounter Reason: Follow up for chronic medical issues - The patient feels well with minor complaints, has good energy level and is sleeping poorly. Patient has been compliant with instructions. Current medication use: n End: 09-Oct-2014 15:59 o side effects and compliant with dosing regimen. Patient sleeps 6 hours per night. Nutrition: balanced diet, no supplemental vitamins & iron and supplemental vitamins. The medical issues the patien t is following up for include All identified problems below, gastric reflux and high blood pressure., [ADDITIONAL REASON] Follow up tests - Date: (09/18/14 labs). Encounter Diagnosis: Hyperlipidemia (272.4), DISEASES OF ESOPHAGUS, ESOPHAGEAL REFLUX (530.81), Benign essential hypertension (401.1), Mitral Valve Prolapse (746.9), ED (erectile dysfunction), Otalgia, Eustachian tube dysfunction [facility] Visit On: 03-Oct-2014 10:21 Encounter Reason: Follow up acute care visit - The medical issues the patient is following up for include All identified problems below and other (Flu A ).Encounter Diagnosis: Acute bronchospasm due to viral infection, Eustachian tube dysfunction, End: 03-Oct-2014 10:56 Cough, Bronchitis [facility] Visit On: 26-Sep-2014 10:21 Encounter Reason: Flu Like Symptoms - Symptoms include fever, chills, body aches, productive cough and headache. Onset was sudden. There is no known event that preceded symptom onset. The symptoms occur constantly. The p End: 26-Sep-2014 10:58 atient describes this as worsening. Associated symptoms include ear pain (R), fatigue and fever.Encounter Diagnosis: Fever, Influenza A, Cough [facility] Phone Encounter On: 14-Sep-2014 10:23 Encounter Diagnosis: ED (erectile dysfunction) End: 14-Sep-2014 10:32 [facility] Visit On: 03-Apr-2014 14:16 Encounter Reason: Follow up tests - Date: (03/17/14 labs)., [ADDITIONAL REASON] Follow up for chronic medical issues - The patient feels well with minor complai End: 03-Apr-2014 16:53 nts, has good energy level and is sleeping poorly. Patient has been compliant with instructions. Current medication use: no side effects and compliant with dosing regimen. Patient sleeps 5 hours per nig ht. Nutrition: balanced diet and no supplemental vitamins & iron. The medical issues the patient is following up for include All identified problems below, high blood pressure and high cholesterol. blood pressure range : and weight :. Encounter Diagnosis: Benign essential hypertension (401.1), DISEASES OF ESOPHAGUS, ESOPHAGEAL REFLUX (530.81), Allergic rhinitis (477.9), Hyperlipidemia (272.4), Nausea [facility] Phone Encounter On: 15-Mar-2014 14:51 Encounter Diagnosis: Hypertriglycerides (272.1), Benign essential hypertension (401.1), SCREENING FOR CANCER OF THE PROSTATE (V76.44) End: 15-Mar-2014 15:00 [facility] Office Visit On: 18-Oct-2013 8:00 Encounter Reason: Sinusitis/ - The duration of the symptoms are 3 days The course has been worsening. The sinusitis/ has no relieving factors. Associated features include The symptoms have been associated with nasal disc End: 18-Oct-2013 8:23 harge/stuffy nose and sore throat. No previous evaluations were reported.Encounter Diagnosis: PHARYNGITIS, ACUTE (462.), Viral infection, unspecified (079.99) [facility] Visit On: 12-Aug-2013 8:51 Encounter Reason: Injections - The medication the patient is here to receive is shingles vaccine IM.Encounter Diagnosis: SHINGLES,NEED FOR PROPHYLACTIC VACCINATION AND INOCULATION AGAINST (V05.8) End: 12-Aug-2013 9:13 [facility] Visit On: 06-Jun-2013 15:49 Encounter Reason: Upper Respiratory Infection (URI) - The last clinic visit was 6 day(s) ago. No changes in management were made at the last visit. Symptoms include runny nose (yelloow green brown junk), sore throat, dry End: 06-Jun-2013 16:02 cough, wheezing, fever (only first 2 days none now) and general malaise, while symptoms do not include nasal congestion or chills. Onset was sudden. The symptoms occur constantly. The patient describes this as moderate in severity and worsening. Associated symptoms do not include facial pain, facial pressure, nausea or vomiting. Note for Upper respiratory infection: no bad body aches Encounter Diagnosis: Acute sinusitis, unspecified (461.9) [facility] Visit On: 20-Aug-2012 13:56 Encounter Reason: Follow up for chronic medical issues - The patient feels well with minor complaints, has good energy level and is sleeping well. Patient has been compliant with instructions. Current medication use: no End: 20-Aug-2012 14:13 side effects and compliant with dosing regimen. Patient sleeps 6 hours per night. Nutrition: balanced diet and no supplemental vitamins & iron. The medical issues the patient is following up for inc lude All identified problems below, high blood pressure and high cholesterol. blood pressure range : and weight :.Encounter Diagnosis: Hip pain (719.45), GERD (530.81), Hypertriglycerides (272.1), Hyperglycemia (790.29), Mitral Valve Prolapse (746.9), DISEASE, HYPERTENSIVE HEART NOS, W/O HF (402.90), SCREENING FOR CANCER OF THE PROSTATE (V76.44) [facility] Office Visit On: 30-Jul-2012 11:41 Encounter Reason: Hip Problem - This condition occurred without any known injury. The injury involved the right hip. This occurred 2 month(s) ago. Symptoms include hip problem. The symptoms are located in the right hip. End: 30-Jul-2012 12:36 The patient describes the hip problem as hip pain.Encounter Diagnosis: Benign essential hypertension (401.1), Pelvis/Thigh/Hip Pain (719.45) [facility] Lab Order On: 10-Dec-2011 9:16 Encounter Diagnosis: Benign essential hypertension (401.1) End: 10-Dec-2011 9:19 [facility] Visit On: 01-Sep-2011 15:57 Encounter Reason: Sinusitis - The last clinic visit was week(s) ago. No changes in management were made at the last visit. Symptoms include nasal congestion, forehead pain, forehead pressure, cough and headache. Onset wa End: 01-Sep-2011 16:14 s sudden. The symptoms occur constantly. The patient describes this as severe and worsening. Symptoms are not relieved by lying down. Associated symptoms include sore throat. The patient is not currently being treated for this problem. Encounter Diagnosis: Acute sinusitis, unspecified (461.9) [facility] Visit On: 15-Aug-2011 6:54 Encounter Reason: Upper Respiratory Infection (URI) - The last clinic visit was 5 day(s) ago. No changes in management were made at the last visit. Symptoms include nasal congestion, runny nose and sore throat, while sym End: 15-Aug-2011 7:05 ptoms do not include sneezing, scratchy throat, hoarseness, dry cough, productive cough, wheezing, fever, chills or general malaise. Onset was sudden day(s) ago. The symptoms occur constantly. The patie nt describes this as moderate in severity and unchanged. Associated symptoms include headache and clear sputum, while associated symptoms do not include ear pain, ear plugging, nausea or vomiting.Encounter Diagnosis: GERD (530.81), ACUTE PHARYNGITIS (462.) [facility] Visit On: 20-Dec-2010 15:05 Encounter Reason: Follow up, Laboratory Test Results - Date: (12-07-10 and 12-11-10)., [ADDITIONAL REASON] Follow up for chronic medical issues - The patient feels well with minor complai End: 20-Dec-2010 15:22 nts, has decreased energy level and is sleeping poorly. Patient has been compliant with instructions. Current medication use: no side effects and compliant with dosing regimen. Patient sleeps 6 hours pe r night. Nutrition: inappropriate diet and no supplemental vitamins & iron. The medical issues the patient is following up for include All identified problems below, high blood pressure and high cholesterol. blood pressure range :. 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 The course has been constant. The cough is characterized as productive of mucoid sputum. The mendoza End: 21-Oct-2010 9:57 unt of sputum produced is scanty. The cough occurs all the time. The symptoms are aggravated by supine posture and particular position, but not by meals. The symptoms have been associated with headache, hoarseness, runny nose and wheezing, while the symptoms have not been associated with fever or sore throat.Encounter Diagnosis: Acute sinusitis, unspecified (461.9), Cerumen impaction (380.4) [facility] Visit On: 07-Aug-2010 8:35 Encounter Reason: Follow up tests - Diagnostic tests include ECHO. Date: (07-30-10).Encounter Diagnosis: Mitral Valve Prolapse (746.9), DISEASE, HYPERTENSIVE HEART NOS, W/O HF (402.90), Heart murmur (785.2), Fatigue (780.79) End: 07-Aug-2010 9:40 [facility] Visit On: 15-Jul-2010 15:46 Encounter Reason: Follow up Hypertension - blood pressure range : (did ok at home when he did take it)., [ADDITIONAL REASON] Follow up, Laboratory Test Results - Date: (06/22/10). , End: 15-Jul-2010 16:43 [ADDITIONAL REASON] Follow up Meds - The patient feels well with minor complaints, has good energy level and is sleeping well. Patient has been compliant with instructions. Current medication use: no s shruthi effects and compliant with dosing regimen. Patient sleeps 6 hours per night. Nutrition: balanced diet. Encounter Diagnosis: Benign essential hypertension (401.1), Heart murmur (785.2) [facility] Visit On: 03-Jun-2010 13:51 Encounter Reason: Follow up for chronic medical issues - The patient feels well with minor complaints, has good energy level and is sleeping well. Patient has been compliant with instructions. Current medication use: no End: 03-Jun-2010 17:18 side effects and compliant with dosing regimen. Patient sleeps 6 hours per night. Nutrition: balanced diet and no supplemental vitamins & iron. The medical issues the patient is following up for inc vannessa All identified problems below, high blood pressure and high cholesterol. blood pressure range :.Encounter Diagnosis: Benign essential hypertension (401.1), GERD (530.81), Hyperlipidemia (272.4), Benign neoplasm of colon (211.3), Allergic rhinitis (477.9) [facility] Visit On: 25-Jun-2009 15:56 Encounter Reason: Follow up Meds - The patient feels well with minor complaints ,has good energy level and is sleeping well. Patient has been compliant with instructions. Current medication use: no side effects and compl End: 25-Jun-2009 18:23 iant with dosing regimen. Patient sleeps 6 hours per night. Nutrition: balanced diet. , [ADDITIONAL REASON] Follow up Hypertension - blood pressure range : (103 to 130/70's). Encounter Diagnosis: Benign essential hypertension (401.1), Laryngitis (464.00) [facility] Office Visit On: 04-Jun-2009 15:46 Encounter Reason: Follow up Hypertension - blood pressure range : (?/80's). , [ADDITIONAL REASON] Follow up, Laboratory Test Results - Date: (05/03/09). , End: 04-Jun-2009 16:20 [ADDITIONAL REASON] Follow up Meds - The patient feels well with minor complaints ,has good energy level and is sleeping well. Patient has been compliant with instructions. Current medication use: no s shruthi effects and compliant with dosing regimen. Patient sleeps 7 hours per night. Nutrition: balanced diet. Encounter Diagnosis: Benign essential hypertension (401.1), Heart murmur (785.2) [facility] Office Visit On: 03-May-2009 15:17 Encounter Reason: high blood pressure - The patient has experienced high blood pressure for 1 months. The symptoms have been associated with family history of hypertension. blood pressure range : (122-140/74-98). Encounter Diagnosis: End: 03-May-2009 16:24 Benign essential hypertension (401.1), Thrombocytopenia, unspecified (287.5), Fatigue (780.79) [facility] Office Visit On: 28-Mar-2009 15:20 Encounter Reason: Follow up for chronic medical issues - The patient feels well with no complaints. Patient has been compliant with instructions. Current medication use: no side effects. , End: 28-Mar-2009 16:14 [ADDITIONAL REASON] Follow up, Laboratory Test Results - Lab results: other (Hepatic Panel, PSA, UA, Lipid, CMp,CBC). Date: (03/2009). Encounter Diagnosis: Hyperlipidemia (272.4), Thrombocytopenia, unspecified (287.5), Elevated Blood Pressure without diagnosis of Hypertension (796.2), Low HDL (272.5) [facility] Office Visit On: 01-Mar-2009 14:49 Encounter Reason: Shoulder Pain - The onset of the shoulder pain has been sudden following no specific incident and has been occurring in an intermittent (at times its worse then others. ) pattern for 1 months. The cours End: 01-Mar-2009 15:53 e has been worsening. The shoulder pain is moderate. The shoulder pain is characterized as a sharp stabbing. The shoulder pain is described as being located in the left shoulder and left side of the nec k (once in awhile it will go up into my neck and recently its been making my thumb go numb. ). Relieving factors include medication (aleve seems to help it a little bit but it doesnt last very long. ). Encounter Diagnosis: Cervical radiculopathy (723.4), Shoulder pain (719.41) [facility] Office Visit On: 21-Dec-2008 7:50 Encounter Reason: Sore throat - The onset of the sore throat has been acute and has been occurring in a persistent pattern for days. The course has been unchanged. The symptoms have been associated with cough ,recent con End: 21-Dec-2008 8:08 tact with a person with sore throat and runny nose. Encounter Diagnosis: ACUTE PHARYNGITIS (462.) [facility] Office Visit On: 16-Feb-2008 7:48 Encounter Reason: Mouth ulcers - The onset of the mouth ulcers has been sudden and has been occurring in a persistent pattern for 1 days. The course has been worsening. The mouth ulcers are observed in the lips and the t End: 16-Feb-2008 8:20 hroat. The mouth ulcers are described as painful. The symptoms have been associated with fever (on thursday) and sore throat. Encounter Diagnosis: SYMPTOMS INVOLVING HEAD AND NECK; THROAT PAIN (784.1), Viral infection, unspecified (079.99), ACUTE PHARYNGITIS (462.) [facility] Office Visit On: 14-Feb-2008 10:30 Encounter Reason: Follow up for chronic medical issues - The patient does not feel well ,has good energy level and is sleeping well. Patient has been compliant with instructions. Current medication use: no side effects a End: 14-Feb-2008 11:51 nd compliant with dosing regimen. Patient sleeps 6 hours per night. Nutrition: balanced diet and no supplemental vitamins & iron. The medical issues the patient is following up for include high blood pressure and high cholesterol. Encounter Diagnosis: DISEASES OF ESOPHAGUS, ESOPHAGEAL REFLUX (530.81), Hyperlipidemia (272.4), Mitral Valve Prolapse(746.9) [facility] Office Visit On: 13-Jul-2007 7:53 Encounter Reason: Sinusitis/ - The duration of the symptoms are 4 days The course has been gradually worsening. The sinusitis/ has no relieving factors. Associated features include The symptoms have been associated with End: 13-Jul-2007 8:39 cough ,nasal discharge/stuffy nose and sinus pain. Encounter Diagnosis: Acute sinusitis, unspecified (461.9), Cerumen impaction (380.4), External Ear Irritation (698.9) [facility] Historical Summary On: 16-Oct-2006 10:48 [facility] End: 19-Oct-2006 17:07 Office Visit On: 16-Apr-2006 14:42 Encounter Reason: Physical male exam - Last seen between 6-12 months ago. The patient's appetite is normal. Exercises 7 (walks or tries to walk about 30 minutes a day) days per week. Sleeps on average 5 (somtimes wakes u End: 17-Apr-2006 0:32 p at night also snores, has alot of interrupted sleep.) hours per night. Safety measures include appropriate use of safety belts. There are no current emotional problems. Encounter Diagnosis: Other ulcerative colitis (556.8), DISEASES OF ESOPHAGUS, ESOPHAGEAL REFLUX (530.81), Mitral Valve Prolapse(746.9), Hyperlipidemia (272.4), Elevated Blood Pressure without diagnosis of Hypertension (796.2), SCREENING FOR CANCER OF THE PROSTATE (V76.44), SCREEN FOR CANCER OF THE TESTIS (V76.45) [facility] Office Visit On: 14-Apr-2006 12:21 [facility] End: 14-Apr-2006 12:25 Payers MedicareAnthem/SupplementIzabel orellana guarantor
--- OUTSIDE RECORDS SUMMARY | 2018-08-17 20:47 | XMS RPT_ITS | Continuity of Care Document ---
:1950 Author Organization [facility] Address [facility]7 [facility] [address] [place] [address] Phone Care Team Providers Name Role Phone Aletha Moon DO Unavailable [facility], [facility] Unavailable MARY ANN Gardner Unavailable Unavailable Long Katherine REESE Unavailable Unavailable Jennifer Wong Unavailable Unavailable Unavailable Unavailable Problems Name Dates [...] for 30 days Refills: 0 Ordered:18-Feb-2016 Viji Moon DO, DO, Kathleen Start : 18-Feb-2016 Active Balsalazide Disodium 750 MG Oral Capsule 6-9 Capsule daily as directed for 30 days Quantity: 180 {Capsule} Refills: 12 Ordered:22-Jan-2018 Viji Moon DO, DO, Kathleen Start : 22-Jan-2018 Active Coumadin 1 MG Oral Tablet 1 (one) Tablet daily as directed for 30 days Quantity: 30 {Tablet} Refills: 6 Ordered:22-Jan-2018 Viji Moon DO, DO, Kathleen Start : 22-Jan-2018 Active [...] Quantity: 60 {Capsule} Refills: 3 Ordered:22-Jan-2018 Viji Moon DO, DO, Kathleen Start : 22-Jan-2018 Active OMEPRAZOLE, 20MG (Oral Capsule Delayed Release) [address] QD for 0 days Quantity: 90 {Capsule_DR} Refills: 3 Ordered:15-Aug-2011 Karla Gardner LPN Start : 15-Aug-2011 Active Zocor 20 MG Oral Tablet 1 Tablet QD for 0 days Quantity: 90 {Tablet} Refills: 3 Ordered:03-May-2018 Viji Moon DO, DO, Kathleen Start : 03-May-2018 Active [...] days Quantity: 28 {Tablet_ER_24HR} Refills: 0 Ordered:13-Jul-2007 Natali Ortega CNP Start : 13-Jul-2007 End : 13-Sep-2007 Inactive CELEBREX, 200MG (Oral Capsule) 1 Capsule bid for 7 days Quantity: 14 {Capsule} Refills: 0 Ordered:20-Aug-2012 Viji Moon DO, DO, Kathleen Start : 30-Jul-2012 End : 06-Aug-2012 Inactive CHERATUSSIN AC, 100-10MG/5ML (Oral Syrup) 1-2 Teaspoon qhs prn for 0 days Quantity: 6 {Ounce} Refills: 0 Ordered:2-Mar-2015 Karla Gardner LPN Start : 03-Oct-2014 End : 09-Oct-2014 Inactive Ciprofloxacin HCl 500 MG Oral Tablet 1 (one) Tablet bid for 0 days Quantity: 20 {Tablet} Refills: 0 Ordered:27-Oct-2016 FIDELIA Garcia Start : 23-Jun-2016 End : 27-Oct-2016 Inactive Diflucan 150 MG Oral Tablet 1 (one) Tablet repeat in 3 days for 2 days Quantity: 2 {Tablet} Refills: 0 Ordered:31-May-2018 Viji Moon DO, DO, Kathleen Start : 31-May-2018 End : 02-Jun-2018 Inactive Dipentum 250 MG Oral Capsule 1 Capsule QD for 90 days Quantity: 90 {Capsule} Refills: 3 Ordered:22-Jan-2018 Katherine Spangler LPN Start : 18-Feb-2016 End : 22-Jan-2018 Inactive HYCODEN (Oral Syrup) (Free Text) 1 Teaspoon(s) q 6 hr prn for 30 days Quantity: 60 {Milliliter} Refills: 0 Ordered:06-Jun-2013 Viji Moon DO, DO, Kathleen Start : 06-Jun-2013 End [...] for 10 days Refills: 0 Ordered:19-Apr-2015 Viji Moon DO, DO, Kathleen Start : 19-Apr-2015 End [...] days Quantity: 12 {Tablet} Refills: 0 Ordered:16-Feb-2008 Natali Ortega CNP Start : 16-Feb-2008 End : 21-Feb-2008 Inactive DALLERGY, 12-20-2.5MG (PO Tab SR 12HR) 1 BID for 0 days Refills: 0 Ordered:22-Jan-2018 Katherine Spangler LPN End : 22-Jan-2018 Discontinued Comments:This order discontinued per [facility]. HYDROCHLOROTHIAZIDE, 25MG (Oral Tablet) 1 (one) Tablet Daily for 0 days Refills: 0 Ordered:04-Jun-2009 Viji Moon DO, DO, Kathleen Start : 03-May-2009 End [...] Procedure Dates Details PNEUM VAC ADLT/IMUMNOSPR, SBC/INTRM (33834) Date: 28-May-2015 Completed 28-May-2015 Heart Surgery Completed Heart Valve Surgery Completed Comments: Date Value Details 05-Jun-2018 Discharge Instruction Result: Comments: See Note; NOTES: [facility] Medical Records Department [address] [place] [address] Discharge Instruction 06/05/18 2330 MR#: [id number] Acct: [id number] Name: IZABEL GARCÍA Rep #: [id number] : 1950 68 From: Frederick Hoskins MD PCP: Aletah Moon DO Status: REG ER ED Disposition - Plan for ED Patient: Chief Complaint: Lower Extremity Injury Instructions: ED Sprain Hip Prescriptions: Hydrocodone Bitart/Apap 5-325 [Middleburg 5MG-325MG] 1 tab PO Q6H PRN PRN 3 Days #10 tab PRN Reason: Pain Referrals: Aletha Moon DO [Primary Care Provider] - What to do if you have Problems For any increased pain, shortness of breath, bleeding, nausea or vomiting, chest pain, or any unexpected problems, contact your Primary Care Provider. Call [facility] ) or report to the closest Emergency Room. Call 911 if necessary. 06/05/186 <Electronically signed by Frederick Hoskins MD> Date Da brittanie Hoskins MD Cosigner Signature (If Indicated): Date CC: Aletha Moon DO 05-Jun-2018 Emergency Department Summary Result: Comments: See Note; NOTES: [facility] Medical Records Department [address] [place] [address] Emergency Department Summary 06/05/18 2326 MR#: [id number] Acct: [id number] Name: IZABEL GARCÍA Rep #: [id number] : 1950 68 From: Frederick Hoskins MD PCP: Aletha Moon DO Status: REG ER - ER Visit [...] and Treatment: Patient treated with Kenalog and [place]burg. I am not sure what is causing his pain. He has some degenerative changes but otherwise his evaluation is unremarkable. No trauma or inciting event. I do not believe there is indication for further imaging with CT or MRI. Nothing to suggest gout or septic arthropathy. Nothing to suggest vascular pathology. Skin appears normal. Patient will be treated with a short course of Middleburg. He has a walker that he can use at home . He will follow-up with his primary care doctor. Return for any new or worsening issues. Treatment Plan: As above Disposition: Discharge Impression: 1. Right hip pain This note was generated with [facility] dictation software. It may contain incorrect words, spelling, and punctuation that were not noted in review of the chart prior to signing ED Disposition - Plan for ED Patient: Chief Complaint : Lower Extremity Injury Referrals: Aletha Moon, DO [Primary Care Provider] - What to do if you have Problems For any increased pain, shortness of breath, bleeding, nausea or vomiting, chest vannessa n, or any unexpected problems, contact your Primary Care Provider. Call [facility] ([phone]) or report to the closest Emergency Room. Call 911 if necessary. 06/05/18 8718 <Mehul olga signed by Frederick Hoskins MD> Date Frederick Hoskins MD Cosigner Signature (If Indicated): Date CC: Aletha Moon DO 05-Jun-2018 HIP, UNI W/ Pelvis 2-3 Views Result: Comments: See Note; NOTES: [facility] Imaging Services [address] [place] [address] HIP, UNI W/ Pelvis 2-3 Views MR#: [id number] Acct: [id number] Name: IZABEL GARCÍA Rep # : [id number] : 1950 68 From: Arely Viramontes MD PCP: Aletha Moon DO Status: REG ER Study: HIP, UNI W/ Pelvis 2-3 Views Date of Exam: 06/05/18 Exam# [id number] Ordering Dr: Frederick Hoskins MD STUDY: X-RAY [...] support , CC: Frederick Hoskins MD; Aletha Moon DO Manufacturing Applications Engineer: Signed 29-Jan-2018 Inital Evaluation (1) - PT Result: Comments: See Note; NOTES: [facility] Physical Therapy [facility] [address] [place] [address] Fax REHABILITATION SERVICES INITIAL EVALUATION MR#: [id number] Acct: [id number] Name: IZABEL GARCÍA Rep #: [id number] : 1950 67 From: Tyron Steinberg PT, Cert. MDT, OCS Referring Dr.: Aletha Moon DO Status: REG RCR Insu loraine: MEDICARE PART A B ANTHEM Patient's Visit Information IZABEL GARCÍA is a 67 year old M referred to Physical Therapy by Aletha Moon with a diagnosis of Cervical radiculopathy and [...] Subjective Subjective: Pt is 67 y/o ma le referred for cervical radiculopathy and low back [...] to be FAXED BACK to us at [phone] for Medicare purposes. Please let me know if there are questions or concerns regarding this plan of care. Physician Signature: Date: <Electronically signed by Tyron Steinberg PT, Cert. KAITLYN, OCS> 01/29/18 0835 CC: Aletha Moon DO LAURIE Signed Fo r Medicare only, by signing this I certify the plan of care. Physicians Signature Date 06-Nov-2016 Finger(s) Min 2 Views Result: Comments: See Note; NOTES: [facility] Imaging Services [address] [place] [address] Verdana 4d Finger(s) Min 2 Views MR#: [id number] Acct: [id number] Name: IZABEL GARCÍA ep #: [id number] : 1950 M 66 From: Tanner Shaffer MD PCP: Aletha Moon DO Status: REG CLI Study: Finger(s) Min 2 Views Date of Exam: 11/06/16 Exam# [id number] Ordering Dr: Itzel Moon DO STUDY: X-RAY - LEFT HAND, ATTENTION [...] Matthew Meyer MD at 13:48 EDT Tel [phone], Service support [phone], CC: Aletha Moon DO Manufacturing Applications Engineer: Signed 20-Jun-2015 Sinus/Facial Bone Result: Comments: See Note; NOTES: [facility] Imaging Services [address] [place] [address] Verdana 4d Sinus/Facial Bone MR#: [id number] Acct: [id number] Name: DM GARCÍA Rep #: [id number] : 1950 M 65 From: Claribel Luna MD PCP: Aletha Moon DO Status: REG CLI Study: Sinus/Facial Bone Date of Exam: 06/20/15 Exam# [id number] Ordering Dr: Mauri Lopez MD STUDY: CT [...] at 22:37 EST Tel , Service support [phone], CC: Satinder Chavez MD; Aletha Moon DO Manufacturing Applications Engineer: Signed 17-Jan-2015 Emergency Department Summary Result: Comments: See Note; NOTES: [facility] Medical Records Department [address] [place] [address] Emergency Department Summary MR#: [id number] Acct: [id number] Name: IZABEL CERDA Rep #: [id number] : 1950 64 From: Izabel Jones MD PCP: Aletha Moon DO Status: [facility] ER DATE OF SERVICE: 01/15/2015 METHOD OF ARRIVAL: By private car. CHIEF COMPLAINT: N ear-syncope. PRIMARY CARE: Dr. Moon. SUMNER HISTORY: A 64-year-old male with history [...] extraction. DISPOSITION: Home. MD Nael Dumont C: Aletha Moon DO T: [facility] J OB: [id number] 01/17/15 0902 <Electronically signed by Izabel Jones MD> Date Izabel Jones MD CC: Aletha Moon DO Date Dictated: 1839 Date Transcribed: 01/15/151839 Manufacturing Applications Engineer: Signed 16-Jan-2015 12 Lead Electrocardiogram Result: Comments: See Note; NOTES: [facility] Cardiovascular Services [address] [place] [address] 12 Lead EKG 01/15/15 1645 MR#: [id number] Acct: [id number] Name: BRANDIE GARCÍA Rep #: [id number] : 1950 64 From: Roberto Haynes MD [...] normal ECG Confirmed by IVY LEAVITT, ROBERTO ([id number]), editor index GEO WATTERS ([id number]) on 01/16/2015 9:52:23 AM Referred By: PRINCESS Confirmed By:ROBERTO HAYNES MD 01/16/15 0952 Date ____ Roberto Haynes MD CC: Aletha Moon DO Date Dictated: 01/15/151644 Date Transcribed: 01/15/151644 Manufacturing Applications Engineer: Signed 15-Jan-2015 Discharge Instruction Result: Comments: See Note; NOTES: [facility] Medical Records Department [address] [place] [address] Discharge Instruction 01/15/151835 MR#: [id number] Acct: [id number] Name: IZABEL GARCÍA Rep #: [id number] : 1950 64 From: Izabel Jones MD PCP: Aletha Moon DO Status: REG ER ED Disposition - Plan for ED Patient: Disposition: Home Chief Complaint: Syn cope Instructions: ED Near Syncope, Vasovagal Referrals: Aletha Moon DO [Primary Care Provider] - 2 Days Additional Instructions: follow up with Dr Moon. fluids. return with problems. rest. recommend try to avoid taking vicodin What to do if you have Problems For any increased pain, shortness of breath, bleeding, nausea or vomiting, chest pain, or any unexpected problems, contact [facility]. Call [facility] ([phone]) or report to the closest Emergency Room. Call 911 if necessary. 01/15/151836 <Electronically signed by Izabel Jones MD> Date Izabel Jones MD Cosigner Signature (If Indicated): Date CC: Aletha Moon DO 17-Nov-2014 Inital Evaluation - PT Result: Comments: See Note; NOTES: [facility] Physical Therapy [facility] [address] [place] [address] Fax REHABILITATION SERVICES INITIAL EVALUATION MR#: [id number] Acct: [id number] Name: IZABEL GARCÍA Rep #: [id number] : 1950 64 From: Socorro Dejesus Referring Dr.: Aletha Moon DO Status: REG RCR Insurance: [facility] [employer] TPA Eval Date: DATE OF SERVICE: 11/10/2014 SUBJECTIVE: This patient was referred to physical therapy by Dr. Aletha Moon with diagnoses of neck pain, cervical radiculitis and trap ezius spasm. 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 Bilateral upper [...] care. Socorro Dejesus, PT T: NTS JOB: [id number] <Electronically signed by Socorro Dejesus &# 62; 11/17/14 1538 CC: Signed For Medicare only, by signing this I certify the plan of care. Physicians Signature Date 03-Nov-2014 Cerv Spine 4 or 5 Views Result: Comments: See Note; NOTES: [facility] Imaging Services [address] [place] [address] Radiology Report MR#: [id number] Acct: [id number] Name: IZABEL GARCÍA Rep #: [id number] : 1950 M 64 From: Carter Pavon MD PCP: Aletha Moon DO Status: REG CLI Study: Cerv Spine 4 or 5 Views Date of Exam: 11/03/14 Exam# [id number] Ordering Dr: Aletha Moon DO STUDY: X-RAY - CERVICAL SPINE REASON FOR EXAM: Male, 64 years old. Right posterior neck pain. TECHNIQUE: 6 view(s) of the cervical spine were obtained. COMPARISON: None FINDINGS: Normal anterior atlantoaxial articulation. Normal odontoid process. Normal cervical lordosis. Degenerative endplate spondylosis seen at C4-5 and C5-6. There is degenerative lucina rowing of the C4-5 and C5-6 intervertebral [...] MD at 19:55 EDT , Service support [phone], CC: Aletha Moon DO Manufacturing Applications Engineer: Signed Immunization Name Dates Details Pneumococcal (2 years and up) on: 28-May-2015 Comments: Site: Deltoid (Left) Lot #: [id number] Tdap (7 years and up) on: 28-Mar-2009 Comments: Tdap given in Left DeltoidLot# [id number] 07-14-2011 Social History Name Dates Details Caffeine [...] smoker Vital Signs Date Test Result Details : Pulse 62 /min Comments: Pattern: Regular Respiration [...] Body Surface Area Calculated 2.06 m2 :23 Comments: Dr. Mcneill and [facility] Temperature 97.4 f Comments: Method: Temporal Pulse [...] kg/m2 Body Surface Area Calculated 2.06 m2 54-Adv-926879:30 Temperature 98.3 f Comments: Method: Temporal Pulse [...] 0.00 cm Results Date Description Value Details 89-Lli-016212:15 CBC W/Diff, Automated Comments: [facility] [address] [place], [place], [id number] Absolute Lymph 1.68 {X10_3/ul} (Normal) Range: 0.83-4.51 [...] 4.6-6.2 WBC 4.4 K/mm3 (Normal) Range: 4.4-11.0 91-Xxz-609982:15 Erythrocyte Sed Rate Comments: [facility] [address] [place] [address], [address] SED RATE 5 mm/h (Normal) Range: 0-20 65-Anu-283601:15 Prothrombin Time w/INR Comments: [place] [address] [facility]. [place], [place], [id number] INR 2.8 (Normal) PROTIME 30.0 s (Abnormal) Range: 11.7-14.9 47-Uqd-266093:55 Urinalysis, Office (66119) UA - LEUKOCYTE ESTERASE Trace (Normal) UA - NITRITE Negative (Normal) URINE UROBILINGN SHANIQUE TIMED Normal mg/dL (Normal) UA - PROTEIN Negative mg/dL (Normal) UA - PH 6 (Abnormal) UA - BLOOD Non Hemolyzed Trace (Normal) UA - SPECIFIC GRAVITY 1.025 (Normal) UA - KETONES Negative mg/dL (Normal) UA - BILIRUBIN Negative (Normal) UA - GLUCOSE Negative (Normal) 30-Vbi-96534:36 THROAT CULTURE (73895) Comments: PATIENT NOT FASTINGPERFORMED BY: [facility] [facility] [id number] Information: SRC:TH Result 1 RRF (Normal) Comments: Routine respiratory natalie Upper Respiratory Culture Final report (Normal) 88-Yeg-57516:01 Rapid Strep Test, Office (17587) Rapid Strep Test, Office Negative (Normal) 15-Egc-585967:48 PSA (Medicare - G0103) Comments: PATIENT WAS FASTINGPERFORMED BY: [facility]Ilnhui7[address] [facility] [id number] (29294) Prostate Specific Ag, 0.8 ng/mL (Normal) Range: 0.0-4.0 Serum Comments: AdvitechIA methodology. .According to the [place] [employer], Serum PSA shoulddecrease and remain at undetectable levels after radicalprostatectomy. The AUA defines biochemical recurrence as an initialPSA value 0.2 ng/mL or greater followed by a subsequent confirmatoryPSA value 0.2 ng/mL or greater.Values obtained with d ifferent assay methods or kits cannot be usedinterchangeably. Results cannot be interpreted as absolute evidenceof the presence or absence of malignant disease. 39-Ebs-695938:48 TSH (52481) Comments: PATIENT WAS FASTINGPERFORMED BY: [facility]Geazzi60[address] [facility] [id number] TSH 0.464 {uIU/mL} (Normal) Range: 0.450-4.500 18-Oif-465183:48 Metabolic Panel, Comprehensive Comments: PATIENT WAS FASTINGPERFORMED BY: [facility] [facility] [id number] (98414) ALT (SGPT) 26 [iU]/L (Normal) Range: 0-44 [...] 8-27 Glucose 98 mg/dL (Normal) Range: 65-99 38-Ntg-273543:48 Lipid Panel (62329) Comments: PATIENT WAS FASTINGPERFORMED BY: [facility]6370 [facility] [id number] LDL/HDL Ratio 2.4 {ratio} (Normal) Range: 0.0-3.6 Comments: LDL/HDL Ratio Men Women 1/2 Avg.Risk 1.0 1.5 Av g.Risk 3.6 3.2 2X Avg.Risk 6.2 5.0 3X Avg.Risk 8.0 6.1 LDL Cholesterol Calc 92 mg/dL (Normal) Range: 0-99 VLDL Cholesterol Brandon 29 mg/dL (Normal) Range: 5-40 HDL Cholesterol 38 mg/dL (Abnormal) Triglycerides 146 mg/dL (Normal) Range: 0-149 Cholesterol, Total 159 mg/dL (Normal) Range: 100-199 18-Dsw-668936:48 URINALYSIS (65881) Comments: PATIENT WAS FASTINGPERFORMED BY: [facility] [id number] Microscopic Examination MICNIP (Normal) Comments: Microscopic not indicated and not performed. Nitrite, Urine Negative (Normal) Urobilinogen,Semi-Qn 0.2 mg/dL (Normal) Range: 0.2-1.0 Bilirubin Negative (Normal) Occult Blood Negative (Normal) Ketones Negative (Normal) Glucose Negative (Normal) Protein Trace (Normal) WBC Esterase Negative (Normal) Appearance Clear (Normal) Urine-Color Yellow (Normal) pH 7.0 (Normal) Range: 5.0-7.5 Specific [place] 1.026 (Normal) Range: 1.005-1.030 79-Lnv-620103:48 MICROALBUMIN: CREATININE RATIO Comments: PATIENT WAS FASTINGPERFORMED BY: Arigo70 [facility] [id number] (42812) AND (47877) Alb/Creat Ratio 9.9 {mg/g_creat} (Normal) Range: 0.0-30.0 Albumin, Urine 19.3 ug/mL (Normal) Creatinine, Urine 194.2 mg/dL (Normal) 35-Igl-774797:48 CBC WITH MANUAL DIFF (37602) Comments: PATIENT WAS FASTINGPERFORMED BY: [facility] [id number] Immature Grans (Abs) 0.0 {x10E3/uL} (Normal) Range: [...] {x10E3/uL} (Normal) Range: 3.4-10.8 :00 Homocysteine, Plasma (97664) Comments: PATIENT NOT FASTINGPERFORMED BY: CB [facility] Wcpkbd7[address] 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 Homozygosity for ofeQ406N mutation confers an increased risk for the [...] systematicclinical laboratory analysis.Methylenetetrahydrofoloate reductase (MTHFR) is a sumner enzyme in thefolate pathway and is responsible for the metabolism of homocysteine. There are two common variants in the MTHFR gene, c.655c>T(p.Skk620Iajq), referred to as C677T, and c.1286A>C (p.Axy878Fyc),referred to as F1394R. Individuals homozygous for C677T (two copiesof the variant), have decreased activity of the MTHFR enzyme and apredisposition to hyperhomocysteinemia, particularly when deficient infolate. Hyperhomocysteinemia is a risk factor for venous thrombosisand c oronary artery disease and is associated with an increased riskof open neural tube defects. The C677T variant does notindependently increase risk of these conditions in the absence ofhyperhomocyst einemia. The B0138F variant is not associated withelevated homocysteine levels unless a C677T variant is also present;however, the clinical significance of heterozygosity for both I278Xvis J8594T is con troversial. Population data suggest that these twovariants are not present on the same chromosome, but rare exceptionshave been reported of triple variant MTHFR genotypes (ie. homozygousfor one variant and heterozygous for the other). Homozygosity aarE393Y has an estimated frequency of 10% to 15% in Caucasians and 25%in Hispanics. .Ad ditional information:Dietary folic acid, B6 and B12 supplementation has been suggested tolower homocysteine levels in some people. Folic acid supplementationhas been shown to reduce the occurrence of ne ural tube defects. .Genetic counselors are available for health care providers to discussresults at [phone]. .Methodology:DNA analysis of the MTHFR gene was performed by PCRamplification followed by restriction analysis. Thediagnostic sensitivity is >99% for both. Molecular-basedtesting is highly accurate, but as in any laboratory test,rare diagnostic errors may occur. All test results must becombined with clinical information for the most accurateinterpre tation. .This test was developed and its performance characteristicsdetermined by [employer] [employer]. It has not been cleared or approved bythe od and Drug Administration. .References:Sima PRINGLE, Franklyn Q. Am J Epidemiol 2000; 151(9):862-877.Kurt MM, Rhiannon JA. Arch Pathol Lab Med 2007; 131(6):872-884.Frosebastient P et al. Nuris Fifi 1995; 10(1):111-113.Rob SE et al. Fifi Med 2013; 15(2):153-156.Josse C et al. Obstet Gynecol 2011; 118(3):730-740.Nicolas B et al. Eur J Epidemio l 2013; 28(8):621-647. .Nba Lopes, PhD, Raphael Valladares, PhD, Jose Yepez, PhD, Titi BunchSZbigniew, PhD, [facility]annah Castaneda, PhD, [facility]RIEZaki Mcgee, PhD, [facility]EFam Rosa, PhD, [facility] 1-Yid-971320:52 Miscellaneous Lab Procedure Comments: Test(s) Ordered: [id number] ALLERGEN PROFILE FOOD IGE W REFL 3TI [facility] [address] [place], [place], [id number] [facility] [place] Comments: TEST RESULT LIMITSIgE Food w/Component Reflex IIClass DescriptionLevels of Specific IgE Class Description of Class ----- --------- LAB (Normal) < 0.10 0 Negative 0.10 - 0.31 0/I Equivocal/Low 0.32 - 0.55 I Low 0.56 - 1.40 TEST II Moderate 1.41 - 3.90 III High 3.91 - 19.00 IV Very High 19.01 - 100.00 V Very High >100.0 0 Very UbenM708-WrE Clam <0.10 kU/L Class 4D184-CqQ Codfish <0.10 kU/L Class 0F008- IgE Strandquist <0.10 kU/L Class 7C327-CoV Scallop 0.12 Abnormal kU/L Class 0/IF010- IgE Sesame Seed <0.10 kU/L Class 7T282-IgU Shrimp 1.83 Abnormal kU/L Class GKLF172-GlR Soybean <0.10 kU/L Class 0E955-VeC Wheat <0.10 kU/L Class 8W471-IvK Milk 0.49 Abnormal kU/L Class IF076- IgE Alpha Lactalbumin 0.19 Abnormal kU /L Class 0/ZT080-JrO Beta Lactoglobulin 0.32 Abnormal kU/L Class IF078- IgE Casein 0.20 Abnormal kU/L Class 0/MG565-IkK Egg White 0.12 Abnormal kU/L Class 0/JK920-FuN Peanut 0.12 Abnormal kU/L Class 0/GJ019-RvB Margy h 1 <0.10 kU/L Class 7U168-NdL Margy h 2 <0.10 kU/L Class 6U939-OwQ Margy h 3 <0.10 kU/L Class 6O972-OgI Margy h 8 0.53 Abnormal kU/L Class IF427- IgE Margy h 9 <0.10 kU/L Class 6Z580-IrX Hazelnut (Filbert) 1.86 Abnormal kU/L Class KWTA353-LcJ Cor a 1 2.55 Abnormal kU/L Class KXTR125-IaK Cor a 8 <0.10 kU/L Class 5A156-VqQ Cor a 9 <0.10 kU/L Class 0A512-OwV Cor a 14 <0.10 kU /L Class 4S337-MdL [place] <0.10 kU/L Class 5E876-QgT Cashew [place] <0.10 kU/L Class 5C374-KfL [place] <0.10 kU/L Class 0*F34 5-IgE Macadam[place] Nut <0.10 kU/L Class 3X881-MqC Pecan Nut <0.10 kU/L Class 7M488-DwU [place] Nut <0.10 kU/L Class 3P405-UeV [place] 0 .31 Abnormal kU/L Class 0/I TESTING PERFORMED AT [facility]. ORIGINAL REPORT ON FILE IN LAB CONTAINS ADDITIONAL TEST SITE INFORMATION. :52 Miscellaneous Lab Procedure 2 Comments: List Test(s) Ordered by Physician: [id number], honeybee, [facility] Omeklgmkud9[address] [facility] [place], [address] MIS Comments: TEST RESULT [id number] Honeybee 0.16 Abnormal kU/L Class 0/I TESTING PERFORMED AT [facility]. ORIG LAB (Normal) INAL REPORT ON FILE IN LAB CONTAINS ADDITIONAL TEST SITE INFORMATION. TEST 2 :52 Miscellaneous Lab Procedure 3 Comments: List Test(s) Ordered by Physician: [id number], yellow jacket, 1 [facility] [address] [place] [address], [phone] MIS Comments: TEST RESULT [id number] [place] <0.10 kU/L Class 0 TESTING PERFORMED AT [facility]. ORIGI LAB (Normal) NAL REPORT ON FILE IN LAB CONTAINS ADDITIONAL TEST SITE INFORMATION. TEST 3 :44 URINE CHEPE CULTURE-IDENTIFICATN Comments: PATIENT NOT FASTINGPERFORMED BY: CB M-Files Lxrtue1042 [facility] [id number] Information: SRC: ([id number]) Result 1 Yeast isolated. (Abnormal) Comments: 100 Colonies/mL .Request for further identification must be madewithin 1 week. Urine Final report (Abnormal) Culture,Comprehensive 81-Rdo-865257:38 Urinalysis, Office (76829) UA - LEUKOCYTE ESTERASE Moderate (Normal) UA - NITRITE Negative (Normal) URINE UROBILINGN SHANIQUE TIMED Normal mg/dL (Normal) UA - PROTEIN Negative mg/dL (Normal) UA - PH 7 (Normal) UA - BLOOD Hemolyzed Trace (Normal) UA - SPECIFIC GRAVITY 1.025 (Normal) UA - KETONES Negative mg/dL (Normal) UA - BILIRUBIN Negative (Normal) UA - GLUCOSE Negative (Normal) 01-Vpx-867636:13 PSA (PROSTATE SPECIFIC Comments: PATIENT NOT FASTINGPERFORMED BY: [employer] Xykwsl5366 [facility] [id number] ANTIGEN) (V76.44) Prostate Specific Ag, 0.9 ng/mL (Normal) Range: 0.0-4.0 Serum Comments: [place] ECLIA methodology. .According to the [place] [employer], Serum PSA shoulddecrease and remain at undetectable levels after radicalprostatectomy. The AUA defines biochemical recurrence as an initialPSA value 0.2 ng/mL or greater followed by a subsequent confirmatoryPSA value 0.2 ng/mL or greater.Values obtained with d ifferent assay methods or kits cannot be usedinterchangeably. Results cannot be interpreted as absolute evidenceof the presence or absence of malignant disease. 64-Yhm-980343:18 Rapid Strep Test, Office (81290) Rapid Strep Test, Office Negative (Normal) :01 CBC W/AUTO DIFF WBC Comments: PATIENT WAS FASTINGPERFORMED BY: [facility] Xqpsyt1918 [facility] [id number] Information: [id number] (02332) Immature Grans (Abs) 0.0 {x10E3/uL} (Normal) Range: [...] 5.6 {x10E3/uL} (Normal) Range: 3.4-10.8 :01 TSH (43963) Comments: PATIENT WAS FASTINGPERFORMED BY: [facility]RxCoJefferson [facility]Kwvwwg7510 [facility] [id number] TSH 1.990 {uIU/mL} (Normal) Range: 0.450-4.500 :01 METABOLIC PANEL, COMPREHENSIVE Comments: PATIENT WAS FASTINGPERFORMED BY: M[facility]FilesJeff[facility])Gnvshl8594 [facility] [id number] (16966) ALT (SGPT) 52 [iU]/L (Abnormal) Range: 0-44 [...] Glucose, Serum 86 mg/dL (Normal) Range: 65-99 12-Jul-20159:00 NASAL POLYPS See Note (Normal) Comments: [facility] [address] [place], [address] ; ordered by tip Comments: Patient: IZABEL GARCÍA : 1950 (65/M) Acct Num: [id number] Phys: Tip LEAVITTWalnut Unit Num: [id number] Loc: LABSPEC Specimen: [id number] Received: 07/12/151626 S pec Type: JACQUELINE POLYPS TISSUES TISSUES: [...] / AM: 07/13/15 TC: 3 CPT : 21829 x2, 20348 x2 HEADER OPERATION: Functional endoscopic sinus surgery, [...] with acute and chronic inflammation and bone. SJ: 07/18/15 Signed Eric Avila 07/18/15 <signature on file> 13-Uiu-062449:10 Basic Metabolic Profile (BMP) Comments: PER AMMERIST AT OFFICE, BMP AND CBCD.[facility] Labisceblq3040 [address] [facility] [place], [address] GAP 6 (Normal) Range: 5-15 CO2 29.0 [...] 7-18 GLU 84 mg/dL (Normal) Range: 70-110 01-Upu-804795:10 CBC W/Diff, Automated Comments: [facility] Djegqvcadu[address] [place], [place], [id number] Absolute Lymph 1.48 {X10_3/ul} (Normal) Range: 0.83-4.51 [...] FUNCTION PANEL Comments: PATIENT WAS FASTINGPERFORMED BY: [facility] Jnfjdg8639 [facility] [id number] (52580) ALT (SGPT) 40 [iU]/L (Normal) Range: 0-44 AST (SGOT) 39 [iU]/L (Normal) Range: 0-40 Alkaline Phosphatase, S 64 [iU]/L (Normal) Range: 39-117 Bilirubin, Direct 0.21 mg/dL (Normal) Range: 0.00-0.40 Bilirubin, Total 0.7 mg/dL (Normal) Range: 0.0-1.2 Albumin, Serum 4.1 g/dL (Normal) Range: 3.6-4.8 Protein, Total, Serum 6.5 g/dL (Normal) Range: 6.0-8.5 :54 LIPID PANEL (80861) Comments: PATIENT WAS FASTINGPERFORMED BY: [facility] Rrruta8831 [facility] [id number] LDL/HDL Ratio 2.5 {ratio_units} (Normal) Range: 0.0-3.6 [...] #1, #2, #3, or #4: 1Test performed at:[facility] Akfdkpyjxx[address] [place], [place] [id number] GAP 5 (Normal) Range: 5-15 CO2 28.0 [...] :45 CBC W/Diff, Automated Comments: Test performed at:[facility] Rjnmquaysk[address] [place], [place] [id number] Absolute Lymph 1.04 {X10_3/ul} (Normal) Range: 0.83-4.51 [...] 4.6-6.2 WBC 8.8 K/mm3 (Normal) Range: 4.4-11.0 :45 Troponin-I Comments: 'TROP' Serial specimen #1, #2, #3, or #4: 1Test performed at:[facility] Qluxvgrfmz[address] [place] [address] TROPONIN-I < 0.02 ng/mL (Normal) Comments: TROPONIN-I EXPECTED VALUES <0.05 NEGATIVE 0.06 - 0.59 AT RISK OF ME > OR = 0.60 SUGGEST ME 08-Fos-140095:26 Rapid Flu (74055 x 2) Influenza A Ag positive A (Normal) 4-Wij-844124:24 DHEA, Serum Comments: PATIENT NOT FASTINGPERFORMED BY: SharetribeCarolinas ContinueC[facility] [id number] BY: M-Files[address] [id number] Dehydroepiandrosterone (DHEA) 45 ng/dL (Normal) Range: 31-701 [...] - 491 >19 years 31 - 701 3-Myu-660901:24 TESTOSTERONE TOTAL (85498) Comments: PATIENT NOT FASTINGPERFORMED BY: SharetribeCarolinas [facility] [id number] BY: M-Files[address] [id number] Comment: TESTM (Normal) Comments: Adult male reference interval is based on a population of lean malesup to 40 years old. Testosterone, Serum 409 ng/dL (Normal) Range: 348-1197 2-Pcl-214943:24 PSA (PROSTATE SPECIFIC Comments: PATIENT NOT FASTINGPERFORMED BY: SharetribeCarolinas [facility] [id number] BY: M-Files[address] [id number] ANTIGEN) (53258) Prostate Specific Ag, 0.8 ng/mL (Normal) Range: 0.0-4.0 Serum Comments: AdvitechIA methodology. .According to the [place] U[employer] Association, Serum PSA shoulddecrease and remain at undetectable levels after radicalprostatectomy. The AUA defines biochemical recurrence as an initialPSA value 0.2 ng/mL or greater followed by a subsequent confirmatoryPSA value 0.2 ng/mL or greater.Values obtained with d ifferent assay methods or kits cannot be usedinterchangeably. Results cannot be interpreted as absolute evidenceof the presence or absence of malignant disease. 9-Bmu-656080:24 Metabolic Panel, Comments: PATIENT NOT FASTINGPERFORMED BY: CB [facility] Iyzeil4876 [facility] [id number] BY: BN [facility] Xboorjzshr8298 [facility] [id number] Comprehensive (30499) ALT (SGPT) 35 [iU]/L (Normal) Range: 0-44 [...] Glucose, Serum 81 mg/dL (Normal) Range: 65-99 :24 CBC WITH MANUAL DIFF Comments: PATIENT NOT FASTINGPERFORMED BY: HERMELINDA M-FilesJefferson [facility])Egufnp5405 [facility] [id number] BY: Lab[address] [id number] Inf ormation: [id number] (93328) Immature Grans (Abs) 0.0 {x10E3/uL} (Normal) Range: [...] 4.14-5.80 WBC 4.6 {x10E3/uL} (Normal) Range: 3.4-10.8 :24 TSH (11074) Comments: PATIENT NOT FASTINGPERFORMED BY: M-FilesJefferson [facility])Jfaeoi9909 [facility] [id number] BY: RegeneRxFreeman Health System1447 [facility] [id number] TSH 0.573 {uIU/mL} (Normal) Range: 0.450-4.500 :02 HEMOGLOBIN GLYCLATED (HGB A1C) Comments: PERFORMED BY: M-Files Hbrhlc5490 [facility] [id number] (32392) Hemoglobin A1c 5.1 % (Normal) Range: 4.8-5.6 Comments: . Increased risk for diabetes: 5.7 - 6.4 Diabetes: >6.4 Glycemic control for adults with diabetes: <7.0 :02 PSA (PROSTATE SPECIFIC Comments: PERFORMED BY: Call Looplin6370 [facility] [id number] ANTIGEN) (05160) Prostate Specific Ag, 0.8 ng/mL (Normal) Range: 0.0-4.0 Serum Comments: Mpayy ECLIA methodology. .According to the [place] [employer], Serum PSA shoulddecrease and remain at undetectable levels after radicalprostatectomy. The AUA defines biochemical recurrence as an initialPSA value 0.2 ng/mL or greater followed by a subsequent confirmatoryPSA value 0.2 ng/mL or greater.Values obtained with d ifferent assay methods or kits cannot be usedinterchangeably. Results cannot be interpreted as absolute evidenceof the presence or absence of malignant disease. :02 TSH (THYROID STIMULATING Comments: PERFORMED BY: M-FilesJefferson [facility])Qakaas8521 [facility] [id number] HORMONE) (48953) TSH 0.985 {uIU/mL} (Normal) Range: 0.450-4.500 :02 URINALYSIS W MICROSCOPY (81530) Comments: PERFORMED BY: Call Looplin6370 [facility] [id number] Microscopic Examination MICNIP (Normal) Comments: Microscopic not indicated and not performed. Nitrite, Urine Negative (Normal) Urobilinogen,Semi-Qn 0.2 mg/dL (Normal) Range: 0.0-1.9 Bilirubin Negative (Normal) Occult Blood Negative (Normal) Ketones Negative (Normal) Glucose Negative (Normal) Protein Trace (Normal) Appearance Clear (Normal) WBC Esterase Negative (Normal) pH 7.5 (Normal) Range: 5.0-7.5 Urine-Color Yellow (Normal) Specific [place] 1.020 (Normal) Range: 1.005-1.030 :02 MICROALB;CREAT RATION, RAND UR Comments: PERFORMED BY: LabOsmosis SkincareJefferson Cherry [facility])Gootru3779 [facility] [id number] (07416) Microalb/Creat Ratio 3.5 {mg/g_creat} (Normal) Range: 0.0-30.0 Creatinine, Urine 163.4 mg/dL (Normal) Range: 22.0-328.0 Microalbumin, Urine 5.7 ug/mL (Normal) Range: 0.0-17.0 :02 METABOLIC PANEL, COMPREHENSIVE Comments: PERFORMED BY: M[facility]FilesJeff[facility])Eaxdsv2471 [facility] [id number] (05567) ALT (SGPT) 29 [iU]/L (Normal) Range: 0-44 [...] mg/dL (Normal) Range: 65-99 :02 LIPID PANEL (86270) Comments: PERFORMED BY: [facility]aretribeCarolinas [facility] [id number] LDL/HDL Ratio 2.0 {ratio_units} (Normal) Range: 0.0-3.6 LDL Cholesterol Calc 73 mg/dL (Normal) Range: 0-99 VLDL Cholesterol Brandon 22 mg/dL (Normal) Range: 5-40 HDL Cholesterol 37 mg/dL (Abnormal) Comments: According to ATP-III Guidelines, HDL-C >59 mg/dL is considered anegative risk factor for CHD. Triglycerides 109 mg/dL (Normal) Range: 0-149 Cholesterol, Total 132 mg/dL (Normal) Range: 100-199 :02 CBC with manual diff (49527) Comments: PERFORMED BY: Arigo70 [facility] [id number] Immature Grans (Abs) 0.0 {x10E3/uL} (Normal) Range: [...] Microscopic Examination Comments: PATIENT WAS FASTINGPERFORMED BY: [facility]ribeCarolinas [facility] [id number] Bacteria None seen (Normal) Mucus Threads Present (Normal) Epithelial Cells (non renal) None seen {/hpf} (Normal) Range: 0 - 10 RBC 0-3 {/hpf} (Normal) Range: 0 - 3 WBC 0-5 {/hpf} (Normal) Range: 0 - 5 :21 PSA (PROSTATE SPECIFIC Comments: PATIENT WAS FASTINGPERFORMED BY: [facility]ribeCarolin[facility] [id number] ANTIGEN) (V76.44) Prostate Specific Ag, 0.8 ng/mL (Normal) Range: 0.0-4.0 Serum Comments: Mpayy ECLIA methodology. .According to the [place] U[employer] Association, Serum PSA shoulddecrease and remain [...] (HGB A1C) Comments: PATIENT WAS FASTINGPERFORMED BY: [facility]ribechrist[facility] [place] [id number] (09072) Hemoglobin A1c 5.4 % (Normal) Range: 4.8-5.6 Comments: . Increased risk for diabetes: 5.7 - 6.4 Diabetes: >6.4 Glycemic control for adults with diabetes: <7.0 :21 TSH (36726) Comments: PATIENT WAS FASTINGPERFORMED BY: RegeneRxKindred HospitalIkrnxw7913 [facility] [id number] TSH 1.280 {uIU/mL} (Normal) Range: 0.450-4.500 :21 URINALYSIS, W/ MICRO (95071) Comments: PATIENT WAS FASTINGPERFORMED BY: [facility]RxUniversity [facility] Health6370 [facility] [id number] Microscopic Examination See below: (Normal) Microscopic Examination MICRON (Normal) Comments: Microscopic follows if indicated. Nitrite, Urine Negative (Normal) Urobilinogen,Semi-Qn 0.2 mg/dL (Normal) Range: 0.0-1.9 Bilirubin Negative (Normal) Occult Blood Negative (Normal) Ketones Negative (Normal) Glucose Negative (Normal) Protein Negative (Normal) WBC Esterase Negative (Normal) Appearance Clear (Normal) Urine-Color Yellow (Normal) pH 6.5 (Normal) Range: 5.0-7.5 Specific [place] 1.014 (Normal) Range: 1.005-1.030 :21 MICROALBUMIN: CREATININE RATIO Comments: PATIENT WAS FASTINGPERFORMED BY: [facility]RxUniversity [facility] Health6370 [facility] [id number] (25063) AND (69217) Microalb/Creat Ratio 2.6 {mg/g_creat} (Normal) Range: 0.0-30.0 Creatinine, Urine 97.0 mg/dL (Normal) Range: 22.0-328.0 Microalbumin, Urine 2.5 ug/mL (Normal) Range: 0.0-17.0 :21 METABOLIC PANEL, COMPREHENSIVE Comments: PATIENT WAS FASTINGPERFORMED BY: [facility]RxUniversity [facility] Health6370 [facility] [id number] (16211) ALT (SGPT) 32 [iU]/L (Normal) Range: 0-44 [...] Glucose, Serum 92 mg/dL (Normal) Range: 65-99 70-Rlf-83119:21 LIPID PANEL (95355) Comments: PATIENT WAS FASTINGPERFORMED BY: LabCoJefferson [facility])Uonqdb9077 [facility] [id number] LDL Cholesterol Calc 82 mg/dL (Normal) Range: [...] MANUAL DIFF Comments: PATIENT WAS FASTINGPERFORMED BY: LabUniversity Of [facility] Health6370 [facility] [id number] Information: [id number] (76721) Immature Grans (Abs) 0.0 {x10E3/uL} (Normal) Range: [...] 4.14-5.80 WBC 5.6 {x10E3/uL} (Normal) Range: 4.0-10.5 89-Jla-978250:11 FEMUR,2 VIEWS Radiology Report See Note (Normal) Comments: PROCEDURE: X-RAY - RIGHT FEMUR REASON FOR STUDY: Male, 62 years old. Right hip pain. TECHNIQUE: Four views of the femur. COMPARISON: None. FINDINGS:Normal visualized femur. Normal visualized so ft tissue structure. IMPRESSION:Normal x-ray examination of the femur. Signed:Tanner Shaffer M.D.July 30, 2012 at 2:34:05 PM [id number] Signed GP/GP If you are the referring physician and would like to consult with theradiologist who provided this interpretation, please contact Scar Nazario at [phone]. If this radiologist is unavailable, youwill be directed to another radiologist to assist. If you are a patient with a question regarding this report, pleasecontactyour referring physician directly. Professional Interpretation Provided By: [employer], Phone , These documents contain legally protected [...] destructionofthese documents. Dictated on 07/30/12 1313 by Rowdy Shaffer MDranscribed on 07/30/12 1439 by ITS IMPORTSign by Tanner Shaffer MD on 07/30/12 1440 Sign by: Tanner Shaffer MD 13-Dec-20117:51 CBCMD RBCM NORM C+C {NORMAL} (Normal) PE [...] (Normal) UCOL YELLOW (Normal) :35 CHEPE CULTURE-OTHER (55626) Comments: PATIENT NOT FASTINGPERFORMED BY: [facility] Blcfkw1602 [facility] [id number] Information: SRC:THRT [id number] Result 1 RRF (Normal) Comments: Routine respiratory natalie Upper Respiratory Culture Final report (Normal) :04 Rapid Strep Test, Office (65690) Rapid Strep Test, Office Negative (Normal) :00 [...] 4.6-6.2 WBC 4.5 K/mm3 (Normal) Range: 4.4-11.0 :55 COMP METABOLIC CO2 28.0 mmol/L (Normal) Range: [...] With LDL/HDL Comments: PATIENT WAS FASTINGPERFORMED BY: LabCoJefferson [facility])Bbgtmb7440 [facility] [id number] Ratio LDL/HDL Ratio 3.1 {ratio_units} (Normal) Range: 0.0-3.6 LDL Cholesterol Calc 109 mg/dL (Abnormal) Range: 0-99 VLDL Cholesterol Brandon 21 mg/dL (Normal) Range: 5-40 HDL Cholesterol 35 mg/dL (Abnormal) Comments: According to ATP-III Guidelines, HDL-C >59 mg/dL is considered anegative risk factor for CHD. Triglycerides 103 mg/dL (Normal) Range: 0-149 Cholesterol, Total 165 mg/dL (Normal) Range: 100-199 23-Ouu-053208:35 B12/FOLATES FOLATES 18.60 ng/mL (Abnormal) Range: 3.1-17.5 VITAMIN B12 440 pg/mL (Normal) Range: 254-1320 :35 C-REACTIVE PROT < 2.90 mg/L (Normal) Range: 0.0-3.0 Comments: C-Reactive Protein (CRP) provides useful information for thediagnosis, therapy and monitoring of inflammatory processesand associated diseases. For the evaluation of Relative Riskfor Cardiovascular Dise ase, a High Sensitivity CRP (HSCRP)should be ordered. :35 CBCD BASO% 0.3 % (Normal) Range: 0-1 [...] 11.6-14.6 WBC 5.1 K/mm3 (Normal) Range: 4.4-11.0 53-Oim-726102:35 COMP METABOLIC A/G 1.2 {RATIO} (Normal) Range: [...] Range: 0.358-3.74 :56 CBC WITH MANUAL DIFF (29015) Comments: PATIENT NOT FASTINGClinical Information: ADD [id number], [id number] PERFORMED BY: [facility]CoJefferson [facility])Tvwqlq8642 [facility] [id number] Baso (Absolute) 0.0 {x10E3/uL} (Normal) Range: 0.0-0.2 [...] (ANTINUCLEAR ANTIBODY) Comments: PATIENT NOT FASTINGPERFORMED BY: [address] [id number] (47877) Antinuclear Antibodies Direct Negative (Normal) 33-Fex-611501:56 PT (Prothrobim Time) (64980) Comments: PATIENT NOT FASTINGPERFORMED BY: [address] [id number] INR 1.0 (Normal) Range: 0.8-1.2 Comments: Reference interval is for non-anticoagulated patients. . Suggested INR therapeutic range for Vitamin K anta gonist therapy: Standard Dose (moderate intensity therapeutic range): 2.0 - 3.0 Higher intensity therapeutic range 2.5 - 3.5 Prothrombin Time 10.7 {sec} (Normal) Range: 8.7-11.5 :56 PTT (Activated Partial Comments: PATIENT NOT FASTINGPERFORMED BY: [facility] [place] [address] [id number] Thromboplastin Time) (90269) aPTT 31 {sec} (Normal) Range: 24-33 Comments: This test has not been validated for monitoring unfractionated heparintherapy. aPTT-based therapeutic ranges for unfractionated heparintherapy have not been established. For general guidelines onHeparin monitoring, refer to the [facility] Directory of Services. :25 CBC With Differential/Platelet Comments: PATIENT WAS FASTINGPERFORMED BY: [facility]6370 [facility] [id number] Baso (Absolute) 0.0 {x10E3/uL} (Normal) Range: 0.0-0.2 [...] 11.7-15.0 WBC 4.7 {x10E3/uL} (Normal) Range: 4.0-10.5 13-Wfy-14459:25 Comp. Metabolic Panel (14) Comments: PATIENT WAS FASTINGPERFORMED BY: LabCoJefferson [facility])Ufmwwn9142 [facility] [id number] A/G Ratio 2.0 (Normal) Range: 1.1-2.5 Albumin, [...] Panel (7) Comments: PATIENT WAS FASTINGPERFORMED BY: [employer] ([place])Mkealr2136 [facility] [id number] Bilirubin, Direct 0.27 mg/dL (Normal) Range: 0.00-0.40 :25 Lipid Panel With LDL/HDL Comments: PATIENT WAS FASTINGPERFORMED BY: [employer] Vheohs4786 [facility] [id number] Ratio Cholesterol, Total 165 mg/dL (Normal) Range: [...] Ag, Serum Comments: PATIENT WAS FASTINGPERFORMED BY: [facility]6370 [facility] [id number] Prostate Specific Ag, Serum 0.7 ng/mL (Normal) Range: 0.0-4.0 Comments: [place] kiwi666IA methodology. .According to the [place] [employer], PSA should beundetectable after radical prostatectomy. A PSA of less than0.5 ng/mL (or undetectable) is not likely to be associated withdisease recurrence within five years of treatment.Values obtained with different assay methods or kits cannot be usedinterchang eably. Results cannot be interpreted as absolute evidenceof the presence or absence of malignant disease. :25 Urinalysis, Routine Comments: PATIENT WAS FASTINGPERFORMED BY: [facility]6370 [facility] [id number] Appearance Clear (Normal) Bilirubin Negative (Normal) Glucose Negative (Normal) Ketones Negative (Normal) Microscopic Examination MICRON (Normal) Comments: Microscopic follows if indicated. Nitrite, Urine Negative (Normal) Occult Blood Negative (Normal) pH 7.0 (Normal) Range: 5.0-7.5 Protein Negative (Normal) Specific [place] 1.018 (Normal) Range: 1.005-1.030 Urine-Color Yellow (Normal) Urobilinogen,Semi-Qn 0.2 mg/dL (Normal) Range: 0.0-1.9 WBC Esterase Negative (Normal) :28 CHEPE CULTURE-OTHER (82539) Comments: PATIENT NOT FASTINGClinical Information: SRC:THRT ADD [id number] PERFORMED BY: M[facility]FilesJeff[facility]Cdxire9775 [facility] [id number] Result 1 RRF (Normal) Comments: Routine respiratory natalie Upper Respiratory Culture Final report (Normal) :52 Rapid Strep Test, Office (24866) Rapid Strep Test, Office Negative (Normal) Comments: [...] was performed using the TPSA method for theOpVista chemistry system.Values obtained with different assay methods cannot be usedinterchangably.When changing PSA assays in the course of monito ring apatient, additional sequential testing should be carriedout to confirm baseline values. :36 Upper Respiratory Culture Comments: Clinical Information: SRC: PERFORMED BY: HERMELINDA LabUniversity [facility] Health6370 [facility] [id number] Result 1 RRF (Normal) Comments: Routine respiratory natalie Upper Respiratory Culture Final report (Normal) :51 Rapid Strep Test, Office (98890) Comments: done km Rapid Strep Test, Office Negative (Normal) 0-Nuc-044160:42 COLON BX P-COLBX (Normal) Comments: OPERATION Colonoscopy [...] right and left colon biopsies from 04/29/01 ([id number]) in which mild architectural change was identified. [...] is totally submitted in one cassette. / SJ: 10/14/06 TC:2 REPORT SIGNED: MICHELLE DAMIAN 10/15/0627-Jul-20069:00 [...] abnormal findings) Other ulcerative colitis : Reviewed Plastic Surgery Nurse Letter Indication: Other ulcerative colitis Esophageal reflux disease : GERD Education Indication: Esophageal reflux disease Other and unspecified hyperlipidemia : Cholesterol mgmt Indication: Other and unspecified hyperlipidemia Hypertensive heart disease without congestive heart failure : HTN/CAD Red Flags Indication: Hypertensive heart disease without congestive heart failure Atrial fibrillation, controlled : Continue Current Prescription(s) Indication: Atrial fibrillation, controlled Atrial fibrillation, controlled : Reviewed Plastic Surgery Nurse Letter Indication: Atrial fibrillation, controlled Non-smoker : [...] Indication: Heart murmur Heart murmur : Reviewed Plastic Surgery Nurse Letter Indication: Heart murmur Benign essential hypertension [...] disease without congestive heart failure : Reviewed Plastic Surgery Nurse Letter: had stress echo in 07/21 Indication: [...] Other and unspecified hyperlipidemia Planned Observations TSH ([id number])Indication: Atrial fibrillation, controlled On: :56 Request URINALYSIS, W/ MICRO ([id number])Indication: Hypertensive heart disease without congestive heart failure On: :56 Request MICROALBUMIN: CREATININE RATIO ([id number]) AND ([id number])Indication: Hypertensive heart disease without congestive heart failure On: :56 Request METABOLIC PANEL, COMPREHENSIVE ([id number])Indication: Hypertensive heart disease without congestive heart failure On: :56 Request LIPOPROTEIN, BLD, BY NMR ([id number])Indication: Other and unspecified hyperlipidemia On: :55 Request CBC W/AUTO DIFF WBC ([id number])Indication: Hypertensive heart disease without congestive heart failure On: :55 Request Lipid Panel ([id number])Indication: Other and unspecified hyperlipidemia On: :05 Request Comments: do in 6 mo HEPATIC FUNCTION PANEL (87263)Indication: Other and unspecified hyperlipidemia On: :05 Request Comments: do in 6 mo DHEA (DEHYDROEPIANDROSTERONE) ([id number])Indication: ED (erectile dysfunction) On: :31 Request MICROALBUMIN: CREATININE RATIO ([id number]) AND ([id number])Indication: Benign essential hypertension On: :17 Request METABOLIC PANEL, COMPREHENSIVE (69688)Indication: Benign essential hypertension On: :17 Request URINALYSIS, W/ MICRO ([id number])Indication: Benign essential hypertension On: :17 Request TSH ([id number])Indication: Benign essential hypertension On: :17 Request LIPID PANEL ([id number])Indication: Benign essential hypertension On: :17 Request CBC WITH MANUAL DIFF ([id number])Indication: Benign essential hypertension On: :17 Request Metabolic Panel, Basic ([id number])Indication: Benign essential hypertension On: :17 Request CALCIFIDIOL (21386) VIT D 25Indication: Fatigue On: :32 Request Folate ([id number])Indication: Fatigue On: :32 Request VITAMIN B-12 (CYANOCOBALAMIN) (89401)Indication: Fatigue On: :32 Request TSH ([id number])Indication: Fatigue On: :32 Request SED RATE ERYTHROCYTE ([id number])Indication: Fatigue On: :32 Request METABOLIC PANEL, COMPREHENSIVE (92514)Indication: Fatigue On: :32 Request C-REACTIVE PROTEIN (43566)Indication: Fatigue On: :32 Request CBC (AUTO) ([id number])Indication: Fatigue On: :32 Request Metabolic Panel, Basic (75051)Indication: Benign essential hypertension On: :16 Request C-REACTIVE PROTEIN ([id number])Indication: Fatigue On: 09-Inj-144645:03 Request CBC (AUTO) ([id number])Indication: Thrombocytopenia, unspecified On: 53-Dib-907291:03 Request Folate ([id number])Indication: Fatigue On: 43-Qhw-577252:03 Request METABOLIC PANEL, COMPREHENSIVE ([id number])Indication: Fatigue On: 65-Dcy-577563:03 Request RHEUMATOID FACTOR-QUANT ([id number])Indication: Fatigue On: 93-Uwe-189982:03 Request SED RATE ERYTHROCYTE ([id number])Indication: Fatigue On: 29-Asg-942420:03 Request TSH ([id number])Indication: Fatigue On: 08-Vuy-431338:03 Request VITAMIN B-12 (CYANOCOBALAMIN) ([id number])Indication: Fatigue On: 83-Uln-393881:03 Request LIPID PANEL (11059)Indication: Other and unspecified hyperlipidemia On: 96-Sfi-995614:45 Request Comments: do in 6 mo CHEPE CULTURE-OTHER ([id number])Indication: Throat pain On: :52 Request Comments: throat cx km PSA (PROSTATE SPECIFIC ANTIGEN) (V76.44)Indication: Esophageal reflux disease On: 2-Ffy-639490:03 Request LIPID PANEL (53548)Indication: Other and unspecified hyperlipidemia On: 6-Yhl-895194:02 Request PSA (PROSTATE SPECIFIC ANTIGEN) ([id number])Indication: SCREENING FOR CANCER OF THE PROSTATE On: :22 Request Planned Procedures INTENSIVE BEHAVIORAL THERAPY TO On: 31-May-2018 Intent REDUCE CARDIOVASCULAR DISEASE RISK, INDIVIDUAL, WICT-DC-XVPV, ANNUAL, 15 MINUTES (G0446)By: Aletha Moon DO, DO, Kathleen Flu Vaccine (Quadrivalent) [id number]: On: 31-May-2018 Intent Aletha Moon DO, DO, Comments: Lot #[id number] Exp-02/06/19Site-L dltd, IMDose prefilled syringegiven by: Hanh REESE.VIS reviewed and ABN signed Aletha Wax CurettesBy: Karla Dejesus On: 20-Apr-2018 Intent Ear Irrigation ([id number])By: Oleg, On: 20-Apr-2018 Intent Karla Comments: bilateral ears irrigated. Left ear irritated so stopped and sent home with drops for that ear -- peroxide/debrox. R ear irrigated and currette used. Large amount hard, fatmata to broown wax removed. Tolerated well. MARY ANN DANIEL ELECTROCARDIOGRAM, COMPLETE (ECG) On: 22-Jan-2018 Intent ([id number])By: Aletha Moon DO Comments: sinus cleo on BB - no acute chg - IVCD- poor Rwave progression Aletha Moon DO X-RAY OF THUMB OF LEFT HAND On: 06-Nov-2016 Intent ([id number])By: Aletha Moon DO Comments: attention mcp jt Aletha Moon DO Flu Vaccine (Quadrivalent) 63516Au: On: 09-Jun-2016 Intent Aletha Moon DO, DO, Comments: Lot:[id number]:02/06/17Dose:0.5mLRoute:IMSite:L DltdGiven By:CLOVER signed Aletha Radiology - Cervical SpineBy: Red On: 03-Nov-2014 Intent Aletha KOROMA DO, Kathleen Aerosol Treatment ([id number])By: Shannon On: 03-Oct-2014 Intent Natali PEREZ EKG ([id number])By: Aletha Moon DO On: 03-Apr-2014 Intent Aletha Moon DO Comments: nsr no acute chg IMMUNIZ ADMNIN, 1 VAC, SNGL/COMBO On: 12-Aug-2013 Intent ([id number])By: Mima Cruz Comments: diluentLot:[id number]:12/23Dose:0.7mLRoute:sub qSite:l armGiven By:CLOVER signedzostavacLot:[id number]:05/07/14Dose:0.65mLRoute:sub qSite:l armGiven By:CLOVER signed ZOSTER VACC, SC ([id number])By: Anthony, On: 12-Aug-2013 Intent Mima Radiology - Femur - RightBy: Red On: 30-Jul-2012 Intent Aletha KOROMA DO, Kathleen Radiology - Hip - RightBy: Red On: 30-Jul-2012 Intent Aletha KOROMA DO, Kathleen SPECIMEN HNDLNG/TRNSPRT, OFFC > LAB On: 15-Aug-2011 Intent ([id number])By: Marco Antonio LEAVITT, Pamela Ramon Ear Irrigation ([id number])By: Red On: 21-Oct-2010 Aletha Foy DO, DO, Kathleen Comments: R-- tolerated well Eprescribed prescriptions ([id number])By: On: 21-Oct-2010 Intent Aletha Moon DO, DO, Kathleen Wax CurettesBy: Aletha Moon DO On: 21-Oct-2010 Intent Aletha Moon DO Echo CompleteBy: Aletha Moon DO On: 15-Jul-2010 Intent Aletha Moon DO EKG ([id number])By: Aletha Moon DO On: 03-Jun-2010 Intent Aletha Moon DO Comments: nsr no acute changes TDAP VACCINE >7 IM ([id number])By: Red On: 03-Jun-2010 Intent Aletha KOROMA DO, Kathleen Comments: Lot:[id number]:06-12-12Amt:0.5ccRoute:imSite:ltGiven By: MARY ANN Sanon EKG ([id number])By: Aletha Moon DO On: 28-Mar-2009 Intent Aletha Moon DO Comments: nsr no avute changes TDAP VACCINE >7 IM ([id number])By: Red On: 28-Mar-2009 Intent Aletha KOROMA DO, Kathleen Comments: Tdap given in Left DeltoidLot# [id number] 07-14-2011 EKG ([id number])By: Aletha Moon DO On: 14-Feb-2008 Intent Aletha Moon DO Comments: nsr no acute ischemic changes [...] diagnosis and treatment Indication: Pharyngitis, acute Encounters Office Visit On: 09-Jun-2018 8:22 Encounter Reason: Follow up ER - Reason for hospitalization note: (rt hip pain went to [facility] er sat and he said it is [...] completed the following preventative measures: PSA testing (2017) and colonoscopy (1 yr). The patient does not have durable power of ip technology transactions attorney or living will. Other providers contributing to the patient's care are reel blade bender furnace tender and gastrologist. Encounter Diagnosis: BMI 25.0-25.9,adult, Non-smoker, [...] into care from a hospital (was at [facility] and had a echo and said the [...] [facility] End: 14-Apr-2006 12:25 Payers MedicareAnthem/Jose orellana guarantor
--- OUTSIDE RECORDS SUMMARY | 2018-08-17 20:48 | XMS RPT_ITS | Continuity of Care Document ---
:1950 Author Organization [facility] Address [facility] [address] [place] [address] Phone Care Team Providers Name Role Phone Aletha Moon DO Unavailable Located within [facility], Located within [facility] Unavailable MARY ANN Gardner Unavailable Unavailable Long Katherine REESE Unavailable Unavailable Jennifer Wong Unavailable Unavailable Unavailable Unavailable Problems Name Dates Details Abnormal urine (R82.90, 791.9) Status: Active Acute maxillary sinusitis, recurrence not specified (J01.00, 461.0) Status: Active Acute pharyngitis (J02.9, 462) Status: [...] (gastroesophageal reflux disease) (K21.9, 530.81) Status: Active Hemorrhoids (455.8) Comments: Internal, non-bleeding - Colonoscopy otherwise normal Status: Active Hyperglyceridemia (E78.1, 272.1) Status: Active Hypertensive heart disease without congestive heart failure (I11.9, 402.90) Status: Active Hypoglycemia (E16.2, 251.2) Status: Active Influenza A (J10.1, 487.1) Status: Active Laryngitis (J04.0, 464.00) Status: Active [...] Kathleen Start : 22-Jan-2018 Active Comments:Dr Milton Juárez Diflucrica 150 MG Oral Tablet 1 (one) Tablet repeat in 3 days for 2 days Quantity: 2 {Tablet} Refills: 0 Ordered:31-May-2018 Viji Moon DO, DO, Kathleen Start : 31-May-2018 Active FLONASE, 50MCG/ACT (Nasal Suspension) 2 (two) Puff Puff [...] Start : 23-Jun-2016 End : 27-Oct-2016 Inactive Dipentum 250 MG Oral Capsule 1 [...] days Quantity: 30 {Tablet} Refills: 0 Ordered:21-Dec-2008 Shannon PEREZ Rosanne Start : 21-Dec-2008 End : 24-Jan-2009 Inactive [...] days Quantity: 10 {Tablet} Refills: 0 Ordered:26-Sep-2014 Shannon PEREZ Rosanne Start : 26-Sep-2014 End : 01-Oct-2014 Inactive [...] Procedure Dates Details PNEUM VAC ADLT/IMUMNOSPR, SBC/INTRM (45625) Date: 28-May-2015 Completed 28-May-2015 Heart Surgery Completed Heart Valve Surgery Completed Comments: Date Value Details 29-Jan-2018 Inital Evaluation (1) - PT Result: Comments: See Note; NOTES: [facility] [address] [place] [address] Fax REHABILITATION SERVICES INITIAL EVALUATION MR#: [id number] Acct: [id number] Name: IZABEL GARCÍA Rep #: [id number] : 1950 67 From: Tyron Steinberg PT, Cert. MDT, OCS Referring DrZbigniew: Aletha Moon DO Status: REG RCR Insu [...] to be FAXED BACK to us at [phone] for Medicare purposes. Please let me know if there are questions or concerns regarding this plan of care. Physician Signature: Date: <Electronically signed by Tyron Steinberg PT, Cert. T, [facility]> 01/29/18 0835 CC: Aletha Moon DO LAURIE Signed Fo r Medicare only, by signing this I certify the plan of care. Physicians Signature Date 06-Nov-2016 Finger(s) Min 2 Views Result: Comments: See Note; NOTES: [facility] Imaging Services [address] [place] [address] Verdana 4d Finger(s) Min 2 Views MR#: [id number] Acct: [id number] Name: IZABEL GARCÍA ep #: [id number] : 1950 M 66 From: Tanner Shaffer MD PCP: Aletha Moon DO Status: REG CLI Study: Finger(s) Min 2 Views Date of Exam: 11/06/16 Exam# [id number] Ordering Dr: Itzel Moon DO STUDY: X-RAY [...] Matthew Meyer MD at 13:48 EDT Tel [phone], Service support [phone], CC: Aletha Moon DO Water Pollution Specialist: Signed 20-Jun-2015 Sinus/Facial Bone Result: Comments: See Note; NOTES: [facility] Imaging Services [address] [place] [address] Verdana 4d Sinus/Facial Bone MR#: [id number] Acct: [id number] Name: DM GARCÍA Carito Rep #: [id number] : 1950 65 From: Claribel Luna MD PCP: Aletha Moon DO Status: REG CLI Study: Sinus/Facial Bone Date of Exam: 06/20/15 Exam# [id number] Ordering Dr: Mauri Lopez MD STUDY: CT [...] at 22:37 EST Tel , Service support [phone], CC: Satinder Chavez MD; Aletha Moon DO Water Pollution Specialist: Signed 17-Jan-2015 Emergency Department Summary Result: Comments: See Note; NOTES: [facility] Medical Records Department [address] [place] [address] Emergency Department Summary MR#: [id number] Acct: [id number] Name: IZABEL CERDA Rep #: [id number] : 1950 64 From: Izabel Jones MD PCP: Aletha Moon DO Status: [facility] DATE OF SERVICE: 01/15/2015 METHOD OF [...] vasovagal. 2. Recent tooth extraction. DISPOSITION: Home. Izabel Jones MD C C: Aletha Moon DO T: RAINE J OB: [id number] 01/17/15 0902 <Electronically signed by Izabel Jones MD> Date Izabel Jones MD CC: Aletha Moon DO Date Dictated: 1839 Date Transcribed: 01/15/151839 Water Pollution Specialist: Signed 16-Jan-2015 12 Lead Electrocardiogram Result: Comments: See Note; NOTES: [facility] Cardiovascular Services [address] [place] [address] 12 Lead EKG 01/15/15 1645 MR#: [id number] Acct: [id number] Name: BRANDIE GARCÍA Rep #: [id number] : 1950 64 From: Roberto Haynes MD [...] ECG Confirmed by IVY LEAVITT, ROBERTO ([id number]), online editor GEO WATTERS ([id number]) on 01/16/2015 9:52:23 AM Referred By: PRINCESS Confirmed By:ROBERTO HAYNES MD 01/16/15 0952 Date ____ Roberto Haynes MD CC: Aletha Moon DO Date Dictated: 01/15/151644 Date Transcribed: 01/15/151644 Water Pollution Specialist: Signed 15-Jan-2015 Discharge Instruction Result: Comments: See Note; NOTES: [facility] Medical Records Department [address] [place] [address] Discharge Instruction 01/15/151835 MR#: [id number] Acct: [id number] Name: IZABEL GARCÍA Rep #: [id number] : 1950 64 From: Izabel Jones MD [...] chest pain, or any unexpected problems, contact [facility] doctor. Call [facility] ([phone]) or report to the closest Emergency Room. Call 911 if necessary. 01/15/151836 <Electronically signed by Izabel Jones MD> Date Izabel Jones MD Cosigner Signature (If Indicated): Date CC: Aletha Moon DO 17-Nov-2014 Inital Evaluation - PT Result: Comments: See Note; NOTES: [facility] [place] [address] Fax REHABILITATION SERVICES INITIAL EVALUATION MR#: [id number] Acct: [id number] Name: IZABEL GARCÍA Rep #: [id number] : 1950 64 From: Socorro Dejesus Referring Dr.: Aletha Moon DO Status: REG R Insurance: M ED M[employer]UAL TPA Eval Date: DATE OF SERVICE: 11/10/2014 SUBJECTIVE: This patient was referred to physical therapy by Dr. Aletha Moon with diagnoses of neck pain, cervical radiculitis and trap ezius spasm. 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 It started 5-6 weeks ago for no apparent reason and is currently unchanging. He reports he gets pain when he sleeps on his right side and it is stiff in the morning. The pain is disturbing his sleep. He has had some pain in the past, but h e reports this is different. He has had [...] with manual muscle testing with a bilateral field education director strength of 95 margarita nds. Bilateral upper [...] care. Socorro Dejesus, PT T: NTS JOB: [id number] <Electronically signed by Socorro Dejesus &# 62; 11/17/14 1538 CC: Signed For Medicare only, by signing this I certify the plan of care. Physicians Signature Date 03-Nov-2014 Cerv Spine 4 or 5 Views Result: Comments: See Note; NOTES: [facility] Imaging Services [address] [place] [address] Radiology Report MR#: [id number] Acct: [id number] Name: IZABEL GARCÍA Rep #: [id number] : 1950 M 64 From: Carter Pavon MD PCP: Aletha Moon DO Status: REG CLI Study: Cerv Spine 4 or 5 Views Date of Exam: 11/03/14 Exam# [id number] Ordering Dr: Aletha Moon DO STUDY: X-RAY [...] MD at 19:55 EDT , Service support [phone], CC: Aletha Moon DO Water Pollution Specialist: Signed Immunization Name Dates Details Pneumococcal (2 years and up) on: 28-May-2015 Comments: Site: Deltoid (Left) Lot #: [id number] Tdap (7 years and up) on: 28-Mar-2009 Comments: Tdap given in Left DeltoidLot# [id number] 07-14-2011 Social History Name Dates Details Caffeine [...] smoker Vital Signs Date Test Result Details 69-Ymt-27596:23 Comments: Dr. Mcneill and had a glaucoma [...] kg/m2 Body Surface Area Calculated 2.06 m2 62-Kxw-273325:23 Temperature 96.6 f Comments: Method: Oral Pulse [...] 0.00 cm Results Date Description Value Details 09-Mjf-777028:55 Urinalysis, Office (56056) UA - LEUKOCYTE ESTERASE Trace (Normal) UA - NITRITE Negative (Normal) URINE UROBILINGN SHANIQUE TIMED Normal mg/dL (Normal) UA - PROTEIN Negative mg/dL (Normal) UA - PH 6 (Abnormal) UA - BLOOD Non Hemolyzed Trace (Normal) UA - SPECIFIC GRAVITY 1.025 (Normal) UA - KETONES Negative mg/dL (Normal) UA - BILIRUBIN Negative (Normal) UA - GLUCOSE Negative (Normal) 07-Gxa-33273:36 THROAT CULTURE (34559) Comments: PATIENT NOT FASTINGPERFORMED BY: GeeksphoneCount includes the [facility] [id number] Information: SRC:TH Result 1 RRF (Normal) Comments: Routine respiratory natalie Upper Respiratory Culture Final report (Normal) 07-Gxt-55724:01 Rapid Strep Test, Office (50931) Rapid Strep Test, Office Negative (Normal) 53-Yfw-630283:48 PSA (Medicare - G0103) Comments: PATIENT WAS FASTINGPERFORMED BY: GeeksphoneCount includes the [facility] [id number] (59149) Prostate Specific Ag, 0.8 ng/mL (Normal) Range: 0.0-4.0 Serum Comments: ClaimIt ECLIA methodology. .According to the [place] [employer], Serum PSA shoulddecrease and remain at undetectable levels after radicalprostatectomy. The AUA defines biochemical recurrence as an initialPSA value 0.2 ng/mL or greater followed by a subsequent confirmatoryPSA value 0.2 ng/mL or greater.Values obtained with d ifferent assay methods or kits cannot be usedinterchangeably. Results cannot be interpreted as absolute evidenceof the presence or absence of malignant disease. 83-Qhd-292762:48 TSH (33572) Comments: PATIENT WAS FASTINGPERFORMED BY: GeeksphoneCount includes the [facility] [id number] TSH 0.464 {uIU/mL} (Normal) Range: 0.450-4.500 98-Brj-495015:48 Metabolic Panel, Comprehensive Comments: PATIENT WAS FASTINGPERFORMED BY: [employer] Ovleou2413 [facility] [id number] (34167) ALT (SGPT) 26 [iU]/L (Normal) Range: 0-44 [...] 8-27 Glucose 98 mg/dL (Normal) Range: 65-99 01-Kui-080102:48 Lipid Panel (16397) Comments: PATIENT WAS FASTINGPERFORMED BY: Mov[facility] NetworksSaint Barnabas Medical CenterKyqqtm6868 [facility] [id number] LDL/HDL Ratio 2.4 {ratio} (Normal) Range: 0.0-3.6 Comments: LDL/HDL Ratio Men Women 1/2 Avg.Risk 1.0 1.5 Av g.Risk 3.6 3.2 2X Avg.Risk 6.2 5.0 3X Avg.Risk 8.0 6.1 LDL Cholesterol Calc 92 mg/dL (Normal) Range: 0-99 VLDL Cholesterol Brandon 29 mg/dL (Normal) Range: 5-40 HDL Cholesterol 38 mg/dL (Abnormal) Triglycerides 146 mg/dL (Normal) Range: 0-149 Cholesterol, Total 159 mg/dL (Normal) Range: 100-199 30-Pau-467222:48 URINALYSIS (71958) Comments: PATIENT WAS FASTINGPERFORMED BY: [employer] [facility] [id number] Microscopic Examination MICNIP (Normal) Comments: Microscopic not indicated and not performed. Nitrite, Urine Negative (Normal) Urobilinogen,Semi-Qn 0.2 mg/dL (Normal) Range: 0.2-1.0 Bilirubin Negative (Normal) Occult Blood Negative (Normal) Ketones Negative (Normal) Glucose Negative (Normal) Protein Trace (Normal) WBC Esterase Negative (Normal) Appearance Clear (Normal) Urine-Color Yellow (Normal) pH 7.0 (Normal) Range: 5.0-7.5 Specific Pierson 1.026 (Normal) Range: 1.005-1.030 10-Mxt-084052:48 MICROALBUMIN: CREATININE RATIO Comments: PATIENT WAS FASTINGPERFORMED BY: [employer] Umvbfe7758 [facility] [id number] (66528) AND (03933) Alb/Creat Ratio 9.9 {mg/g_creat} (Normal) Range: 0.0-30.0 Albumin, Urine 19.3 ug/mL (Normal) Creatinine, Urine 194.2 mg/dL (Normal) 46-Bpy-462231:48 CBC WITH MANUAL DIFF (31357) Comments: PATIENT WAS FASTINGPERFORMED BY: Movaz NetworksSaint Barnabas Medical CenterHjitkx0562 [facility] [id number] Immature Grans (Abs) 0.0 {x10E3/uL} (Normal) Range: [...] {x10E3/uL} (Normal) Range: 3.4-10.8 :00 Homocysteine, Plasma (05495) Comments: PATIENT NOT FASTINGPERFORMED BY: CB [facility] Tepsvm1244 [facility] [id number] Homocyst(e)ine, Plasma 11.5 umol/L (Normal) Range: 0.0-15.0 :41 MTHFR (94447) Comments: PATIENT NOT FASTINGPERFORMED BY: TG [facility] TYR8732 [facility] [id number] MTHFR, DNA Analysis FUP455 (Normal) Comments: Result: C677T/C677T Two copies of the same mutation (C677T and C677T) identified .Interpretation: .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 Homozygosity for uszC831J mutation confers an increased risk for the [...] two common variants in the MTHFR gene, c.655c>T(p.Uvr781Sbma), referred to as C677T, and c.1286A>C (p.Rat226Ods),referred to as V6056J. Individuals homozygous for C677T (two copiesof the variant), have decreased activity of the MTHFR enzyme and apredisposition to hyperhomocysteinemia, particularly when deficient infolate. Hyperhomocysteinemia is a risk factor for venous thrombosisand c oronary artery disease and is associated with an increased riskof open neural tube defects. The C677T variant does notindependently increase risk of these conditions in the absence ofhyperhomocyst einemia. The S0507F variant is not associated withelevated homocysteine levels unless a C677T variant is also present;however, the clinical significance of heterozygosity for both K345Lbfk J5984G is con troversial. Population data suggest that these twovariants are not present on the same chromosome, but rare exceptionshave been reported of triple variant MTHFR genotypes (ie. homozygousfor one variant and heterozygous for the other). Homozygosity bhtY150B has an estimated frequency of 10% to 15% in Caucasians and 25%in Hispanics. .Ad ditional information:Dietary folic acid, B6 and B12 supplementation has been suggested tolower homocysteine levels in some people. Folic acid supplementationhas been shown to reduce the occurrence of ne ural tube defects. .Genetic counselors are available for health care providers to discussresults at [phone]. .Methodology:DNA analysis of the MTHFR gene was performed by PCRamplification followed by restriction analysis. Thediagnostic sensitivity is >99% for both. Molecular-basedtesting is highly accurate, but as in any laboratory test,rare diagnostic errors may occur. All test results must becombined with clinical information for the most accurateinterpre tation. .This test was developed and its performance characteristicsdetermined by [employer]. It has not been cleared or approved by[facility] od and Drug Administration. .References:Sima LD, Franklyn Q. Am J Epidemiol 2000; 151(9):862-877.Kurt MM, Rhiannon JA. Arch Pathol Lab Med 2007; 131(6):872-884.Frosst P et al. Nruis Fifi 1995; 10(1):111-113.Hickey SE et al. Fifi Med 2013; 15(2):153-156.Highmount C et al. Obstet Gynecol 2011; 118(3):730-740.Nicolas B et al. Eur J Epidemio l 2013; 28(8):621-647. .Nba Lopes, PhD, Raphael Valladares, PhD, Jose Yepez, PhD, Armand Flores M.SZbigniew, PhD, Jane Castaneda, PhD, Georgia Mcgee, PhD, ALTAFam Rosa, PhD, [facility] 1-Bnj-576485:52 Miscellaneous Lab Procedure Comments: Test(s) Ordered: [id number] ALLERGEN PROFILE FOOD IGE W REFL 3TI [facility] [address] [place], [place], [id number] [facility] Comments: TEST RESULT LIMITSIgE Food w/Component Reflex IIClass DescriptionLevels of Specific IgE Class Description of Class ----- --------- LAB (Normal) < 0.10 0 Negative 0.10 - 0.31 0/I Equivocal/Low 0.32 - 0.55 I Low 0.56 - 1.40 TEST II Moderate 1.41 - 3.90 III High 3.91 - 19.00 IV Very High 19.01 - 100.00 V Very High >100.0 0 Very VvneA489-YwI Clam <0.10 kU/L Class 0R657-DqB Codfish <0.10 kU/L Class 0F008- IgE [place] <0.10 kU/L Class 8F590-ZqJ Scallop 0.12 Abnormal kU/L Class 0/IF010- IgE Sesame Seed <0.10 kU/L Class 4D540-YnH Shrimp 1.83 Abnormal kU/L Class VRMX060-TjJ Soybean <0.10 kU/L Class 2J990-PfY Wheat <0.10 kU/L Class 5Z049-KuS Milk 0.49 Abnormal kU/L Class IF076- IgE Alpha Lactalbumin 0.19 Abnormal kU /L Class 0/QK137-JmC Beta Lactoglobulin 0.32 Abnormal kU/L Class IF078- IgE Casein 0.20 Abnormal kU/L Class 0/SA165-XbA Egg White 0.12 Abnormal kU/L Class 0/LV788-PrJ Peanut 0.12 Abnormal kU/L Class 0/XJ086-FxL Margy h 1 <0.10 kU/L Class 9O096-GaT Margy h 2 <0.10 kU/L Class 4Z254-UyK Margy h 3 <0.10 kU/L Class 7M659-PdU Margy h 8 0.53 Abnormal kU/L Class IF427- IgE Margy h 9 <0.10 kU/L Class 2E455-QiK Hazelnut (Filbert) 1.86 Abnormal kU/L Class UZKL472-GwB Cor a 1 2.55 Abnormal kU/L Class CCNV589-KdM Cor a 8 <0.10 kU/L Class 5J201-ZnV Cor a 9 <0.10 kU/L Class 5H861-OfY Cor a 14 <0.10 kU /L Class 0H859-JaP Needles <0.10 kU/L Class 2Q497-WqD Cashew Nut <0.10 kU/L Class 8L850-EyD Holbrook Nut <0.10 kU/L Class 0*F34 5-IgE Macadamia Nut <0.10 kU/L Class 5I507-RhW Pecan Nut <0.10 kU/L Class 0G397-ErB Pistachio Nut <0.10 kU/L Class 2R968-VlU [place] 0 .31 Abnormal kU/L Class 0/I [facility]. ORIGINAL REPORT ON FILE IN LAB CONTAINS ADDITIONAL TEST SITE INFORMATION. :52 Miscellaneous Lab Procedure 2 Comments: List Test(s) Ordered by Physician: [id number], geovannabecarito, [facility] [address] [place], [address] MIS Comments: TEST RESULT CDDSIPT535-VaP Honeybee 0.16 Abnormal kU/L Class 0/I TESTING PERFORMED AT [facility]. ORIG LAB (Normal) INAL REPORT ON FILE IN LAB CONTAINS ADDITIONAL TEST SITE INFORMATION. TEST 2 6-Dce-467333:52 Miscellaneous Lab Procedure 3 Comments: List Test(s) Ordered by Physician: [id number], yellow jacket, 1 [facility] Lsfbvnllgn2195 [facility] [place], [address] [facility] Comments: TEST RESULT ARYVSDN716-QxR Yellow Jacket <0.10 kU/L Class 0 TESTING PERFORMED AT [facility]. ORIGI LAB (Normal) NAL REPORT ON FILE IN LAB CONTAINS ADDITIONAL TEST SITE INFORMATION. TEST 3 84-Xuq-881293:44 URINE CHEPE CULTURE-IDENTIFICATN Comments: PATIENT NOT FASTINGPERFORMED BY: Mov[facility] NetworksSaint Barnabas Medical CenterMldafm5066 [facility] MedTest DXCount includes the [facility] [id number] Information: SRC: (17439) Result 1 Yeast isolated. (Abnormal) Comments: 100 Colonies/mL .Request for further identification must be madewithin 1 week. Urine Final report (Abnormal) Culture,Comprehensive 62-Rke-361163:38 Urinalysis, Office (93771) UA - LEUKOCYTE ESTERASE Moderate (Normal) UA - NITRITE Negative (Normal) URINE UROBILINGN SHANIQUE TIMED Normal mg/dL (Normal) UA - PROTEIN Negative mg/dL (Normal) UA - PH 7 (Normal) UA - BLOOD Hemolyzed Trace (Normal) UA - SPECIFIC GRAVITY 1.025 (Normal) UA - KETONES Negative mg/dL (Normal) UA - BILIRUBIN Negative (Normal) UA - GLUCOSE Negative (Normal) 58-Tvw-434953:13 PSA (PROSTATE SPECIFIC Comments: PATIENT NOT FASTINGPERFORMED BY: [employer] Eveuja3232 [facility] MedTest DXCount includes the [facility] [id number] ANTIGEN) (V76.44) Prostate Specific Ag, 0.9 ng/mL (Normal) Range: 0.0-4.0 Serum Comments: [place] ECLIA methodology. .According to the [place] [employer], Serum PSA shoulddecrease and remain at undetectable levels after radicalprostatectomy. The AUA defines biochemical recurrence as an initialPSA value 0.2 ng/mL or greater followed by a subsequent confirmatoryPSA value 0.2 ng/mL or greater.Values obtained with d ifferent assay methods or kits cannot be usedinterchangeably. Results cannot be interpreted as absolute evidenceof the presence or absence of malignant disease. 44-Ens-153160:18 Rapid Strep Test, Office (85719) Rapid Strep Test, Office Negative (Normal) 97-Hlg-87342:01 CBC W/AUTO DIFF WBC Comments: PATIENT WAS FASTINGPERFORMED BY: [facility]6370 [facility] [id number] Information: [id number], 676009 (15851) Immature Grans (Abs) 0.0 {x10E3/uL} (Normal) Range: [...] 5.6 {x10E3/uL} (Normal) Range: 3.4-10.8 :01 TSH (80956) Comments: PATIENT WAS FASTINGPERFORMED BY: LabCoSaint [facility]abas Medical CenterRzchfp4053 [facility] [id number] TSH 1.990 {uIU/mL} (Normal) Range: 0.450-4.500 :01 METABOLIC PANEL, COMPREHENSIVE Comments: PATIENT WAS FASTINGPERFORMED BY: LabCoSaint Barnabas Medical CenterLfobun3235 [facility] [id number] (93582) ALT (SGPT) 52 [iU]/L (Abnormal) Range: 0-44 [...] Glucose, Serum 86 mg/dL (Normal) Range: 65-99 :00 NASAL POLYPS See Note (Normal) Comments: [facility] [address] [place], [place], [address] ; ordered by tip Comments: Patient: IZABEL GARCÍA : 1950 (65/M) Acct Num: [id number] Phys: [facility] Unit Num: [id number] Loc: LABSPEC Specimen: [id number] Received: 07/12/15 - 1627 S pec Type: [...] / AM: 07/13/15 TC: 3 CPT : 46311 x2, 40335 x2 HEADER OPERATION: Functional endoscopic sinus surgery, [...] Signed Eric Avila 07/18/15 <signature on file> 27-Grw-235489:10 Basic Metabolic Profile (BMP) Comments: PER AMMERIST AT OFFICE, BMP AND CBCD.[facility] [address] [place], [place], [address] GAP 6 (Normal) Range: 5-15 CO2 29.0 [...] 7-18 GLU 84 mg/dL (Normal) Range: 70-110 16-Lqn-981079:10 CBC W/Diff, Automated Comments: [facility] [address] [place], [place], [address] Absolute Lymph 1.48 {X10_3/ul} (Normal) Range: 0.83-4.51 [...] FUNCTION PANEL Comments: PATIENT WAS FASTINGPERFORMED BY: [employer] Nkyszu4501 [facility] [id number] (97774) ALT (SGPT) 40 [iU]/L (Normal) Range: 0-44 AST (SGOT) 39 [iU]/L (Normal) Range: 0-40 Alkaline Phosphatase, S 64 [iU]/L (Normal) Range: 39-117 Bilirubin, Direct 0.21 mg/dL (Normal) Range: 0.00-0.40 Bilirubin, Total 0.7 mg/dL (Normal) Range: 0.0-1.2 Albumin, Serum 4.1 g/dL (Normal) Range: 3.6-4.8 Protein, Total, Serum 6.5 g/dL (Normal) Range: 6.0-8.5 :54 LIPID PANEL (48715) Comments: PATIENT WAS FASTINGPERFORMED BY: [employer] Mtznef4651 [facility] [id number] LDL/HDL Ratio 2.5 {ratio_units} (Normal) Range: 0.0-3.6 [...] #1, #2, #3, or #4: 1Test performed at:[facility] [address] [place] [address] GAP 5 (Normal) Range: 5-15 [...] :45 CBC W/Diff, Automated Comments: Test performed at:[facility] [address]im[address] [place] [address] Absolute Lymph 1.04 {X10_3/ul} (Normal) Range: 0.83-4.51 [...] 4.6-6.2 WBC 8.8 K/mm3 (Normal) Range: 4.4-11.0 7-Iay-752224:45 Troponin-I Comments: 'TROP' Serial specimen #1, #2, #3, or #4: 1Test performed at:[facility] [address] [place] [address] [id number] TROPONIN-I < 0.02 ng/mL (Normal) Comments: TROPONIN-I EXPECTED VALUES <0.05 NEGATIVE 0.06 - 0.59 AT RISK OF [place] > OR = 0.60 SUGGEST [place] 96-Cru-641199:26 Rapid Flu (35108 x 2) Influenza A Ag positive A (Normal) 6-Xmj-679885:24 DHEA, Serum Comments: PATIENT NOT FASTINGPERFORMED BY: [employer] [facility] [id number] BY: [employer] [address] [id number] Dehydroepiandrosterone (DHEA) 45 ng/dL (Normal) Range: 31-701 [...] - 491 >19 years 31 - 701 0-Jei-346164:24 TESTOSTERONE TOTAL (00603) Comments: PATIENT NOT FASTINGPERFORMED BY: [employer] THE MELT [facility] [id number] BY: Mov[employer] NetworksCynthia V[place] [address] [facility] [id number] Comment: TESTM (Normal) Comments: Adult male reference interval is based on a population of lean malesup to 40 years old. Testosterone, Serum 409 ng/dL (Normal) Range: 348-1197 :24 PSA (PROSTATE SPECIFIC Comments: PATIENT NOT FASTINGPERFORMED BY: BackTypeSaint Barnabas Medical CenterGahchu6745 [facility] [id number] BY: [employer] [id number] ANTIGEN) (63686) Prostate Specific Ag, 0.8 ng/mL (Normal) Range: 0.0-4.0 Serum Comments: DrivenBIIA methodology. .According to the [place] [employer], Serum PSA shoulddecrease and remain [...] Metabolic Panel, Comments: PATIENT NOT FASTINGPERFORMED BY: SpinVox Lxponb6149 [facility] [id number] BY: [employer] [id number] Comprehensive (73134) ALT (SGPT) 35 [iU]/L (Normal) Range: 0-44 [...] Glucose, Serum 81 mg/dL (Normal) Range: 65-99 3-Hba-756310:24 CBC WITH MANUAL DIFF Comments: PATIENT NOT FASTINGPERFORMED BY: CB [facility] Wyzraj6138 [facility] [id number] BY: BN [facility] [address] [id number] Inf ormation: [id number] (15190) Immature Grans (Abs) 0.0 {x10E3/uL} (Normal) Range: [...] 4.6 {x10E3/uL} (Normal) Range: 3.4-10.8 :24 TSH (95071) Comments: PATIENT NOT FASTINGPERFORMED BY: Sapient [facility] [id number] BY: [employer]Co[address] [id number] TSH 0.573 {uIU/mL} (Normal) Range: 0.450-4.500 :02 HEMOGLOBIN GLYCLATED (HGB A1C) Comments: PERFORMED BY: Sapient [facility] [id number] (02394) Hemoglobin A1c 5.1 % (Normal) Range: 4.8-5.6 Comments: . Increased risk for diabetes: 5.7 - 6.4 Diabetes: >6.4 Glycemic control for adults with diabetes: <7.0 :02 PSA (PROSTATE SPECIFIC Comments: PERFORMED BY: Sapient [facility] [id number] ANTIGEN) (08874) Prostate Specific Ag, 0.8 ng/mL (Normal) Range: 0.0-4.0 Serum Comments: [place] ECLIA methodology. .According to the [place] [employer], Serum PSA shoulddecrease and remain [...] :02 TSH (THYROID STIMULATING Comments: PERFORMED BY: Movaz NetworksUnion County General HospitalLppoqk2369 [facility] [id number] HORMONE) (06324) TSH 0.985 {uIU/mL} (Normal) Range: 0.450-4.500 :02 URINALYSIS W MICROSCOPY (14446) Comments: PERFORMED BY: Coppertino Asimhn4295 [facility] [id number] Microscopic Examination MICNIP (Normal) Comments: Microscopic not indicated and not performed. Nitrite, Urine Negative (Normal) Urobilinogen,Semi-Qn 0.2 mg/dL (Normal) Range: 0.0-1.9 Bilirubin Negative (Normal) Occult Blood Negative (Normal) Ketones Negative (Normal) Glucose Negative (Normal) Protein Trace (Normal) Appearance Clear (Normal) WBC Esterase Negative (Normal) pH 7.5 (Normal) Range: 5.0-7.5 Urine-Color Yellow (Normal) Specific Pierson 1.020 (Normal) Range: 1.005-1.030 :02 MICROALB;CREAT RATION, RAND UR Comments: PERFORMED BY: Sapient [facility] [id number] (05054) Microalb/Creat Ratio 3.5 {mg/g_creat} (Normal) Range: 0.0-30.0 Creatinine, Urine 163.4 mg/dL (Normal) Range: 22.0-328.0 Microalbumin, Urine 5.7 ug/mL (Normal) Range: 0.0-17.0 :02 METABOLIC PANEL, COMPREHENSIVE Comments: PERFORMED BY: [employer] THE MELT [facility] [id number] (98655) ALT (SGPT) 29 [iU]/L (Normal) Range: 0-44 [...] mg/dL (Normal) Range: 65-99 :02 LIPID PANEL (46413) Comments: PERFORMED BY: GeeksphoneCount includes the [facility] [id number] LDL/HDL Ratio 2.0 {ratio_units} (Normal) Range: 0.0-3.6 LDL Cholesterol Calc 73 mg/dL (Normal) Range: 0-99 VLDL Cholesterol Brandon 22 mg/dL (Normal) Range: 5-40 HDL Cholesterol 37 mg/dL (Abnormal) Comments: According to ATP-III Guidelines, HDL-C >59 mg/dL is considered anegative risk factor for CHD. Triglycerides 109 mg/dL (Normal) Range: 0-149 Cholesterol, Total 132 mg/dL (Normal) Range: 100-199 :02 CBC with manual diff (06408) Comments: PERFORMED BY: YornPending sale to [facility] [id number] Immature Grans (Abs) 0.0 {x10E3/uL} (Normal) Range: [...] Microscopic Examination Comments: PATIENT WAS FASTINGPERFORMED BY: Express Engineeringlin6370 [facility] [id number] Bacteria None seen (Normal) Mucus Threads Present (Normal) Epithelial Cells (non renal) None seen {/hpf} (Normal) Range: 0 - 10 RBC 0-3 {/hpf} (Normal) Range: 0 - 3 WBC 0-5 {/hpf} (Normal) Range: 0 - 5 :21 PSA (PROSTATE SPECIFIC Comments: PATIENT WAS FASTINGPERFORMED BY: Crowdnetic [facility] [id number] ANTIGEN) (V76.44) Prostate Specific Ag, 0.8 ng/mL (Normal) Range: 0.0-4.0 Serum Comments: [place] ECLIA methodology. .According to the [place] [employer], Serum PSA shoulddecrease and remain [...] (HGB A1C) Comments: PATIENT WAS FASTINGPERFORMED BY: BackType Lbekcp5529 [facility] [id number] ([id number]) Hemoglobin A1c 5.4 % (Normal) Range: 4.8-5.6 Comments: . Increased risk for diabetes: 5.7 - 6.4 Diabetes: >6.4 Glycemic control for adults with diabetes: <7.0 :21 TSH (47367) Comments: PATIENT WAS FASTINGPERFORMED BY: Mobivery6370 [facility] [id number] TSH 1.280 {uIU/mL} (Normal) Range: 0.450-4.500 :21 URINALYSIS, W/ MICRO (24129) Comments: PATIENT WAS FASTINGPERFORMED BY: Express Engineeringlin6370 [facility] [id number] Microscopic Examination See below: (Normal) Microscopic Examination MICRON (Normal) Comments: Microscopic follows if indicated. Nitrite, Urine Negative (Normal) Urobilinogen,Semi-Qn 0.2 mg/dL (Normal) Range: 0.0-1.9 Bilirubin Negative (Normal) Occult Blood Negative (Normal) Ketones Negative (Normal) Glucose Negative (Normal) Protein Negative (Normal) WBC Esterase Negative (Normal) Appearance Clear (Normal) Urine-Color Yellow (Normal) pH 6.5 (Normal) Range: 5.0-7.5 Specific Pierson 1.014 (Normal) Range: 1.005-1.030 :21 MICROALBUMIN: CREATININE RATIO Comments: PATIENT WAS FASTINGPERFORMED BY: Octavian70 [facility] [id number] ([id number]) AND (52220) Microalb/Creat Ratio 2.6 {mg/g_creat} (Normal) Range: 0.0-30.0 Creatinine, Urine 97.0 mg/dL (Normal) Range: 22.0-328.0 Microalbumin, Urine 2.5 ug/mL (Normal) Range: 0.0-17.0 :21 METABOLIC PANEL, COMPREHENSIVE Comments: PATIENT WAS FASTINGPERFORMED BY: Octavian70 Krueger ALEXANDALEXAPending sale to [facility] [id number] (89167) ALT (SGPT) 32 [iU]/L (Normal) Range: 0-44 [...] mg/dL (Normal) Range: 65-99 :21 LIPID PANEL (77677) Comments: PATIENT WAS FASTINGPERFORMED BY: Movaz NetworksSaint Barnabas Medical CenterEtqntz1649 [facility] [id number] LDL Cholesterol Calc 82 mg/dL (Normal) Range: [...] MANUAL DIFF Comments: PATIENT WAS FASTINGPERFORMED BY: LabSPHARESSaint Barnabas Medical CenterVcdifg2388 [facility] [id number] Information: [id number] (68869) Immature Grans (Abs) 0.0 {x10E3/uL} (Normal) Range: [...] 4.14-5.80 WBC 5.6 {x10E3/uL} (Normal) Range: 4.0-10.5 43-Txp-564922:11 FEMUR,2 VIEWS Radiology Report See Note (Normal) Comments: PROCEDURE: X-RAY - RIGHT FEMUR REASON FOR STUDY: Male, 62 years old. Right hip pain. TECHNIQUE: Four views of the femur. COMPARISON: None. FINDINGS:Normal visualized femur. Normal visualized so ft tissue structure. IMPRESSION:Normal x-ray examination of the femur. Signed:Tanner Shaffer M.D.July 30, 2012 at 2:34:05 PM [phone] Signed GP/GP If you are the referring physician and would like to consult with theradiologist who provided this interpretation, please contact Scar Nazario at [phone]. If this radiologist is unavailable, youwill be directed to another radiologist to assist. If you are a patient with a question regarding this report, pleasecontactyour referring physician directly. Professional Interpretation Provided By: [email or web address], Phone , These documents contain legally protected [...] documents. Dictated on 07/30/12 1313 by Deena LEAVITT,Brandyribed on 07/30/12 1439 by ITS IMPORTSign by [...] (Normal) UCOL YELLOW (Normal) :35 CHEPE CULTURE-OTHER (51499) Comments: PATIENT NOT FASTINGPERFORMED BY: HERMELINDA [facility] Jjsrve6957 [place] [id number] Information: SRC:MARGARITA [id number] Result 1 RRF (Normal) Comments: Routine respiratory natalie Upper Respiratory Culture Final report (Normal) :04 Rapid Strep Test, Office (86568) Rapid Strep Test, Office Negative (Normal) :00 [...] LDL/HDL Comments: PATIENT WAS FASTINGPERFORMED BY: [facility] Xxxxrv2493 [facility] [id number] Ratio LDL/HDL Ratio 3.1 {ratio_units} (Normal) Range: 0.0-3.6 LDL Cholesterol Calc 109 mg/dL (Abnormal) Range: 0-99 VLDL Cholesterol Brandon 21 mg/dL (Normal) Range: 5-40 HDL Cholesterol 35 mg/dL (Abnormal) Comments: According to ATP-III Guidelines, HDL-C >59 mg/dL is considered anegative risk factor for CHD. Triglycerides 103 mg/dL (Normal) Range: 0-149 Cholesterol, Total 165 mg/dL (Normal) Range: 100-199 74-Leo-455705:35 B12/FOLATES FOLATES 18.60 ng/mL (Abnormal) Range: 3.1-17.5 VITAMIN B12 440 pg/mL (Normal) Range: 254-1320 42-Tlq-984626:35 C-REACTIVE PROT < 2.90 mg/L (Normal) Range: [...] Range: 0.358-3.74 :56 CBC WITH MANUAL DIFF (79767) Comments: PATIENT NOT FASTINGClinical Information: ADD [id number], [id number] PERFORMED BY: LabCoSaint Barnabas Medical CenterAnkkao5023 [facility] [id number] Baso (Absolute) 0.0 {x10E3/uL} (Normal) Range: 0.0-0.2 [...] (ANTINUCLEAR ANTIBODY) Comments: PATIENT NOT FASTINGPERFORMED BY: Crowdnetic [facility] [id number] (11453) Antinuclear Antibodies Direct Negative (Normal) :56 PT (Prothrobim Time) (96799) Comments: PATIENT NOT FASTINGPERFORMED BY: Express Engineeringlin6370 [facility] [id number] INR 1.0 (Normal) Range: 0.8-1.2 Comments: Reference interval is for non-anticoagulated patients. . Suggested INR therapeutic range for Vitamin K anta gonist therapy: Standard Dose (moderate intensity therapeutic range): 2.0 - 3.0 Higher intensity therapeutic range 2.5 - 3.5 Prothrombin Time 10.7 {sec} (Normal) Range: 8.7-11.5 :56 PTT (Activated Partial Comments: PATIENT NOT FASTINGPERFORMED BY: Crowdnetic [facility] [id number] Thromboplastin Time) (65746) aPTT 31 {sec} (Normal) Range: 24-33 Comments: This test has not been validated for monitoring unfractionated heparintherapy. aPTT-based therapeutic ranges for unfractionated heparintherapy have not been established. For general guidelines onHeparin monitoring, refer to the [facility] Directory of Services. :25 CBC With Differential/Platelet Comments: PATIENT WAS FASTINGPERFORMED BY: LabGary Ville [id number] [facility] [id number] Baso (Absolute) 0.0 {x10E3/uL} (Normal) Range: 0.0-0.2 [...] Panel (14) Comments: PATIENT WAS FASTINGPERFORMED BY: Welin6370 [facility] [id number] A/G Ratio 2.0 (Normal) Range: 1.1-2.5 Albumin, [...] Sodium, Serum 138 mmol/L (Normal) Range: 135-145 85-Qtt-55911:25 Hepatic Function Panel (7) Comments: PATIENT WAS FASTINGPERFORMED BY: Coppertino Cdcrxx6347 [facility] [id number] Bilirubin, Direct 0.27 mg/dL (Normal) Range: 0.00-0.40 :25 Lipid Panel With LDL/HDL Comments: PATIENT WAS FASTINGPERFORMED BY: Mobivery6370 [facility] [id number] Ratio Cholesterol, Total 165 mg/dL (Normal) Range: [...] Ag, Serum Comments: PATIENT WAS FASTINGPERFORMED BY: Mobivery6370 [facility] [id number] Prostate Specific Ag, Serum 0.7 ng/mL (Normal) Range: 0.0-4.0 Comments: DrivenBIIA methodology. .According to the [place] [employer], PSA should beundetectable after radical prostatectomy. A PSA of less than0.5 ng/mL (or undetectable) is not likely to be associated withdisease recurrence within five years of treatment.Values obtained with different assay methods or kits cannot be usedinterchang eably. Results cannot be interpreted as absolute evidenceof the presence or absence of malignant disease. :25 Urinalysis, Routine Comments: PATIENT WAS FASTINGPERFORMED BY: Mobivery6370 [facility] [id number] Appearance Clear (Normal) Bilirubin Negative (Normal) Glucose Negative (Normal) Ketones Negative (Normal) Microscopic Examination MICRON (Normal) Comments: Microscopic follows if indicated. Nitrite, Urine Negative (Normal) Occult Blood Negative (Normal) pH 7.0 (Normal) Range: 5.0-7.5 Protein Negative (Normal) Specific Pierson 1.018 (Normal) Range: 1.005-1.030 Urine-Color Yellow (Normal) Urobilinogen,Semi-Qn 0.2 mg/dL (Normal) Range: 0.0-1.9 WBC Esterase Negative (Normal) 47-Ijv-93547:28 CHEPE CULTURE-OTHER (75293) Comments: PATIENT NOT FASTINGClinical Information: SRC:THRT ADD [id number] PERFORMED BY: Movaz NetworksUnion County General HospitalIrvapc6582 [facility] [id number] Result 1 RRF (Normal) Comments: Routine respiratory natalie Upper Respiratory Culture Final report (Normal) :52 Rapid Strep Test, Office (24230) Rapid Strep Test, Office Negative (Normal) Comments: [...] was performed using the TPSA method for theKaboozaPreo chemistry system.Values obtained with different assay methods cannot be usedinterchangably.When changing PSA assays in the course of monito ring apatient, additional sequential testing should be carriedout to confirm baseline values. :36 Upper Respiratory Culture Comments: Clinical Information: SRC:TH PERFORMED BY: Movaz NetworksSaint Barnabas Medical CenterYfnkgm8415 [facility] [id number] Result 1 RRF (Normal) Comments: Routine respiratory ntaalie Upper Respiratory Culture Final report (Normal) :51 Rapid Strep Test, Office (63940) Comments: done km Rapid Strep Test, Office Negative (Normal) 5-Iye-609963:42 COLON BX P-COLBX (Normal) Comments: OPERATION Colonoscopy [...] right and left colon biopsies from 04/29/01 ([id number]) in which mild architectural change was identified. [...] Plan of Care Name Dates Details Instructions Other and unspecified hyperlipidemia : Follow up [...] abnormal findings) Other ulcerative colitis : Reviewed Bowling Alley Mechanic Letter Indication: Other ulcerative colitis Esophageal reflux disease : GERD Education Indication: Esophageal reflux disease Other and unspecified hyperlipidemia : Cholesterol mgmt Indication: Other and unspecified hyperlipidemia Hypertensive heart disease without congestive heart failure : HTN/CAD Red Flags Indication: Hypertensive heart disease without congestive heart failure Atrial fibrillation, controlled : Continue Current Prescription(s) Indication: Atrial fibrillation, controlled Atrial fibrillation, controlled : Reviewed Bowling Alley Mechanic Letter Indication: Atrial fibrillation, controlled Non-smoker : [...] Indication: Heart murmur Heart murmur : Reviewed Bowling Alley Mechanic Letter Indication: Heart murmur Benign essential hypertension [...] disease without congestive heart failure : Reviewed Bowling Alley Mechanic Letter: had stress echo in 07/21 Indication: [...] Other and unspecified hyperlipidemia Planned Observations TSH (87710)Indication: Atrial fibrillation, controlled On: :56 Request URINALYSIS, W/ MICRO (18178)Indication: Hypertensive heart disease without congestive heart failure On: :56 Request MICROALBUMIN: CREATININE RATIO (02438) AND (06569)Indication: Hypertensive heart disease without congestive heart failure On: :56 Request METABOLIC PANEL, COMPREHENSIVE (67000)Indication: Hypertensive heart disease without congestive heart failure On: :56 Request LIPOPROTEIN, BLD, BY NMR (25023)Indication: Other and unspecified hyperlipidemia On: :55 Request CBC W/AUTO DIFF WBC (39833)Indication: Hypertensive heart disease without congestive heart failure On: :55 Request Lipid Panel (52991)Indication: Other and unspecified hyperlipidemia On: 6-Wzb-598637:05 Request Comments: do in 6 mo HEPATIC FUNCTION PANEL (54145)Indication: Other and unspecified hyperlipidemia On: 8-Ttr-622172:05 Request Comments: do in 6 mo DHEA (DEHYDROEPIANDROSTERONE) (97000)Indication: ED (erectile dysfunction) On: :31 Request MICROALBUMIN: CREATININE RATIO (24845) AND (86840)Indication: Benign essential hypertension On: :17 Request METABOLIC PANEL, COMPREHENSIVE (40587)Indication: Benign essential hypertension On: :17 Request URINALYSIS, W/ MICRO (58499)Indication: Benign essential hypertension On: :17 Request TSH (66304)Indication: Benign essential hypertension On: :17 Request LIPID PANEL (61831)Indication: Benign essential hypertension On: :17 Request CBC WITH MANUAL DIFF (28299)Indication: Benign essential hypertension On: :17 Request Metabolic Panel, Basic (09832)Indication: Benign essential hypertension On: :17 Request CALCIFIDIOL (86424) VIT D 25Indication: Fatigue On: :32 Request Folate (98556)Indication: Fatigue On: :32 Request VITAMIN B-12 (CYANOCOBALAMIN) (21938)Indication: Fatigue On: :32 Request TSH (57033)Indication: Fatigue On: :32 Request SED RATE ERYTHROCYTE (27009)Indication: Fatigue On: :32 Request METABOLIC PANEL, COMPREHENSIVE (08038)Indication: Fatigue On: :32 Request C-REACTIVE PROTEIN (63779)Indication: Fatigue On: :32 Request CBC (AUTO) (87337)Indication: Fatigue On: :32 Request Metabolic Panel, Basic (52405)Indication: Benign essential hypertension On: 09-Vvk-774846:16 Request C-REACTIVE PROTEIN (25666)Indication: Fatigue On: 60-Tzk-408057:03 Request CBC (AUTO) (48475)Indication: Thrombocytopenia, unspecified On: 69-Spl-363326:03 Request Folate (44657)Indication: Fatigue On: 63-Zhv-001085:03 Request METABOLIC PANEL, COMPREHENSIVE (27581)Indication: Fatigue On: 41-Kfr-402484:03 Request RHEUMATOID FACTOR-QUANT (62996)Indication: Fatigue On: 45-Xqx-508468:03 Request SED RATE ERYTHROCYTE (22336)Indication: Fatigue On: 48-Ute-332842:03 Request TSH (34147)Indication: Fatigue On: 05-Lao-384483:03 Request VITAMIN B-12 (CYANOCOBALAMIN) (42767)Indication: Fatigue On: 70-Yeq-998380:03 Request LIPID PANEL (37053)Indication: Other and unspecified hyperlipidemia On: :45 Request Comments: do in 6 mo CHEPE CULTURE-OTHER (07441)Indication: Throat pain On: :52 Request Comments: throat cx km PSA (PROSTATE SPECIFIC ANTIGEN) (V76.44)Indication: Esophageal reflux disease On: 9-Kbl-099334:03 Request LIPID PANEL (63568)Indication: Other and unspecified hyperlipidemia On: 5-Ham-736725:02 Request PSA (PROSTATE SPECIFIC ANTIGEN) (95084)Indication: SCREENING FOR CANCER OF THE PROSTATE On: :22 Request Planned Procedures INTENSIVE BEHAVIORAL THERAPY TO On: 31-May-2018 Intent REDUCE CARDIOVASCULAR DISEASE RISK, INDIVIDUAL, SHWI-KP-LYUI, ANNUAL, 15 MINUTES (G0446)By: Aletha Moon DO, DO, Kathleen Flu Vaccine (Quadrivalent) 32350Nb: On: 31-May-2018 Intent Aletha Moon DO, DO, Comments: Lot #[id number] Exp-02/06/19Site-L dltd, IMDose prefilled syringegiven by: Hanh REESE.VIS reviewed and ABN signed Aletha Wax CurettesBy: Karla Dejesus On: 20-Apr-2018 Intent Ear Irrigation (76866)By: Oleg On: 20-Apr-2018 Intent Karla Comments: bilateral ears irrigated. Left ear irritated so stopped and sent home with drops for that ear -- peroxide/debrox. R ear irrigated and currette used. Large amount hard, fatmata to broown wax removed. Tolerated well. MARY ANN DANIEL ELECTROCARDIOGRAM, COMPLETE (ECG) On: 22-Jan-2018 Intent (23831)By: Aletha Moon DO Comments: sinus cleo on BB - no acute chg - IVCD- poor Rwave progression Aletha Moon DO X-RAY OF THUMB OF LEFT HAND On: 06-Nov-2016 Intent (89263)By: Aletha Moon DO Comments: attention mcp jt Aletha Moon DO Flu Vaccine (Quadrivalent) 98904Rq: On: 09-Jun-2016 Intent Aletha Moon DO, DO, Comments: Lot:[id number]:02/06/17Dose:0.5mLRoute:IMSite:L DltdGiven By:CLOVER signed Aletha Radiology - Cervical SpineBy: Red On: 03-Nov-2014 Intent Aletha KOROMA DO, Aletha Aerosol Treatment (76894)By: Shannon On: 03-Oct-2014 Intent SENIOR NET ENGINEER Rosanne EKG (90461)By: Aletha Moon DO On: 03-Apr-2014 Intent Aletha Moon DO Comments: nsr no acute chg IMMUNIZ ADMNIN, 1 VAC, SNGL/COMBO On: 12-Aug-2013 Intent (20497)By: Mima Cruz Comments: diluentLot:[id number]:12/23Dose:0.7mLRoute:sub qSite:l armGiven By:CLOVER signedzostavacLot:[id number]:05/07/14Dose:0.65mLRoute:sub qSite:l armGiven By:CLOVER signed ZOSTER VACC, SC (18305)By: Anthony, On: 12-Aug-2013 Intent Mima Radiology - Femur - RightBy: Red On: 30-Jul-2012 Intent Aletha KOROMA DO, Kathleen Radiology - Hip - RightBy: Red On: 30-Jul-2012 Intent Aletha KOROMA DO, Kathleen SPECIMEN HNDLNG/TRNSPRT, OFFC > LAB On: 15-Aug-2011 Intent (11092)By: Marco Antonio LEAVITT, Pamela Ramon Ear Irrigation (58507)By: Red On: 21-Oct-2010 Intent Aletha KOROMA RedAletha jimenez DO Comments: R-- tolerated well Eprescribed prescriptions (G8553)By: On: 21-Oct-2010 Intent Aletha Moon DO, DO, Kathleen Wax CurettesBy: Aletha Moon DO On: 21-Oct-2010 Intent Aletha Moon DO Echo CompleteBy: Aletha Moon DO On: 15-Jul-2010 Intent Aletha Moon DO EKG (36416)By: Aletha Moon DO On: 03-Jun-2010 Intent Aletha Moon DO Comments: nsr no acute changes TDAP VACCINE >7 IM (80043)By: Red On: 03-Jun-2010 Aletha Foy DO, DO, Kathleen Comments: Lot:[id number]:11-3-12Amt:0.5ccRoute:imSite:Given By: MARY ANN Sanon EKG (91087)By: Aletha Moon DO On: 28-Mar-2009 Intent Aletha Moon DO Comments: nsr no avute changes TDAP VACCINE >7 IM (45758)By: Red On: 28-Mar-2009 Aletha Foy DO, DO, Kathleen Comments: Tdap given in Left DeltoidLot# [id number] 07-14-2011 EKG (37309)By: Aletha Moon DO On: 14-Feb-2008 Intent Aletha Moon DO Comments: nsr no acute ischemic changes Instructions Name Dates Details Atrial fibrillation, controlled : cardiovascular counseling Indication: [...] Indication: Pharyngitis, acute Encounters Office Visit On: 31-May-2018 8:15 Encounter Reason: [...] patient does not have durable power of collections attorney or living will. Other providers contributing to the patient's care are consultant luxury and [employer]. vice president [employer] (ex ) and gastrologist. Encounter Diagnosis: BMI 25.0-25.9,adult, Non-smoker, [...] into care from a hospital (was at [facility] and had a echo and said the [...] issues the patient is following up for santo hurd All identified problems below, high blood pressure [...] issues the patient is following up for [place] hurd All identified problems below, high blood pressure [...] [facility] End: 14-Apr-2006 12:25 Payers MedicareCesiliaem/Jose orellana guarantor
--- OUTSIDE RECORDS SUMMARY | 2018-08-17 20:49 | XMS RPT_ITS | Continuity of Care Document ---
:1950 Author Organization [facility] Address [facility]7 [facility] [address] [place] [address] Phone Care Team Providers Name Role Phone Aletha Moon DO Unavailable [facility], [facility] Unavailable MARY ANN Gardner Unavailable Unavailable [...] days Quantity: 1 {Bottle} Refills: 0 Ordered:03-Oct-2014 Krala Gardner LPN Start : 03-Oct-2014 Active Lisinopril [...] Procedure Dates Details PNEUM VAC ADLT/IMUMNOSPR, SBC/INTRM (03965) Date: 28-May-2015 Completed 28-May-2015 Heart Surgery Completed Heart Valve Surgery Completed Comments: Date Value Details 05-Jun-2018 Discharge Instruction Result: Comments: See Note; NOTES: [facility] Medical Records Department [address] [place] [address] Discharge Instruction 06/05/18 2330 MR#: [id number] Acct: [id number] Name: IZABEL GARCÍA Rep #: [id number] : 1950 68 From: Frederick Hoskins MD PCP: Aletha Moon DO Status: REG ER ED Disposition - Plan for ED Patient: Chief Complaint: Lower Extremity Injury Instructions: ED Sprain Hip Prescriptions: Hydrocodone Bitart/Apap 5-325 [Concord 5MG-325MG] 1 tab PO Q6H PRN PRN [...] Department Summary Result: Comments: See Note; NOTES: [facility] Medical Records Department [address] [place] [address] Emergency Department Summary 06/05/18 2326 MR#: [id number] Acct: [id number] Name: IZABEL GARCÍA Rep #: [id number] : 1950 68 From: Frederick Hoskins MD [...] and Treatment: Patient treated with Kenalog and Concord. I am not sure what is causing his pain. He has some degenerative changes but otherwise his evaluation is unremarkable. No trauma or inciting event. I do not believe there is indication for further imaging with CT or MRI. Nothing to suggest gout or septic arthropathy. Nothing to suggest vascular pathology. Skin appears normal. Patient will be treated with a short course of Concord. He has a walker that he can use at home . He will follow-up with his primary care doctor. Return for any new or worsening issues. Treatment Plan: As above Disposition: Discharge Impression: 1. Right hip pain This note was generated with Secucloud dictation software. It may contain incorrect words, [...] problems, contact your Primary Care Provider. Call [facility] ([phone]) or report to the closest Emergency Room. Call 911 if necessary. 06/05/18 2354 <Mehul olga signed by Frederick Hoskins MD> Date Frederick Hoskins MD Cosigner Signature (If Indicated): Date CC: Aletha Moon DO 05-Jun-2018 HIP, UNI W/ Pelvis 2-3 Views Result: Comments: See Note; NOTES: [facility] Imaging Services [address] [place] [address] HIP, UNI W/ Pelvis 2-3 Views MR#: [id number] Acct: [id number] Name: IZABEL GARCÍA Rep # : [id number] : 1950 68 From: Arely Viramontes MD PCP: Aletha Moon DO Status: REG ER Study: HIP, UNI W/ Pelvis 2-3 Views Date of Exam: 06/05/18 Exam# [id number] Ordering Dr: Frederick Hoskins MD STUDY: X-RAY [...] CC: Frederick Hoskins MD; Aletha Moon DO Fishing Boat Mate: Signed 29-Jan-2018 Inital Evaluation (1) - PT Result: Comments: See Note; NOTES: [facility] [address] [place] [address] Fax REHABILITATION SERVICES INITIAL EVALUATION MR#: [id number] Acct: [id number] Name: IZABEL GARCÍA Rep #: [id number] : 1950 67 From: Tyron Steinberg PT, [...] to be FAXED BACK to us at [phone] for Medicare purposes. Please let me know [...] 2 Views Result: Comments: See Note; NOTES: [facility] Imaging Services [address] [place] [address] Verdana 4d Finger(s) Min 2 Views MR#: [id number] Acct: [id number] Name: IZABEL GARCÍA ep #: [id number] : 1950 M 66 From: Tanner Shaffer MD PCP: Aletha Moon DO Status: REG CLI Study: Finger(s) Min 2 Views Date of Exam: 11/06/16 Exam# [id number] Ordering Dr: Itzel Moon DO STUDY: X-RAY [...] Matthew Meyer MD at 13:48 EDT Tel [phone], Service support [phone], CC: Aletha Moon DO Fishing Boat Mate: Signed 20-Jun-2015 Sinus/Facial Bone Result: Comments: See Note; NOTES: [facility] Imaging Services [address] [place] [address] Verdana 4d Sinus/Facial Bone MR#: [id number] Acct: [id number] Name: DM GARCÍA Rep #: [id number] : 1950 M 65 From: Claribel Luna MD PCP: Aletha Moon DO Status: REG CLI Study: Sinus/Facial Bone Date of Exam: 06/20/15 Exam# [id number] Ordering Dr: Mauri Lopez MD STUDY: CT [...] at 22:37 EST Tel , Service support [phone], CC: Satinder Chavez MD; Aletha Moon DO Fishing Boat Mate: Signed 17-Jan-2015 Emergency Department Summary Result: Comments: See Note; NOTES: [facility] Medical Records Department [address] [place] [address] Emergency Department Summary MR#: [id number] Acct: [id number] Name: IZABEL CERDA Rep #: [id number] : 1950 64 From: Izabel Jones MD PCP: Aletha Moon DO Status: [facility] ER DATE OF SERVICE: 01/15/2015 METHOD OF [...] Nael Dumont C: Aletha Moon DO T: [facility] J OB: [id number] 01/17/15 0902 <Electronically signed by Izabel Jones MD> Date Izabel Jones MD CC: Aletha Moon DO Date Dictated: 1839 Date Transcribed: 01/15/151839 Fishing Boat Mate: Signed 16-Jan-2015 12 Lead Electrocardiogram Result: Comments: See Note; NOTES: [facility] Cardiovascular Services [address] [place] [address] 12 Lead EKG 01/15/15 1645 MR#: [id number] Acct: [id number] Name: BRANDIE GARCÍA Rep #: [id number] : 1950 64 From: Roberto Haynes MD [...] normal ECG Confirmed by IVY LEAVITT, ROBERTO ([id number]), greeting card editor GEO WATTERS ([id number]) on 01/16/2015 9:52:23 AM Referred By: PRINCESS Confirmed By:ROBERTO HAYNES MD 01/16/15 0952 Date ____ Roberto Haynes MD CC: Aletha Moon DO Date Dictated: 01/15/151644 Date Transcribed: 01/15/151644 Fishing Boat Mate: Signed 15-Jan-2015 Discharge Instruction Result: Comments: See Note; NOTES: [facility] Medical Records Department [address] [place] [address] Discharge Instruction 01/15/151835 MR#: [id number] Acct: [id number] Name: IZABEL GARCÍA Rep #: [id number] : 1950 64 From: Izabel Jones MD [...] chest pain, or any unexpected problems, contact [facility] doctor. Call [facility] ([phone]) or report to the closest Emergency Room. Call 911 if necessary. 01/15/151836 <Electronically signed by Izabel Jones MD> Date Izabel Jones MD Cosigner Signature (If Indicated): Date CC: Aletha Moon DO 17-Nov-2014 Inital Evaluation - PT Result: Comments: See Note; NOTES: [facility] [address] [place] [address] Fax REHABILITATION SERVICES INITIAL EVALUATION MR#: [id number] Acct: [id number] Name: IZABEL GARCÍA Rep #: [id number] : 1950 64 From: Socorro Dejesus Referring Dr.: Aletha Moon DO Status: REG RCR Insurance: [facility] M[employer]UAL TPA Eval Date: DATE OF SERVICE: 11/10/2014 SUBJECTIVE: This patient was referred to physical therapy by Dr. Aletha Moon with diagnoses of neck pain, cervical radiculitis and trap ezius spasm. 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 Bilateral upper [...] care. Socorro Dejesus, PT T: NTS JOB: [id number] <Electronically signed by Socorro Dejesus &# 62; 11/17/14 1538 CC: Signed For Medicare only, by signing this I certify the plan of care. Physicians Signature Date 03-Nov-2014 Cerv Spine 4 or 5 Views Result: Comments: See Note; NOTES: [facility] Imaging Services [address] [facility] [place] [address] Radiology Report MR#: [id number] Acct: [id number] Name: IZABEL GARCÍA Rep #: [id number] : 1950 M 64 From: Carter Pavon MD PCP: Aletha Moon DO Status: REG CLI Study: Cerv Spine 4 or 5 Views Date of Exam: 11/03/14 Exam# [id number] Ordering Dr: Aletha Moon DO STUDY: X-RAY [...] MD at 19:55 EDT , Service support [phone], CC: Aletha Moon DO Fishing Boat Mate: Signed Immunization Name Dates Details Pneumococcal (2 years and up) on: 28-May-2015 Comments: Site: Deltoid (Left) Lot #: [id number] Tdap (7 years and up) on: 28-Mar-2009 Comments: Tdap given in Left DeltoidLot# [id number] 07-14-2011 Social History Name Dates Details Caffeine [...] Dr. Mcneill and [facility] Temperature 97.4 f Comments: Method: Temporal Pulse [...] kg/m2 Body Surface Area Calculated 2.06 m2 74-Tcc-857585:30 Temperature 98.3 f Comments: Method: Temporal Pulse [...] 0.00 cm Results Date Description Value Details 42-Lgw-355013:15 CBC W/Diff, Automated Comments: [facility] [address] [place], [place], [address] Absolute Lymph 1.68 {X10_3/ul} (Normal) Range: 0.83-4.51 [...] 4.6-6.2 WBC 4.4 K/mm3 (Normal) Range: 4.4-11.0 79-Csj-235431:15 Erythrocyte Sed Rate Comments: [facility] [address] [place] [address], [address] SED RATE 5 mm/h (Normal) Range: 0-20 05-Ykb-363308:15 Prothrombin Time w/INR Comments: [place] [address] [place], [place], [address] INR 2.8 (Normal) PROTIME 30.0 s (Abnormal) Range: 11.7-14.9 46-Igk-722433:55 Urinalysis, Office (59004) UA - LEUKOCYTE ESTERASE Trace (Normal) UA - NITRITE Negative (Normal) URINE UROBILINGN SHANIQUE TIMED Normal mg/dL (Normal) UA - PROTEIN Negative mg/dL (Normal) UA - PH 6 (Abnormal) UA - BLOOD Non Hemolyzed Trace (Normal) UA - SPECIFIC GRAVITY 1.025 (Normal) UA - KETONES Negative mg/dL (Normal) UA - BILIRUBIN Negative (Normal) UA - GLUCOSE Negative (Normal) 70-Wnz-63016:36 THROAT CULTURE (84405) Comments: PATIENT NOT FASTINGPERFORMED BY: [facility] [id number] Information: SRC:TH Result 1 RRF (Normal) Comments: Routine respiratory natalie Upper Respiratory Culture Final report (Normal) 22-Sfl-69689:01 Rapid Strep Test, Office (16033) Rapid Strep Test, Office Negative (Normal) 31-Qjo-676444:48 PSA (Medicare - G0103) Comments: PATIENT WAS FASTINGPERFORMED BY: [facility]Saint [facility] at DenvilleVrijid9896 [facility] [id number] (84466) Prostate Specific Ag, 0.8 ng/mL (Normal) Range: 0.0-4.0 Serum Comments: DeepclassIA methodology. .According to the [employer], Serum PSA shoulddecrease and remain at undetectable levels after radicalprostatectomy. The AUA defines biochemical recurrence as an initialPSA value 0.2 ng/mL or greater followed by a subsequent confirmatoryPSA value 0.2 ng/mL or greater.Values obtained with d ifferent assay methods or kits cannot be usedinterchangeably. Results cannot be interpreted as absolute evidenceof the presence or absence of malignant disease. 42-Zrm-804990:48 TSH (33266) Comments: PATIENT WAS FASTINGPERFORMED BY: [facility]Saint [facility] DenvilleKwnjcc9248 [facility] [id number] TSH 0.464 {uIU/mL} (Normal) Range: 0.450-4.500 16-Gfr-419614:48 Metabolic Panel, Comprehensive Comments: PATIENT WAS FASTINGPERFORMED BY: [facility] [id number] (80985) ALT (SGPT) 26 [iU]/L (Normal) Range: 0-44 [...] 8-27 Glucose 98 mg/dL (Normal) Range: 65-99 27-Any-518616:48 Lipid Panel (63558) Comments: PATIENT WAS FASTINGPERFORMED BY: [facility]6370 [facility] [id number] LDL/HDL Ratio 2.4 {ratio} (Normal) Range: 0.0-3.6 Comments: LDL/HDL Ratio Men Women 1/2 Avg.Risk 1.0 1.5 Av g.Risk 3.6 3.2 2X Avg.Risk 6.2 5.0 3X Avg.Risk 8.0 6.1 LDL Cholesterol Calc 92 mg/dL (Normal) Range: 0-99 VLDL Cholesterol Brandon 29 mg/dL (Normal) Range: 5-40 HDL Cholesterol 38 mg/dL (Abnormal) Triglycerides 146 mg/dL (Normal) Range: 0-149 Cholesterol, Total 159 mg/dL (Normal) Range: 100-199 96-Iqu-371612:48 URINALYSIS (08808) Comments: PATIENT WAS FASTINGPERFORMED BY: [facility]6370 [facility] [id number] Microscopic Examination MICNIP (Normal) Comments: Microscopic not indicated and not performed. Nitrite, Urine Negative (Normal) Urobilinogen,Semi-Qn 0.2 mg/dL (Normal) Range: 0.2-1.0 Bilirubin Negative (Normal) Occult Blood Negative (Normal) Ketones Negative (Normal) Glucose Negative (Normal) Protein Trace (Normal) WBC Esterase Negative (Normal) Appearance Clear (Normal) Urine-Color Yellow (Normal) pH 7.0 (Normal) Range: 5.0-7.5 Specific [place] 1.026 (Normal) Range: 1.005-1.030 32-Vkd-431840:48 MICROALBUMIN: CREATININE RATIO Comments: PATIENT WAS FASTINGPERFORMED BY: AcEmpire70 [facility]CTUNC [facility] [id number] (27455) AND (29803) Alb/Creat Ratio 9.9 {mg/g_creat} (Normal) Range: 0.0-30.0 Albumin, Urine 19.3 ug/mL (Normal) Creatinine, Urine 194.2 mg/dL (Normal) 27-Tcv-705478:48 CBC WITH MANUAL DIFF (14261) Comments: PATIENT WAS FASTINGPERFORMED BY: [facility]6370 [facility] [id number] Immature Grans (Abs) 0.0 {x10E3/uL} (Normal) Range: [...] {x10E3/uL} (Normal) Range: 3.4-10.8 :00 Homocysteine, Plasma (62039) Comments: PATIENT NOT FASTINGPERFORMED BY: CB [facility] Mbfura5127 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 Homozygosity for lozS132Z mutation confers an increased risk for the [...] two common variants in the MTHFR gene, c.655c>T(p.Cgo827Luxf), referred to as C677T, and c.1286A>C (p.Zmr117Xon),referred to as Y9921U. Individuals homozygous for C677T (two copiesof the variant), have decreased activity of the MTHFR enzyme and apredisposition to hyperhomocysteinemia, particularly when deficient infolate. Hyperhomocysteinemia is a risk factor for venous thrombosisand c oronary artery disease and is associated with an increased riskof open neural tube defects. The C677T variant does notindependently increase risk of these conditions in the absence ofhyperhomocyst einemia. The T0180N variant is not associated withelevated homocysteine levels unless a C677T variant is also present;however, the clinical significance of heterozygosity for both Z482Utyh K2315D is con troversial. Population data suggest that these twovariants are not present on the same chromosome, but rare exceptionshave been reported of triple variant MTHFR genotypes (ie. homozygousfor one variant and heterozygous for the other). Homozygosity jeiQ145E has an estimated frequency of 10% to 15% in Caucasians and 25%in Hispanics. .Ad ditional information:Dietary folic acid, B6 and B12 supplementation has been suggested tolower homocysteine levels in some people. Folic acid supplementationhas been shown to reduce the occurrence of ne ural tube defects. .Genetic counselors are available for health care providers to discussresults at [phone]. .Methodology:DNA analysis of the MTHFR gene was performed by PCRamplification followed by restriction analysis. Thediagnostic sensitivity is >99% for both. Molecular-basedtesting is highly accurate, but as in any laboratory test,rare diagnostic errors may occur. All test results must becombined with clinical information for the most accurateinterpre tation. .This test was developed and its performance characteristicsdetermined by [employer]. It has not been cleared or approved [...] PhD, Jose Yepez, PhD, Titi BunchSZbigniew, PhD, [facility]OSPITALHannah Castaneda, PhD, [facility] HOSPITALZaki Mcgee, PhD, [facility]OSPITALFam Rosa, PhD, [facility] 7-Yfv-709949:52 Miscellaneous Lab Procedure Comments: Test(s) Ordered: [id number] ALLERGEN PROFILE FOOD IGE W REFL 3TI [facility] [address] [place], [place], [id number] [facility] Comments: TEST RESULT LIMITSIgE Food w/Component Reflex IIClass DescriptionLevels of Specific IgE Class Description of Class ----- --------- LAB (Normal) < 0.10 0 Negative 0.10 - 0.31 0/I Equivocal/Low 0.32 - 0.55 I Low 0.56 - 1.40 TEST II Moderate 1.41 - 3.90 III High 3.91 - 19.00 IV Very High 19.01 - 100.00 V Very High >100.0 0 Very EnznE004-MgH Clam <0.10 kU/L Class 6T320-ZcN Codfish <0.10 kU/L Class 0F008- IgE [place] <0.10 kU/L Class 4M875-MoB Scallop 0.12 Abnormal kU/L Class 0/IF010- IgE Sesame Seed <0.10 kU/L Class 8N684-TdK Shrimp 1.83 Abnormal kU/L Class RDMD018-YeF Soybean <0.10 kU/L Class 4X232-UmH Wheat <0.10 kU/L Class 2A038-UyP Milk 0.49 Abnormal kU/L Class IF076- IgE Alpha Lactalbumin 0.19 Abnormal kU /L Class 0/PE704-UlZ Beta Lactoglobulin 0.32 Abnormal kU/L Class IF078- IgE Casein 0.20 Abnormal kU/L Class 0/JL649-KlO Egg White 0.12 Abnormal kU/L Class 0/FQ860-MhN Peanut 0.12 Abnormal kU/L Class 0/WG436-WqK Margy h 1 <0.10 kU/L Class 7N096-YeS Margy h 2 <0.10 kU/L Class 6X318-RoI Margy h 3 <0.10 kU/L Class 3P252-XsI Margy h 8 0.53 Abnormal kU/L Class IF427- IgE Margy h 9 <0.10 kU/L Class 2C031-QeT Hazelnut (Filbert) 1.86 Abnormal kU/L Class MURB402-SlS Cor a 1 2.55 Abnormal kU/L Class CDVI819-IcV Cor a 8 <0.10 kU/L Class 6K301-QiU Cor a 9 <0.10 kU/L Class 4L501-QeN Cor a 14 <0.10 kU /L Class 0F065-ImB [place] <0.10 kU/L Class 7Q740-RsI Cashew Nut <0.10 kU/L Class 6F983-LdI [place] Nut <0.10 kU/L Class 0*F34 5-IgE Macadamia Nut <0.10 kU/L Class 9R208-TqD Pecan Nut <0.10 kU/L Class 5B930-TlO Pistachio Nut <0.10 kU/L Class 9D596-ZrW Cal[place] 0 .31 Abnormal kU/L Class 0/I TESTING PERFORMED AT [facility]. ORIGINAL REPORT ON FILE IN LAB CONTAINS ADDITIONAL TEST SITE INFORMATION. :52 Miscellaneous Lab Procedure 2 Comments: List Test(s) Ordered by Physician: [id number], honeybee, [facility] [address] [place], [address] MIS Comments: TEST RESULT FFOKFRZ868-MfT Honeybee 0.16 Abnormal kU/L Class 0/I TESTING PERFORMED AT [facility]. ORIG LAB (Normal) INAL REPORT ON FILE IN LAB CONTAINS ADDITIONAL TEST SITE INFORMATION. TEST 2 :52 Miscellaneous Lab Procedure 3 Comments: List Test(s) Ordered by Physician: [id number], yellow jacket, 1 [facility] [address] [place] [address], [id number] MIS Comments: TEST RESULT PWYLMSS894-NcV Yellow Jacket <0.10 kU/L Class 0 TESTING PERFORMED AT [facility]. ORIGI LAB (Normal) NAL REPORT ON FILE IN LAB CONTAINS ADDITIONAL TEST SITE INFORMATION. TEST 3 :44 URINE CHEPE CULTURE-IDENTIFICATN Comments: PATIENT NOT FASTINGPERFORMED BY: CB [facility] Uljrsi2546 [facility] [id number] Information: SRC: (05791) Result 1 Yeast isolated. (Abnormal) Comments: 100 Colonies/mL .Request for further identification must be madewithin 1 week. Urine Final report (Abnormal) Culture,Comprehensive 27-Heb-611524:38 Urinalysis, Office (81389) UA - LEUKOCYTE ESTERASE Moderate (Normal) UA - NITRITE Negative (Normal) URINE UROBILINGN SHANIQUE TIMED Normal mg/dL (Normal) UA - PROTEIN Negative mg/dL (Normal) UA - PH 7 (Normal) UA - BLOOD Hemolyzed Trace (Normal) UA - SPECIFIC GRAVITY 1.025 (Normal) UA - KETONES Negative mg/dL (Normal) UA - BILIRUBIN Negative (Normal) UA - GLUCOSE Negative (Normal) 87-Dox-883914:13 PSA (PROSTATE SPECIFIC Comments: PATIENT NOT FASTINGPERFORMED BY: [facility] Ftaudp4196 [facility] [id number] ANTIGEN) (V76.44) Prostate Specific Ag, 0.9 ng/mL (Normal) Range: 0.0-4.0 Serum Comments: [place] ECLIA methodology. .According to the [place] [employer], Serum PSA shoulddecrease and remain at undetectable levels after radicalprostatectomy. The AUA defines biochemical recurrence as an initialPSA value 0.2 ng/mL or greater followed by a subsequent confirmatoryPSA value 0.2 ng/mL or greater.Values obtained with d ifferent assay methods or kits cannot be usedinterchangeably. Results cannot be interpreted as absolute evidenceof the presence or absence of malignant disease. 45-Cal-541966:18 Rapid Strep Test, Office (11595) Rapid Strep Test, Office Negative (Normal) :01 CBC W/AUTO DIFF WBC Comments: PATIENT WAS FASTINGPERFORMED BY: [facility] Qmenea6314 [facility] [id number] Information: [id number], 522837 (93208) Immature Grans (Abs) 0.0 {x10E3/uL} (Normal) Range: [...] 5.6 {x10E3/uL} (Normal) Range: 3.4-10.8 :01 TSH (65810) Comments: PATIENT WAS FASTINGPERFORMED BY: BringItCoSaint [facility] Hospital at DenvilleDeudya1144 [facility] [id number] TSH 1.990 {uIU/mL} (Normal) Range: 0.450-4.500 :01 METABOLIC PANEL, COMPREHENSIVE Comments: PATIENT WAS FASTINGPERFORMED BY: [facility]vateSaint [facility] at DenvilleZktpav7257 [facility] [id number] (90756) ALT (SGPT) 52 [iU]/L (Abnormal) Range: 0-44 [...] 12-Jul-20159:00 NASAL POLYPS See Note (Normal) Comments: [facility] [address] [place], [address] ; ordered by tip Comments: Patient: IZABEL GARCÍA : 1950 (65/M) Acct Num: [id number] Phys: Tip LEAVITTUpper Fairmount Unit Num: [id number] Loc: LABSPEC Specimen: [id number] Received: 07/12/151626 S pec Type: JACQUELINE POLYPS [...] / AM: 07/13/15 TC: 3 CPT : 28263 x2, 21955 x2 HEADER OPERATION: Functional endoscopic sinus surgery, [...] Signed Eric Avila 07/18/15 <signature on file> 75-Gwm-621434:10 Basic Metabolic Profile (BMP) Comments: PER AMMERIST AT OFFICE, BMP AND CBCD.[facility] [address] [facility] [place], [address] GAP 6 (Normal) Range: 5-15 CO2 29.0 [...] 7-18 GLU 84 mg/dL (Normal) Range: 70-110 71-Svo-650093:10 CBC W/Diff, Automated Comments: [facility] [address] [place], [place], [address] Absolute Lymph 1.48 {X10_3/ul} (Normal) Range: 0.83-4.51 [...] PANEL Comments: PATIENT WAS FASTINGPERFORMED BY: [facility] Dstirm1647 [facility] [id number] (75161) ALT (SGPT) 40 [iU]/L (Normal) Range: 0-44 AST (SGOT) 39 [iU]/L (Normal) Range: 0-40 Alkaline Phosphatase, S 64 [iU]/L (Normal) Range: 39-117 Bilirubin, Direct 0.21 mg/dL (Normal) Range: 0.00-0.40 Bilirubin, Total 0.7 mg/dL (Normal) Range: 0.0-1.2 Albumin, Serum 4.1 g/dL (Normal) Range: 3.6-4.8 Protein, Total, Serum 6.5 g/dL (Normal) Range: 6.0-8.5 :54 LIPID PANEL (66391) Comments: PATIENT WAS FASTINGPERFORMED BY: [facility] Hbzkmj5266 [facility] [id number] LDL/HDL Ratio 2.5 {ratio_units} (Normal) Range: 0.0-3.6 [...] #1, #2, #3, or #4: 1Test performed at:[facility] [address] [place], [place] [address] GAP 5 (Normal) Range: 5-15 CO2 28.0 [...] :45 CBC W/Diff, Automated Comments: Test performed at:[facility] [address]imydiwer[address] [place], [place] [address] Absolute Lymph 1.04 {X10_3/ul} (Normal) Range: 0.83-4.51 [...] #1, #2, #3, or #4: 1Test performed at:[facility] [address] [place] [address] TROPONIN-I < 0.02 ng/mL (Normal) Comments: TROPONIN-I EXPECTED VALUES <0.05 NEGATIVE 0.06 - 0.59 AT RISK OF GA > OR = 0.60 SUGGEST GA 01-Tpm-701039:26 Rapid Flu (89626 x 2) Influenza A Ag positive A (Normal) 9-Xck-564033:24 DHEA, Serum Comments: PATIENT NOT FASTINGPERFORMED BY: [facility]UNC [facility] [id number] BY: [facility] [id number] Dehydroepiandrosterone (DHEA) 45 ng/dL (Normal) Range: 31-701 [...] - 491 >19 years 31 - 701 9-Mhl-269464:24 TESTOSTERONE TOTAL (22924) Comments: PATIENT NOT FASTINGPERFORMED BY: [facility]qUNC [facility] [id number] BY: [facility] [id number] Comment: TESTM (Normal) Comments: Adult male reference interval is based on a population of lean malesup to 40 years old. Testosterone, Serum 409 ng/dL (Normal) Range: 348-1197 4-Eke-950616:24 PSA (PROSTATE SPECIFIC Comments: PATIENT NOT FASTINGPERFORMED BY: [facility] [id number] BY: Solvate[address] [id number] ANTIGEN) (20363) Prostate Specific Ag, 0.8 ng/mL (Normal) Range: 0.0-4.0 Serum Comments: DeepclassIA methodology. .According to the [employer], Serum PSA shoulddecrease and remain at undetectable levels after radicalprostatectomy. The AUA defines biochemical recurrence as an initialPSA value 0.2 ng/mL or greater followed by a subsequent confirmatoryPSA value 0.2 ng/mL or greater.Values obtained with d ifferent assay methods or kits cannot be usedinterchangeably. Results cannot be interpreted as absolute evidenceof the presence or absence of malignant disease. 0-Cpw-595630:24 Metabolic Panel, Comments: PATIENT NOT FASTINGPERFORMED BY: CB [facility] Qbjohm3227 [facility] [id number] BY: BN [facility] Bdvewxaink7300 [facility] [id number] Comprehensive (42169) ALT (SGPT) 35 [iU]/L (Normal) Range: 0-44 [...] DIFF Comments: PATIENT NOT FASTINGPERFORMED BY: HERMELINDA SolvateSaint Clare's Hospital at DenvilleCjvjld0465 [facility] [id number] BY: Lab[address] [id number] Inf ormation: [id number] (98815) Immature Grans (Abs) 0.0 {x10E3/uL} (Normal) Range: [...] 4.6 {x10E3/uL} (Normal) Range: 3.4-10.8 :24 TSH (76928) Comments: PATIENT NOT FASTINGPERFORMED BY: SolvateSaint [facility] Hospital at DenvilleGdldcl6443 [facility] [id number] BY: [facility]1447 [facility] [id number] TSH 0.573 {uIU/mL} (Normal) Range: 0.450-4.500 :02 HEMOGLOBIN GLYCLATED (HGB A1C) Comments: PERFORMED BY: [facility]vate Tdmhop8094 [facility] [id number] (10418) Hemoglobin A1c 5.1 % (Normal) Range: 4.8-5.6 Comments: . Increased risk for diabetes: 5.7 - 6.4 Diabetes: >6.4 Glycemic control for adults with diabetes: <7.0 :02 PSA (PROSTATE SPECIFIC Comments: PERFORMED BY: Golden Gekkolin6370 [facility] [id number] ANTIGEN) (37812) Prostate Specific Ag, 0.8 ng/mL (Normal) Range: 0.0-4.0 Serum Comments: [place] ECLIA methodology. .According to the [employer], Serum PSA shoulddecrease and remain [...] :02 TSH (THYROID STIMULATING Comments: PERFORMED BY: SolvateSaint [facility] Hospital at DenvilleFmsfbg1407 [facility] [id number] HORMONE) (51460) TSH 0.985 {uIU/mL} (Normal) Range: 0.450-4.500 :02 URINALYSIS W MICROSCOPY (24523) Comments: PERFORMED BY: Golden Gekkolin6370 [facility] [id number] Microscopic Examination MICNIP (Normal) Comments: Microscopic not indicated and not performed. Nitrite, Urine Negative (Normal) Urobilinogen,Semi-Qn 0.2 mg/dL (Normal) Range: 0.0-1.9 Bilirubin Negative (Normal) Occult Blood Negative (Normal) Ketones Negative (Normal) Glucose Negative (Normal) Protein Trace (Normal) Appearance Clear (Normal) WBC Esterase Negative (Normal) pH 7.5 (Normal) Range: 5.0-7.5 Urine-Color Yellow (Normal) Specific [place] 1.020 (Normal) Range: 1.005-1.030 :02 MICROALB;CREAT RATION, RAND UR Comments: PERFORMED BY: LabOutsellSaint Clare's Hospital at DenvilleMjuvoo7466 [facility] [id number] (58190) Microalb/Creat Ratio 3.5 {mg/g_creat} (Normal) Range: 0.0-30.0 Creatinine, Urine 163.4 mg/dL (Normal) Range: 22.0-328.0 Microalbumin, Urine 5.7 ug/mL (Normal) Range: 0.0-17.0 :02 METABOLIC PANEL, COMPREHENSIVE Comments: PERFORMED BY: SolvateSaint Clare's Hospital at DenvilleBphdaq8590 [facility] [id number] (34090) ALT (SGPT) 29 [iU]/L (Normal) Range: 0-44 [...] mg/dL (Normal) Range: 65-99 :02 LIPID PANEL (03727) Comments: PERFORMED BY: [facility] [id number] LDL/HDL Ratio 2.0 {ratio_units} (Normal) Range: 0.0-3.6 LDL Cholesterol Calc 73 mg/dL (Normal) Range: 0-99 VLDL Cholesterol Brandon 22 mg/dL (Normal) Range: 5-40 HDL Cholesterol 37 mg/dL (Abnormal) Comments: According to ATP-III Guidelines, HDL-C >59 mg/dL is considered anegative risk factor for CHD. Triglycerides 109 mg/dL (Normal) Range: 0-149 Cholesterol, Total 132 mg/dL (Normal) Range: 100-199 :02 CBC with manual diff (90678) Comments: PERFORMED BY: AcEmpire70 [facility] [id number] Immature Grans (Abs) 0.0 {x10E3/uL} (Normal) Range: [...] Microscopic Examination Comments: PATIENT WAS FASTINGPERFORMED BY: [facility]qUNC [facility] [id number] Bacteria None seen (Normal) Mucus Threads Present (Normal) Epithelial Cells (non renal) None seen {/hpf} (Normal) Range: 0 - 10 RBC 0-3 {/hpf} (Normal) Range: 0 - 3 WBC 0-5 {/hpf} (Normal) Range: 0 - 5 :21 PSA (PROSTATE SPECIFIC Comments: PATIENT WAS FASTINGPERFORMED BY: [facility]qUNC [facility] [id number] ANTIGEN) (V76.44) Prostate Specific Ag, 0.8 ng/mL (Normal) Range: 0.0-4.0 Serum Comments: [place] ECLIA methodology. .According to the [place] [employer], Serum PSA shoulddecrease and remain [...] (HGB A1C) Comments: PATIENT WAS FASTINGPERFORMED BY: [facility] [place] [id number] (08686) Hemoglobin A1c 5.4 % (Normal) Range: 4.8-5.6 Comments: . Increased risk for diabetes: 5.7 - 6.4 Diabetes: >6.4 Glycemic control for adults with diabetes: <7.0 :21 TSH (60163) Comments: PATIENT WAS FASTINGPERFORMED BY: BringItFreeman Heart InstituteZvcztr1312 [facility] [id number] TSH 1.280 {uIU/mL} (Normal) Range: 0.450-4.500 :21 URINALYSIS, W/ MICRO (65302) Comments: PATIENT WAS FASTINGPERFORMED BY: [facility]ItBe[facility] Hospital6370 [facility] [id number] Microscopic Examination See below: (Normal) Microscopic Examination MICRON (Normal) Comments: Microscopic follows if indicated. Nitrite, Urine Negative (Normal) Urobilinogen,Semi-Qn 0.2 mg/dL (Normal) Range: 0.0-1.9 Bilirubin Negative (Normal) Occult Blood Negative (Normal) Ketones Negative (Normal) Glucose Negative (Normal) Protein Negative (Normal) WBC Esterase Negative (Normal) Appearance Clear (Normal) Urine-Color Yellow (Normal) pH 6.5 (Normal) Range: 5.0-7.5 Specific [place] 1.014 (Normal) Range: 1.005-1.030 :21 MICROALBUMIN: CREATININE RATIO Comments: PATIENT WAS FASTINGPERFORMED BY: [facility]ItBe[facility] Hospital6370 [facility] [id number] (00285) AND (30290) Microalb/Creat Ratio 2.6 {mg/g_creat} (Normal) Range: 0.0-30.0 Creatinine, Urine 97.0 mg/dL (Normal) Range: 22.0-328.0 Microalbumin, Urine 2.5 ug/mL (Normal) Range: 0.0-17.0 :21 METABOLIC PANEL, COMPREHENSIVE Comments: PATIENT WAS FASTINGPERFORMED BY: [facility]ItBe[facility]6370 [facility] [id number] (53730) ALT (SGPT) 32 [iU]/L (Normal) Range: 0-44 [...] Glucose, Serum 92 mg/dL (Normal) Range: 65-99 21-Sir-32867:21 LIPID PANEL (87782) Comments: PATIENT WAS FASTINGPERFORMED BY: LabCoSaint Clare's Hospital at DenvilleUkuhwu3397 [facility] [id number] LDL Cholesterol Calc 82 mg/dL (Normal) Range: [...] MANUAL DIFF Comments: PATIENT WAS FASTINGPERFORMED BY: LabBeaumont Hospital6370 [facility] [id number] Information: [id number] (67583) Immature Grans (Abs) 0.0 {x10E3/uL} (Normal) Range: [...] 4.14-5.80 WBC 5.6 {x10E3/uL} (Normal) Range: 4.0-10.5 75-Tpi-899475:11 FEMUR,2 VIEWS Radiology Report See Note (Normal) Comments: PROCEDURE: X-RAY - RIGHT FEMUR REASON FOR STUDY: Male, 62 years old. Right hip pain. TECHNIQUE: Four views of the femur. COMPARISON: None. FINDINGS:Normal visualized femur. Normal visualized so ft tissue structure. IMPRESSION:Normal x-ray examination of the femur. Signed:Tanner Shaffer M.D.July 30, 2012 at 2:34:05 PM [id number] Signed GP/GP If you are the referring physician and would like to consult with theradiologist who provided this interpretation, please contact Scar Nazario at [phone]. If this radiologist is unavailable, youwill be directed to another radiologist to assist. If you are a patient with a question regarding this report, pleasecontactyour referring physician directly. Professional Interpretation Provided By: Conjur, Phone , These documents contain legally protected [...] (Normal) UCOL YELLOW (Normal) :35 CHEPE CULTURE-OTHER (79841) Comments: PATIENT NOT FASTINGPERFORMED BY: [facility] Mynrxv7074 [facility] [id number] Information: SRC:THRT [id number] Result 1 RRF (Normal) Comments: Routine respiratory natalie Upper Respiratory Culture Final report (Normal) :04 Rapid Strep Test, Office (23285) Rapid Strep Test, Office Negative (Normal) :00 [...] With LDL/HDL Comments: PATIENT WAS FASTINGPERFORMED BY: LabCoSaint Clare's Hospital at DenvilleQutpyg7052 [facility] [id number] Ratio LDL/HDL Ratio 3.1 {ratio_units} (Normal) Range: 0.0-3.6 LDL Cholesterol Calc 109 mg/dL (Abnormal) Range: 0-99 VLDL Cholesterol Brandon 21 mg/dL (Normal) Range: 5-40 HDL Cholesterol 35 mg/dL (Abnormal) Comments: According to ATP-III Guidelines, HDL-C >59 mg/dL is considered anegative risk factor for CHD. Triglycerides 103 mg/dL (Normal) Range: 0-149 Cholesterol, Total 165 mg/dL (Normal) Range: 100-199 62-Mvz-259846:35 B12/FOLATES FOLATES 18.60 ng/mL (Abnormal) Range: 3.1-17.5 [...] 11.6-14.6 WBC 5.1 K/mm3 (Normal) Range: 4.4-11.0 18-Hsd-715063:35 COMP METABOLIC A/G 1.2 {RATIO} (Normal) Range: [...] Range: 0.358-3.74 :56 CBC WITH MANUAL DIFF (83304) Comments: PATIENT NOT FASTINGClinical Information: ADD [id number], S97717 PERFORMED BY: LabCoSaint Clare's Hospital at DenvilleAplvrr8562 [facility] [id number] Baso (Absolute) 0.0 {x10E3/uL} (Normal) Range: 0.0-0.2 [...] (ANTINUCLEAR ANTIBODY) Comments: PATIENT NOT FASTINGPERFORMED BY: [address] [id number] (86482) Antinuclear Antibodies Direct Negative (Normal) 16-Npb-318547:56 PT (Prothrobim Time) (49090) Comments: PATIENT NOT FASTINGPERFORMED BY: [address] [id number] INR 1.0 (Normal) Range: 0.8-1.2 Comments: Reference interval is for non-anticoagulated patients. . Suggested INR therapeutic range for Vitamin K anta gonist therapy: Standard Dose (moderate intensity therapeutic range): 2.0 - 3.0 Higher intensity therapeutic range 2.5 - 3.5 Prothrombin Time 10.7 {sec} (Normal) Range: 8.7-11.5 :56 PTT (Activated Partial Comments: PATIENT NOT FASTINGPERFORMED BY: [facility] [place] [address] [id number] Thromboplastin Time) (97175) aPTT 31 {sec} (Normal) Range: 24-33 Comments: This test has not been validated for monitoring unfractionated heparintherapy. aPTT-based therapeutic ranges for unfractionated heparintherapy have not been established. For general guidelines onHeparin monitoring, refer to the [facility] Directory of Services. :25 CBC With Differential/Platelet Comments: PATIENT WAS FASTINGPERFORMED BY: [facility]6[address] [facility] [id number] Baso (Absolute) 0.0 {x10E3/uL} (Normal) Range: 0.0-0.2 [...] 11.7-15.0 WBC 4.7 {x10E3/uL} (Normal) Range: 4.0-10.5 25-Wkc-17357:25 Comp. Metabolic Panel (14) Comments: PATIENT WAS FASTINGPERFORMED BY: LabCoSaint Clare's Hospital at DenvilleMsnlyw6151 [facility] [id number] A/G Ratio 2.0 (Normal) Range: 1.1-2.5 Albumin, [...] Panel (7) Comments: PATIENT WAS FASTINGPERFORMED BY: [facility] TelemedicalCoEpiphanyYoqvip2444 [facility] [id number] Bilirubin, Direct 0.27 mg/dL (Normal) Range: 0.00-0.40 :25 Lipid Panel With LDL/HDL Comments: PATIENT WAS FASTINGPERFORMED BY: [facility] Mkwgnf4027 [facility] [id number] Ratio Cholesterol, Total 165 mg/dL (Normal) Range: [...] Ag, Serum Comments: PATIENT WAS FASTINGPERFORMED BY: Unsil[facility]6370 [facility] [id number] Prostate Specific Ag, Serum 0.7 ng/mL (Normal) Range: 0.0-4.0 Comments: [place]ian LvmamaIA methodology. .According to the [place] [employer], PSA should beundetectable after radical prostatectomy. A PSA of less than0.5 ng/mL (or undetectable) is not likely to be associated withdisease recurrence within five years of treatment.Values obtained with different assay methods or kits cannot be usedinterchang eably. Results cannot be interpreted as absolute evidenceof the presence or absence of malignant disease. :25 Urinalysis, Routine Comments: PATIENT WAS FASTINGPERFORMED BY: Unsilo6[address] [facility] [id number] Appearance Clear (Normal) Bilirubin Negative (Normal) Glucose Negative (Normal) Ketones Negative (Normal) Microscopic Examination MICRON (Normal) Comments: Microscopic follows if indicated. Nitrite, Urine Negative (Normal) Occult Blood Negative (Normal) pH 7.0 (Normal) Range: 5.0-7.5 Protein Negative (Normal) Specific [place] 1.018 (Normal) Range: 1.005-1.030 Urine-Color Yellow (Normal) Urobilinogen,Semi-Qn 0.2 mg/dL (Normal) Range: 0.0-1.9 WBC Esterase Negative (Normal) :28 CHEPE CULTURE-OTHER (32661) Comments: PATIENT NOT FASTINGClinical Information: SRC:THRT ADD [id number] PERFORMED BY: SolvateSaint Clare's Hospital at DenvilleNqgfct2178 [facility] [id number] Result 1 RRF (Normal) Comments: Routine respiratory natalie Upper Respiratory Culture Final report (Normal) :52 Rapid Strep Test, Office (85903) Rapid Strep Test, Office Negative (Normal) Comments: [...] was performed using the TPSA method for theHypori chemistry system.Values obtained with different assay methods cannot be usedinterchangably.When changing PSA assays in the course of monito ring apatient, additional sequential testing should be carriedout to confirm baseline values. :36 Upper Respiratory Culture Comments: Clinical Information: SRC: PERFORMED BY: HERMELINDA LabBeaumont Hospital6370 [facility] [id number] Result 1 RRF (Normal) Comments: Routine respiratory natalie Upper Respiratory Culture Final report (Normal) :51 Rapid Strep Test, Office (75842) Comments: done km Rapid Strep Test, Office Negative (Normal) 3-Pqt-159933:42 COLON BX P-COLBX (Normal) Comments: OPERATION Colonoscopy [...] right and left colon biopsies from 04/29/01 ([id number]) in which mild architectural change was identified. [...] abnormal findings) Other ulcerative colitis : Reviewed Drawer Liner Letter Indication: Other ulcerative colitis Esophageal reflux disease : GERD Education Indication: Esophageal reflux disease Other and unspecified hyperlipidemia : Cholesterol mgmt Indication: Other and unspecified hyperlipidemia Hypertensive heart disease without congestive heart failure : HTN/CAD Red Flags Indication: Hypertensive heart disease without congestive heart failure Atrial fibrillation, controlled : Continue Current Prescription(s) Indication: Atrial fibrillation, controlled Atrial fibrillation, controlled : Reviewed Drawer Liner Letter Indication: Atrial fibrillation, controlled Non-smoker : [...] Indication: Heart murmur Heart murmur : Reviewed Drawer Liner Letter Indication: Heart murmur Benign essential hypertension [...] disease without congestive heart failure : Reviewed Drawer Liner Letter: had stress echo in 07/21 Indication: [...] Other and unspecified hyperlipidemia Planned Observations TSH (96242)Indication: Atrial fibrillation, controlled On: :56 Request URINALYSIS, W/ MICRO (72465)Indication: Hypertensive heart disease without congestive heart failure On: :56 Request MICROALBUMIN: CREATININE RATIO (69214) AND (92648)Indication: Hypertensive heart disease without congestive heart failure On: :56 Request METABOLIC PANEL, COMPREHENSIVE (29944)Indication: Hypertensive heart disease without congestive heart failure On: :56 Request LIPOPROTEIN, BLD, BY NMR (35152)Indication: Other and unspecified hyperlipidemia On: :55 Request CBC W/AUTO DIFF WBC (66229)Indication: Hypertensive heart disease without congestive heart failure On: :55 Request Lipid Panel (57193)Indication: Other and unspecified hyperlipidemia On: :05 Request Comments: do in 6 mo HEPATIC FUNCTION PANEL (01952)Indication: Other and unspecified hyperlipidemia On: :05 Request Comments: do in 6 mo DHEA (DEHYDROEPIANDROSTERONE) (99417)Indication: ED (erectile dysfunction) On: :31 Request MICROALBUMIN: CREATININE RATIO (92278) AND (73268)Indication: Benign essential hypertension On: :17 Request METABOLIC PANEL, COMPREHENSIVE (15715)Indication: Benign essential hypertension On: :17 Request URINALYSIS, W/ MICRO (77281)Indication: Benign essential hypertension On: :17 Request TSH (42673)Indication: Benign essential hypertension On: :17 Request LIPID PANEL (93539)Indication: Benign essential hypertension On: :17 Request CBC WITH MANUAL DIFF (64090)Indication: Benign essential hypertension On: :17 Request Metabolic Panel, Basic (80669)Indication: Benign essential hypertension On: :17 Request CALCIFIDIOL (31008) VIT D 25Indication: Fatigue On: :32 Request Folate (26751)Indication: Fatigue On: :32 Request VITAMIN B-12 (CYANOCOBALAMIN) (31715)Indication: Fatigue On: :32 Request TSH (27528)Indication: Fatigue On: :32 Request SED RATE ERYTHROCYTE (84195)Indication: Fatigue On: :32 Request METABOLIC PANEL, COMPREHENSIVE (41867)Indication: Fatigue On: :32 Request C-REACTIVE PROTEIN (61412)Indication: Fatigue On: :32 Request CBC (AUTO) (71709)Indication: Fatigue On: :32 Request Metabolic Panel, Basic (20663)Indication: Benign essential hypertension On: :16 Request C-REACTIVE PROTEIN (77028)Indication: Fatigue On: 42-Fwe-009056:03 Request CBC (AUTO) (06226)Indication: Thrombocytopenia, unspecified On: 77-Aia-428934:03 Request Folate (01499)Indication: Fatigue On: 98-Rlb-582572:03 Request METABOLIC PANEL, COMPREHENSIVE (02937)Indication: Fatigue On: 74-Kqz-323270:03 Request RHEUMATOID FACTOR-QUANT (42044)Indication: Fatigue On: 23-Hor-820609:03 Request SED RATE ERYTHROCYTE (52607)Indication: Fatigue On: 71-Bgl-092144:03 Request TSH (95889)Indication: Fatigue On: 08-Nkc-274027:03 Request VITAMIN B-12 (CYANOCOBALAMIN) (48056)Indication: Fatigue On: 31-Btq-055128:03 Request LIPID PANEL (61619)Indication: Other and unspecified hyperlipidemia On: 65-Qyy-379831:45 Request Comments: do in 6 mo CHEPE CULTURE-OTHER (32323)Indication: Throat pain On: :52 Request Comments: throat cx km PSA (PROSTATE SPECIFIC ANTIGEN) (V76.44)Indication: Esophageal reflux disease On: 3-Dmp-043208:03 Request LIPID PANEL (36912)Indication: Other and unspecified hyperlipidemia On: 2-Dtp-395386:02 Request PSA (PROSTATE SPECIFIC ANTIGEN) (09955)Indication: SCREENING FOR CANCER OF THE PROSTATE On: :22 Request Planned Procedures INTENSIVE BEHAVIORAL THERAPY TO On: 31-May-2018 Intent REDUCE CARDIOVASCULAR DISEASE RISK, INDIVIDUAL, QTDB-IF-XDNF, ANNUAL, 15 MINUTES (G0446)By: Aletha Moon DO, DO, Kathleen Flu Vaccine (Quadrivalent) 03237Mb: On: 31-May-2018 Intent Aletha Moon DO, DO, Comments: Lot #[id number] Exp-02/06/19Site-L dltd, IMDose prefilled syringegiven by: Hanh REESE.VIS reviewed and ABN signed Aletha Wax CurettesBy: Karla Dejesus On: 20-Apr-2018 Intent Ear Irrigation (85948)By: Oleg, On: 20-Apr-2018 Intent Karla Comments: bilateral ears irrigated. Left ear irritated so stopped and sent home with drops for that ear -- peroxide/debrox. R ear irrigated and currette used. Large amount hard, fatmata to broown wax removed. Tolerated well. MARY ANN DANIEL ELECTROCARDIOGRAM, COMPLETE (ECG) On: 22-Jan-2018 Intent (75383)By: Aletha Moon DO Comments: sinus cleo on BB - no acute chg - IVCD- poor Rwave progression Aletha Moon DO X-RAY OF THUMB OF LEFT HAND On: 06-Nov-2016 Intent (53255)By: Aletha Moon DO Comments: attention mcp jt Aletha Moon DO Flu Vaccine (Quadrivalent) 06709Cb: On: 09-Jun-2016 Intent Aletha Moon DO, DO, Comments: Lot:[id number]:02/06/17Dose:0.5mLRoute:IMSite:L DltdGiven By:CLOVER signed Aletha Radiology - Cervical SpineBy: Red On: 03-Nov-2014 Intent Aletha KOROMA DO, Kathleen Aerosol Treatment (63718)By: Shannon On: 03-Oct-2014 Intent Natali PEREZ EKG (94335)By: Aletha Moon DO On: 03-Apr-2014 Intent Aletha Moon DO Comments: nsr no acute chg IMMUNIZ ADMNIN, 1 VAC, SNGL/COMBO On: 12-Aug-2013 Intent (29264)By: Mima Cruz Comments: diluentLot:[id number]:12/23Dose:0.7mLRoute:sub qSite:l armGiven By:CLOVER signedzostavacLot:[id number]:05/07/14Dose:0.65mLRoute:sub qSite:l armGiven By:CLOVER signed ZOSTER VACC, [place] (19074)By: Anthony, On: 12-Aug-2013 Intent Mima Radiology - Femur - RightBy: Red On: 30-Jul-2012 Intent Aletha KOROMA DO, Kathleen Radiology - Hip - RightBy: Red On: 30-Jul-2012 Intent Aletha KOROMA DO, Kathleen SPECIMEN HNDLNG/TRNSPRT, OFFC > LAB On: 15-Aug-2011 Intent (88981)By: Marco Antonio LEAVITT, Pamela Ramon Ear Irrigation (16891)By: Red On: 21-Oct-2010 Aletha Foy DO, DO, Kathleen Comments: R-- tolerated well Eprescribed prescriptions (G8553)By: On: 21-Oct-2010 Intent Aletha Moon DO, DO, Kathleen Wax CurettesBy: Aletha Moon DO On: 21-Oct-2010 Intent Aletha Moon DO Echo CompleteBy: Aletha Moon DO On: 15-Jul-2010 Intent Aletha Moon DO EKG (66297)By: Aletha Moon DO On: 03-Jun-2010 Intent Aletha Moon DO Comments: nsr no acute changes TDAP VACCINE >7 IM (74980)By: Red On: 03-Jun-2010 Intent Aletha KOROMA DO, Kathleen Comments: Lot:[id number]:06-12-12Amt:0.5ccRoute:imSite:ltGiven By: MARY ANN Sanon EKG (40709)By: Aletha Moon DO On: 28-Mar-2009 Intent Aletha Moon DO Comments: nsr no avute changes TDAP VACCINE >7 IM (57306)By: Red On: 28-Mar-2009 Intent Aletha KOROMA DO, Kathleen Comments: Tdap given in Left DeltoidLot# [id number] 07-14-2011 EKG (68010)By: Aletha Moon DO On: 14-Feb-2008 Intent Aletha [...] hospitalization note: (rt hip pain went to [facility] er sat and he said it is [...] patient does not have durable power of equity sales assistant or living will. Other providers contributing to the patient's care are printing assistant and gastrologist. Encounter Diagnosis: BMI 25.0-25.9,adult, Non-smoker, [...] into care from a hospital (was at [facility] and had a echo and said the [...]
--- OUTSIDE RECORDS SUMMARY | 2018-08-17 20:50 | XMS RPT_ITS | Continuity of Care Document ---
:1950 Author Organization [facility] Address [facility] [address] [place] [address] Phone Care Team Providers Name Role Phone Aletha Moon DO Unavailable [facility], [facility] Unavailable MARY ANN Gardner Unavailable [...] Procedure Dates Details PNEUM VAC ADLT/IMUMNOSPR, SBC/INTRM (59010) Date: 28-May-2015 Completed 28-May-2015 Heart Surgery Completed Heart Valve Surgery Completed Comments: Date Value Details 05-Jun-2018 Discharge Instruction Result: Comments: See Note; NOTES: [facility] [place] Medical Records Department [address] [place] [address] Discharge Instruction 06/05/18 2330 MR#: [id number] Acct: [id number] Name: IZABEL GARCÍA Rep #: [id number] : 1950 68 From: Frederick Hoskins MD PCP: Aletha Moon DO Status: REG ER ED Disposition - Plan for ED Patient: Chief Complaint: Lower Extremity Injury Instructions: ED Sprain Hip Prescriptions: Hydrocodone Bitart/Apap 5-325 [Currie 5MG-325MG] 1 tab PO Q6H PRN PRN 3 Days #10 tab PRN Reason: Pain Referrals: Aletha Moon DO [Primary Care Provider] - What to do if you have Problems For any increased pain, shortness of breath, bleeding, nausea or vomiting, chest pain, or any unexpected problems, contact your Primary Care Provider. Call [facility] ([phone]) or report to the closest Emergency Room. Call 911 if necessary. 06/05/186 <Electronically signed by Frederick Hoskins MD> Date Da brittanie Hoskins MD Cosigner Signature (If Indicated): Date CC: Aletha Moon DO 05-Jun-2018 Emergency Department Summary Result: Comments: See Note; NOTES: [facility] [place] Medical Records Department [address] [place] [address] Emergency Department Summary 06/05/18 2326 MR#: [id number] Acct: [id number] Name: IZABEL GARCÍA Rep #: [id number] : 1950 68 From: Frederick Hoskins MD [...] and Treatment: Patient treated with Kenalog and Currie. I am not sure what is causing his pain. He has some degenerative changes but otherwise his evaluation is unremarkable. No trauma or inciting event. I do not believe there is indication for further imaging with CT or MRI. Nothing to suggest gout or septic arthropathy. Nothing to suggest vascular pathology. Skin appears normal. Patient will be treated with a short course of Currie. He has a walker that he can use at home . He will follow-up with his primary care doctor. Return for any new or worsening issues. Treatment Plan: As above Disposition: Discharge Impression: 1. Right hip pain This note was generated with BeamExpress dictation software. It may contain incorrect words, [...] problems, contact your Primary Care Provider. Call [employer] [facility] ([phone]) or report to the closest Emergency Room. Call 911 if necessary. 06/05/18 2465 <Mehul olga signed by Frederick Hoskins MD> Date Frederick Hoskins MD Cosigner Signature (If Indicated): Date CC: Aletha Moon DO 05-Jun-2018 HIP, UNI W/ Pelvis 2-3 Views Result: Comments: See Note; NOTES: [facility] [place] Imaging Services [address] [place] [address] HIP, UNI W/ Pelvis 2-3 Views MR#: [id number] Acct: [id number] Name: IZABEL GARCÍA Rep # : [id number] : 1950 68 From: Arely Viramontes MD PCP: Aletha Moon DO Status: REG ER Study: HIP, UNI W/ Pelvis 2-3 Views Date of Exam: 06/05/18 Exam# [id number] Ordering Dr: Frederick Hoskins MD STUDY: X-RAY [...] CC: Frederick Hoskins MD; Aletha Moon DO 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 [place] [address] Fax REHABILITATION SERVICES INITIAL EVALUATION MR#: [id number] Acct: [id number] Name: IZABEL GARCÍA Rep #: [id number] : 1950 67 From: Tyron Steinberg PT, [...] to be FAXED BACK to us at [phone] for Medicare purposes. Please let me know [...] 2 Views Result: Comments: See Note; NOTES: [facility] [place] Imaging Services [address] [place] [address] Verdana 4d Finger(s) Min 2 Views MR#: [id number] Acct: [id number] Name: IZABEL GARCÍA ep #: [id number] : 1950 M 66 From: Tanner Shaffer MD PCP: Aletha Moon DO Status: REG CLI Study: Finger(s) Min 2 Views Date of Exam: 11/06/16 Exam# [id number] Ordering Dr: Itzel Moon DO STUDY: X-RAY [...] Matthew Meyer MD at 13:48 EDT Tel [phone], Service support [phone], CC: Aletha Moon DO Coconut Candy Maker: Signed 20-Jun-2015 Sinus/Facial Bone Result: Comments: See Note; NOTES: [facility] [place] Imaging Services [address] [place] [address] Verdana 4d Sinus/Facial Bone MR#: [id number] Acct: [id number] Name: DM GARCÍA Rep #: [id number] : 1950 M 65 From: Claribel Luna MD PCP: Aletha Moon DO Status: REG CLI Study: Sinus/Facial Bone Date of Exam: 06/20/15 Exam# [id number] Ordering Dr: Mauri Lopez MD STUDY: CT [...] at 22:37 EST Tel , Service support [phone], CC: Satinder Chavez MD; Aletha Moon DO Coconut Candy Maker: Signed 17-Jan-2015 Emergency Department Summary Result: Comments: See Note; NOTES: [facility] [place] Medical Records Department [address] [place] [address] Emergency Department Summary MR#: [id number] Acct: [id number] Name: IZABEL CERDA Rep #: [id number] : 1950 64 From: Izabel Jones MD PCP: Aletha Moon DO Status: [facility] ER DATE OF SERVICE: 01/15/2015 METHOD OF [...] Nael Dumont C: Aletha Moon DO T: [facility] J OB: [id number] 01/17/15 0902 <Electronically signed by Izabel Jones MD> Date Izabel Jones MD CC: Aletha Moon DO Date Dictated: 1839 Date Transcribed: 01/15/151839 Coconut Candy Maker: Signed 16-Jan-2015 12 Lead Electrocardiogram Result: Comments: See Note; NOTES: [facility] [place] Cardiovascular Services [address] [place] [address] 12 Lead EKG 01/15/15 1645 MR#: [id number] Acct: [id number] Name: BRANDIE GARCÍA Rep #: [id number] : 1950 64 From: Roberto Haynes MD [...] normal ECG Confirmed by IVY LEAVITT, ROBERTO ([id number]), subeditor GEO WATTERS ([id number]) on 01/16/2015 9:52:23 AM Referred By: PRINCESS Confirmed By:ROBERTO HAYNES MD 01/16/15 0952 Date ____ Roberto Haynes MD CC: Aletha Moon DO Date Dictated: 01/15/151644 Date Transcribed: 01/15/151644 Coconut Candy Maker: Signed 15-Jan-2015 Discharge Instruction Result: Comments: See Note; NOTES: [facility] [place] Medical Records Department [address] [place] [address] Discharge Instruction 01/15/151835 MR#: [id number] Acct: [id number] Name: IZABEL GARCÍA Rep #: [id number] : 1950 64 From: Izabel Jones MD [...] [facility] doctor. Call [facility] ([phone]) or report to the closest Emergency Room. Call 911 if necessary. 01/15/151836 <Electronically signed by Izabel Jones MD> Date Izabel Jones MD Cosigner Signature (If Indicated): Date CC: Aletha Moon DO 17-Nov-2014 Inital Evaluation - PT Result: Comments: See Note; NOTES: [facility] Physical Therapy [facility] [address] [place] [address] Fax REHABILITATION SERVICES INITIAL EVALUATION MR#: [id number] Acct: [id number] Name: IZABEL GARCÍA Rep #: [id number] : 1950 64 From: Socorro Dejesus Referring Dr.: Aletha Moon DO Status: REG RCR Insurance: [facility] [employer] T[employer] Eval Date: DATE OF SERVICE: 11/10/2014 SUBJECTIVE: This patient was referred to physical therapy by Dr. Aletha Moon with diagnoses of neck pain, cervical radiculitis and trap ezius spasm. 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 Bilateral upper [...] care. Socorro Dejesus, PT T: NTS JOB: [id number] <Electronically signed by Socorro Dejesus &# 62; 11/17/14 1538 CC: Signed For Medicare only, by signing this I certify the plan of care. Physicians Signature Date 03-Nov-2014 Cerv Spine 4 or 5 Views Result: Comments: See Note; NOTES: [facility] [place] Imaging Services [address] [place] [address] Radiology Report MR#: [id number] Acct: [id number] Name: IZABEL GARCÍA Rep #: [id number] : 1950 M 64 From: Carter Pavon MD PCP: Aletha Moon DO Status: REG CLI Study: Cerv Spine 4 or 5 Views Date of Exam: 11/03/14 Exam# [id number] Ordering Dr: Aletha Moon DO STUDY: X-RAY [...] MD at 19:55 EDT , Service support [phone], CC: Aletha Moon DO Coconut Candy Maker: Signed Immunization Name Dates Details Pneumococcal (2 years and up) on: 28-May-2015 Comments: Site: Deltoid (Left) Lot #: [id number] Tdap (7 years and up) on: 28-Mar-2009 Comments: Tdap given in Left DeltoidLot# [id number] 07-14-2011 Social History Name Dates Details Caffeine [...] Dr. Mcneill [facility] Temperature 97.4 f Comments: Method: Temporal Pulse [...] kg/m2 Body Surface Area Calculated 2.06 m2 25-Euz-816210:30 Temperature 98.3 f Comments: Method: Temporal Pulse [...] 0.00 cm Results Date Description Value Details 52-Flp-825380:15 CBC W/Diff, Automated Comments: [facility] [address] [place], [place], [phone] Absolute Lymph 1.68 {X10_3/ul} (Normal) Range: 0.83-4.51 [...] 4.6-6.2 WBC 4.4 K/mm3 (Normal) Range: 4.4-11.0 05-Tjf-316695:15 Erythrocyte Sed Rate Comments: [facility] [address] [place] [address], [address] SED RATE 5 mm/h (Normal) Range: 0-20 99-Jeq-950605:15 Prothrombin Time w/INR Comments: [place] [address] [facility]. [place], [place], [phone] INR 2.8 (Normal) PROTIME 30.0 s (Abnormal) Range: 11.7-14.9 21- :55 Urinalysis, Office (00001) UA - LEUKOCYTE ESTERASE Trace (Normal) UA - NITRITE Negative (Normal) URINE UROBILINGN SHANIQUE TIMED Normal mg/dL (Normal) UA - PROTEIN Negative mg/dL (Normal) UA - PH 6 (Abnormal) UA - BLOOD Non Hemolyzed Trace (Normal) UA - SPECIFIC GRAVITY 1.025 (Normal) UA - KETONES Negative mg/dL (Normal) UA - BILIRUBIN Negative (Normal) UA - GLUCOSE Negative (Normal) 41-Dnd-16326:36 THROAT CULTURE (39822) Comments: PATIENT NOT FASTINGPERFORMED BY: [facility]6370 [facility] [id number] Information: SRC:TH Result 1 RRF (Normal) Comments: Routine respiratory natalie Upper Respiratory Culture Final report (Normal) 48-Uez-78991:01 Rapid Strep Test, Office (80910) Rapid Strep Test, Office Negative (Normal) 35-Gbn-273801:48 PSA (Medicare - G0103) Comments: PATIENT WAS FASTINGPERFORMED BY: [facility]3]Rqckvg1997 [facility] [id number] (15827) Prostate Specific Ag, 0.8 ng/mL (Normal) Range: 0.0-4.0 Serum Comments: JackedIA methodology. .According to the British Urological Association, Serum PSA shoulddecrease and remain at undetectable levels after radicalprostatectomy. The AUA defines biochemical recurrence as an initialPSA value 0.2 ng/mL or greater followed by a subsequent confirmatoryPSA value 0.2 ng/mL or greater.Values obtained with d ifferent assay methods or kits cannot be usedinterchangeably. Results cannot be interpreted as absolute evidenceof the presence or absence of malignant disease. 46-Hnd-613797:48 TSH (24262) Comments: PATIENT WAS FASTINGPERFORMED BY: [facility]3]Ksiwup9999 [facility] [id number] TSH 0.464 {uIU/mL} (Normal) Range: 0.450-4.500 98-Mxo-412202:48 Metabolic Panel, Comprehensive Comments: PATIENT WAS FASTINGPERFORMED BY: [facility] [id number] (66055) ALT (SGPT) 26 [iU]/L (Normal) Range: 0-44 [...] 8-27 Glucose 98 mg/dL (Normal) Range: 65-99 77-Jbs-652413:48 Lipid Panel (15249) Comments: PATIENT WAS FASTINGPERFORMED BY: [employer]6370 [facility] Media[facility] [id number] LDL/HDL Ratio 2.4 {ratio} (Normal) Range: 0.0-3.6 Comments: LDL/HDL Ratio Men Women 1/2 Avg.Risk 1.0 1.5 Av g.Risk 3.6 3.2 2X Avg.Risk 6.2 5.0 3X Avg.Risk 8.0 6.1 LDL Cholesterol Calc 92 mg/dL (Normal) Range: 0-99 VLDL Cholesterol Brandon 29 mg/dL (Normal) Range: 5-40 HDL Cholesterol 38 mg/dL (Abnormal) Triglycerides 146 mg/dL (Normal) Range: 0-149 Cholesterol, Total 159 mg/dL (Normal) Range: 100-199 40-Oij-255797:48 URINALYSIS (17304) Comments: PATIENT WAS FASTINGPERFORMED BY: [employer]6370 enGreetFormerly [facility] [id number] Microscopic Examination MICNIP (Normal) Comments: Microscopic not indicated and not performed. Nitrite, Urine Negative (Normal) Urobilinogen,Semi-Qn 0.2 mg/dL (Normal) Range: 0.2-1.0 Bilirubin Negative (Normal) Occult Blood Negative (Normal) Ketones Negative (Normal) Glucose Negative (Normal) Protein Trace (Normal) WBC Esterase Negative (Normal) Appearance Clear (Normal) Urine-Color Yellow (Normal) pH 7.0 (Normal) Range: 5.0-7.5 Specific Allred 1.026 (Normal) Range: 1.005-1.030 69-Sjh-139246:48 MICROALBUMIN: CREATININE RATIO Comments: PATIENT WAS FASTINGPERFORMED BY: [employer]70 [facility] MediaCritical access hospital [id number] (10947) AND (43820) Alb/Creat Ratio 9.9 {mg/g_creat} (Normal) Range: 0.0-30.0 Albumin, Urine 19.3 ug/mL (Normal) Creatinine, Urine 194.2 mg/dL (Normal) 69-Ysa-185456:48 CBC WITH MANUAL DIFF (29256) Comments: PATIENT WAS FASTINGPERFORMED BY: [employer]6370 [facility] MediaCritical access hospital [id number] Immature Grans (Abs) 0.0 {x10E3/uL} (Normal) Range: [...] {x10E3/uL} (Normal) Range: 3.4-10.8 :00 Homocysteine, Plasma (32472) Comments: PATIENT NOT FASTINGPERFORMED BY: CB [facility] Bpkvze4467 [facility] [id number] Homocyst(e)ine, Plasma 11.5 umol/L (Normal) Range: 0.0-15.0 :41 MTHFR (50663) Comments: PATIENT NOT FASTINGPERFORMED BY: TG [facility] IYC7525 TW Jez DriveRBARNES-KASSON COUNTY HOSPITAL [id number] MTHFR, DNA Analysis XXM542 (Normal) Comments: Result: C677T/C677T Two copies of the same mutation (C677T and C677T) identified .Interpretation: .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 Homozygosity for kvyG873A mutation confers an increased risk for the [...] two common variants in the MTHFR gene, c.655c>T(p.Fxx799Ioqb), referred to as C677T, and c.1286A>C (p.Jma419Bvv),referred to as S8364S. Individuals homozygous for C677T (two copiesof the variant), have decreased activity of the MTHFR enzyme and apredisposition to hyperhomocysteinemia, particularly when deficient infolate. Hyperhomocysteinemia is a risk factor for venous thrombosisand c oronary artery disease and is associated with an increased riskof open neural tube defects. The C677T variant does notindependently increase risk of these conditions in the absence ofhyperhomocyst einemia. The H2852J variant is not associated withelevated homocysteine levels unless a C677T variant is also present;however, the clinical significance of heterozygosity for both L175Nkir M6861C is con troversial. Population data suggest that these twovariants are not present on the same chromosome, but rare exceptionshave been reported of triple variant MTHFR genotypes (ie. homozygousfor one variant and heterozygous for the other). Homozygosity trgN462K has an estimated frequency of 10% to 15% in Caucasians and 25%in Hispanics. .Ad ditional information:Dietary folic acid, B6 and B12 supplementation has been suggested tolower homocysteine levels in some people. Folic acid supplementationhas been shown to reduce the occurrence of ne ural tube defects. .Genetic counselors are available for health care providers to discussresults at [phone]. .Methodology:DNA analysis of the MTHFR gene was performed by PCRamplification followed by restriction analysis. Thediagnostic sensitivity is >99% for both. Molecular-basedtesting is highly accurate, but as in any laboratory test,rare diagnostic errors may occur. All test results must becombined with clinical information for the most accurateinterpre tation. .This test was developed and its performance characteristicsdetermined by [employer]. It has not been cleared or approved [...] PhD, Jose Yepez, PhD, Titi BunchSZbigniew, PhD, [facility]OSPITALHannah Castaneda, PhD, [facility] HOSPITALZaki Mcgee, PhD, [facility]OSPITALFam Rosa, PhD, [facility] 1-Dqx-563719:52 Miscellaneous Lab Procedure Comments: Test(s) Ordered: [id number] ALLERGEN PROFILE FOOD IGE W REFL 3TI [facility] [address] [place], [place], [phone] [facility] [place]: TEST RESULT LIMITSIgE Food w/Component Reflex IIClass DescriptionLevels of Specific IgE Class Description of Class ----- --------- LAB (Normal) < 0.10 0 Negative 0.10 - 0.31 0/I Equivocal/Low 0.32 - 0.55 I Low 0.56 - 1.40 TEST II Moderate 1.41 - 3.90 III High 3.91 - 19.00 IV Very High 19.01 - 100.00 V Very High >100.0 0 Very LmklM291-YoW Clam <0.10 kU/L Class 2K701-JoT Codfish <0.10 kU/L Class 0F008- IgE Oakwood <0.10 kU/L Class 4I037-RmP Scallop 0.12 Abnormal kU/L Class 0/IF010- IgE Sesame Seed <0.10 kU/L Class 0X150-XaJ Shrimp 1.83 Abnormal kU/L Class MJOZ578-LuD Soybean <0.10 kU/L Class 4V370-SlT Wheat <0.10 kU/L Class 7K864-PwJ Milk 0.49 Abnormal kU/L Class IF076- IgE Alpha Lactalbumin 0.19 Abnormal kU /L Class 0/JO247-RkV Beta Lactoglobulin 0.32 Abnormal kU/L Class IF078- IgE Casein 0.20 Abnormal kU/L Class 0/IA977-WxN Egg White 0.12 Abnormal kU/L Class 0/KW346-FzF Peanut 0.12 Abnormal kU/L Class 0/BE673-IlJ Margy h 1 <0.10 kU/L Class 8Y006-LlQ Margy h 2 <0.10 kU/L Class 8P608-TvF Margy h 3 <0.10 kU/L Class 2N875-CsZ Margy h 8 0.53 Abnormal kU/L Class IF427- IgE Margy h 9 <0.10 kU/L Class 1N771-RmT Hazelnut (Filbert) 1.86 Abnormal kU/L Class EJEJ917-XnL Cor a 1 2.55 Abnormal kU/L Class EGYP789-DwZ Cor a 8 <0.10 kU/L Class 2N078-CgK Cor a 9 <0.10 kU/L Class 3A190-LiZ Cor a 14 <0.10 kU /L Class 2O200-JsG Milan <0.10 kU/L Class 3I315-VxP Cashew Nut <0.10 kU/L Class 9P653-MeE [place] Nut <0.10 kU/L Class 0*F34 5-IgE Macadamia Nut <0.10 kU/L Class 9A219-PwF Pecan Nut <0.10 kU/L Class 9N209-CrJ Pistachio Nut <0.10 kU/L Class 9T356-SdC Chauvin 0 .31 Abnormal kU/L Class 0/I TESTING PERFORMED AT [facility]. ORIGINAL REPORT ON FILE IN LAB CONTAINS ADDITIONAL TEST SITE INFORMATION. :52 Miscellaneous Lab Procedure 2 Comments: List Test(s) Ordered by Physician: [id number], honeybee, [facility] [address] [facility] [place], [address] MIS Comments: TEST RESULT GUTYBED468-WkW Honeybee 0.16 Abnormal kU/L Class 0/I TESTING PERFORMED AT [facility]. ORIG LAB (Normal) INAL REPORT ON FILE IN LAB CONTAINS ADDITIONAL TEST SITE INFORMATION. TEST 2 :52 Miscellaneous Lab Procedure 3 Comments: List Test(s) Ordered by Physician: [id number], yellow jacket, [address] [facility] [address] [place] [address], [id number] MIS Comments: TEST RESULT ITREUZR810-OuB Yellow Jacket <0.10 kU/L Class 0 TESTING PERFORMED AT [facility] ORIGI LAB (Normal) NAL REPORT ON FILE IN LAB CONTAINS ADDITIONAL TEST SITE INFORMATION. TEST 3 :44 URINE CHEPE CULTURE-IDENTIFICATN Comments: PATIENT NOT FASTINGPERFORMED BY: CB [employer] Vujzet5877 [facility] [id number] Information: SRC: (00799) Result 1 Yeast isolated. (Abnormal) Comments: 100 Colonies/mL .Request for further identification must be madewithin 1 week. Urine Final report (Abnormal) Culture,Comprehensive 92-Pnk-873746:38 Urinalysis, Office (32995) UA - LEUKOCYTE ESTERASE Moderate (Normal) UA - NITRITE Negative (Normal) URINE UROBILINGN SHANIQUE TIMED Normal mg/dL (Normal) UA - PROTEIN Negative mg/dL (Normal) UA - PH 7 (Normal) UA - BLOOD Hemolyzed Trace (Normal) UA - SPECIFIC GRAVITY 1.025 (Normal) UA - KETONES Negative mg/dL (Normal) UA - BILIRUBIN Negative (Normal) UA - GLUCOSE Negative (Normal) 83-Xgz-807235:13 PSA (PROSTATE SPECIFIC Comments: PATIENT NOT FASTINGPERFORMED BY: [employer] Ewcgfb2006 [facility] [id number] ANTIGEN) (V76.44) Prostate Specific Ag, 0.9 ng/mL (Normal) Range: 0.0-4.0 Serum Comments: [place] ECLIA methodology. .According to the British Urological Association, Serum PSA shoulddecrease and remain at undetectable levels after radicalprostatectomy. The AUA defines biochemical recurrence as an initialPSA value 0.2 ng/mL or greater followed by a subsequent confirmatoryPSA value 0.2 ng/mL or greater.Values obtained with d ifferent assay methods or kits cannot be usedinterchangeably. Results cannot be interpreted as absolute evidenceof the presence or absence of malignant disease. 11-Lye-376981:18 Rapid Strep Test, Office (88966) Rapid Strep Test, Office Negative (Normal) :01 CBC W/AUTO DIFF WBC Comments: PATIENT WAS FASTINGPERFORMED BY: [facility] Tvzmys3204 [facility] [id number] Information: S21418, 609992 (06089) Immature Grans (Abs) 0.0 {x10E3/uL} (Normal) Range: [...] 5.6 {x10E3/uL} (Normal) Range: 3.4-10.8 :01 TSH (86054) Comments: PATIENT WAS FASTINGPERFORMED BY: [facility]3]Kanbow8605 [facility] [id number] TSH 1.990 {uIU/mL} (Normal) Range: 0.450-4.500 :01 METABOLIC PANEL, COMPREHENSIVE Comments: PATIENT WAS FASTINGPERFORMED BY: [facility]3]Wdczjr6135 [facility] [id number] (26539) ALT (SGPT) 52 [iU]/L (Abnormal) Range: 0-44 [...] 12-Jul-20159:00 NASAL POLYPS See Note (Normal) Comments: [facility] [address] [place], [address] ; ordered by tip Comments: Patient: IZABEL GARCÍA : 1950 (65/M) Acct Num: [id number] Phys: Tip LEAVITTHolladay Unit Num: [id number] Loc: LABSPEC Specimen: [id number] Received: 07/12/151626 S pec Type: JACQUELINE POLYPS [...] / AM: 07/13/15 TC: 3 CPT : 15503 x2, 52231 x2 HEADER OPERATION: Functional endoscopic sinus surgery, [...] Signed Eric Avila 07/18/15 <signature on file> 13-Iuk-942691:10 Basic Metabolic Profile (BMP) Comments: PER AMMERIST AT OFFICE, BMP AND CBCD.[facility] [address] [place], [address] GAP 6 (Normal) Range: 5-15 CO2 29.0 [...] 7-18 GLU 84 mg/dL (Normal) Range: 70-110 80-Qtp-847676:10 CBC W/Diff, Automated Comments: [facility] [address] [place], [place], [id number] Absolute Lymph 1.48 {X10_3/ul} (Normal) Range: 0.83-4.51 [...] PANEL Comments: PATIENT WAS FASTINGPERFORMED BY: [facility] Ybjacw6620 [facility] [id number] (33053) ALT (SGPT) 40 [iU]/L (Normal) Range: 0-44 AST (SGOT) 39 [iU]/L (Normal) Range: 0-40 Alkaline Phosphatase, S 64 [iU]/L (Normal) Range: 39-117 Bilirubin, Direct 0.21 mg/dL (Normal) Range: 0.00-0.40 Bilirubin, Total 0.7 mg/dL (Normal) Range: 0.0-1.2 Albumin, Serum 4.1 g/dL (Normal) Range: 3.6-4.8 Protein, Total, Serum 6.5 g/dL (Normal) Range: 6.0-8.5 :54 LIPID PANEL (61057) Comments: PATIENT WAS FASTINGPERFORMED BY: [facility] Pzfpng5040 [facility] [id number] LDL/HDL Ratio 2.5 {ratio_units} (Normal) Range: 0.0-3.6 [...] #1, #2, #3, or #4: 1Test performed at:[facility] [address] [place], [place] [phone] GAP 5 (Normal) Range: 5-15 CO2 28.0 [...] :45 CBC W/Diff, Automated Comments: Test performed at:[facility] [address]bc[address] [place], [place] [id number] Absolute Lymph 1.04 {X10_3/ul} (Normal) Range: 0.83-4.51 [...] #1, #2, #3, or #4: 1Test performed at:[facility] [address] [place] [address] TROPONIN-I < 0.02 ng/mL (Normal) Comments: TROPONIN-I EXPECTED VALUES <0.05 NEGATIVE 0.06 - 0.59 AT RISK OF GA > OR = 0.60 SUGGEST GA 51-Kax-476074:26 Rapid Flu (34635 x 2) Influenza A Ag positive A (Normal) 2-Gyg-154342:24 DHEA, Serum Comments: PATIENT NOT FASTINGPERFORMED BY: pickrsetCritical access hospital [id number] BY: [place] [id number] Dehydroepiandrosterone (DHEA) 45 ng/dL (Normal) Range: 31-701 [...] - 491 >19 years 31 - 701 2-Xbe-875659:24 TESTOSTERONE TOTAL (17937) Comments: PATIENT NOT FASTINGPERFORMED BY: pickrsetCritical access hospital [id number] BY: [place] [id number] Comment: TESTM (Normal) Comments: Adult male reference interval is based on a population of lean malesup to 40 years old. Testosterone, Serum 409 ng/dL (Normal) Range: 348-1197 2-Lzw-444306:24 PSA (PROSTATE SPECIFIC Comments: PATIENT NOT FASTINGPERFORMED BY: pickrsetCritical access hospital [id number] BY: [place] [id number] ANTIGEN) (52741) Prostate Specific Ag, 0.8 ng/mL (Normal) Range: 0.0-4.0 Serum Comments: JackedIA methodology. .According to the [employer] U[employer] Association, Serum PSA shoulddecrease and remain at undetectable levels after radicalprostatectomy. The AUA defines biochemical recurrence as an initialPSA value 0.2 ng/mL or greater followed by a subsequent confirmatoryPSA value 0.2 ng/mL or greater.Values obtained with d ifferent assay methods or kits cannot be usedinterchangeably. Results cannot be interpreted as absolute evidenceof the presence or absence of malignant disease. 5-Bxc-627300:24 Metabolic Panel, Comments: PATIENT NOT FASTINGPERFORMED BY: CB [facility] Dhnerw8656 [facility] [id number] BY: BN [facility] Tvbeyztgkt5144 [facility] [id number] Comprehensive (34106) ALT (SGPT) 35 [iU]/L (Normal) Range: 0-44 [...] DIFF Comments: PATIENT NOT FASTINGPERFORMED BY: HERMELINDA [facility]3]Pldtsb4751 [facility] [id number] BY: [address] [id number] Inf ormation: [id number] (93731) Immature Grans (Abs) 0.0 {x10E3/uL} (Normal) Range: [...] 4.6 {x10E3/uL} (Normal) Range: 3.4-10.8 :24 TSH (44242) Comments: PATIENT NOT FASTINGPERFORMED BY: [facility]3]Znlbkx2648 [facility] [id number] BY: [facility]urfHawthorn [facility]1447 [facility] [id number] TSH 0.573 {uIU/mL} (Normal) Range: 0.450-4.500 :02 HEMOGLOBIN GLYCLATED (HGB A1C) Comments: PERFORMED BY: [place] Ocfsxj4504 [facility] [id number] (55885) Hemoglobin A1c 5.1 % (Normal) Range: 4.8-5.6 Comments: . Increased risk for diabetes: 5.7 - 6.4 Diabetes: >6.4 Glycemic control for adults with diabetes: <7.0 :02 PSA (PROSTATE SPECIFIC Comments: PERFORMED BY: Sevencelin6370 [facility] [id number] ANTIGEN) (64453) Prostate Specific Ag, 0.8 ng/mL (Normal) Range: 0.0-4.0 Serum Comments: PlateJoy ECLIA methodology. .According to the [employer] U[employer] Association, Serum PSA shoulddecrease and remain [...] :02 TSH (THYROID STIMULATING Comments: PERFORMED BY: [facility]3]Ksrxdg1551 [facility] [id number] HORMONE) (95746) TSH 0.985 {uIU/mL} (Normal) Range: 0.450-4.500 :02 URINALYSIS W MICROSCOPY (86187) Comments: PERFORMED BY: Sevencelin6370 [facility] [id number] Microscopic Examination MICNIP (Normal) Comments: Microscopic not indicated and not performed. Nitrite, Urine Negative (Normal) Urobilinogen,Semi-Qn 0.2 mg/dL (Normal) Range: 0.0-1.9 Bilirubin Negative (Normal) Occult Blood Negative (Normal) Ketones Negative (Normal) Glucose Negative (Normal) Protein Trace (Normal) Appearance Clear (Normal) WBC Esterase Negative (Normal) pH 7.5 (Normal) Range: 5.0-7.5 Urine-Color Yellow (Normal) Specific Allred 1.020 (Normal) Range: 1.005-1.030 :02 MICROALB;CREAT RATION, RAND UR Comments: PERFORMED BY: LabAcisionMonmouth Medical [facility]3]Glkpvo8261 [facility] [id number] (42715) Microalb/Creat Ratio 3.5 {mg/g_creat} (Normal) Range: 0.0-30.0 Creatinine, Urine 163.4 mg/dL (Normal) Range: 22.0-328.0 Microalbumin, Urine 5.7 ug/mL (Normal) Range: 0.0-17.0 :02 METABOLIC PANEL, COMPREHENSIVE Comments: PERFORMED BY: [facility]3]Fbafsi2884 [facility] [id number] (29333) ALT (SGPT) 29 [iU]/L (Normal) Range: 0-44 [...] mg/dL (Normal) Range: 65-99 :02 LIPID PANEL (46821) Comments: PERFORMED BY: pickrsetCritical access hospital [id number] LDL/HDL Ratio 2.0 {ratio_units} (Normal) Range: 0.0-3.6 LDL Cholesterol Calc 73 mg/dL (Normal) Range: 0-99 VLDL Cholesterol Brandon 22 mg/dL (Normal) Range: 5-40 HDL Cholesterol 37 mg/dL (Abnormal) Comments: According to ATP-III Guidelines, HDL-C >59 mg/dL is considered anegative risk factor for CHD. Triglycerides 109 mg/dL (Normal) Range: 0-149 Cholesterol, Total 132 mg/dL (Normal) Range: 100-199 :02 CBC with manual diff (49308) Comments: PERFORMED BY: ArcSoft70 enGreetFormerly [facility] [id number] Immature Grans (Abs) 0.0 {x10E3/uL} (Normal) Range: [...] Microscopic Examination Comments: PATIENT WAS FASTINGPERFORMED BY: pickrsetCritical access hospital [id number] Bacteria None seen (Normal) Mucus Threads Present (Normal) Epithelial Cells (non renal) None seen {/hpf} (Normal) Range: 0 - 10 RBC 0-3 {/hpf} (Normal) Range: 0 - 3 WBC 0-5 {/hpf} (Normal) Range: 0 - 5 :21 PSA (PROSTATE SPECIFIC Comments: PATIENT WAS FASTINGPERFORMED BY: pickrsetCritical access hospital [id number] ANTIGEN) (V76.44) Prostate Specific Ag, 0.8 ng/mL (Normal) Range: 0.0-4.0 Serum Comments: PlateJoy ECLIA methodology. .According to the [employer] Urological Association, Serum PSA shoulddecrease and remain [...] (HGB A1C) Comments: PATIENT WAS FASTINGPERFORMED BY: [facility]set[facility] [place] [id number] (59522) Hemoglobin A1c 5.4 % (Normal) Range: 4.8-5.6 Comments: . Increased risk for diabetes: 5.7 - 6.4 Diabetes: >6.4 Glycemic control for adults with diabetes: <7.0 :21 TSH (97793) Comments: PATIENT WAS FASTINGPERFORMED BY: SamesurfThe Rehabilitation Institute Of St. LouisPzoftp0782 [facility] [id number] TSH 1.280 {uIU/mL} (Normal) Range: 0.450-4.500 :21 URINALYSIS, W/ MICRO (25436) Comments: PATIENT WAS FASTINGPERFORMED BY: SamesurfTr[facility] Health [facility]ke[facility] Hospital6370 [facility] [id number] Microscopic Examination See below: (Normal) Microscopic Examination MICRON (Normal) Comments: Microscopic follows if indicated. Nitrite, Urine Negative (Normal) Urobilinogen,Semi-Qn 0.2 mg/dL (Normal) Range: 0.0-1.9 Bilirubin Negative (Normal) Occult Blood Negative (Normal) Ketones Negative (Normal) Glucose Negative (Normal) Protein Negative (Normal) WBC Esterase Negative (Normal) Appearance Clear (Normal) Urine-Color Yellow (Normal) pH 6.5 (Normal) Range: 5.0-7.5 Specific Allred 1.014 (Normal) Range: 1.005-1.030 :21 MICROALBUMIN: CREATININE RATIO Comments: PATIENT WAS FASTINGPERFORMED BY: SamesurfTr[facility] Health [facility] Hospital6370 [facility] [id number] (59636) AND (82364) Microalb/Creat Ratio 2.6 {mg/g_creat} (Normal) Range: 0.0-30.0 Creatinine, Urine 97.0 mg/dL (Normal) Range: 22.0-328.0 Microalbumin, Urine 2.5 ug/mL (Normal) Range: 0.0-17.0 :21 METABOLIC PANEL, COMPREHENSIVE Comments: PATIENT WAS FASTINGPERFORMED BY: S[facility]urfTr[facility] Hospital6370 [facility] [id number] (37508) ALT (SGPT) 32 [iU]/L (Normal) Range: 0-44 [...] Glucose, Serum 92 mg/dL (Normal) Range: 65-99 13-Cqi-71028:21 LIPID PANEL (87633) Comments: PATIENT WAS FASTINGPERFORMED BY: LabCoMon[facility]3]Kriccs0430 [facility] [id number] LDL Cholesterol Calc 82 mg/dL (Normal) Range: [...] MANUAL DIFF Comments: PATIENT WAS FASTINGPERFORMED BY: LabTrinity [facility] Hospital6370 [facility] [id number] Information: [id number] (49376) Immature Grans (Abs) 0.0 {x10E3/uL} (Normal) Range: [...] 4.14-5.80 WBC 5.6 {x10E3/uL} (Normal) Range: 4.0-10.5 41-Don-956012:11 FEMUR,2 VIEWS Radiology Report See Note (Normal) Comments: PROCEDURE: X-RAY - RIGHT FEMUR REASON FOR STUDY: Male, 62 years old. Right hip pain. TECHNIQUE: Four views of the femur. COMPARISON: None. FINDINGS:Normal visualized femur. Normal visualized so ft tissue structure. IMPRESSION:Normal x-ray examination of the femur. Signed:Tanner Shaffer M.D.July 30, 2012 at 2:34:05 PM [id number] Signed GP/GP If you are the referring physician and would like to consult with theradiologist who provided this interpretation, please contact Scar Nazario at [phone]. If this radiologist is unavailable, youwill be directed to another radiologist to assist. If you are a patient with a question regarding this report, pleasecontactyour referring physician directly. Professional Interpretation Provided By: Chef, Phone , These documents contain legally protected [...] (Normal) UCOL YELLOW (Normal) :35 CHEPE CULTURE-OTHER (28491) Comments: PATIENT NOT FASTINGPERFORMED BY: [facility] Iirdmn8625 [facility] [id number] Information: SRC:THRT [id number] Result 1 RRF (Normal) Comments: Routine respiratory natalie Upper Respiratory Culture Final report (Normal) :04 Rapid Strep Test, Office (89812) Rapid Strep Test, Office Negative (Normal) :00 [...] With LDL/HDL Comments: PATIENT WAS FASTINGPERFORMED BY: [facility]Co[facility]3]Sltkrm2298 [facility] [id number] Ratio LDL/HDL Ratio 3.1 {ratio_units} (Normal) Range: 0.0-3.6 LDL Cholesterol Calc 109 mg/dL (Abnormal) Range: 0-99 VLDL Cholesterol Brandon 21 mg/dL (Normal) Range: 5-40 HDL Cholesterol 35 mg/dL (Abnormal) Comments: According to ATP-III Guidelines, HDL-C >59 mg/dL is considered anegative risk factor for CHD. Triglycerides 103 mg/dL (Normal) Range: 0-149 Cholesterol, Total 165 mg/dL (Normal) Range: 100-199 23-Xem-975554:35 B12/FOLATES FOLATES 18.60 ng/mL (Abnormal) Range: 3.1-17.5 [...] 11.6-14.6 WBC 5.1 K/mm3 (Normal) Range: 4.4-11.0 59-Sde-409620:35 COMP METABOLIC A/G 1.2 {RATIO} (Normal) Range: [...] Range: 0.358-3.74 :56 CBC WITH MANUAL DIFF (87163) Comments: PATIENT NOT FASTINGClinical Information: ADD [id number], [id number] PERFORMED BY: [facility]Co[facility]3]Ewoafz6690 [facility] [id number] Baso (Absolute) 0.0 {x10E3/uL} (Normal) Range: 0.0-0.2 [...] (ANTINUCLEAR ANTIBODY) Comments: PATIENT NOT FASTINGPERFORMED BY: [address] [id number] (04201) Antinuclear Antibodies Direct Negative (Normal) 50-Hab-528702:56 PT (Prothrobim Time) (36954) Comments: PATIENT NOT FASTINGPERFORMED BY: [address] [id number] INR 1.0 (Normal) Range: 0.8-1.2 Comments: Reference interval is for non-anticoagulated patients. . Suggested INR therapeutic range for Vitamin K anta gonist therapy: Standard Dose (moderate intensity therapeutic range): 2.0 - 3.0 Higher intensity therapeutic range 2.5 - 3.5 Prothrombin Time 10.7 {sec} (Normal) Range: 8.7-11.5 :56 PTT (Activated Partial Comments: PATIENT NOT FASTINGPERFORMED BY: [facility] [place] [address] [id number] Thromboplastin Time) (93410) aPTT 31 {sec} (Normal) Range: 24-33 Comments: This test has not been validated for monitoring unfractionated heparintherapy. aPTT-based therapeutic ranges for unfractionated heparintherapy have not been established. For general guidelines onHeparin monitoring, refer to the [facility] Directory of Services. :25 CBC With Differential/Platelet Comments: PATIENT WAS FASTINGPERFORMED BY: [facility]6370 [facility] [id number] Baso (Absolute) 0.0 {x10E3/uL} (Normal) Range: 0.0-0.2 [...] 11.7-15.0 WBC 4.7 {x10E3/uL} (Normal) Range: 4.0-10.5 81-Zjh-30329:25 Comp. Metabolic Panel (14) Comments: PATIENT WAS FASTINGPERFORMED BY: [facility]3]Elyytz9689 [facility] [id number] A/G Ratio 2.0 (Normal) Range: 1.1-2.5 Albumin, [...] Panel (7) Comments: PATIENT WAS FASTINGPERFORMED BY: Attune LiveCoShoppinPalLgctyq0048 [facility] [id number] Bilirubin, Direct 0.27 mg/dL (Normal) Range: 0.00-0.40 :25 Lipid Panel With LDL/HDL Comments: PATIENT WAS FASTINGPERFORMED BY: [employer]une LiveCorp Vwjwhg6070 [facility] [id number] Ratio Cholesterol, Total 165 mg/dL (Normal) Range: [...] Ag, Serum Comments: PATIENT WAS FASTINGPERFORMED BY: [employer]6370 [facility] [id number] Prostate Specific Ag, Serum 0.7 ng/mL (Normal) Range: 0.0-4.0 Comments: [place] Paradigm FinancialIA methodology. .According to the British Urological Association, PSA should beundetectable after radical prostatectomy. A PSA of less than0.5 ng/mL (or undetectable) is not likely to be associated withdisease recurrence within five years of treatment.Values obtained with different assay methods or kits cannot be usedinterchang eably. Results cannot be interpreted as absolute evidenceof the presence or absence of malignant disease. :25 Urinalysis, Routine Comments: PATIENT WAS FASTINGPERFORMED BY: [employer]6370 [facility] [id number] Appearance Clear (Normal) Bilirubin Negative (Normal) Glucose Negative (Normal) Ketones Negative (Normal) Microscopic Examination MICRON (Normal) Comments: Microscopic follows if indicated. Nitrite, Urine Negative (Normal) Occult Blood Negative (Normal) pH 7.0 (Normal) Range: 5.0-7.5 Protein Negative (Normal) Specific Allred 1.018 (Normal) Range: 1.005-1.030 Urine-Color Yellow (Normal) Urobilinogen,Semi-Qn 0.2 mg/dL (Normal) Range: 0.0-1.9 WBC Esterase Negative (Normal) :28 CHEPE CULTURE-OTHER (44144) Comments: PATIENT NOT FASTINGClinical Information: SRC:THRT ADD [id number] PERFORMED BY: [facility]3]Pahjcj0459 [facility] [id number] Result 1 RRF (Normal) Comments: Routine respiratory natalie Upper Respiratory Culture Final report (Normal) :52 Rapid Strep Test, Office (42102) Rapid Strep Test, Office Negative (Normal) Comments: [...] was performed using the TPSA method for theBVG India chemistry system.Values obtained with different assay methods cannot be usedinterchangably.When changing PSA assays in the course of monito ring apatient, additional sequential testing should be carriedout to confirm baseline values. :36 Upper Respiratory Culture Comments: Clinical Information: SRC: PERFORMED BY: HERMELINDA LabTr[facility]6370 [facility] [id number] Result 1 RRF (Normal) Comments: Routine respiratory natalie Upper Respiratory Culture Final report (Normal) :51 Rapid Strep Test, Office (53158) Comments: done km Rapid Strep Test, Office Negative (Normal) 7-Kow-004010:42 COLON BX P-COLBX (Normal) Comments: OPERATION Colonoscopy [...] right and left colon biopsies from 04/29/01 ([id number]) in which mild architectural change was identified. [...] abnormal findings) Other ulcerative colitis : Reviewed Outdoor Illuminating Engineer Letter Indication: Other ulcerative colitis Esophageal reflux disease : GERD Education Indication: Esophageal reflux disease Other and unspecified hyperlipidemia : Cholesterol mgmt Indication: Other and unspecified hyperlipidemia Hypertensive heart disease without congestive heart failure : HTN/CAD Red Flags Indication: Hypertensive heart disease without congestive heart failure Atrial fibrillation, controlled : Continue Current Prescription(s) Indication: Atrial fibrillation, controlled Atrial fibrillation, controlled : Reviewed Outdoor Illuminating Engineer Letter Indication: Atrial fibrillation, controlled Non-smoker : [...] Indication: Heart murmur Heart murmur : Reviewed Outdoor Illuminating Engineer Letter Indication: Heart murmur Benign essential hypertension [...] disease without congestive heart failure : Reviewed Outdoor Illuminating Engineer Letter: had stress echo in 07/21 Indication: [...] Other and unspecified hyperlipidemia Planned Observations TSH (08618)Indication: Atrial fibrillation, controlled On: :56 Request URINALYSIS, W/ MICRO (87714)Indication: Hypertensive heart disease without congestive heart failure On: :56 Request MICROALBUMIN: CREATININE RATIO (85246) AND (67724)Indication: Hypertensive heart disease without congestive heart failure On: :56 Request METABOLIC PANEL, COMPREHENSIVE (20361)Indication: Hypertensive heart disease without congestive heart failure On: :56 Request LIPOPROTEIN, BLD, BY NMR (93013)Indication: Other and unspecified hyperlipidemia On: :55 Request CBC W/AUTO DIFF WBC (37048)Indication: Hypertensive heart disease without congestive heart failure On: :55 Request Lipid Panel (44846)Indication: Other and unspecified hyperlipidemia On: :05 Request Comments: do in 6 mo HEPATIC FUNCTION PANEL (03484)Indication: Other and unspecified hyperlipidemia On: :05 Request Comments: do in 6 mo DHEA (DEHYDROEPIANDROSTERONE) (67493)Indication: ED (erectile dysfunction) On: :31 Request MICROALBUMIN: CREATININE RATIO (13121) AND (53695)Indication: Benign essential hypertension On: :17 Request METABOLIC PANEL, COMPREHENSIVE (99272)Indication: Benign essential hypertension On: :17 Request URINALYSIS, W/ MICRO (67819)Indication: Benign essential hypertension On: :17 Request TSH (92049)Indication: Benign essential hypertension On: :17 Request LIPID PANEL (69460)Indication: Benign essential hypertension On: :17 Request CBC WITH MANUAL DIFF (21305)Indication: Benign essential hypertension On: :17 Request Metabolic Panel, Basic (84795)Indication: Benign essential hypertension On: :17 Request CALCIFIDIOL (12456) VIT D 25Indication: Fatigue On: :32 Request Folate (18238)Indication: Fatigue On: :32 Request VITAMIN B-12 (CYANOCOBALAMIN) (23370)Indication: Fatigue On: :32 Request TSH (89585)Indication: Fatigue On: :32 Request SED RATE ERYTHROCYTE (69516)Indication: Fatigue On: :32 Request METABOLIC PANEL, COMPREHENSIVE (38796)Indication: Fatigue On: :32 Request C-REACTIVE PROTEIN (87643)Indication: Fatigue On: :32 Request CBC (AUTO) (43970)Indication: Fatigue On: :32 Request Metabolic Panel, Basic (02665)Indication: Benign essential hypertension On: :16 Request C-REACTIVE PROTEIN (44031)Indication: Fatigue On: 10-Bre-807876:03 Request CBC (AUTO) (71719)Indication: Thrombocytopenia, unspecified On: 92-Ics-419401:03 Request Folate (59078)Indication: Fatigue On: 72-Hbi-640114:03 Request METABOLIC PANEL, COMPREHENSIVE (36332)Indication: Fatigue On: 82-Jwv-641802:03 Request RHEUMATOID FACTOR-QUANT (56124)Indication: Fatigue On: 71-Ped-490541:03 Request SED RATE ERYTHROCYTE (57022)Indication: Fatigue On: 30-Lwn-251920:03 Request TSH (29734)Indication: Fatigue On: 92-Nra-074377:03 Request VITAMIN B-12 (CYANOCOBALAMIN) (65992)Indication: Fatigue On: 08-Bnd-755597:03 Request LIPID PANEL (44654)Indication: Other and unspecified hyperlipidemia On: 32-Fft-454559:45 Request Comments: do in 6 mo CHEPE CULTURE-OTHER (16349)Indication: Throat pain On: :52 Request Comments: throat cx km PSA (PROSTATE SPECIFIC ANTIGEN) (V76.44)Indication: Esophageal reflux disease On: 7-Zxx-486265:03 Request LIPID PANEL (44085)Indication: Other and unspecified hyperlipidemia On: 5-Ozk-651036:02 Request PSA (PROSTATE SPECIFIC ANTIGEN) (41404)Indication: SCREENING FOR CANCER OF THE PROSTATE On: :22 Request Planned Procedures INTENSIVE BEHAVIORAL THERAPY TO On: 31-May-2018 Intent REDUCE CARDIOVASCULAR DISEASE RISK, INDIVIDUAL, QBGB-MU-PVRB, ANNUAL, 15 MINUTES (G0446)By: Aletha Moon DO, DO, Kathleen Flu Vaccine (Quadrivalent) 43449Ni: On: 31-May-2018 Intent Aletha Moon DO, DO, Comments: Lot #[id number] Exp-02/06/19Site-L dltd, IMDose prefilled syringegiven by: Hanh REESE.VIS reviewed and ABN signed Aletha Wax CurettesBy: Karla Dejesus On: 20-Apr-2018 Intent Ear Irrigation (21177)By: Oleg, On: 20-Apr-2018 Intent Karla Comments: bilateral ears irrigated. Left ear irritated so stopped and sent home with drops for that ear -- peroxide/debrox. R ear irrigated and currette used. Large amount hard, fatmata to broown wax removed. Tolerated well. MARY ANN DANIEL ELECTROCARDIOGRAM, COMPLETE (ECG) On: 22-Jan-2018 Intent (90830)By: Aletha Moon DO Comments: sinus cleo on BB - no acute chg - IVCD- poor Rwave progression Aletha Moon DO X-RAY OF THUMB OF LEFT HAND On: 06-Nov-2016 Intent (77331)By: Aletha Moon DO Comments: attention mcp jt Aletha Moon DO Flu Vaccine (Quadrivalent) 90352Sq: On: 09-Jun-2016 Intent Aletha Moon DO, DO, Comments: Lot:[id number]:02/06/17Dose:0.5mLRoute:IMSite:L DltdGiven By:CLOVER signed Aletha Radiology - Cervical SpineBy: Red On: 03-Nov-2014 Intent Aletha KOROMA DO, Kathleen Aerosol Treatment (70738)By: Shannon On: 03-Oct-2014 Intent Natali PEREZ EKG (27767)By: Aletha Moon DO On: 03-Apr-2014 Intent Aletha Moon DO Comments: nsr no acute chg IMMUNIZ ADMNIN, 1 VAC, SNGL/COMBO On: 12-Aug-2013 Intent (39554)By: Mima Cruz Comments: diluentLot:[id number]:12/23Dose:0.7mLRoute:sub qSite:l armGiven By:CLOVER signedzostavacLot:[id number]:05/07/14Dose:0.65mLRoute:sub qSite:l armGiven By:CLOVER signed ZOSTER VACC, [place] (84358)By: Anthony, On: 12-Aug-2013 Intent Mima Radiology - Femur - RightBy: Red On: 30-Jul-2012 Intent Aletha KOROMA DO, Kathleen Radiology - Hip - RightBy: Red On: 30-Jul-2012 Intent Aletha KROOMA DO, Kathleen SPECIMEN HNDLNG/TRNSPRT, OFFC > LAB On: 15-Aug-2011 Intent (58747)By: Marco Antonio LEAVITT, Pamela Ramon Ear Irrigation (95404)By: Red On: 21-Oct-2010 Aletha Foy DO, DO, Kathleen Comments: R-- tolerated well Eprescribed prescriptions (G8553)By: On: 21-Oct-2010 Intent Aletha Moon DO, DO, Kathleen Wax CurettesBy: Aletha Moon DO On: 21-Oct-2010 Intent Aletha Moon DO Echo CompleteBy: Aletha Moon DO On: 15-Jul-2010 Intent Aletha Moon DO EKG (96182)By: Aletha Moon DO On: 03-Jun-2010 Intent Aletha Moon DO Comments: nsr no acute changes TDAP VACCINE >7 IM (31361)By: Red On: 03-Jun-2010 Intent Aletha KOROMA DO, Kathleen Comments: Lot:[id number]:06-12-12Amt:0.5ccRoute:imSite:ltGiven By: MARY ANN Sanon EKG (33560)By: Aletha Moon DO On: 28-Mar-2009 Intent Aletha Moon DO Comments: nsr no avute changes TDAP VACCINE >7 IM (50682)By: Red On: 28-Mar-2009 Intent Aletha KOROMA DO, Kathleen Comments: Tdap given in Left DeltoidLot# [id number] 07-14-2011 EKG (10579)By: Aletha Moon DO On: 14-Feb-2008 Intent Aletha [...] hospitalization note: (rt hip pain went to [facility] er sat and he said it [...] patient does not have durable power of employee benefits attorney or living will. Other providers contributing to the patient's care are lease operator and gastrologist. Encounter Diagnosis: BMI 25.0-25.9,adult, Non-smoker, [...] into care from a hospital (was at [facility] and had a echo and said [...]
--- OUTSIDE RECORDS SUMMARY | 2018-08-17 20:51 | XMS RPT_ITS | Continuity of Care Document ---
:1950 Author Organization [facility] Address [facility] [facility] [address] [place] [address] Phone Care Team Providers Name Role Phone Aletha Moon DO Unavailable [facility], [facility] Unavailable MARY ANN Gardner [...] Procedure Dates Details PNEUM VAC ADLT/IMUMNOSPR, SBC/INTRM (46980) Date: 28-May-2015 Completed 28-May-2015 Heart Surgery Completed Heart Valve Surgery Completed Comments: Date Value Details 29-Jan-2018 Inital Evaluation (1) - PT Result: Comments: See Note; NOTES: [facility] Physical Therapy [facility] [address] [place] [address] Fax REHABILITATION SERVICES INITIAL EVALUATION MR#: [id number] Acct: [id number] Name: IZABEL GARCÍA Rep #: [id number] : 1950 67 From: Tyron Steinberg PT, [...] to be FAXED BACK to us at [phone] for Medicare purposes. Please let me know if there are questions or concerns regarding this plan of care. Physician Signature: Date: <Electronically signed by Tyron Steinberg PT, Cert. T, [facility]> 01/29/18 0835 CC: Aletha Moon DO LAURIE Signed Fo r Medicare only, by signing this I certify the plan of care. Physicians Signature Date 06-Nov-2016 Finger(s) Min 2 Views Result: Comments: See Note; NOTES: [facility] Imaging Services [address] [place] [address] Verdana 4d Finger(s) Min 2 Views MR#: [id number] Acct: [id number] Name: IZABEL GARCÍA ep #: [id number] : 1950 M 66 From: aTnner Shaffer MD PCP: Aletha Moon DO Status: REG CLI Study: Finger(s) Min 2 Views Date of Exam: 11/06/16 Exam# [id number] Ordering Dr: Itzel Moon DO STUDY: X-RAY [...] Matthew Meyer MD at 13:48 EDT Tel [phone], Service support [phone], CC: Aletha Moon DO Data Center Consultant: Signed 20-Jun-2015 Sinus/Facial Bone Result: Comments: See Note; NOTES: [facility] Imaging Services [address] [place] [address] Verdana 4d Sinus/Facial Bone MR#: [id number] Acct: [id number] Name: DM GARCÍA Carito Rep #: [id number] : 1950 65 From: Claribel Luna MD PCP: Aletha Moon DO Status: REG CLI Study: Sinus/Facial Bone Date of Exam: 06/20/15 Exam# [id number] Ordering Dr: Mauri Lopez MD STUDY: CT [...] at 22:37 EST Tel , Service support [phone], CC: Satinder Chavez MD; Aletha Moon DO Data Center Consultant: Signed 17-Jan-2015 Emergency Department Summary Result: Comments: See Note; NOTES: [facility] Medical Records Department [address] [place] [address] Emergency Department Summary MR#: [id number] Acct: [id number] Name: IZABEL CERDA Rep #: [id number] : 1950 64 From: Izabel Jones MD PCP: Aletha Moon DO Status: [facility] ER DATE OF SERVICE: 01/15/2015 METHOD [...] Aletha Moon DO T: RAINE J OB: [id number] 01/17/15 0902 <Electronically signed by Izabel Jones MD> Date Izabel Jones MD CC: Aletha Moon DO Date Dictated: 1839 Date Transcribed: 01/15/151839 Data Center Consultant: Signed 16-Jan-2015 12 Lead Electrocardiogram Result: Comments: See Note; NOTES: [facility] Cardiovascular Services [address] [place] [address] 12 Lead EKG 01/15/15 1645 MR#: [id number] Acct: [id number] Name: BRANDIE GARCÍA Rep #: [id number] : 1950 64 From: Roberto Haynes MD [...] ECG Confirmed by IVY LEAVITT, ROBERTO ([id number]), proposal editor GEO WATTERS ([id number]) on 01/16/2015 9:52:23 AM Referred By: PRINCESS Confirmed By:ROBERTO HAYNES MD 01/16/15 0952 Date ____ Roberto Haynes MD CC: Aletha Moon DO Date Dictated: 01/15/151644 Date Transcribed: 01/15/151644 Data Center Consultant: Signed 15-Jan-2015 Discharge Instruction Result: Comments: See Note; NOTES: [facility] Medical Records Department [address] [place] [address] Discharge Instruction 01/15/151835 MR#: [id number] Acct: [id number] Name: IZABEL GARCÍA Rep #: [id number] : 1950 64 From: Izabel Jones MD [...] chest pain, or any unexpected problems, contact the [facility] doctor. Call [facility] ([phone]) or report to the closest Emergency Room. Call 911 if necessary. 01/15/151836 <Electronically signed by Izabel Jones MD> Date Izabel Jones MD Cosigner Signature (If Indicated): Date CC: Aletha Moon DO 17-Nov-2014 Inital Evaluation - PT Result: Comments: See Note; NOTES: [facility] Physical Therapy [address] [place] [address] Fax REHABILITATION SERVICES INITIAL EVALUATION MR#: [id number] Acct: [id number] Name: IZABEL GARCÍA Rep #: [id number] : 1950 64 From: Socorro Dejesus Referring Dr.: Aletha Moon DO Status: REG R Insurance: M ED M[employer] TPA Eval Date: DATE OF SERVICE: 11/10/2014 SUBJECTIVE: This patient was referred to physical therapy by Dr. Aletha Moon with diagnoses of neck pain, cervical radiculitis and trap ezius spasm. 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 Bilateral upper [...] care. Socorro Dejesus, PT T: NTS JOB: [id number] <Electronically signed by Socorro Dejesus &# 62; 11/17/14 1538 CC: Signed For Medicare only, by signing this I certify the plan of care. Physicians Signature Date 03-Nov-2014 Cerv Spine 4 or 5 Views Result: Comments: See Note; NOTES: [facility] Imaging Services [address] [place] [address] Radiology Report MR#: [id number] Acct: [id number] Name: IZABEL GARCÍA Rep #: [id number] : 1950 M 64 From: Carter Pavon MD PCP: Aletha Moon DO Status: REG CLI Study: Cerv Spine 4 or 5 Views Date of Exam: 11/03/14 Exam# [id number] Ordering Dr: Aletha Moon DO STUDY: X-RAY [...] MD at 19:55 EDT , Service support [phone], CC: Aletha Moon DO Data Center Consultant: Signed Immunization Name Dates Details Pneumococcal (2 years and up) on: 28-May-2015 Comments: Site: Deltoid (Left) Lot #: [id number] Tdap (7 years and up) on: 28-Mar-2009 Comments: Tdap given in Left DeltoidLot# [id number] 07-14-2011 Social History Name Dates Details Caffeine [...] smoker Vital Signs Date Test Result Details 78-Did-77511:23 Comments: Dr. Mcneill and had a glaucoma [...] kg/m2 Body Surface Area Calculated 2.06 m2 28-Zvm-828708:23 Temperature 96.6 f Comments: Method: Oral Pulse [...] 0.00 cm Results Date Description Value Details 20-Bjr-488944:55 Urinalysis, Office (90692) UA - LEUKOCYTE ESTERASE Trace (Normal) UA - NITRITE Negative (Normal) URINE UROBILINGN SHANIQUE TIMED Normal mg/dL (Normal) UA - PROTEIN Negative mg/dL (Normal) UA - PH 6 (Abnormal) UA - BLOOD Non Hemolyzed Trace (Normal) UA - SPECIFIC GRAVITY 1.025 (Normal) UA - KETONES Negative mg/dL (Normal) UA - BILIRUBIN Negative (Normal) UA - GLUCOSE Negative (Normal) 16-Btq-73857:36 THROAT CULTURE (84343) Comments: PATIENT NOT FASTINGPERFORMED BY: Gayatrishakti Paper & BoardsCaroMont [facility] [id number] Information: SRC:TH Result 1 RRF (Normal) Comments: Routine respiratory natalie Upper Respiratory Culture Final report (Normal) 58-Ivd-24035:01 Rapid Strep Test, Office (47263) Rapid Strep Test, Office Negative (Normal) 95-Tqe-248958:48 PSA (Medicare - G0103) Comments: PATIENT WAS FASTINGPERFORMED BY: [facility]atrishakti Paper & BoardsCaro[facility] [id number] (40275) Prostate Specific Ag, 0.8 ng/mL (Normal) Range: 0.0-4.0 Serum Comments: Inside Secure ECLIA methodology. .According to the [place] [employer], Serum PSA shoulddecrease and remain at undetectable levels after radicalprostatectomy. The AUA defines biochemical recurrence as an initialPSA value 0.2 ng/mL or greater followed by a subsequent confirmatoryPSA value 0.2 ng/mL or greater.Values obtained with d ifferent assay methods or kits cannot be usedinterchangeably. Results cannot be interpreted as absolute evidenceof the presence or absence of malignant disease. 69-Wdw-716983:48 TSH (23884) Comments: PATIENT WAS FASTINGPERFORMED BY: [facility]rish[facility]ardsCar[facility] [id number] TSH 0.464 {uIU/mL} (Normal) Range: 0.450-4.500 58-Dof-147124:48 Metabolic Panel, Comprehensive Comments: PATIENT WAS FASTINGPERFORMED BY: [facility] Qfhnfn5847 [facility] [id number] (14530) ALT (SGPT) 26 [iU]/L (Normal) Range: 0-44 [...] 8-27 Glucose 98 mg/dL (Normal) Range: 65-99 36-Oxe-656770:48 Lipid Panel (35840) Comments: PATIENT WAS FASTINGPERFORMED BY: 139shopAtlantic Rehabilitation InstituteDxqngr4610 [facility] [id number] LDL/HDL Ratio 2.4 {ratio} (Normal) Range: 0.0-3.6 Comments: LDL/HDL Ratio Men Women 1/2 Avg.Risk 1.0 1.5 Av g.Risk 3.6 3.2 2X Avg.Risk 6.2 5.0 3X Avg.Risk 8.0 6.1 LDL Cholesterol Calc 92 mg/dL (Normal) Range: 0-99 VLDL Cholesterol Brandon 29 mg/dL (Normal) Range: 5-40 HDL Cholesterol 38 mg/dL (Abnormal) Triglycerides 146 mg/dL (Normal) Range: 0-149 Cholesterol, Total 159 mg/dL (Normal) Range: 100-199 82-Udb-685661:48 URINALYSIS (97739) Comments: PATIENT WAS FASTINGPERFORMED BY: [employer] [facility] [id number] Microscopic Examination MICNIP (Normal) Comments: Microscopic not indicated and not performed. Nitrite, Urine Negative (Normal) Urobilinogen,Semi-Qn 0.2 mg/dL (Normal) Range: 0.2-1.0 Bilirubin Negative (Normal) Occult Blood Negative (Normal) Ketones Negative (Normal) Glucose Negative (Normal) Protein Trace (Normal) WBC Esterase Negative (Normal) Appearance Clear (Normal) Urine-Color Yellow (Normal) pH 7.0 (Normal) Range: 5.0-7.5 Specific [place] 1.026 (Normal) Range: 1.005-1.030 46-Xbu-151236:48 MICROALBUMIN: CREATININE RATIO Comments: PATIENT WAS FASTINGPERFORMED BY: [facility] Neqakh2655 [facility] [id number] (44700) AND (20226) Alb/Creat Ratio 9.9 {mg/g_creat} (Normal) Range: 0.0-30.0 Albumin, Urine 19.3 ug/mL (Normal) Creatinine, Urine 194.2 mg/dL (Normal) 87-Uve-679712:48 CBC WITH MANUAL DIFF (20999) Comments: PATIENT WAS FASTINGPERFORMED BY: 139shopAtlantic Rehabilitation InstitutePrqpnn7472 [facility] [id number] Immature Grans (Abs) 0.0 {x10E3/uL} (Normal) Range: [...] {x10E3/uL} (Normal) Range: 3.4-10.8 :00 Homocysteine, Plasma (60149) Comments: PATIENT NOT FASTINGPERFORMED BY: CB [facility] Ucqgag4802 [facility] [id number] Homocyst(e)ine, Plasma 11.5 umol/L (Normal) Range: 0.0-15.0 :41 MTHFR (01452) Comments: PATIENT NOT FASTINGPERFORMED BY: TG [facility] CJB2654 [facility] [id number] MTHFR, DNA Analysis JYX195 (Normal) Comments: Result: C677T/C677T Two copies of the same mutation (C677T and C677T) identified .Interpretation: .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 Homozygosity for kgvI982M mutation confers an increased risk for the [...] two common variants in the MTHFR gene, c.655c>T(p.Nzu585Xevp), referred to as C677T, and c.1286A>C (p.Eyu861Tmm),referred to as Y6851F. Individuals homozygous for C677T (two copiesof the variant), have decreased activity of the MTHFR enzyme and apredisposition to hyperhomocysteinemia, particularly when deficient infolate. Hyperhomocysteinemia is a risk factor for venous thrombosisand c oronary artery disease and is associated with an increased riskof open neural tube defects. The C677T variant does notindependently increase risk of these conditions in the absence ofhyperhomocyst einemia. The B3861I variant is not associated withelevated homocysteine levels unless a C677T variant is also present;however, the clinical significance of heterozygosity for both K364Osga F8540G is con troversial. Population data suggest that these twovariants are not present on the same chromosome, but rare exceptionshave been reported of triple variant MTHFR genotypes (ie. homozygousfor one variant and heterozygous for the other). Homozygosity kwxW220X has an estimated frequency of 10% to 15% in Caucasians and 25%in Hispanics. .Ad ditional information:Dietary folic acid, B6 and B12 supplementation has been suggested tolower homocysteine levels in some people. Folic acid supplementationhas been shown to reduce the occurrence of ne ural tube defects. .Genetic counselors are available for health care providers to discussresults at [phone]. .Methodology:DNA analysis of the MTHFR gene was performed by PCRamplification followed by restriction analysis. Thediagnostic sensitivity is >99% for both. Molecular-basedtesting is highly accurate, but as in any laboratory test,rare diagnostic errors may occur. All test results must becombined with clinical information for the most accurateinterpre tation. .This test was developed and its performance characteristicsdetermined by [facility]. It has not been cleared or approved byUT [facility] od and Drug Administration. .References:Sima LD, Franklyn Q. Am J Epidemiol 2000; 151(9):862-877.Kurt MM, Rhiannon JA. Arch Pathol Lab Med 2007; 131(6):872-884.Frosst P et al. Nuris Fifi 1995; 10(1):111-113.Hickey SE et al. Fifi Med 2013; 15(2):153-156.[place] C et al. Obstet Gynecol 2011; 118(3):730-740.Nicolas B et al. Eur J Epidemio l 2013; 28(8):621-647. .Nba Lopes, PhD, Raphael Valladares, PhD, Jose Yepez, PhD, Armand Flores M.SZbigniew, PhD, Jane Castaneda, PhD, Georgia Mcgee, PhD, ALTAFam Rosa, PhD, [facility] 7-Ord-789435:52 Miscellaneous Lab Procedure Comments: Test(s) Ordered: [id number] ALLERGEN PROFILE FOOD IGE W REFL 3TI [facility] [address] [place], [place], [id number] [facility] Comments: TEST RESULT LIMITSIgE Food w/Component Reflex IIClass DescriptionLevels of Specific IgE Class Description of Class ----- --------- LAB (Normal) < 0.10 0 Negative 0.10 - 0.31 0/I Equivocal/Low 0.32 - 0.55 I Low 0.56 - 1.40 TEST II Moderate 1.41 - 3.90 III High 3.91 - 19.00 IV Very High 19.01 - 100.00 V Very High >100.0 0 Very NihdM800-RqX Clam <0.10 kU/L Class 4S218-ChV Codfish <0.10 kU/L Class 0F008- IgE [place] <0.10 kU/L Class 5Z081-KjF Scallop 0.12 Abnormal kU/L Class 0/IF010- IgE Sesame Seed <0.10 kU/L Class 3E684-CiV Shrimp 1.83 Abnormal kU/L Class IMOZ701-QkN Soybean <0.10 kU/L Class 7V417-VsQ Wheat <0.10 kU/L Class 6L766-GrO Milk 0.49 Abnormal kU/L Class IF076- IgE Alpha Lactalbumin 0.19 Abnormal kU /L Class 0/BS775-FbF Beta Lactoglobulin 0.32 Abnormal kU/L Class IF078- IgE Casein 0.20 Abnormal kU/L Class 0/ST810-TsT Egg White 0.12 Abnormal kU/L Class 0/YN348-WxW Peanut 0.12 Abnormal kU/L Class 0/XY514-UqK Margy h 1 <0.10 kU/L Class 0O196-HtC Margy h 2 <0.10 kU/L Class 6K593-ZjI Margy h 3 <0.10 kU/L Class 8Y932-BhN Margy h 8 0.53 Abnormal kU/L Class IF427- IgE Margy h 9 <0.10 kU/L Class 8B087-YuV Hazelnut (Filbert) 1.86 Abnormal kU/L Class TXOF143-SeV Cor a 1 2.55 Abnormal kU/L Class NMGE215-XjK Cor a 8 <0.10 kU/L Class 6O652-TiQ Cor a 9 <0.10 kU/L Class 5T730-GcL Cor a 14 <0.10 kU /L Class 9H717-BrG [place] <0.10 kU/L Class 9H582-OiF Cashew Nut <0.10 kU/L Class 1R672-LrI [place] Nut <0.10 kU/L Class 0*F34 5-IgE Macadamia Nut <0.10 kU/L Class 1G630-SjS Pecan Nut <0.10 kU/L Class 8S606-AbE Pistachio Nut <0.10 kU/L Class 9F850-WiP [place] 0 .31 Abnormal kU/L Class 0/I [facility] ORIGINAL REPORT ON FILE IN LAB CONTAINS ADDITIONAL TEST SITE INFORMATION. :52 Miscellaneous Lab Procedure 2 Comments: List Test(s) Ordered by Physician: [id number], geovannabecarito, [facility] [address] [place], [address] MIS Comments: TEST RESULT IYOEBTM314-IfE Honeybee 0.16 Abnormal kU/L Class 0/I TESTING PERFORMED AT [facility]. ORIG LAB (Normal) INAL REPORT ON FILE IN LAB CONTAINS ADDITIONAL TEST SITE INFORMATION. TEST 2 5-Chd-781480:52 Miscellaneous Lab Procedure 3 Comments: List Test(s) Ordered by Physician: [id number], yellow jacket, 1 [facility] Rqqj[address]kwnv6407 [place], [address] [facility] Comments: TEST RESULT DXBZCJZ462-CyG Yellow [place]et <0.10 kU/L Class 0 TESTING PERFORMED AT [facility]. ORIGI LAB (Normal) NAL REPORT ON FILE IN LAB CONTAINS ADDITIONAL TEST SITE INFORMATION. TEST 3 18-Vuc-543820:44 URINE CHEPE CULTURE-IDENTIFICATN Comments: PATIENT NOT FASTINGPERFORMED BY: 139shopAtlantic Rehabilitation InstituteZgitti5819 Krueger Trendy MondaysCaroMont Regional [facility] [id number] Information: SRC: (32816) Result 1 Yeast isolated. (Abnormal) Comments: 100 Colonies/mL .Request for further identification must be madewithin 1 week. Urine Final report (Abnormal) Culture,Comprehensive 11-Uxd-644634:38 Urinalysis, Office (25467) UA - LEUKOCYTE ESTERASE Moderate (Normal) UA - NITRITE Negative (Normal) URINE UROBILINGN SHANIQUE TIMED Normal mg/dL (Normal) UA - PROTEIN Negative mg/dL (Normal) UA - PH 7 (Normal) UA - BLOOD Hemolyzed Trace (Normal) UA - SPECIFIC GRAVITY 1.025 (Normal) UA - KETONES Negative mg/dL (Normal) UA - BILIRUBIN Negative (Normal) UA - GLUCOSE Negative (Normal) 38-Bvf-278471:13 PSA (PROSTATE SPECIFIC Comments: PATIENT NOT FASTINGPERFORMED BY: [facility] Ypragm1352 Krueger Trendy MondaysCaroMont [facility] [id number] ANTIGEN) (V76.44) Prostate Specific Ag, 0.9 ng/mL (Normal) Range: 0.0-4.0 Serum Comments: [place] ECLIA methodology. .According to the [place] U[employer] Association, Serum PSA shoulddecrease and remain at undetectable levels after radicalprostatectomy. The AUA defines biochemical recurrence as an initialPSA value 0.2 ng/mL or greater followed by a subsequent confirmatoryPSA value 0.2 ng/mL or greater.Values obtained with d ifferent assay methods or kits cannot be usedinterchangeably. Results cannot be interpreted as absolute evidenceof the presence or absence of malignant disease. 51-Kpp-767986:18 Rapid Strep Test, Office (62522) Rapid Strep Test, Office Negative (Normal) 09-Gry-06504:01 CBC W/AUTO DIFF WBC Comments: PATIENT WAS FASTINGPERFORMED BY: [facility]6370 [facility] [id number] Information: T56116, 114125 (13889) Immature Grans (Abs) 0.0 {x10E3/uL} (Normal) Range: [...] 5.6 {x10E3/uL} (Normal) Range: 3.4-10.8 :01 TSH (46768) Comments: PATIENT WAS FASTINGPERFORMED BY: LabCoAtlantic Rehabilitation InstituteLiojjk0939 [facility] [id number] TSH 1.990 {uIU/mL} (Normal) Range: 0.450-4.500 :01 METABOLIC PANEL, COMPREHENSIVE Comments: PATIENT WAS FASTINGPERFORMED BY: LabCoAtl[facility] Rehabilitation InstituteDvmwpz1713 [facility] [id number] (20358) ALT (SGPT) 52 [iU]/L (Abnormal) Range: 0-44 [...] :00 NASAL POLYPS See Note (Normal) Comments: [facility] [address] [place], [place], [address] ; ordered by tip Comments: Patient: IZABEL GARCÍA : 1950 (65/M) Acct Num: [id number] [facility] Unit Num: [id number] Loc: LABSPEC Specimen: [id number] Received: 07/12/15 - 1627 S pec Type: [...] / AM: 07/13/15 TC: 3 CPT : 53434 x2, 93114 x2 HEADER OPERATION: Functional endoscopic sinus surgery, [...] Signed Eric Avila 07/18/15 <signature on file> 23-Voq-395403:10 Basic Metabolic Profile (BMP) Comments: PER AMMERIST AT OFFICE, BMP AND CBCD.[facility] [address] [place], [place], [address] GAP 6 (Normal) Range: 5-15 CO2 29.0 [...] 7-18 GLU 84 mg/dL (Normal) Range: 70-110 36-Lcn-519578:10 CBC W/Diff, Automated Comments: [facility] [address] [place], [place], [id number] Absolute Lymph 1.48 {X10_3/ul} (Normal) Range: 0.83-4.51 [...] FUNCTION PANEL Comments: PATIENT WAS FASTINGPERFORMED BY: Xetal Zvnfap0705 [facility] [id number] (00211) ALT (SGPT) 40 [iU]/L (Normal) Range: 0-44 AST (SGOT) 39 [iU]/L (Normal) Range: 0-40 Alkaline Phosphatase, S 64 [iU]/L (Normal) Range: 39-117 Bilirubin, Direct 0.21 mg/dL (Normal) Range: 0.00-0.40 Bilirubin, Total 0.7 mg/dL (Normal) Range: 0.0-1.2 Albumin, Serum 4.1 g/dL (Normal) Range: 3.6-4.8 Protein, Total, Serum 6.5 g/dL (Normal) Range: 6.0-8.5 :54 LIPID PANEL (62943) Comments: PATIENT WAS FASTINGPERFORMED BY: Xetal Nfqmno3548 [facility] [id number] LDL/HDL Ratio 2.5 {ratio_units} (Normal) Range: 0.0-3.6 [...] #1, #2, #3, or #4: 1Test performed at:[facility] [address] [place] [address] GAP 5 (Normal) Range: 5-15 [...] :45 CBC W/Diff, Automated Comments: Test performed at:[facility] [address] [place] [address] Absolute Lymph 1.04 {X10_3/ul} (Normal) [...] 4.6-6.2 WBC 8.8 K/mm3 (Normal) Range: 4.4-11.0 0-Wev-988748:45 Troponin-I Comments: 'TROP' Serial specimen #1, #2, #3, or #4: 1Test performed at:[facility] [address] [place] [id number] TROPONIN-I < 0.02 ng/mL (Normal) Comments: TROPONIN-I EXPECTED VALUES <0.05 NEGATIVE 0.06 - 0.59 AT RISK OF TN > OR = 0.60 SUGGEST TN 27-Zio-790806:26 Rapid Flu (22466 x 2) Influenza A Ag positive A (Normal) 0-Ujf-297734:24 DHEA, Serum Comments: PATIENT NOT FASTINGPERFORMED BY: [employer] [facility] [id number] BY: [address] [id number] Dehydroepiandrosterone (DHEA) 45 ng/dL (Normal) Range: 31-701 [...] - 491 >19 years 31 - 701 2-Bfp-981385:24 TESTOSTERONE TOTAL (94769) Comments: PATIENT NOT FASTINGPERFORMED BY: [employer] [facility] [id number] BY: [place]shop[place] [address] [facility] [id number] Comment: TESTM (Normal) Comments: Adult male reference interval is based on a population of lean malesup to 40 years old. Testosterone, Serum 409 ng/dL (Normal) Range: 348-1197 :24 PSA (PROSTATE SPECIFIC Comments: PATIENT NOT FASTINGPERFORMED BY: EnterCloud SolutionsAtlantic Rehabilitation InstituteNbwvtn7105 [facility] [id number] BY: [address] [id number] ANTIGEN) (39367) Prostate Specific Ag, 0.8 ng/mL (Normal) Range: 0.0-4.0 Serum Comments: Glycos BiotechnologiesIA methodology. .According to the [place] U[employer] Association, Serum PSA shoulddecrease and remain [...] Metabolic Panel, Comments: PATIENT NOT FASTINGPERFORMED BY: Xetal Yrmzee5166 [facility] [id number] BY: [address] [id number] Comprehensive (53607) ALT (SGPT) 35 [iU]/L (Normal) Range: 0-44 [...] Glucose, Serum 81 mg/dL (Normal) Range: 65-99 9-Caf-433063:24 CBC WITH MANUAL DIFF Comments: PATIENT NOT FASTINGPERFORMED BY: CB [facility] Ijalge1768 [facility] [id number] BY: BN [facility] [address] [id number] Inf ormation: [id number] (81350) Immature Grans (Abs) 0.0 {x10E3/uL} (Normal) Range: [...] 4.6 {x10E3/uL} (Normal) Range: 3.4-10.8 :24 TSH (24686) Comments: PATIENT NOT FASTINGPERFORMED BY: [employer] [facility] [id number] BY: LabCo[address] [id number] TSH 0.573 {uIU/mL} (Normal) Range: 0.450-4.500 :02 HEMOGLOBIN GLYCLATED (HGB A1C) Comments: PERFORMED BY: [employer] [facility] [id number] (09476) Hemoglobin A1c 5.1 % (Normal) Range: 4.8-5.6 Comments: . Increased risk for diabetes: 5.7 - 6.4 Diabetes: >6.4 Glycemic control for adults with diabetes: <7.0 :02 PSA (PROSTATE SPECIFIC Comments: PERFORMED BY: [employer] [facility] [id number] ANTIGEN) (40140) Prostate Specific Ag, 0.8 ng/mL (Normal) Range: 0.0-4.0 Serum Comments: [place] ECLIA methodology. .According to the [place] U[employer] Association, Serum PSA shoulddecrease and remain [...] :02 TSH (THYROID STIMULATING Comments: PERFORMED BY: 139shopMountain View Regional Medical CenterGatdrc1797 [facility] [id number] HORMONE) (06144) TSH 0.985 {uIU/mL} (Normal) Range: 0.450-4.500 :02 URINALYSIS W MICROSCOPY (80802) Comments: PERFORMED BY: [employer] Eicyeh8775 [facility] [facility] [id number] Microscopic Examination MICNIP (Normal) Comments: Microscopic not indicated and not performed. Nitrite, Urine Negative (Normal) Urobilinogen,Semi-Qn 0.2 mg/dL (Normal) Range: 0.0-1.9 Bilirubin Negative (Normal) Occult Blood Negative (Normal) Ketones Negative (Normal) Glucose Negative (Normal) Protein Trace (Normal) Appearance Clear (Normal) WBC Esterase Negative (Normal) pH 7.5 (Normal) Range: 5.0-7.5 Urine-Color Yellow (Normal) Specific [place] 1.020 (Normal) Range: 1.005-1.030 :02 MICROALB;CREAT RATION, RAND UR Comments: PERFORMED BY: [employer] [facility] [id number] ([id number]) Microalb/Creat Ratio 3.5 {mg/g_creat} (Normal) Range: 0.0-30.0 Creatinine, Urine 163.4 mg/dL (Normal) Range: 22.0-328.0 Microalbumin, Urine 5.7 ug/mL (Normal) Range: 0.0-17.0 :02 METABOLIC PANEL, COMPREHENSIVE Comments: PERFORMED BY: 139shop [employer] [facility] [id number] ([id number]) ALT (SGPT) 29 [iU]/L (Normal) Range: 0-44 [...] mg/dL (Normal) Range: 65-99 :02 LIPID PANEL (44592) Comments: PERFORMED BY: [employer]ak[employer] BoardsCaroMont [facility] [id number] LDL/HDL Ratio 2.0 {ratio_units} (Normal) Range: 0.0-3.6 LDL Cholesterol Calc 73 mg/dL (Normal) Range: 0-99 VLDL Cholesterol Brandon 22 mg/dL (Normal) Range: 5-40 HDL Cholesterol 37 mg/dL (Abnormal) Comments: According to ATP-III Guidelines, HDL-C >59 mg/dL is considered anegative risk factor for CHD. Triglycerides 109 mg/dL (Normal) Range: 0-149 Cholesterol, Total 132 mg/dL (Normal) Range: 100-199 :02 CBC with manual diff (07202) Comments: PERFORMED BY: 91datong.comAt[facility] [id number] Immature Grans (Abs) 0.0 {x10E3/uL} (Normal) Range: [...] Microscopic Examination Comments: PATIENT WAS FASTINGPERFORMED BY: CloudAccesslin6370 [facility] [id number] Bacteria None seen (Normal) Mucus Threads Present (Normal) Epithelial Cells (non renal) None seen {/hpf} (Normal) Range: 0 - 10 RBC 0-3 {/hpf} (Normal) Range: 0 - 3 WBC 0-5 {/hpf} (Normal) Range: 0 - 5 :21 PSA (PROSTATE SPECIFIC Comments: PATIENT WAS FASTINGPERFORMED BY: [employer] [facility] [id number] ANTIGEN) (V76.44) Prostate Specific Ag, 0.8 ng/mL (Normal) Range: 0.0-4.0 Serum Comments: [place] ECLIA methodology. .According to the [place] [employer], Serum PSA shoulddecrease and remain [...] (HGB A1C) Comments: PATIENT WAS FASTINGPERFORMED BY: [employer] Pyqgqi1204 [facility] [id number] ([id number]) Hemoglobin A1c 5.4 % (Normal) Range: 4.8-5.6 Comments: . Increased risk for diabetes: 5.7 - 6.4 Diabetes: >6.4 Glycemic control for adults with diabetes: <7.0 :21 TSH (57320) Comments: PATIENT WAS FASTINGPERFORMED BY: AgInfoLink6370 [facility] [id number] TSH 1.280 {uIU/mL} (Normal) Range: 0.450-4.500 :21 URINALYSIS, W/ MICRO (64011) Comments: PATIENT WAS FASTINGPERFORMED BY: CloudAccesslin6370 [facility] [id number] Microscopic Examination See below: (Normal) Microscopic Examination MICRON (Normal) Comments: Microscopic follows if indicated. Nitrite, Urine Negative (Normal) Urobilinogen,Semi-Qn 0.2 mg/dL (Normal) Range: 0.0-1.9 Bilirubin Negative (Normal) Occult Blood Negative (Normal) Ketones Negative (Normal) Glucose Negative (Normal) Protein Negative (Normal) WBC Esterase Negative (Normal) Appearance Clear (Normal) Urine-Color Yellow (Normal) pH 6.5 (Normal) Range: 5.0-7.5 Specific [place] 1.014 (Normal) Range: 1.005-1.030 :21 MICROALBUMIN: CREATININE RATIO Comments: PATIENT WAS FASTINGPERFORMED BY: [employer]70 [facility] [id number] ([id number]) AND (46630) Microalb/Creat Ratio 2.6 {mg/g_creat} (Normal) Range: 0.0-30.0 Creatinine, Urine 97.0 mg/dL (Normal) Range: 22.0-328.0 Microalbumin, Urine 2.5 ug/mL (Normal) Range: 0.0-17.0 :21 METABOLIC PANEL, COMPREHENSIVE Comments: PATIENT WAS FASTINGPERFORMED BY: [employer]70 [facility] FoodyAt[facility] [id number] ([id number]) ALT (SGPT) 32 [iU]/L (Normal) Range: 0-44 [...] mg/dL (Normal) Range: 65-99 :21 LIPID PANEL (94473) Comments: PATIENT WAS FASTINGPERFORMED BY: 139shopAtlantic Rehabilitation InstituteIfjjcs6672 [facility] [id number] LDL Cholesterol Calc 82 mg/dL (Normal) Range: [...] MANUAL DIFF Comments: PATIENT WAS FASTINGPERFORMED BY: LabOffermaticAtlantic Rehabilitation InstituteNlpriq6977 [facility] [id number] Information: [id number] ([id number]) Immature Grans (Abs) 0.0 {x10E3/uL} (Normal) Range: [...] 4.14-5.80 WBC 5.6 {x10E3/uL} (Normal) Range: 4.0-10.5 44-Lha-076610:11 FEMUR,2 VIEWS Radiology Report See Note (Normal) Comments: PROCEDURE: X-RAY - RIGHT FEMUR REASON FOR STUDY: Male, 62 years old. Right hip pain. TECHNIQUE: Four views of the femur. COMPARISON: None. FINDINGS:Normal visualized femur. Normal visualized so ft tissue structure. IMPRESSION:Normal x-ray examination of the femur. Signed:Tanner Shaffer M.D.July 30, 2012 at 2:34:05 PM [id number] Signed GP/GP If you are the referring physician and would like to consult with theradiologist who provided this interpretation, please contact Scar Nazario at [phone]. If this radiologist is unavailable, youwill be directed to another radiologist to assist. If you are a patient with a question regarding this report, pleasecontactyour referring physician directly. Professional Interpretation Provided By: [employer] [facility], Phone , These documents contain legally protected [...] (Normal) UCOL YELLOW (Normal) :35 CHEPE CULTURE-OTHER (22974) Comments: PATIENT NOT FASTINGPERFORMED BY: HERMELINDA [facility] Qsxcft4963 [place] [id number] Information: SRC:MARGARITA [id number] Result 1 RRF (Normal) Comments: Routine respiratory natalie Upper Respiratory Culture Final report (Normal) :04 Rapid Strep Test, Office (99231) Rapid Strep Test, Office Negative (Normal) :00 [...] LDL/HDL Comments: PATIENT WAS FASTINGPERFORMED BY: [facility] Cupznn8027 [facility] [id number] Ratio LDL/HDL Ratio 3.1 {ratio_units} (Normal) Range: 0.0-3.6 LDL Cholesterol Calc 109 mg/dL (Abnormal) Range: 0-99 VLDL Cholesterol Brandon 21 mg/dL (Normal) Range: 5-40 HDL Cholesterol 35 mg/dL (Abnormal) Comments: According to ATP-III Guidelines, HDL-C >59 mg/dL is considered anegative risk factor for CHD. Triglycerides 103 mg/dL (Normal) Range: 0-149 Cholesterol, Total 165 mg/dL (Normal) Range: 100-199 58-Cwm-677039:35 B12/FOLATES FOLATES 18.60 ng/mL (Abnormal) Range: 3.1-17.5 VITAMIN B12 440 pg/mL (Normal) Range: 254-1320 47-Oqb-110153:35 C-REACTIVE PROT < 2.90 mg/L (Normal) Range: [...] Range: 0.358-3.74 :56 CBC WITH MANUAL DIFF (77842) Comments: PATIENT NOT FASTINGClinical Information: ADD [id number], [id number] PERFORMED BY: LabCoAtlantic Rehabilitation InstituteNoyjtm5530 [facility] [id number] Baso (Absolute) 0.0 {x10E3/uL} (Normal) Range: 0.0-0.2 [...] (ANTINUCLEAR ANTIBODY) Comments: PATIENT NOT FASTINGPERFORMED BY: [employer] [facility] [id number] (76879) Antinuclear Antibodies Direct Negative (Normal) :56 PT (Prothrobim Time) (74979) Comments: PATIENT NOT FASTINGPERFORMED BY: CloudAccesslin6370 [facility] [id number] INR 1.0 (Normal) Range: 0.8-1.2 Comments: Reference interval is for non-anticoagulated patients. . Suggested INR therapeutic range for Vitamin K anta gonist therapy: Standard Dose (moderate intensity therapeutic range): 2.0 - 3.0 Higher intensity therapeutic range 2.5 - 3.5 Prothrombin Time 10.7 {sec} (Normal) Range: 8.7-11.5 :56 PTT (Activated Partial Comments: PATIENT NOT FASTINGPERFORMED BY: [employer] [facility] [id number] Thromboplastin Time) (74354) aPTT 31 {sec} (Normal) Range: 24-33 Comments: This test has not been validated for monitoring unfractionated heparintherapy. aPTT-based therapeutic ranges for unfractionated heparintherapy have not been established. For general guidelines onHeparin monitoring, refer to the [facility] Directory of Services. :25 CBC With Differential/Platelet Comments: PATIENT WAS FASTINGPERFORMED BY: LabLauren Ville [id number] [facility] [id number] Baso (Absolute) 0.0 {x10E3/uL} (Normal) Range: 0.0-0.2 [...] Panel (14) Comments: PATIENT WAS FASTINGPERFORMED BY: Mutracxlin6370 [facility] [id number] A/G Ratio 2.0 (Normal) Range: 1.1-2.5 Albumin, [...] Sodium, Serum 138 mmol/L (Normal) Range: 135-145 89-Hci-29484:25 Hepatic Function Panel (7) Comments: PATIENT WAS FASTINGPERFORMED BY: e-channel Tajpbc2928 [facility] [id number] Bilirubin, Direct 0.27 mg/dL (Normal) Range: 0.00-0.40 :25 Lipid Panel With LDL/HDL Comments: PATIENT WAS FASTINGPERFORMED BY: AgInfoLink6370 [facility] [id number] Ratio Cholesterol, Total 165 mg/dL (Normal) Range: [...] Ag, Serum Comments: PATIENT WAS FASTINGPERFORMED BY: AgInfoLink6370 [facility] [id number] Prostate Specific Ag, Serum 0.7 ng/mL (Normal) Range: 0.0-4.0 Comments: [employer]cos [employer]ote[employer]IA methodology. .According to the [place] [employer], PSA should beundetectable after radical prostatectomy. A PSA of less than0.5 ng/mL (or undetectable) is not likely to be associated withdisease recurrence within five years of treatment.Values obtained with different assay methods or kits cannot be usedinterchang eably. Results cannot be interpreted as absolute evidenceof the presence or absence of malignant disease. :25 Urinalysis, Routine Comments: PATIENT WAS FASTINGPERFORMED BY: AgInfoLink6370 [facility] [id number] Appearance Clear (Normal) Bilirubin Negative (Normal) Glucose Negative (Normal) Ketones Negative (Normal) Microscopic Examination MICRON (Normal) Comments: Microscopic follows if indicated. Nitrite, Urine Negative (Normal) Occult Blood Negative (Normal) pH 7.0 (Normal) Range: 5.0-7.5 Protein Negative (Normal) Specific [place] 1.018 (Normal) Range: 1.005-1.030 Urine-Color Yellow (Normal) Urobilinogen,Semi-Qn 0.2 mg/dL (Normal) Range: 0.0-1.9 WBC Esterase Negative (Normal) 94-Joe-02461:28 CHEPE CULTURE-OTHER (91334) Comments: PATIENT NOT FASTINGClinical Information: SRC:THRT ADD [id number] PERFORMED BY: 139shopMountain View Regional Medical CenterEvtlsj9058 [facility] [id number] Result 1 RRF (Normal) Comments: Routine respiratory natalie Upper Respiratory Culture Final report (Normal) :52 Rapid Strep Test, Office (13305) Rapid Strep Test, Office Negative (Normal) Comments: [...] was performed using the TPSA method for theBCR EnvironmentalCapella Photonics chemistry system.Values obtained with different assay methods cannot be usedinterchangably.When changing PSA assays in the course of monito ring apatient, additional sequential testing should be carriedout to confirm baseline values. :36 Upper Respiratory Culture Comments: Clinical Information: SRC:TH PERFORMED BY: 139shopAtlantic Rehabilitation InstituteAbvucf0755 [facility] [id number] Result 1 RRF (Normal) Comments: Routine respiratory natalie Upper Respiratory Culture Final report (Normal) :51 Rapid Strep Test, Office (36208) Comments: done km Rapid Strep Test, Office Negative (Normal) 4-Bpe-368780:42 COLON BX P-COLBX (Normal) Comments: OPERATION Colonoscopy [...] right and left colon biopsies from 04/29/01 ([id number]) in which mild architectural change was identified. [...] THROAT See Note (Normal) Comments: Normal throat natlaie isolated. No beta-hemolyticstreptococcus isolated. Plan of Care [...] abnormal findings) Other ulcerative colitis : Reviewed Logistics Account Manager Letter Indication: Other ulcerative colitis Esophageal reflux disease : GERD Education Indication: Esophageal reflux disease Other and unspecified hyperlipidemia : Cholesterol mgmt Indication: Other and unspecified hyperlipidemia Hypertensive heart disease without congestive heart failure : HTN/CAD Red Flags Indication: Hypertensive heart disease without congestive heart failure Atrial fibrillation, controlled : Continue Current Prescription(s) Indication: Atrial fibrillation, controlled Atrial fibrillation, controlled : Reviewed Logistics Account Manager Letter Indication: Atrial fibrillation, controlled Non-smoker : [...] Indication: Heart murmur Heart murmur : Reviewed Logistics Account Manager Letter Indication: Heart murmur Benign essential hypertension [...] disease without congestive heart failure : Reviewed Logistics Account Manager Letter: had stress echo in 07/21 Indication: [...] Other and unspecified hyperlipidemia Planned Observations TSH (88577)Indication: Atrial fibrillation, controlled On: :56 Request URINALYSIS, W/ MICRO (40074)Indication: Hypertensive heart disease without congestive heart failure On: :56 Request MICROALBUMIN: CREATININE RATIO (61830) AND (75732)Indication: Hypertensive heart disease without congestive heart failure On: :56 Request METABOLIC PANEL, COMPREHENSIVE (31061)Indication: Hypertensive heart disease without congestive heart failure On: :56 Request LIPOPROTEIN, BLD, BY NMR (81969)Indication: Other and unspecified hyperlipidemia On: :55 Request CBC W/AUTO DIFF WBC (81373)Indication: Hypertensive heart disease without congestive heart failure On: :55 Request Lipid Panel (70338)Indication: Other and unspecified hyperlipidemia On: 4-Itv-826953:05 Request Comments: do in 6 mo HEPATIC FUNCTION PANEL (49000)Indication: Other and unspecified hyperlipidemia On: 0-Hxw-423415:05 Request Comments: do in 6 mo DHEA (DEHYDROEPIANDROSTERONE) (57860)Indication: ED (erectile dysfunction) On: :31 Request MICROALBUMIN: CREATININE RATIO (58203) AND (98543)Indication: Benign essential hypertension On: :17 Request METABOLIC PANEL, COMPREHENSIVE (64153)Indication: Benign essential hypertension On: :17 Request URINALYSIS, W/ MICRO (88988)Indication: Benign essential hypertension On: :17 Request TSH (95179)Indication: Benign essential hypertension On: :17 Request LIPID PANEL (92213)Indication: Benign essential hypertension On: :17 Request CBC WITH MANUAL DIFF (74458)Indication: Benign essential hypertension On: :17 Request Metabolic Panel, Basic (98821)Indication: Benign essential hypertension On: :17 Request CALCIFIDIOL (29179) VIT D 25Indication: Fatigue On: :32 Request Folate (59011)Indication: Fatigue On: :32 Request VITAMIN B-12 (CYANOCOBALAMIN) (17700)Indication: Fatigue On: :32 Request TSH (53178)Indication: Fatigue On: :32 Request SED RATE ERYTHROCYTE (55399)Indication: Fatigue On: :32 Request METABOLIC PANEL, COMPREHENSIVE (52078)Indication: Fatigue On: :32 Request C-REACTIVE PROTEIN (12381)Indication: Fatigue On: :32 Request CBC (AUTO) (12937)Indication: Fatigue On: :32 Request Metabolic Panel, Basic (09500)Indication: Benign essential hypertension On: 46-Raj-682974:16 Request C-REACTIVE PROTEIN (54485)Indication: Fatigue On: 60-Igt-397819:03 Request CBC (AUTO) (84088)Indication: Thrombocytopenia, unspecified On: 36-Epa-341645:03 Request Folate (34657)Indication: Fatigue On: 09-Vvt-758012:03 Request METABOLIC PANEL, COMPREHENSIVE (85887)Indication: Fatigue On: 92-Dor-494050:03 Request RHEUMATOID FACTOR-QUANT (38376)Indication: Fatigue On: 66-Uwh-490675:03 Request SED RATE ERYTHROCYTE (55561)Indication: Fatigue On: 40-Pjf-741343:03 Request TSH (55233)Indication: Fatigue On: 71-Ydx-056052:03 Request VITAMIN B-12 (CYANOCOBALAMIN) (05645)Indication: Fatigue On: 76-Xqt-476610:03 Request LIPID PANEL (85721)Indication: Other and unspecified hyperlipidemia On: :45 Request Comments: do in 6 mo CHEPE CULTURE-OTHER (75364)Indication: Throat pain On: :52 Request Comments: throat cx km PSA (PROSTATE SPECIFIC ANTIGEN) (V76.44)Indication: Esophageal reflux disease On: 4-Khi-654396:03 Request LIPID PANEL (37741)Indication: Other and unspecified hyperlipidemia On: 0-Njp-870181:02 Request PSA (PROSTATE SPECIFIC ANTIGEN) (80735)Indication: SCREENING FOR CANCER OF THE PROSTATE On: :22 Request Planned Procedures INTENSIVE BEHAVIORAL THERAPY TO On: 31-May-2018 Intent REDUCE CARDIOVASCULAR DISEASE RISK, INDIVIDUAL, CXQX-ZJ-YPZN, ANNUAL, 15 MINUTES (G0446)By: Aletha Moon DO, DO, Kathleen Flu Vaccine (Quadrivalent) 49889Lk: On: 31-May-2018 Intent Aletha Moon DO, DO, Comments: Lot #[id number] Exp-02/06/19Site-L dltd, IMDose prefilled syringegiven by: Hanh REESE.VIS reviewed and ABN signed Aletha Wax CurettesBy: Karla Dejesus On: 20-Apr-2018 Intent Ear Irrigation (89241)By: Oleg On: 20-Apr-2018 Intent Karla Comments: bilateral ears irrigated. Left ear irritated so stopped and sent home with drops for that ear -- peroxide/debrox. R ear irrigated and currette used. Large amount hard, fatmata to broown wax removed. Tolerated well. MARY ANN DANIEL ELECTROCARDIOGRAM, COMPLETE (ECG) On: 22-Jan-2018 Intent (71788)By: Aletha Moon DO Comments: sinus cleo on BB - no acute chg - IVCD- poor Rwave progression Aletha Moon DO X-RAY OF THUMB OF LEFT HAND On: 06-Nov-2016 Intent (21502)By: Aletha Moon DO Comments: attention mcp jt Aletha Moon DO Flu Vaccine (Quadrivalent) 53899Qs: On: 09-Jun-2016 Intent Aletha Moon DO, DO, Comments: Lot:[id number]:02/06/17Dose:0.5mLRoute:IMSite:L DltdGiven By:CLOVER signed Aletha Radiology - Cervical SpineBy: Red On: 03-Nov-2014 Intent Aletha KOROMA DO, Aletha Aerosol Treatment (50130)By: Shannon On: 03-Oct-2014 Intent FINANCE ACCOUNTING INTERNSHIP Rosanne EKG (08631)By: Aletha Moon DO On: 03-Apr-2014 Intent Aletha Moon DO Comments: nsr no acute chg IMMUNIZ ADMNIN, 1 VAC, SNGL/COMBO On: 12-Aug-2013 Intent (48449)By: Mima Cruz Comments: diluentLot:[id number]:12/23Dose:0.7mLRoute:sub qSite:l armGiven By:CLOVER signedzostavacLot:[id number]:05/07/14Dose:0.65mLRoute:sub qSite:l armGiven By:CLOVER signed ZOSTER VACC, [place] (90747)By: Anthony, On: 12-Aug-2013 Intent Mima Radiology - Femur - RightBy: Red On: 30-Jul-2012 Intent Aletha KOROMA DO, Kathleen Radiology - Hip - RightBy: Red On: 30-Jul-2012 Intent Aletha KOROMA DO, Kathleen SPECIMEN HNDLNG/TRNSPRT, OFFC > LAB On: 15-Aug-2011 Intent (81291)By: Marco Antonio LEAVITT, Pamela Ramon Ear Irrigation (82943)By: Red On: 21-Oct-2010 Intent Aletha KOROMA RedAletha jimenez DO Comments: R-- tolerated well Eprescribed prescriptions (G8553)By: On: 21-Oct-2010 Intent Aletha Moon DO, DO, Kathleen Wax CurettesBy: Aletha Moon DO On: 21-Oct-2010 Intent Aletha Moon DO Echo CompleteBy: Aletha Moon DO On: 15-Jul-2010 Intent Aletha Moon DO EKG (36646)By: Aletha Moon DO On: 03-Jun-2010 Intent Aletha Moon DO Comments: nsr no acute changes TDAP VACCINE >7 IM (28827)By: Red On: 03-Jun-2010 Aletha Foy DO, DO, Kathleen Comments: Lot:[id number]:11-3-12Amt:0.5ccRoute:imSite:Given By: MARY ANN Sanon EKG (79895)By: Aletha Moon DO On: 28-Mar-2009 Intent Aletha Moon DO Comments: nsr no avute changes TDAP VACCINE >7 IM (09966)By: Red On: 28-Mar-2009 Aletha oFy DO, DO, Kathleen Comments: Tdap given in Left DeltoidLot# [id number] 07-14-2011 EKG (16819)By: Aletha Moon DO On: 14-Feb-2008 Intent Aletha [...] patient does not have durable power of insurance defense attorney or living will. Other providers contributing to the patient's care are stockroom worker and gastrologist. Encounter Diagnosis: BMI 25.0-25.9,adult, Non-smoker, [...] into care from a hospital (was at [facility] and had a echo and said [...]
--- OUTSIDE RECORDS SUMMARY | 2018-08-17 20:52 | XMS RPT_ITS ---
:1950 Author Organization [facility] Care Team Providers Name Role Phone Aletha Zamudio Attending Unavailable Robb, Aletha Referring Unavailable Robb, Aletha Primary Care Unavailable Robb, Aletha Primary Care Unavailable Frederick Hoskins Attending Unavailable Dylan Zamudioeen Attending Unavailable Robb, Aletha Referring Unavailable Robb, Aletha Primary Care Unavailable Robb, Aletha Primary Care Unavailable GALI HICKEY Attending Unavailable GALI HICKEY Referring Unavailable Mauri Chavez Attending Unavailable Mauri Chavez Referring Unavailable Robb, Aletha Primary Care Unavailable JANETH TRAVIS Attending Unavailable ROBB ALETHARADHA PÉREZ Referring Unavailable Robb Aletha KOROMA Attending Unavailable Robb DO Aletha Referring Unavailable Robb DO Aletha Consulting Unavailable ANGY, JANETH E Referring Unavailable ANGY, JANETH E Referring Unavailable ANGY, JANETH E Referring Unavailable JC MELO Referring Unavailable ANGY, JANETH E Referring Unavailable ANGY, JANETH E Referring Unavailable ANGY, JANETH E Referring Unavailable ANGY, JANETH E Referring Unavailable JC MELO Referring Unavailable ANGY, JANETH E Referring Unavailable ANGY, JANETH E Referring Unavailable ANGY, JANETH E Referring Unavailable ANGY, JANETH E Referring Unavailable ANGY, JANETH E Attending Unavailable ANGY, JANETH E Referring Unavailable ANGY, JANETH E Referring Unavailable ANGY, JANETH E Referring Unavailable ANGY, JANETH E Referring Unavailable ANGY, JANETH E Referring Unavailable ANGY, JANETH E Referring Unavailable ANGY, JANETH Attending Unavailable ROBB, KATHLEE Referring Unavailable ROBB, KATHLEE Primary Care Unavailable ANGY, JANETH Attending Unavailable ANGY, JANETH Referring Unavailable PROBLEMS PROBLEMS DATE TYPE CONDITION / CODE ATTENDING STATUS SOURCE 07/20/2018 Unknown R13.10 - Dysphagia, [place], Active [place] unspecified / [facility] R13.10(ICD-10) Hospital Repository 07/16/2018 Unknown N48.1 - [place] / GALI HICKEY Active [place] N48.1(ICD-10) [facility] Hospital Repository 06/05/2018 Unknown M25.551 - Pain in Frederick Hoskins Active [place] right hip / [facility] M25.551(ICD-10) Hospital Repository 05/05/2018 Active Other specified NA Active [place] [facility] Main states / [place] Z98.890(ICD-10) Repository 05/05/2018 Active Paroxysmal atrial NA Active [place] fibrillation / [facility] I48.0(ICD-10) [place] Repository 06/09/2018 Unknown M54.12 - Robb, Active [place] Radiculopathy, [facility] cervical region / Hospital M54.12(ICD-10) Repository 09/22/2017 Active Encounter for NA Active [place] examination for [facility] normal comparison [place] and control in Repository clinical research program / Z00.6(ICD-10) 09/07/2017 Active 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 / I25.10(ICD-10) 04/03/2016 Active 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 Clinic Other valve / [place] Z95.2(ICD-10) Repository 04/03/2016 Admitting Unknown / JANETH TRAVIS Active [place] [facility] UNK(Unknown) [facility] System Repository 02/13/2016 Active Unspecified atrial NA Active [place] fibrillation / Clinic Main I48.91(ICD-10) [place] Repository 02/12/2016 Active Essential (primary) NA Active [place] hypertension / Clinic Main I10(ICD-10) [place] Repository PROCEDURES PROCEDURES No Procedure Records FoundRESULTS RESULTS PROTIME Collected: 07/12/2018 Status: F Source: [place] 9:51 AM CLINIC [facility]IN [facility] REPOSITORY TYPE CODE TESTS RESULT OUT OF RANGE REFERENCE UNITS LAB PSEC 9.7-13.0 sec High PT Sec 20.7 LAB INR 0.9-1.3 High PT INR 2.1 Result Comment: Vitamin K Antagonist (VKA) Therapeutic Range: INR 2 to 3 (Target INR of 2.5) Note: For patients treated with VKA drugs, such as warfarin, the [employer] 2012 Guideline recommends a therapeutic INR range of 2 to 3 (target INR of 2.5). This recommendation includes high-risk patients with antiphospholipid syndrome with previous arterial or venous thromboembolism, current-generation mechanical or bioprosthetic aortic heart valve replacement. Note: Patients with mechanical aortic valve replacement and additional risk factors for thromboembolic events (atrial fibrillation, previous thromboembolism, LV dysfunction, hypercoagulable conditions) or an older generation mechanical AVR (i.e., ball in-Cage) or any mechanical MVR should have a INR therapeutic range of 2.5 to 3.5 (target INR of 3). Lois PASCAL, et al. Chest 2012, 141:7S-47S Justine RA, et al. [facility] 2017, 70: 252-289 Performed By: #### PT #### [facility] [address] [place], [place] [address] ESOPHAGUS ONLY Observed: 07/06/2018 Status: F Source: [place] 8:26 AM [facility] REPOSITORY [facility] Imaging Services [address] [place] [address] Esophagus Only MR#: [id number] Acct: [id number] Name: IZABEL GARCÍA Rep #: [id number] : 1950 M 68 From: Tanner Shaffer MD PCP: Aletha Zamudio DO Status: REG CLI Study: Esophagus Only Date of Exam: 07/06/18 Exam# [id number] Ordering Dr: Mauri Chavez MD STUDY: X-RAY - ESOPHAGUS (BARIUM SWALLOW) WITH FLUOROSCOPY REASON FOR EXAM: Male, 68 years old. Dysphagia. History of gastroesophageal reflux. TECHNIQUE: 13 view(s) of the esophagus were obtained following swallowing of barium. FLUOROSCOPY TIME (if supplied): (0:29) minutes/seconds COMPARISON: None. FINDINGS: There is no demonstrated esophageal foreign body. There is no demonstrated stricture or mucosal abnormality. Normal gastroesophageal junction, without a demonstrated hiatal hernia. The patient ingested a 12 mm tablet of barium without any difficulty. There is atherosclerotic tortuosity of the aortic arch and descending thoracic aorta. Normal visualized pulmonary parenchyma. Normal visualized osseous structures of the thorax. RAD/Esophagus Only IMPRESSION: Normal plain film x-ray examination (barium swallow) of the esophagus. Electronically Signed: Tanner Shaffer MD at 13:21 EST Tel [phone], Service support , CC: Satinder Chavez MD; Aletha Zamudio DO Hypo Dipper: Signed HEMOGLOBIN A1C Collected: 06/28/2018 Status: F Source: [place] 4:14 PM [facility] REPOSITORY TYPE CODE TESTS RESULT OUT OF RANGE REFERENCE UNITS LAB L501.9985 4.2-6.3 % Normal HGB A1C 5.5 Performed By: #### L501.9985 #### [facility] [address] [place], [place], [address] INITAL EVALUATION (1) Observed: 06/23/2018 Status: F Source: [place] - PT 8:45 AM [facility] REPOSITORY [facility] Physical Therapy [facility] [address] [place] [address]. [address] [place], [place] [address] Fax REHABILITATION SERVICES INITIAL EVALUATION MR#: [id number] Acct: [id number] Name: IZABEL GARCÍA Rep #: [id number] : 1950 68 From: Socorro Dejesus PT, Cert. MDT Referring Dr.: Aletha Zamudio DO Status: REG RCR Insurance: MEDICARE PART A B ANTHEM Patient's Visit Information IZABEL GARCÍA is a 68 year old M referred to Physical Therapy by Aletha Zamudio with a diagnosis of RIGHT HIP IT BAND/GREATER TROCH BURSITIS AND HIP PAIN - OA.. Date of Evaluation: 06/22/18 Physical Therapist: Socorro Dejesus - Visit Plan Frequency: 1x/Week Duration: 1 Week Plan: D/C - Subjective Subjective: Work/Leisure: RETIRED. DOES WORK IN [employer] Disability: NO. Present symptoms: PATIENT CURRENTLY DENIES ANY SX'S. STATES THAT THE HIP PAIN THAT HE WAS SENT FOR IS ALL GONE AND HE HAS RECOVERED ALL OF HIS FUNCTION TO PRIOR LEVEL. HE REPORTS THAT ABOUT 2 AND A HALF WEEKS AGO THE PAIN WAS SO BAD HE COULDN'T WALK AND HAD TO EVEN USE A WALKER. JUST RETURNED FROM [facility] AND STATES HIS ACTIVITY WAS UNLIMITED AND PAINFREE WHILE THERE. Present since: ABOUT 2 AND A HALF WEEKS AGO. Pain Scale: N/A. Currently: 0/10. Commenced as a result of: 06/04/18 WORKED IN [employer] FOR ABOUT 12 HOURS IN THE COLD ON HIS FEET AND THE NEXT DAY SEVERE RIGHT HIP PAIN AND COULDN'T WALK. ENDED UP GOING TO THE EMERGENCY ROOM. Symptoms at onset: RIGHT HIP. Worse: N/A. Better: N/A. Disturbed sleep: NOT ANY LONGER. Previous history/Previous treatment: UNREMARKABLE. Coughing/sneezing/straining: NEGATIVE. Gait: INDEP AND PAINFREE AT THIS TIME. Difficulty initiating urinatin: NO. Accidents: NO. Unexplained weight loss: NO. Imaging: RIGHT HIP AND PELVIC X-RAY IN ED 06/05/18 SHOWING MILD DEGENERATIVE CHANGES RIGHT HIP. PMH: HEART SURGERY FOR VALVE REPLACEMENT 3 YEARS. HERNIA REPAIR. HTN. ULCERATIVE COLITIS. H/O NECK PAIN AND STIFFNESS - RESOLVED WITH PT [facility] AT [facility] THIS YEAR. PLOF (Prior Level of [...] INTO PT WITHOUT ANY ASSISTIVE DEVICES OR GROSS DEVICATIONS NOTED. MARGOT LE LIGHT TOUCH SENSATION IS INTACT AND SYMMETRICAL. MARGOT LE DTR'S ARE 2/3. MARGOT LE STRENGTH IS 5/5 WITH MMT'ING AND THERE IS NO C/O PAIN WITH TESTING. MARGOT LE ROM WFL WITH MILD TIGHTNESS OF HS'S AND GASTROC SOLEUS COMPLEX'S BUT RIGHT HIP IR, ER AND EXTENSION ARE MILDLY TIGHTER THAN LEFT. MARGOT JENNIFER TESTING IS NEGATIVE. LUMBAR SPINE WAS SCREENED AND ALL TESTING WAS NEGATIVE INCLUDING MARGOT LE DURAL TESTING AND SLR TESTING. [...] WITH ALL EX'S. WRITTEN HEP GIVEN. PATIENT DEMONSTRATED AND COMMUNICATED A GOOD UNDERSTANDING OF ALL INSTRUCTIONS AFTER GIVEN. CHALLENGE BUT NO C/O PAIN WITH EX. - Goals Goal 1:: INDEP HEP Goal Time Frame: 1 VISIT - Rehabilitation Potential Rehabilitation Potential: Excellent - Anticipated Interventions Therapeutic Exercise to Include: Strength training, Flexibilty training For the Purpose of:: To increase ROM, To improve muscle performance and motor function Thank you for the opportunity to evaluate your patient. For Medicare and Medicare HMO plans, please review the plan of care and approve it. It will need to be FAXED BACK to us at [phone] for Medicare purposes. Please let me know if there are questions or concerns regarding this plan of care. Physician Signature: Date: <Electronically signed by Socorro Dejesus PT, Cert. MDT> 11/14/18 0845 CC: Aletha Zamudio FRANSISCA Signed For Medicare only, by signing this I certify the plan of care. Physicians Signature Date PROTIME Collected: 06/21/2018 Status: F Source: [place] 8:56 AM [facility]IN CAMP[facility] REPOSITORY TYPE CODE TESTS RESULT OUT OF RANGE REFERENCE UNITS LAB PSEC 9.7-13.0 sec High PT Sec 19.3 LAB INR 0.9-1.3 High PT INR 1.9 Result Comment: Vitamin K Antagonist (VKA) Therapeutic Range: INR 2 to 3 (Target INR of 2.5) Note: For patients treated with VKA drugs, such as warfarin, the [employer] 2012 Guideline recommends a therapeutic INR range of 2 to 3 (target INR of 2.5). This recommendation includes high-risk patients with antiphospholipid syndrome with previous arterial or venous thromboembolism, current-generation mechanical or bioprosthetic aortic heart valve replacement. Note: Patients with mechanical aortic valve replacement and additional risk factors for thromboembolic events (atrial fibrillation, previous thromboembolism, LV dysfunction, hypercoagulable conditions) or an older generation mechanical AVR (i.e., ball in-Cage) or any mechanical MVR should have a INR therapeutic range of 2.5 to 3.5 (target INR of 3). Guyatt GH, et al. Chest 2012, 141:7S-47S Justine RA, et al. [facility] 2017, 70: 252-289 Performed By: #### PT #### [facility] [address] [place], [place] [address] EMERGENCY DEPARTMENT Observed: 06/05/2018 Status: F Source: [place] SUMMARY 11:46 PM [facility] REPOSITORY [facility] Medical Records Department [address] [place] [address] Emergency Department Summary 06/05/18 2326 MR#: [id number] Acct: [id number] Name: IZABEL GARCÍA Rep #: [id number] : 1950 68 From: Frederick Hoskins MD PCP: Aletha Zamudio DO Status: REG ER - ER Visit Summary Date of Service: 06/05/18 Chief Complaint: Hip pain History of Present Illness: The patient is a 68 M with right hip pain. This started yesterday overnight. Nothing seemed to bring it on. It is worse with weightbearing. Better with rest. Pain is isolated in his right hip and does not radiate. No other associated symptoms like back pain or other leg pain. No weakness or numbness. No fevers or skin changes. He had this in the past quite a while ago. His doctor put him on some medications and did x-rays, and his pain resolved. Denies any surgical history. Denies any history of septic joints. Denies any history of gout. He does have a history of mitral valve replacement and takes Coumadin. Physical Examination: Afebrile and vital signs unremarkable. Patient is alert and oriented and in no acute distress. Inspection normal. Skin normal. No shortening or abnormal rotation. Negative logroll. Full range of motion. Normal strength and sensation. No edema noted. Calf soft and supple. Neurovascular intact distally. Test Results: X-rays show degenerative changes but nothing acute. CBC shows a platelets of 133, stable. INR 2.8, therapeutic. ESR 5. Emergency Department Course and Treatment: Patient treated with Kenalog and [place]. I am not sure what is causing his pain. He has some degenerative changes but otherwise his evaluation is unremarkable. No trauma or inciting event. I do not believe there is indication for further imaging with CT or MRI. Nothing to suggest gout or septic arthropathy. Nothing to suggest vascular pathology. Skin appears normal. Patient will be treated with a short course of [place]. He has a walker that he can use at home. He will follow-up with his primary care doctor. Return for any new or worsening issues. Treatment Plan: As above Disposition: Discharge Impression: 1. Right hip pain This note was generated with [employer] software. It may contain incorrect words, spelling, and punctuation that were not noted in review of the chart prior to signing ED Disposition - Plan for ED Patient: Chief Complaint: Lower Extremity Injury Referrals: Aletha Zamudio, [Primary Care Provider] - What to do if you have Problems For any increased pain, shortness of breath, bleeding, nausea or vomiting, chest pain, or any unexpected problems, contact your Primary Care Provider. Call [facility] ([phone]) or report to the closest Emergency Room. Call 911 if necessary. 06/05/182345 <Electronically signed by Frederick Hoskins MD> Date Frederick Hoskins MD Cosigner Signature (If Indicated): Date CC: Aletha Zamudio DO DISCHARGE INSTRUCTION Observed: 06/05/2018 Status: F Source: [place] 11:46 PM [facility] REPOSITORY [facility] Medical Records Department [address] [place] [address] Discharge Instruction 06/05/18 2330 MR#: [id number] Acct: [id number] Name: IZABEL GARCÍA Rep #: [id number] : 1950 68 From: Frederick Hoskins MD PCP: Aletha Zamudio DO Status: REG ER ED Disposition - Plan for ED Patient: Chief Complaint: Lower Extremity Injury Instructions: ED Sprain Hip Prescriptions: Hydrocodone Bitart/Apap 5-325 [[place] 5MG-325MG] 1 tab PO Q6H PRN PRN 3 Days #10 tab PRN Reason: Pain Referrals: Aletha Zamudio DO [Primary Care Provider] - What to do if you have Problems For any increased pain, shortness of breath, bleeding, nausea or vomiting, chest pain, or any unexpected problems, contact your Primary Care Provider. Call [facility] ([phone]) or report to the closest Emergency Room. Call 911 if necessary. 06/05/182345 <Electronically signed by Frederick Hoskins MD> Date Frederick Hoskins MD Cosigner Signature (If Indicated): Date CC: Aletha Zamudio DO CBC W/DIFF, AUTOMATED Collected: 06/05/2018 Status: F Source: [place] 10:15 PM [facility] REPOSITORY TYPE CODE TESTS RESULT OUT OF RANGE REFERENCE UNITS LAB L100.1000 4.4-11.0 K/mm3 Normal WBC 4.4 LAB L100.1200 4.6-6.2 M/mm3 Normal RBC 4.95 LAB L100.1300 13.0-16.5 g/dl Normal HGB 14.9 LAB L100.1400 40-54 % Normal HCT 44.3 LAB L100.1500 80-94 fL Normal MCV 89.5 LAB L100.1600 27.0-32.0 pg Normal MCH 30.1 LAB L100.1700 32-36 g/gl Normal MCHC 33.6 LAB L100.1810 11.6-14.6 % Normal RDW CV 13.6 LAB L100.1820 35.1-43.9 fl High RDW SD 44.1 LAB L100.1900 150-450 K/mm3 Low PLT 133 LAB L100.2000 6.2-12.0 fl Normal MPV 10.9 LAB L100.2100 47-70 % Normal NEUT% 49.2 LAB L100.2200 19-41 % Normal LY% 38.4 LAB L100.2300 0-10 % Normal MONO% 9.2 LAB L100.2400 0-5 % Normal EO% 2.5 LAB L100.2500 0-1 % Normal BASO% 0.5 LAB L100.2550 0.0-0.9 % Normal IM GRAN % 0.200 Result Comment: IG% - Immature Granulocytes (promyelocytes, myelocytes and metamyelocytes) > 1% indicates that a LEFT SHIFT is Present. LAB L100.2620 2.0-7.7 X10 3/uL Normal Absolute Neut 2.2 LAB L100.2720 0.83-4.51 X10 3/ul Normal Absolute Lymph 1.68 Performed By: #### L100.0100, L101.9900 #### [facility] [address] [place], [address] ERYTHROCYTE SED RATE Collected: 06/05/2018 Status: F Source: [place] 10:15 PM [facility] REPOSITORY TYPE CODE TESTS RESULT OUT OF RANGE REFERENCE UNITS LAB L102.0000 0-20 mm/hr Normal SED RATE 5 Performed By: #### L100.0100, L101.9900 #### [facility] [address] [place], [address] PROTHROMBIN TIME W/INR Collected: 06/05/2018 Status: F Source: [place] 10:15 PM [facility] REPOSITORY TYPE CODE TESTS RESULT OUT OF RANGE REFERENCE UNITS LAB L300.4150 11.7-14.9 SECONDS High PROTIME 30.0 LAB L300.4200 Normal INR 2.8 Performed By: #### L300.3900 #### [facility] [address] [place], [address] HIP, UNI W/ PELVIS Observed: 06/05/2018 Status: F Source: [place] 2-3 VIEWS 9:58 PM [facility] REPOSITORY [facility] Imaging Services [address] [place] [address] HIP, UNI W/ Pelvis 2-3 Views MR#: [id number] Acct: [id number] Name: IZABEL GARCÍA Rep #: [id number] : 1950 M 68 From: Arely Viramontes MD PCP: Aletha Zamudio DO Status: REG ER Study: HIP, UNI W/ Pelvis 2-3 Views Date of Exam: 06/05/18 Exam# [id number] Ordering Dr: Frederick Hoskins MD STUDY: X-RAY - PELVIS AND RIGHT HIP REASON FOR EXAM: Male, 68 years old. Hip pain. TECHNIQUE: Radiological exam, hip, unilateral, with pelvis when performed; 2 or 3 views. COMPARISON: None. FINDINGS: There is a non-specific bowel gas pattern. There are anchoring appearing densities projecting over the pelvis which may be postsurgical in nature. There are surgical clips projecting over the right humeral head. Normal bilateral iliac wings, sacroiliac joints and visualized sacrum. Normal bilateral superior and inferior pubic rami. Normal pubic symphysis. Normal bilateral ischial tuberosities. There are mild degenerative changes of the hips. RAD/HIP, UNI W/ Pelvis 2-3 Views IMPRESSION: Degenerative changes of the hips. Electronically Signed: Arely Viramontes MD at 23:15 EDT Tel , Service support , CC: Frederick Hoskins MD; Aletha Zamudio DO Hypo Dipper: Signed PROTIME Collected: 05/31/2018 Status: F Source: [place] 9:32 AM [facility] REPOSITORY TYPE CODE TESTS RESULT OUT OF RANGE REFERENCE UNITS LAB PSEC 9.7-13.0 sec High PT Sec 30.8 LAB INR 0.9-1.3 High PT INR 3.2 Result Comment: Vitamin K Antagonist (VKA) Therapeutic Range: INR 2 to 3 (Target INR of 2.5) Note: For patients treated with VKA drugs, such as warfarin, the [employer]icians 2012 Guideline recommends a therapeutic INR range of 2 to 3 (target INR of 2.5). This recommendation includes high-risk patients with antiphospholipid syndrome with previous arterial or venous thromboembolism, current-generation mechanical or bioprosthetic aortic heart valve replacement. Note: Patients with mechanical aortic valve replacement and additional risk factors for thromboembolic events (atrial fibrillation, previous thromboembolism, LV dysfunction, hypercoagulable conditions) or an older generation mechanical AVR (i.e., ball in-Cage) or any mechanical MVR should have a INR therapeutic range of 2.5 to 3.5 (target INR of 3). Lois GH, et al. Chest 2012, 141:7S-47S Justine MONTAGUE et al. [facility] 2017, 70: 252-289 Performed By: #### PT #### [facility] [address] [address] PROGRESS Observed: 04/13/2018 Status: COMPLETED Source: [place] 8:46 AM [facility] [place] REPOSITORY O ID: [id number] Author: Janeth Travis Service: (none) Author Type: Physician Type: Progress Notes Filed: 04/14/2018 9:18 AM Note Text: PERTINENT CARDIAC HISTORY MVP, bileaflet Mitral insufficiency - MV repair 01/23 (failed), MVR (bio) 02/22 ASHD - minimal by cath 12/23 HTN HL PAF TIA - while on warfarin, ASA added NSVT? - post op ADHERENCE TO GUIDELINES RICHY-I or ARB for HF with prior LVEF<40 (NQF 0081) - N/A ASA or Plavix for ASHD (NQF 0067) - TIA Beta cande for ASHD with prior AK or prior LVEF<40 (NQF 0070) - N/A Beta cande for HF with prior LVEF<40 (NQF 0083) - N/A RICHY-I or ARB for ASHD with DM or prior LVEF<40 (NQF 0066) - N/A Statin therapy for ASHD or FHL or DM - met BMI documented and plan if >25 (NQF 0421) - lifestyle recommendation form Tobacco use screening and referral (NQF 0028) - lifestyle recommendation form Recommendation for whole food, plant based diet - lifestyle recommendation form CLINICAL IMPRESSION/PLAN: Izabel García is doing well. There is no evidence of progressive coronary disease. He may benefit from discontinuing beta cande, as his pulse is borderline low. He has mild left ventricular dysfunction. Echo will be done to assess left ventricular function as it was mildly depressed in the past. I've asked him to contact me with vital signs in the next few weeks to let me know how his exercise tolerance is doing. If he has recurrent atrial fibrillation, he is advised to restart metoprolol. I will see him in 8 months or as needed. Written and verbal health teaching given to patient, patient verbalizes understanding and agrees with treatment plan. DIAGNOSIS FOR VISIT: MVR PAF HISTORY OF PRESENT ILLNESS Izabel García returns for follow-up of multiple cardiac issues, as noted above. He reports stable exercise tolerance. He is trying to wean himself off Prilosec. He continues to take magnesium supplement. He's had no chest pain. He denies orthopnea, edema, palpitations, TIAs, amaurosis. He has still had an occasional episode of postural lightheadedness. His tolerance has improved since he decreased his metoprolol. ALLERGIES: ALLERGIES Allergen Reactions - Bees Unknown Allergy testing revealed allergy to bee venom. - Shellfish Swelling Patient stated he has throat swelling with shrimp. Allergy testing revealed allergy to shellfish - Vicodin [Hydrocodon* Intolerance CURRENT OUTPATIENT MEDICATIONS: warfarin (COUMADIN) 5 mg tablet Take 1 tablet by mouth once daily. OR DIRECTED warfarin (COUMADIN) 1 mg tablet Take 1 tablet by mouth once daily. As Directed metoprolol tartrate, short acting, (LOPRESSOR) 25 mg tablet Take 0.5 tablets by mouth q 12 HR. magnesium oxide (MAG-OX) 400 mg tablet TAKE ONE TABLET BY MOUTH TWICE DAILY aspirin, enteric coated (ECOTRIN LOW STRENGTH) 81 mg EC tablet Take 1 tablet by mouth once daily. acetaminophen (TYLENOL) 325 mg tablet Take 2 tablets by mouth every 4 hours as needed. olsalazine (DIPENTUM) 250 mg ORAL capsule Take one(1) tablet daily. PRILOSEC 20 MG CAP Take one(1) capsule daily. ZOCOR 20 MG ORAL TAB Take one(1) tablet daily. at bedtime sod picosulf-mag ox-citric ac (PREPOPIK) 10 mg-3.5 gram-12 gram pwpk Take as directed for colonoscopy prep. therapeutic multivitamin (THERA VITAMIN) tablet Take 1 tablet by mouth daily with breakfast. PHYSICAL EXAMINATION: VITAL SIGNS: BP 128/82[Left[ Pulse 53 Wt 198 lb 14.4 oz (90.2kg) Chest: Clear to percussion and auscultation. Trachea is midline. Air entry is equal. Cardiac: Regular rhythm. S1 and S2 are normal. PMI is nondisplaced. There is no mitral insufficiency. Carotids are brisk with soft bilateral bruits. JVP is less than 10 cm. Abdomen: Soft and nontender. There are no pulsatile masses or bruits. No liver enlargement. Bowel sounds are active. Extremities: No edema. Pulses are intact and symmetrical. Labs were reviewed. Renal function is normal. LDL was 83. 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 - post op ADHERENCE TO GUIDELINES RICHY-I or ARB for HF with prior LVEF<40 (NQF 0081) - N/A ASA or Plavix for ASHD (NQF 0067) - TIA Beta cande for ASHD with prior AK or prior LVEF<40 (NQF 0070) - N/A Beta cande for HF with prior LVEF<40 (NQF 0083) - N/A RICHY-I or ARB for ASHD with DM or prior LVEF<40 (NQF 0066) - N/A Statin therapy for ASHD or FHL or DM - met BMI documented and plan if >25 (NQF 0421) - lifestyle recommendation form Tobacco use screening and referral (NQF 0028) - lifestyle recommendation form Recommendation for whole food, plant based diet - lifestyle recommendation form CLINICAL IMPRESSION/PLAN: Izabel García is doing well. There is no evidence of progressive coronary disease. He may benefit from discontinuing beta cande, as his pulse is borderline low. He has mild left ventricular dysfunction. Echo will be done to assess left ventricular function as it was mildly depressed in the past. I've asked him to contact me with vital signs in the next few weeks to let me know how his exercise tolerance is doing. If he has recurrent atrial fibrillation, he is advised to restart metoprolol. I will see him in 8 months or as needed. Written and verbal health teaching given to patient, patient verbalizes understanding and agrees with treatment plan. DIAGNOSIS FOR VISIT: MVR PAF HISTORY OF PRESENT ILLNESS Izabel García returns for follow-up of multiple cardiac issues, as noted above. He reports stable exercise tolerance. He is trying to wean himself off Prilosec. He continues to take magnesium supplement. He's had no chest pain. He denies orthopnea, edema, palpitations, TIAs, amaurosis. He has still had an occasional episode of postural lightheadedness. His tolerance has improved since he decreased his metoprolol. ALLERGIES: ALLERGIES Allergen Reactions - Bees Unknown Allergy testing revealed allergy to bee venom. - Shellfish Swelling Patient stated he has throat swelling with shrimp. Allergy testing revealed allergy to shellfish - Vicodin [Hydrocodon* Intolerance CURRENT OUTPATIENT MEDICATIONS: warfarin (COUMADIN) 5 mg tablet Take 1 tablet by mouth once daily. OR DIRECTED warfarin (COUMADIN) 1 mg tablet Take 1 tablet by mouth once daily. As Directed metoprolol tartrate, short acting, (LOPRESSOR) 25 mg tablet Take 0.5 tablets by mouth q 12 HR. magnesium oxide (MAG-OX) 400 mg tablet TAKE ONE TABLET BY MOUTH TWICE DAILY aspirin, enteric coated (ECOTRIN LOW STRENGTH) 81 mg EC tablet Take 1 tablet by mouth once daily. acetaminophen (TYLENOL) 325 mg tablet Take 2 tablets by mouth every 4 hours as needed. olsalazine (DIPENTUM) 250 mg ORAL capsule Take one(1) tablet daily. PRILOSEC 20 MG CAP Take one(1) capsule daily. ZOCOR 20 MG ORAL TAB Take one(1) tablet daily. at bedtime sod picosulf-mag ox-citric ac (PREPOPIK) 10 mg-3.5 gram-12 gram pwpk Take as directed for colonoscopy prep. therapeutic multivitamin (THERA VITAMIN) tablet Take 1 tablet by mouth daily with breakfast. PHYSICAL EXAMINATION: VITAL SIGNS: BP 128/82[Left[ Pulse 53 Wt 198 lb 14.4 oz (90.2kg) Chest: Clear to percussion and auscultation. Trachea is midline. Air entry is equal. Cardiac: Regular rhythm. S1 and S2 are normal. PMI is nondisplaced. There is no mitral insufficiency. Carotids are brisk with soft bilateral bruits. JVP is less than 10 cm. Abdomen: Soft and nontender. There are no pulsatile masses or bruits. No liver enlargement. Bowel sounds are active. Extremities: No edema. Pulses are intact and symmetrical. Labs were reviewed. Renal function is normal. LDL was 83. Electronically Signed: Janeth Travis MD April 13, 2018 8:46 AM CC: Aletha Zamudio, DO Janeth Travis MD 04/13/2018 8:47 AM Signed LIFESTYLE CHANGE A healthy lifestyle is the most important component of your overall treatment plan. Please give serious thought to the following areas and commit to making intermodal customer service changes. EAT A WHOLE FOOD, PLANT BASED DIET The nutrition your body gets is more important than the medicine you take. What matters most is the overall way you eat. We encourage you to minimize the use of animal products (which include dairy and all meats except fatty fish) and use whole, unprocessed plant foods to provide your protein, vitamins and other nutrients. We have a lot of information to share with you on this topic. This is not a diet. It is a way of life that you will keep with you. EXERCISE REGULARLY It is not important to spend hours in the gym, lifting weights and perspiring heavily. A total of 2-3 hours per week of aerobic (causing you to be moderately short of breath) exercise is sufficient to improve your health. Talk to us before you begin a new exercise program, if you have heart disease or experience shortness of breath or chest pain. REDUCE STRESS Chronic emotional and physical stress leads to disease. Ways of reducing stress include meditation, visualization, prayer, yoga and other forms of relaxation therapy. Consistency is the sumner. Find a technique that works for you and do it every day. CULTIVATE RELATIONSHIPS Loneliness and isolation have a major negative impact on health. Seek out others who can love, care for and nurture you. Avoid hurtful relationships. MAINTAIN IDEAL BODY WEIGHT The best way to do this is to do all the things above. Our bodies naturally find the right weight if we keep moving and feed ourselves the right food. If your BMI is greater than 25, we strongly recommend a referral to a weight management program. Please speak to us or your family physician about available programs. AVOID NICOTINE IN ALL FORMS This includes all tobacco products, whether chewed, smoked, vaped, or rubbed on the skin. Smoking cessation programs, which can make use of tobacco substitutes, medications to suppress cravings and behavior management, are available. Please contact your family physician about programs in your area. Referring Provider: JANETH TRAVIS [[id number]] Allergies As of Date: 04/13/2018 Noted Allergy Reaction BEES 04/02/2005 16 - Unknown Comments: Allergy testing revealed allergy to bee venom. SHELLFISH 02/17/2005 7 - Swelling Comments: Patient stated he has throat swelling with shrimp. Allergy testing revealed allergy to shellfish VICODIN (HYDROCODONE-ACETAMINOPHE*07/19/2015 5 - Intolerance Date Reviewed: 04/13/2018 Reviewed by: Shari (Rn) MARCOS Browne - Fully Assessed Reason for Visit: Established Patient [175] Primary Visit Diagnosis:S/P MVR (mitral valve repair) [Z98.890] Other Visit Diagnosis:PAF (paroxysmal atrial fibrillation) ([facility]) [I48.0] Order(s):ECHO [243533] Order #: [id number]: 1 FUTURE Prescriptions as of 04/13/2018 Sig: WARFARIN 5 MG TABLET Take 1 tablet by mouth once d* WARFARIN 1 MG TABLET Take 1 tablet by mouth once d* MAGNESIUM OXIDE 400 MG (241.3* TAKE ONE TABLET BY MOUTH TWIC* ASPIRIN 81 MG TABLET,DELAYED * Take 1 tablet by mouth once d* ACETAMINOPHEN 325 MG TABLET Take 2 tablets by mouth every* * OLSALAZINE 250 MG CAPSULE Take one(1) tablet daily. * PRILOSEC 20 MG CAPSULE,DELAYE* Take one(1) capsule daily. * ZOCOR 20 MG TABLET Take one(1) tablet daily. at * SOD PICOSULF 10 MG-MAGNES 3.5* Take as directed for colonosc* THERAPEUTIC MULTIVITAMIN TABL* Take 1 tablet by mouth daily * Medication notes this encounter SOD PICOSULF 10 MG-MAGNES 3.5 GRAM-CITRIC AC 12 GRAM ORAL POWDER PACK >> Shari Browne RN, RN 04/13/2018 8:22 AM >> SHARI BROWNE Apr 13, 2018 8:22 AM Completed THERAPEUTIC MULTIVITAMIN TABLET >> Shari Browne RN, RN 04/13/2018 8:22 AM >> SHARI BROWNE Apr 13, 2018 8:22 AM Not taking Problem List As Of Date 04/13/2018 Noted Resolved Ulcerative (chronic) ileocolitis (HCC) [K51.00] INVALID FOR*02/06/2016 Mixed hyperlipidemia [E78.2] INVALID FOR*02/06/2016 Mitral valve disorders [I05.9] INVALID FOR*02/06/2016 Priority: A More... Acute gastritis without mention of hemorrhage [*INVALID FOR*02/06/2016 Encounter for colonoscopy due to history of vinnie*INVALID FOR*08/23/2015 Pre-op testing [Z01.818] INVALID FOR*02/02/2016 More... Discharge planning [Z02.9] INVALID FOR* Priority: M More... Atelectasis [J98.11] INVALID FOR*02/06/2016 Priority: B More... Primary hypertension [I10] INVALID FOR* Priority: C More... More... More... Post-operative pain [G89.18] INVALID FOR*02/04/2016 Priority: D More... SUMMARY INVALID FOR* Priority: Very Severe More... PAC's [I49.1] INVALID FOR* Priority: B More... Chronic ulcerative colitis without complication*INVALID FOR* Priority: C More... Hyperlipidemia LDL goal <100 [E78.5] INVALID FOR* Priority: C More... Non-rheumatic mitral regurgitation [I34.0] INVALID FOR* Priority: A More... Pneumothorax [J93.9] INVALID FOR* Priority: D More... Stress hyperglycemia [R73.9] INVALID FOR*02/09/2016 Priority: E More... Postoperative hypovolemia [E89.89, E86.1] INVALID FOR*02/09/2016 Priority: F More... Post-operative pain [G89.18] INVALID FOR* Priority: D More... Essential hypertension [I10] INVALID FOR*02/12/2016 Priority: C More... Atrial fibrillation, new onset (HCC) [I48.91] INVALID FOR* Priority: B More... 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 Please give serious thought to the following areas and commit to making halfway changes. EAT A WHOLE FOOD, PLANT BASED DIET The nutrition your body gets is more important than the medicine you take. What matters most is the overall way you eat. We encourage you to minimize the use of animal products (which include dairy and all meats except fatty fish) and use whole, unprocessed plant foods to provide your protein, vitamins and other nutrients. We have a lot of information to share with you on this topic. This is not a diet. It is a way of life that you will keep with you. EXERCISE REGULARLY It is not important to spend hours in the gym, lifting weights and perspiring heavily. A total of 2-3 hours per week of aerobic (causing you to be moderately short of breath) exercise is sufficient to improve your health. Talk to us before you begin a new exercise program, if you have heart disease or experience shortness of breath or chest pain. REDUCE STRESS Chronic emotional and physical stress leads to disease. Ways of reducing stress include meditation, visualization, prayer, yoga and other forms of relaxation therapy. Consistency is the sumner. Find a technique that works for you and do it every day. CULTIVATE RELATIONSHIPS Loneliness and isolation have a major negative impact on health. Seek out others who can love, care for and nurture you. Avoid hurtful relationships. MAINTAIN IDEAL BODY WEIGHT The best way to do this is to do all the things above. Our bodies naturally find the right weight if we keep moving and feed ourselves the right food. If your BMI is greater than 25, we strongly recommend a referral to a weight management program. Please speak to us or your family physician about available programs. AVOID NICOTINE IN ALL FORMS This includes all tobacco products, whether chewed, smoked, vaped, or rubbed on the skin. Smoking cessation programs, which can make use of tobacco substitutes, medications to suppress cravings and behavior management, are available. Please contact your family physician about programs in your area. Medications Discontinued During This Encounter metoprolol tartrate, short acting, (* 180 * 3 08/11/2017 04/13/2018 Class: Med Update Route: ORAL Sig: Take 0.5 tablets by mouth q 12 HR. Disc: Reason for discontinue is not on file. Follow-up and Disposition History Recorded Encounter Status:Closed by JANETH TRAVIS MD on 04/14/18 PROTIME Collected: 04/06/2018 Status: F Source: [place] 8:22 AM [facility] REPOSITORY TYPE CODE TESTS RESULT OUT OF RANGE REFERENCE UNITS LAB PSEC 9.7-13.0 sec High PT Sec 24.7 LAB INR 0.9-1.3 High PT INR 2.5 Result Comment: Vitamin K Antagonist (VKA) Therapeutic Range: INR 2 to 3 (Target INR of 2.5) Note: For patients treated with VKA drugs, such as warfarin, the [employer] 2012 Guideline recommends a therapeutic INR range of 2 to 3 (target INR of 2.5). This recommendation includes high-risk patients with antiphospholipid syndrome with previous arterial or venous thromboembolism, current-generation mechanical or bioprosthetic aortic heart valve replacement. Note: Patients with mechanical aortic valve replacement and additional risk factors for thromboembolic events (atrial fibrillation, previous thromboembolism, LV dysfunction, hypercoagulable conditions) or an older generation mechanical AVR (i.e., ball in-Cage) or any mechanical MVR should have a INR therapeutic range of 2.5 to 3.5 (target INR of 3). Lois PASCAL, et al. Chest 2012, 141:7S-47S Justine RA, et al. [facility] 2017, 70: 252-289 Performed By: #### PT #### [facility] [address] [place], [place] [address] PROTIME Collected: 03/22/2018 Status: F Source: [place] 9:07 AM [facility] REPOSITORY TYPE CODE TESTS RESULT OUT OF RANGE REFERENCE UNITS LAB PSEC 9.7-13.0 sec High PT Sec 29.9 LAB INR 0.9-1.3 High PT INR 3.1 Result Comment: Vitamin K Antagonist (VKA) Therapeutic Range: INR 2 to 3 (Target INR of 2.5) Note: For patients treated with VKA drugs, such as warfarin, the [employer] 2012 Guideline recommends a therapeutic INR range of 2 to 3 (target INR of 2.5). This recommendation includes high-risk patients with antiphospholipid syndrome with previous arterial or venous thromboembolism, current-generation mechanical or bioprosthetic aortic heart valve replacement. Note: Patients with mechanical aortic valve replacement and additional risk factors for thromboembolic events (atrial fibrillation, previous thromboembolism, LV dysfunction, hypercoagulable conditions) or an older generation mechanical AVR (i.e., ball in-Cage) or any mechanical MVR should have a INR therapeutic range of 2.5 to 3.5 (target INR of 3). Lois PASCAL, et al. Chest 2012, 141:7S-47S Justine MONTAGUE et al. [facility] 2017, 70: 252-289 Performed By: #### PT, BMP #### [facility] [address] [place], [place] [address] BASIC METABOLIC PANL Collected: 03/22/2018 Status: F Source: [place] 9:07 AM [facility] REPOSITORY TYPE CODE TESTS RESULT OUT OF REFERENCE UNITS RANGE LAB GLU 74-99 mg/dL High Glucose 110 Result Comment: The [place] Diabetes Association (ADA) provides guidance for cutoff values for fasting glucose and random glucose. The ADA defines fasting as no caloric intake for at least 8 hours. Fas ting plasma glucose results between 100 to 125 mg/dL indicate increased risk for diabetes (prediabetes). Fasting plasma glucose results greater than or equal to 126 mg/dL meet the criteria for diagnosis of diabetes. In the absence of unequivocal hyperglycemia, results should be confirmed by repeat testing. In a patient with classic symptoms of hyperglycemia or hyperglycemic crisis, random plasma glucose results greater than or equal to 200 mg/dL meet the criteria for diagnosis of diabetes. Reference: Standards of Medical Care in Diabetes 2016, [place] Diabetes Association. Diabetes Care. 2016.39(Suppl 1). LAB BUN 9-24 mg/dL BUN 17 LAB CRET 0.73-1.22 mg/dL Creatinine 1.07 LAB NA 136-144 mmol/L Sodium 140 LAB K 3.7-5.1 mmol/L Potassium 4.1 LAB CL 97-105 mmol/L Chloride 99 LAB CO2 22-30 mmol/L CO2 26 LAB AGAP 9-18 mmol/L Anion Gap 15 LAB CA 8.5-10.2 mg/dL Calcium, Total 8.9 LAB GFRAA eGFR- Amer. >60 LAB GFRNAA . eGFR-All Other Races >60 Result Comment: eGFR (Estimated GFR) Units of measure: mL/min/1.73 meters squared eGFR is derived from the reexpressed MDRD Study equation using the following parameters: serum creatinine, age, gender and race. The creatinine assay has been calibrated to be traceable to IDMS. An eGFR <60 mL/min/1.73m2 for >3 months is consistent with chronic kidney disease. Refer to KDOQI guidelines for clinical interpretation. In patients with unstable renal function, e.g. those with acute kidney injury, the eGFR may not accurately reflect actual GFR. Performed By: #### PT, BMP #### [facility] [address] [place], [place] [address] PROTIME Collected: 02/12/2018 Status: F Source: [place] 9:03 AM [facility] REPOSITORY TYPE CODE TESTS RESULT OUT OF RANGE REFERENCE UNITS LAB PSEC 9.7-13.0 sec High PT Sec 23.0 LAB INR 0.9-1.3 High PT INR 2.3 Result Comment: Vitamin K Antagonist (VKA) Therapeutic Range: INR 2 to 3 (Target INR of 2.5) Note: For patients treated with VKA drugs, such as warfarin, the [employer] 2012 Guideline recommends a therapeutic INR range of 2 to 3 (target INR of 2.5). This recommendation includes high-risk patients with antiphospholipid syndrome with previous arterial or venous thromboembolism, current-generation mechanical or bioprosthetic aortic heart valve replacement. Note: Patients with mechanical aortic valve replacement and additional risk factors for thromboembolic events (atrial fibrillation, previous thromboembolism, LV dysfunction, hypercoagulable conditions) or an older generation mechanical AVR (i.e., ball in-Cage) or any mechanical MVR should have a INR therapeutic range of 2.5 to 3.5 (target INR of 3). Lois GH, et al. Chest 2012, 141:7S-47S Justine RA, et al. [facility] 2017, 70: 252-289 Performed By: #### PT #### [facility] [employer] [address] [place], [place] [address] INITAL EVALUATION (1) Observed: 01/29/2018 Status: F Source: [place] - PT 8:35 AM [facility] REPOSITORY [facility] [address] [place] [address]. [address] [place], [place] [address] Fax REHABILITATION SERVICES INITIAL EVALUATION MR#: [id number] Acct: [id number] Name: IZABEL GARCÍA Rep #: [id number] : 1950 67 From: Tyron Steinberg PT, Cert. MDT, OCS Referring Dr.: Aletha Zamudio DO Status: REG [...] work to improve L rotation, thoracic extension. Posture strengthening when mobility improves. Mech traction at end of session. Lumbar: REIL initially, LE flexibility, core strengthening when mobility improves. - Subjective Subjective: Pt is 67 y/o male referred for cervical radiculopathy and low back [...] symptoms in UE/LE's. He reports low back pain that worsens with prolonged sitting. Feels better when he sits with better support and when he stands up and walks around. Location of low back symptoms are in the R side and describes as achy. 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 - Pain Neck pain Pain Intensity (Out of 10): 5 Back pain Pain Intensity (Out of 10): 6 - Objective OBSERVATION: forward flexed sitting posture, forward head, exagerated thoracic kyphosis. PALPATION: No alignment issues. No tenderness. ROM: Lumbar: flexion nil, extension 75%, R LF 75%, L LF* 75%. Cervical flexion 50%, extension 50%, R rotation 75%, L rotation* 50%. STRENGTH: Gross B LE/UE 5/5. ASSESSORY MOTION: Hypomobile PA glides throughout cervical and thoracic spines. SPECIAL TESTS: Cervical distraction (+), Cervical flexion/rotation test (+) for L rotation. FLEXIBILITY: Decreased B hip flexors and hamstrings [...] is 67 y/o male referred for cervical radiculopathy and low back pain. He reports gradually worsening neck pain and low back pain that worsens with prolonged sitting. Lumbar objective testing shows a minimal loss of extension. His symptoms likely coorelate with a posterior derangement with a directional preference of extension. Cervical testing reveals a moderate loss of motion with reproduction of pain at end range, predominantely rotation and extension, and hypomobile assessory motion for the cervical and thoracic spines. He has activity limitations that affect his sitting and turning his head. Pt will benefit from skilled PT to address the above mentioned impairments. Rehabilitation Potential: Good - Anticipated [...] Therapeutic Exercise to Include: Strength training, Endurance training, Body mechanics, Postural training, Flexibilty training, Passive ROM, Active ROM, Mart Exercises For the Purpose of:: To decrease pain, To increase ROM, To improve muscle performance and motor function, To improve performance and independence with [...] of physical actions for home/community/work/leisure, To decrease soft tissue restriction, To increase [...] of physical actions for home/community/work/leisure, To decrease soft tissue restriction, To increase flexibility/ROM Thank you for the opportunity to evaluate your patient. For Medicare and Medicare HMO plans, please review the plan of care and approve it. It will need to be FAXED BACK to us at [phone] for Medicare purposes. Please let me know if there are questions or concerns regarding this plan of care. Physician Signature: Date: <Electronically signed by Tyron Steinberg PT, Cert. T, OCS> 01/29/18 0835 CC: Aletha Zamudio DO LAURIE Signed For Medicare only, by signing this I certify the plan of care. Physicians Signature Date PROTIME Collected: 01/11/2018 Status: F Source: [place] 9:23 AM [facility] REPOSITORY TYPE CODE TESTS RESULT OUT OF RANGE REFERENCE UNITS LAB PSEC 9.7-13.0 sec High PT Sec 28.9 LAB INR 0.9-1.3 High PT INR 3.0 Result Comment: Vitamin K Antagonist (VKA) Therapeutic Range: INR 2 to 3 (Target INR of 2.5) Note: For patients treated with VKA drugs, such as warfarin, the [employer] 2012 Guideline recommends a therapeutic INR range of 2 to 3 (target INR of 2.5). This recommendation includes high-risk patients with antiphospholipid syndrome with previous arterial or venous thromboembolism, current-generation mechanical or bioprosthetic aortic heart valve replacement. Note: Patients with mechanical aortic valve replacement and additional risk factors for thromboembolic events (atrial fibrillation, previous thromboembolism, LV dysfunction, hypercoagulable conditions) or an older generation mechanical AVR (i.e., ball in-Cage) or any mechanical MVR should have a INR therapeutic range of 2.5 to 3.5 (target INR of 3). Lois GH, et al. Chest 2012, 141:7S-47S Justine RA, et al. [facility] 2017, 70: 252-289 Performed By: #### PT #### [facility] [address] [place] [address] PROGRESS Observed: 12/28/2017 Status: COMPLETED Source: [place] 10:59 AM [facility] REPOSITORY HNO ID: [id number] Author: Joselito Nayak (Rn) MARCOS Card Service: (none) Author Type: Registered Nurse Type: Progress Notes Filed: 12/28/2017 11:01 AM Note Text: IRB # [id number]: [employer] SLS Registry (System Longevity Study) PI: Jc Melo MD Chart review done today through last study visit / chart review on [id number]. All follow up is complete and study is closed for the patient. Joselito Card RN Pager: [phone] CNNURSE Observed: 12/28/2017 Status: COMPLETED Source: [place] 7:00 AM [facility] REPOSITORY Nurse Visit (CARDMN) IZABEL GARCÍA ([id number]) 1950 M Date Time Provider Department 12/28/17 7:00 AM [facility] During your visit today, we recorded the following information about you: Joselito Card RN, RN 12/28/2017 11:01 AM Signed IRB # [id number]: [employer] SLS Registry (System Longevity Study) PI: Jc Melo MD Chart review done today through last study visit / chart review on 11AUG2017. All follow up is complete and study is closed for the patient. Joselito Card RN Pager: [phone] Referring Provider: JC MELO [[id number]] Allergies As of Date: 12/28/2017 Noted Allergy Reaction BEES 04/02/2005 16 - Unknown Comments: Allergy testing revealed allergy to bee venom. SHELLFISH 02/17/2005 7 - Swelling Comments: Patient stated he has throat swelling with shrimp. Allergy testing revealed allergy to shellfish VICODIN (HYDROCODONE-ACETAMINOPHE*07/19/2015 5 - Intolerance Date Reviewed: 08/11/2017 Reviewed by: Lindsay (Gordon) Kyle - Fully Assessed Reason for Visit: Research F/U [018] Primary Visit Diagnosis:Research study patient [Z00.6] Prescriptions as of 12/28/2017 Sig: METOPROLOL TARTRATE 25 MG TAB* Take 0.5 tablets by mouth q 1* MAGNESIUM OXIDE 400 MG TABLET TAKE ONE TABLET BY MOUTH TWIC* WARFARIN 5 MG TABLET Take 1 tablet by mouth once d* WARFARIN 1 MG TABLET TAKE ONE TABLET BY MOUTH ONCE* ASPIRIN 81 MG TABLET,DELAYED * Take 1 tablet by mouth once d* SOD PICOSULF 10 MG-MAGNES 3.5* Take as directed for colonosc* ACETAMINOPHEN 325 MG TABLET Take 2 tablets by mouth every* THERAPEUTIC MULTIVITAMIN TABL* Take 1 tablet by mouth daily * * OLSALAZINE 250 MG CAPSULE Take one(1) tablet daily. * PRILOSEC 20 MG CAPSULE,DELAYE* Take one(1) capsule daily. * ZOCOR 20 MG TABLET Take one(1) tablet daily. at * Problem List As Of Date 12/28/2017 Noted Resolved Ulcerative (chronic) ileocolitis (HCC) [K51.00] INVALID FOR*02/06/2016 Mixed hyperlipidemia [E78.2] INVALID FOR*02/06/2016 Mitral valve disorders [I05.9] INVALID FOR*02/06/2016 Priority: A More... Acute gastritis without mention of hemorrhage [*INVALID FOR*02/06/2016 Encounter for colonoscopy due to history of vinnie*INVALID FOR*08/23/2015 Pre-op testing [Z01.818] INVALID FOR*02/02/2016 More... Discharge planning [Z02.9] INVALID FOR* Priority: M More... Atelectasis [J98.11] INVALID FOR*02/06/2016 Priority: B More... Primary hypertension [I10] INVALID FOR* Priority: C More... More... More... Post-operative pain [G89.18] INVALID FOR*02/04/2016 Priority: D More... SUMMARY INVALID FOR* Priority: Very Severe More... PAC's [I49.1] INVALID FOR* Priority: B More... Chronic ulcerative colitis without complication*INVALID FOR* Priority: C More... Hyperlipidemia LDL goal <100 [E78.5] INVALID FOR* Priority: C More... Non-rheumatic mitral regurgitation [I34.0] INVALID FOR* Priority: A More... Pneumothorax [J93.9] INVALID FOR* Priority: D More... Stress hyperglycemia [R73.9] INVALID FOR*02/09/2016 Priority: E More... Postoperative hypovolemia [E89.89, E86.1] INVALID FOR*02/09/2016 Priority: F More... Post-operative pain [G89.18] INVALID FOR* Priority: D More... Essential hypertension [I10] INVALID FOR*02/12/2016 Priority: C More... Atrial fibrillation, new onset (HCC) [I48.91] INVALID FOR* Priority: B More... Atrial fibrillation (HCC) [I48.91] INVALID FOR* S/P MVR (mitral valve replacement) [Z95.2] INVALID FOR* Lipoma of torso [D17.1] INVALID FOR* Encounter Status:Closed by JOSELITO CARD on 12/28/17 PROTIME Collected: 12/15/2017 Status: F Source: [facility] 9:06 AM [facility] REPOSITORY TYPE CODE TESTS RESULT OUT OF RANGE REFERENCE UNITS LAB PSEC 9.7-13.0 sec High PT Sec 26.9 LAB INR 0.9-1.3 High PT INR 2.8 Result Comment: Vitamin K Antagonist (VKA) Therapeutic Range: INR 2 to 3 (Target INR of 2.5) Note: For patients treated with VKA drugs, such as warfarin, the [employer] 2012 Guideline recommends a therapeutic INR range of 2 to 3 (target INR of 2.5). This recommendation includes high-risk patients with antiphospholipid syndrome with previous arterial or venous thromboembolism, current-generation mechanical or bioprosthetic aortic heart valve replacement. Note: Patients with mechanical aortic valve replacement and additional risk factors for thromboembolic events (atrial fibrillation, previous thromboembolism, LV dysfunction, hypercoagulable conditions) or an older generation mechanical AVR (i.e., ball in-Cage) or any mechanical MVR should have a INR therapeutic range of 2.5 to 3.5 (target INR of 3). Lois PASCAL, et al. Chest 2012, 141:7S-47S Justine RA, et al. [facility] 2017, 70: 252-289 Performed By: #### PT, MG1 #### [facility] [employer] [address], [place] [address] MAGNESIUM Collected: 12/15/2017 Status: F Source: [place] 9:06 AM [facility] REPOSITORY TYPE CODE TESTS RESULT OUT OF REFERENCE UNITS RANGE LAB MG 1.7-2.3 mg/dL Magnesium 2.0 Performed By: #### PT, MG1 #### [facility] [employer] [address], [place] [address] PROTIME Collected: 12/01/2017 Status: F Source: [place] 9:55 AM [facility] REPOSITORY TYPE CODE TESTS RESULT OUT OF RANGE REFERENCE UNITS LAB PSEC 9.7-13.0 sec High PT Sec 29.5 LAB INR 0.9-1.3 High PT INR 3.1 Result Comment: Vitamin K Antagonist (VKA) Therapeutic Range: INR 2 to 3 (Target INR of 2.5) Note: For patients treated with VKA drugs, such as warfarin, the [employer] 2012 Guideline recommends a therapeutic INR range of 2 to 3 (target INR of 2.5). This recommendation includes high-risk patients with antiphospholipid syndrome with previous arterial or venous thromboembolism, current-generation mechanical or bioprosthetic aortic heart valve replacement. Note: Patients with mechanical aortic valve replacement and additional risk factors for thromboembolic events (atrial fibrillation, previous thromboembolism, LV dysfunction, hypercoagulable conditions) or an older generation mechanical AVR (i.e., ball in-Cage) or any mechanical MVR should have a INR therapeutic range of 2.5 to 3.5 (target INR of 3). sukh Leiva. Chest 2012, 141:7S-47S Justine MONTAGUE et al. [facility] 2017, 70: 252-289 Performed By: #### PT #### [facility] [employer] [address] [place], [place] [address] PROTIME Collected: 11/02/2017 Status: F Source: [place] 8:20 AM [facility] REPOSITORY TYPE CODE TESTS RESULT OUT OF RANGE REFERENCE UNITS LAB PSEC 9.7-13.0 sec High PT Sec 25.8 LAB INR 0.9-1.3 High PT INR 2.6 Result Comment: Vitamin K Antagonist (VKA) Therapeutic Range: INR 2 to 3 (Target INR of 2.5) Note: For patients treated with VKA drugs, such as warfarin, the [employer] 2012 Guideline recommends a therapeutic INR range of 2 to 3 (target INR of 2.5). This recommendation includes high-risk patients with antiphospholipid syndrome with previous arterial or venous thromboembolism, current-generation mechanical or bioprosthetic aortic heart valve replacement. Note: Patients with mechanical aortic valve replacement and additional risk factors for thromboembolic events (atrial fibrillation, previous thromboembolism, LV dysfunction, hypercoagulable conditions) or an older generation mechanical AVR (i.e., ball in-Cage) or any mechanical MVR should have a INR therapeutic range of 2.5 to 3.5 (target INR of 3). sukh Leiva. Chest 2012, 141:7S-47S Justine MONTAGUE et al. [facility] 2017, 70: 252-289 Performed By: #### PT #### [facility] [employer] [address] [place], [place] [address] PROTIME Collected: 10/05/2017 Status: F Source: [place] 8:30 AM [facility] REPOSITORY TYPE CODE TESTS RESULT OUT OF RANGE REFERENCE UNITS LAB PSEC 9.7-13.0 sec High PT Sec 24.2 LAB INR 0.9-1.3 High PT INR 2.5 Result Comment: Vitamin K Antagonist (VKA) Therapeutic Range: INR 2 to 3 (Target INR of 2.5) Note: For patients treated with VKA drugs, such as warfarin, the [employer] 2012 Guideline recommends a therapeutic INR range of 2 to 3 (target INR of 2.5). This recommendation includes high-risk patients with antiphospholipid syndrome with previous arterial or venous thromboembolism, current-generation mechanical or bioprosthetic aortic heart valve replacement. Note: Patients with mechanical aortic valve replacement and additional risk factors for thromboembolic events (atrial fibrillation, previous thromboembolism, LV dysfunction, hypercoagulable conditions) or an older generation mechanical AVR (i.e., ball in-Cage) or any mechanical MVR should have a INR therapeutic range of 2.5 to 3.5 (target INR of 3). Lois GH, et al. Chest 2012, 141:7S-47S Justine RA, et al. [facility] 2017, 70: 252-289 Performed By: #### PT #### [facility] [address] [id number] PROGRESS Observed: 09/22/2017 Status: COMPLETED Source: [place] 1:24 PM [facility] REPOSITORY HNO ID: [id number] Author: Natali (Rn) MARCOS Cobos Service: (none) Author Type: Registered Nurse Type: Progress Notes Filed: 09/22/2017 1:29 PM Note Text: IRB # [id number]: [employer] SLS Registry (System Longevity Study) PI: Jc Melo MD Chart review done today through last study visit / chart review on 08/11/2017. Natali Cobos RN Pager: [phone] PROTIME Collected: 09/07/2017 Status: F Source: [place] 8:15 AM [facility] [place] REPOSITORY TYPE CODE TESTS RESULT OUT OF RANGE REFERENCE UNITS LAB PSEC 9.7-13.0 sec High PT Sec 25.0 LAB INR 0.9-1.3 High PT INR 2.6 Result Comment: Vitamin K Antagonist (VKA) Therapeutic Range: INR 2 to 3 (Target INR of 2.5) Note: For patients treated with VKA drugs, such as warfarin, the [employer] 2012 Guideline recommends a therapeutic INR range of 2 to 3 (target INR of 2.5). This recommendation includes high-risk patients with antiphospholipid syndrome with previous arterial or venous thromboembolism, current-generation mechanical or bioprosthetic aortic heart valve replacement. Note: Patients with mechanical aortic valve replacement and additional risk factors for thromboembolic events (atrial fibrillation, previous thromboembolism, LV dysfunction, hypercoagulable conditions) or an older generation mechanical AVR (i.e., ball in-Cage) or any mechanical MVR should have a INR therapeutic range of 2.5 to 3.5 (target INR of 3). Lois PASCAL, et al. Chest 2012, 141:7S-47S Justine RA, et al. [facility] 2017, 70: 252-289 Performed By: #### PT, MG1 #### [facility] [employer] [address], [place] [address] MAGNESIUM Collected: 09/07/2017 Status: F Source: [place] 8:15 AM [facility] REPOSITORY TYPE CODE TESTS RESULT OUT OF REFERENCE UNITS RANGE LAB MG 1.7-2.3 mg/dL Magnesium Duplicate request Result Comment: Account Credited See sample collected [id number] at 0806 Performed By: #### PT, MG1 #### [facility] [employer] [address], [place] [address] MAGNESIUM Collected: 09/07/2017 Status: F Source: [place] 8:06 AM [facility] [place] REPOSITORY TYPE CODE TESTS RESULT OUT OF REFERENCE UNITS RANGE LAB MG 1.7-2.3 mg/dL Magnesium 2.2 Performed By: #### MG1 #### [facility] [employer] [address], [place] [address] PROGRESS Observed: 08/11/2017 Status: COMPLETED Source: [place] 11:42 AM [facility] OTHER CAMPUS REPOSITORY HNO ID: [id number] Author: Janeth Travis Service: (none) Author Type: Physician Type: Progress Notes Filed: 08/11/2017 3:00 PM Note Text: PERTINENT CARDIAC HISTORY MVP, bileaflet Mitral insufficiency - MV repair 01/23 (failed), MVR (bio) 02/22 ASHD - minimal by cath 12/23 HTN HL PAF TIA - while on warfarin, ASA added NSVT? - post op ADHERENCE TO GUIDELINES RICHY-I or ARB for HF with prior LVEF<40 (NQF 0081) - N/A ASA or Plavix for ASHD (NQF 0067) - TIA Beta cande for ASHD with prior AK or prior LVEF<40 (NQF 0070) - N/A Beta cande for HF with prior LVEF<40 (NQF 0083) - N/A RICHY-I or ARB for ASHD with DM or prior LVEF<40 (NQF 0066) - N/A Statin therapy for ASHD or FHL or DM - met BMI documented and plan if >25 (NQF 0421) - lifestyle recommendation form Tobacco use screening and referral (NQF 0028) - lifestyle recommendation form Recommendation for whole food, plant based diet - lifestyle recommendation form CLINICAL IMPRESSION/PLAN: Izabel García has stable valvular heart disease. There is no compromise of his mitral valve by exam. Follow-up echocardiogram is due, to reassess LV function and valve gradients. His LV function had fallen on the most recent study. Laboratory studies have been drawn and will be discussed with him. He has been taking Prilosec for an extended period of time. I suggested that he make a change to famotidine and work with Dr. Zamudio on this change. He has been on chronic magnesium therapy, and this could likely be eliminated with the change. His blood pressure and pulse are borderline low. I've asked him to decrease metoprolol to 12.5 milligrams twice daily and update us with symptoms and vital signs in the next 2 weeks. I will see him in 8 months or as needed. If there is increased chest pain or shortness of breath, he has been advised to contact me. Written and verbal health teaching given to patient, patient verbalizes understanding and agrees with treatment plan. This note was generated using [employer] voice recognition system, and there may be some incorrect words, spellings, and punctuation that were not noted in checking the note before saving. DIAGNOSIS FOR VISIT: MVR Hypertension Postural hypotension HISTORY OF PRESENT ILLNESS Izabel García returns for follow-up of his valvular heart disease, hypertension and atrial fibrillation. He reports stable exercise tolerance. He's had no chest discomfort. He denies orthopnea, edema, syncope, palpitations, TIAs, amaurosis and claudication. He has noticed some lightheadedness when he stands suddenly. This resolves after a few seconds but sometimes he needs to sit back down again. He reports blood pressures at home have been as low as the 110- 120 systolic range. ALLERGIES: ALLERGIES Allergen Reactions - Bees Unknown Allergy testing revealed allergy to bee venom. - Shellfish Swelling Patient stated he has throat swelling with shrimp. Allergy testing revealed allergy to shellfish - Vicodin [Hydrocodon* Intolerance CURRENT OUTPATIENT MEDICATIONS: metoprolol tartrate, short acting, (LOPRESSOR) 25 mg tablet TAKE ONE TABLET BY MOUTH EVERY 12 HOURS magnesium oxide (MAG-OX) 400 mg tablet TAKE ONE TABLET BY MOUTH TWICE DAILY warfarin (COUMADIN) 5 mg tablet Take 1 tablet by mouth once daily. OR DIRECTED warfarin (COUMADIN) 1 mg tablet TAKE ONE TABLET BY MOUTH ONCE DAILY DIRECTED aspirin, enteric coated (ECOTRIN LOW STRENGTH) 81 mg EC tablet Take 1 tablet by mouth once daily. sod picosulf-mag ox-citric ac (PREPOPIK) 10 mg-3.5 gram-12 gram pwpk Take as directed for colonoscopy prep. acetaminophen (TYLENOL) 325 mg tablet Take 2 tablets by mouth every 4 hours as needed. therapeutic multivitamin (THERA VITAMIN) tablet Take 1 tablet by mouth daily with breakfast. olsalazine (DIPENTUM) 250 mg ORAL capsule Take one(1) tablet daily. PRILOSEC 20 MG CAP Take one(1) capsule daily. ZOCOR 20 MG ORAL TAB Take one(1) tablet daily. at bedtime PAST MEDICAL HISTORY Diagnosis Date - Benign neoplasm of colon - Hypertension - Mitral valve disorders(424.0) - Other and unspecified hyperlipidemia - Snoring - Ulcerative colitis, unspecified PAST SURGICAL HISTORY Procedure Laterality Date - COLONOSCOP W/ OR W/O BRS SPEC 06/07/99 Colonoscopy - COLONOSCOP W/ OR W/O BRS SPEC 04/28/01 Colonoscopy - COLONOSCOP W/ OR W/O BRS SPEC 06/22/03 Colonoscopy - COLONOSCOP W/ OR W/O BRS SPEC 06/21/2012 Colonoscopy - COLONOSCOP W/ OR W/O BRS SPEC 08/23/15 Colonoscopy - COLONOSCOP W/ OR W/O BRS SPEC 10/02/2016 Colonoscopy - COLONOSCOPY W/BX 10/13/06 - COLONOSCOPY W/BX 01/31/10 - EGD W/O OR W/BRUSH/WASH 06/21/2012 EGD - EGD W/O OR W/BRUSH/WASH 08/23/15 EGD - HEART SURGERY HX - HEART VALVE REPLACEMENT 2016 mitral valve x 2 - PAST SURGICAL HISTORY OF 07/10/03 hernia repair FAMILY HISTORY Problem Relation Age of Onset - Hypertension Mother - Hypertension Father - Hypertension Brother Social History Marital status: Spouse name: Years of education: Number of children: Social History Main Topics Smoking status: Never Smoker Smokeless status: Never Used Alcohol use: No Drug use: No Sexual activity: Yes Partners with: Female control/protection: Surgical REVIEW OF SYSTEMS: General: No chills, fever, weight loss, night sweats. Respiratory: No productive cough. Cardiac: As noted above. GI: No melena. : No dysuria. Musculoskeletal: No myalgias. PHYSICAL EXAMINATION: S/he is alert and in no distress. VITAL SIGNS: BP 133/84 Pulse 52 Wt 208 lb 8 oz (94.6kg) SHEENT: Skin is warm and dry. No xanthelasmas appreciated. Pharynx is benign. There is no oral cyanosis. Neck: supple. No adenopathy or thyroid enlargement. Chest: Clear to percussion and auscultation. Trachea is midline. Air entry is equal. There is no chest wall tenderness. Cardiac: Regular rhythm. S1 and S2 are normal. PMI is nondisplaced. There is no mitral insufficiency murmur. Carotids are brisk with soft bilateral bruits. JVP is less than 10 cm. Abdomen: Soft and nontender. There are no pulsatile masses or bruits. No liver enlargement. Bowel sounds are active. Extremities: No edema. Pulses are intact and symmetrical. No clubbing or cyanosis. No femoral bruits. Neurologic: Grossly normal motor and sensory. S/he is alert and oriented x4. EKG demonstrates sinus bradycardia. There is no significant change from 05/15/15. Labs are pending. Electronically Signed: Janeth Travis MD August 11, 2017 11:42 AM CC:DO YULIET Santamaria Observed: 08/11/2017 Status: COMPLETED Source: [place] 10:30 AM [facility] OTHER CAMPUS REPOSITORY Office Visit (AGCARDW[facility]) IZABEL GARCÍA ([id number]) 1950 M Date Time Provider Department 08/11/17 10:30 AM JANETH TRAVIS AGCARDWST During your visit today, we recorded the following information about you: Pulse Blood pressure Weight 52/minute 133/84 94.6 kg Janeth Travis MD 08/11/2017 3:00 PM Signed PERTINENT CARDIAC HISTORY MVP, bileaflet Mitral insufficiency - MV repair 01/23 (failed), MVR (bio) 02/22 ASHD - minimal by cath 12/23 HTN HL PAF TIA - while on warfarin, ASA added NSVT? - post op ADHERENCE TO GUIDELINES RICHY-I or ARB for HF with prior LVEFANDlt;40 (NQF 0081) - N/A ASA or Plavix for ASHD (NQF 0067) - TIA Beta cande for ASHD with prior AK or prior LVEFANDlt;40 (NQF 0070) - N/A Beta cande for HF with prior LVEFANDlt;40 (NQF 0083) - N/A RICHY-I or ARB for ASHD with DM or prior LVEFANDlt;40 (NQF 0066) - N/A Statin therapy for ASHD or FHL or DM - met BMI documented and plan if ANDgt;25 (NQF 0421) - lifestyle recommendation form Tobacco use screening and referral (NQF 0028) - lifestyle recommendation form Recommendation for whole food, plant based diet - lifestyle recommendation form CLINICAL IMPRESSION/PLAN: Izabel García has stable valvular heart disease. There is no compromise of his mitral valve by exam. Follow-up echocardiogram is due, to reassess LV function and valve gradients. His LV function had fallen on the most recent study. Laboratory studies have been drawn and will be discussed with him. He has been taking Prilosec for an extended period of time. I suggested that he make a change to famotidine and work with Dr. Zamudio on this change. He has been on chronic magnesium therapy, and this could likely be eliminated with the change. His blood pressure and pulse are borderline low. I've asked him to decrease metoprolol to 12.5 milligrams twice daily and update us with symptoms and vital signs in the next 2 weeks. I will see him in 8 months or as needed. If there is increased chest pain or shortness of breath, he has been advised to contact me. Written and verbal health teaching given to patient, patient verbalizes understanding and agrees with treatment plan. This note was generated using [employer] voice recognition system, and there may be some incorrect words, spellings, and punctuation that were not noted in checking the note before saving. DIAGNOSIS FOR VISIT: MVR Hypertension Postural hypotension HISTORY OF PRESENT ILLNESS Izabel García returns for follow-up of his valvular heart disease, hypertension and atrial fibrillation. He reports stable exercise tolerance. He's had no chest discomfort. He denies orthopnea, edema, syncope, palpitations, TIAs, amaurosis and claudication. He has noticed some lightheadedness when he stands suddenly. This resolves after a few seconds but sometimes he needs to sit back down again. He reports blood pressures at home have been as low as the 110-120 systolic range. ALLERGIES: ALLERGIES Allergen Reactions - Bees Unknown Allergy testing revealed allergy to bee venom. - Shellfish Swelling Patient stated he has throat swelling with shrimp. Allergy testing revealed allergy to shellfish - Vicodin [Hydrocodon* Intolerance CURRENT OUTPATIENT MEDICATIONS: metoprolol tartrate, short acting, (LOPRESSOR) 25 mg tablet TAKE ONE TABLET BY MOUTH EVERY 12 HOURS magnesium oxide (MAG-OX) 400 mg tablet TAKE ONE TABLET BY MOUTH TWICE DAILY warfarin (COUMADIN) 5 mg tablet Take 1 tablet by mouth once daily. OR DIRECTED warfarin (COUMADIN) 1 mg tablet TAKE ONE TABLET BY MOUTH ONCE DAILY DIRECTED aspirin, enteric coated (ECOTRIN LOW STRENGTH) 81 mg EC tablet Take 1 tablet by mouth once daily. sod picosulf-mag ox-citric ac (PREPOPIK) 10 mg-3.5 gram-12 gram pwpk Take as directed for colonoscopy prep. acetaminophen (TYLENOL) 325 mg tablet Take 2 tablets by mouth every 4 hours as needed. therapeutic multivitamin (THERA VITAMIN) tablet Take 1 tablet by mouth daily with breakfast. olsalazine (DIPENTUM) 250 mg ORAL capsule Take one(1) tablet daily. PRILOSEC 20 MG CAP Take one(1) capsule daily. ZOCOR 20 MG ORAL TAB Take one(1) tablet daily. at bedtime PAST MEDICAL HISTORY Diagnosis Date - Benign neoplasm of colon - Hypertension - Mitral valve disorders(424.0) - Other and unspecified hyperlipidemia - Snoring - Ulcerative colitis, unspecified PAST SURGICAL HISTORY Procedure Laterality Date - COLONOSCOP W/ OR W/O BRSH SPEC 06/07/99 Colonoscopy - COLONOSCOP W/ OR W/O BRSH SPEC 04/28/01 Colonoscopy - COLONOSCOP W/ OR W/O BRSH SPEC 06/22/03 Colonoscopy - COLONOSCOP W/ OR W/O BRSH SPEC 06/21/2012 Colonoscopy - COLONOSCOP W/ OR W/O BRSH SPEC 08/23/15 Colonoscopy - COLONOSCOP W/ OR W/O BRSH SPEC 10/02/2016 Colonoscopy - COLONOSCOPY W/BX 10/13/06 - COLONOSCOPY W/BX 01/31/10 - EGD W/O OR W/BRUSH/WASH 06/21/2012 EGD - EGD W/O OR W/BRUSH/WASH 08/23/15 EGD - HEART SURGERY HX - HEART VALVE REPLACEMENT 2016 mitral valve x 2 - PAST SURGICAL HISTORY OF 07/10/03 hernia repair FAMILY HISTORY Problem Relation Age of Onset - Hypertension Mother - Hypertension Father - Hypertension Brother Social History Marital status: Spouse name: Years of education: Number of children: Social History Main Topics Smoking status: Never Smoker Smokeless status: Never Used Alcohol use: No Drug use: No Sexual activity: Yes Partners with: Female control/protection: Surgical REVIEW OF SYSTEMS: General: No chills, fever, weight loss, night sweats. Respiratory: No productive cough. Cardiac: As noted above. GI: No melena. : No dysuria. Musculoskeletal: No myalgias. PHYSICAL EXAMINATION: S/he is alert and in no distress. VITAL SIGNS: BP 133/84 Pulse 52 Wt 208 lb 8 oz (94.6kg) SHEENT: Skin is warm and dry. No xanthelasmas appreciated. Pharynx is benign. There is no oral cyanosis. Neck: supple. No adenopathy or thyroid enlargement. Chest: Clear to percussion and auscultation. Trachea is midline. Air entry is equal. There is no chest wall tenderness. Cardiac: Regular rhythm. S1 and S2 are normal. PMI is nondisplaced. There is no mitral insufficiency murmur. Carotids are brisk with soft bilateral bruits. JVP is less than 10 cm. Abdomen: Soft and nontender. There are no pulsatile masses or bruits. No liver enlargement. Bowel sounds are active. Extremities: No edema. Pulses are intact and symmetrical. No clubbing or cyanosis. No femoral bruits. Neurologic: Grossly normal motor and sensory. S/he is alert and oriented x4. EKG demonstrates sinus bradycardia. There is no significant change from 05/15/15. Labs are pending. Electronically Signed: Janeth Travis MD August 11, 2017 11:42 AM CC:Aletha Zamudio, DO Janeth Travis MD 08/11/2017 11:42 AM Signed Try to change to pepcid or zantac. Work with Dr. Zamudio LIFESTYLE CHANGE A healthy lifestyle is the most important component of your overall treatment plan. Please give serious thought to the following areas and commit to making intermodal customer service changes. EAT A WHOLE FOOD, PLANT BASED DIET The nutrition your body gets is more important than the medicine you take. What matters most is the overall way you eat. We encourage you to minimize the use of animal products (which include dairy and all meats except fatty fish) and use whole, unprocessed plant foods to provide your protein, vitamins and other nutrients. We have a lot of information to share with you on this topic. We also hold Shared Medical Appointments, where you can come visit with Dr. Travis in the company of other patients and spend over an hour talking about the challenges of changing the way you eat. This is not a ANDquot;dietANDquot;. It is a way of life that you will keep with you. EXERCISE REGULARLY It is not important to spend hours in the gym, lifting weights and perspiring heavily. A total of 2-3 hours per week of aerobic (causing you to be moderately short of breath) exercise is sufficient to improve your health. Talk to us before you begin a new exercise program, if you have heart disease or experience shortness of breath or chest pain. REDUCE STRESS Chronic emotional and physical stress leads to disease. Ways of reducing stress include meditation, visualization, prayer, yoga and other forms of relaxation therapy. Consistency is the sumner. Find a technique that works for you and do it every day. CULTIVATE RELATIONSHIPS Loneliness and isolation have a major negative impact on health. Seek out others who can love, care for and nurture you. Avoid hurtful relationships. MAINTAIN IDEAL BODY WEIGHT The best way to do this is to do all the things above. Our bodies naturally find the right weight if we keep moving and feed ourselves the right food. If your BMI is greater than 25, we strongly recommend a referral to a weight management program. Please speak to us or your family physician about available programs. AVOID NICOTINE IN ALL FORMS This includes all tobacco products, whether chewed, smoked, vaped, or rubbed on the skin. Smoking cessation programs, which can make use of tobacco substitutes, medications to suppress cravings and behavior management, are available. Please contact your family physician about programs in your area. Referring Provider: ALETHA ZAMUDIO [[id number]] Allergies As of Date: 08/11/2017 Noted Allergy Reaction BEES 04/02/2005 16 - Unknown Comments: Allergy testing revealed allergy to bee venom. SHELLFISH 02/17/2005 7 - Swelling Comments: Patient stated he has throat swelling with shrimp. Allergy testing revealed allergy to shellfish VICODIN (HYDROCODONE-ACETAMINOPHE*07/19/2015 5 - Intolerance Date Reviewed: 08/11/2017 Reviewed by: Lindsay (Gordon) Kyle - Fully Assessed Reason for Visit: Recheck [92] Primary Visit Diagnosis:S/P MVR (mitral valve replacement) [Z95.2] Other Visit Diagnosis:Essential hypertension [I10] Order(s):ECG COMPLETE W INTERPRETATION [ECG01] Order #: [id number] FUTURE LIPID PANEL BASIC [SQLIPB] Order #: [id number] FUTURE BASIC METABOLIC PNL [SQBMP] Order #: [id number] FUTURE metoprolol tartrate, short acting, (LOPRESSOR) 25 mg tabletTake 0.5 tablets by mouth q 12 HR.Disp: 180 tabletRfl: 3 Prescriptions as of 08/11/2017 Sig: METOPROLOL TARTRATE 25 MG TAB* Take 0.5 tablets by mouth q 1* MAGNESIUM OXIDE 400 MG TABLET TAKE ONE TABLET BY MOUTH TWIC* WARFARIN 5 MG TABLET Take 1 tablet by mouth once d* WARFARIN 1 MG TABLET TAKE ONE TABLET BY MOUTH ONCE* ASPIRIN 81 MG TABLET,DELAYED * Take 1 tablet by mouth once d* SODIUM PICOSULF 10 MG-MG OX 3* Take as directed for colonosc* ACETAMINOPHEN 325 MG TABLET Take 2 tablets by mouth every* THERAPEUTIC MULTIVITAMIN TABL* Take 1 tablet by mouth daily * * OLSALAZINE 250 MG CAPSULE Take one(1) tablet daily. * PRILOSEC 20 MG CAPSULE,DELAYE* Take one(1) capsule daily. * ZOCOR 20 MG TABLET Take one(1) tablet daily. at * Problem List As Of Date 08/11/2017 Noted Resolved Ulcerative (chronic) ileocolitis (HCC) [K51.00] INVALID FOR*02/06/2016 Mixed hyperlipidemia [E78.2] INVALID FOR*02/06/2016 Mitral valve disorders [I05.9] INVALID FOR*02/06/2016 Priority: A More... Acute gastritis without mention of hemorrhage [*INVALID FOR*02/06/2016 Encounter for colonoscopy due to history of vinnie*INVALID FOR*08/23/2015 Pre-op testing [Z01.818] INVALID FOR*02/02/2016 More... Discharge planning [Z02.9] INVALID FOR* Priority: M More... Atelectasis [J98.11] INVALID FOR*02/06/2016 Priority: B More... Primary hypertension [I10] INVALID FOR* Priority: C More... More... More... Post-operative pain [G89.18] INVALID FOR*02/04/2016 Priority: D More... SUMMARY INVALID FOR* Priority: Very Severe More... PAC's [I49.1] INVALID FOR* Priority: B More... Chronic ulcerative colitis without complication*INVALID FOR* Priority: C More... Hyperlipidemia LDL goal <100 [E78.5] INVALID FOR* Priority: C More... Non-rheumatic mitral regurgitation [I34.0] INVALID FOR* Priority: A More... Pneumothorax [J93.9] INVALID FOR* Priority: D More... Stress hyperglycemia [R73.9] INVALID FOR*02/09/2016 Priority: E More... Postoperative hypovolemia [E89.89, E86.1] INVALID FOR*02/09/2016 Priority: F More... Post-operative pain [G89.18] INVALID FOR* Priority: D More... Essential hypertension [I10] INVALID FOR*02/12/2016 Priority: C More... Atrial fibrillation, new onset (HCC) [I48.91] INVALID FOR* Priority: B More... 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 Work with Dr. Zamudio LIFESTYLE CHANGE A healthy lifestyle is the most important component of your overall treatment plan. Please give serious thought to the following areas and commit to making intermodal customer service changes. EAT A WHOLE FOOD, PLANT BASED DIET The nutrition your body gets is more important than the medicine you take. What matters most is the overall way you eat. We encourage you to minimize the use of animal products (which include dairy and all meats except fatty fish) and use whole, unprocessed plant foods to provide your protein, vitamins and other nutrients. We have a lot of information to share with you on this topic. We also hold Shared Medical Appointments, where you can come visit with Dr. Travis in the company of other patients and spend over an hour talking about the challenges of changing the way you eat. This is not a diet. It is a way of life that you will keep with you. EXERCISE REGULARLY It is not important to spend hours in the gym, lifting weights and perspiring heavily. A total of 2-3 hours per week of aerobic (causing you to be moderately short of breath) exercise is sufficient to improve your health. Talk to us before you begin a new exercise program, if you have heart disease or experience shortness of breath or chest pain. REDUCE STRESS Chronic emotional and physical stress leads to disease. Ways of reducing stress include meditation, visualization, prayer, yoga and other forms of relaxation therapy. Consistency is the sumner. Find a technique that works for you and do it every day. CULTIVATE RELATIONSHIPS Loneliness and isolation have a major negative impact on health. Seek out others who can love, care for and nurture you. Avoid hurtful relationships. MAINTAIN IDEAL BODY WEIGHT The best way to do this is to do all the things above. Our bodies naturally find the right weight if we keep moving and feed ourselves the right food. If your BMI is greater than 25, we strongly recommend a referral to a weight management program. Please speak to us or your family physician about available programs. AVOID NICOTINE IN ALL FORMS This includes all tobacco products, whether chewed, smoked, vaped, or rubbed on the skin. Smoking cessation programs, which can make use of tobacco substitutes, medications to suppress cravings and behavior management, are available. Please contact your family physician about programs in your area. Prescriptions ordered this encounter Disp Refills Start End METOPROLOL TARTRATE 25 MG TABLET 180 * 3 08/11/2017 Class: Med Update Route: ORAL Sig: Take 0.5 tablets by mouth q 12 HR. Medications Discontinued During This Encounter metoprolol tartrate, short acting, (* 180 * 3 07/10/2017 08/11/2017 Sig: TAKE ONE TABLET BY MOUTH EVERY 12 HOURS Disc: Reason for discontinue is not on file. Follow-up and Disposition History Recorded Encounter Status:Closed by JANETH TRAVIS MD on 08/11/17 PROTIME Collected: 08/11/2017 Status: F Source: [place] 9:55 AM [facility] REPOSITORY TYPE CODE TESTS RESULT OUT OF RANGE REFERENCE UNITS LAB PSEC 9.7-13.0 sec High PT Sec 25.9 LAB INR 0.9-1.3 High PT INR 2.7 Result Comment: Vitamin K Antagonist (VKA) Therapeutic Range: INR 2 to 3 (Target INR of 2.5) Note: For patients treated with VKA drugs, such as warfarin, the [place] College of [employer]icians 2012 Guideline recommends a therapeutic INR range of 2 to 3 (target INR of 2.5). This recommendation includes high-risk patients with antiphospholipid syndrome with previous arterial or venous thromboembolism, current-generation mechanical or bioprosthetic aortic heart valve replacement. Note: Patients with mechanical aortic valve replacement and additional risk factors for thromboembolic events (atrial fibrillation, previous thromboembolism, LV dysfunction, hypercoagulable conditions) or an older generation mechanical AVR (i.e., ball in-Cage) or any mechanical MVR should have a INR therapeutic range of 2.5 to 3.5 (target INR of 3). Lois GH, et al. Chest 2012, 141:7S-47S Justine RA, et al. JACC 2017, 70: 252-289 Performed By: #### PT, BMP, LIPB, MG1 #### [facility] [employer] [address] [place] [address] BASIC METABOLIC PANL Collected: 08/11/2017 Status: F Source: [place] 9:55 AM [facility] REPOSITORY TYPE CODE TESTS RESULT OUT OF REFERENCE UNITS RANGE LAB GLU 74-99 mg/dL High Glucose 114 Result Comment: The [place] Diabetes Association (ADA) provides guidance for cutoff values for fasting glucose and random glucose. The ADA defines fasting as no caloric intake for at least 8 hours. Fas ting plasma glucose results between 100 to 125 mg/dL indicate increased risk for diabetes (prediabetes). Fasting plasma glucose results greater than or equal to 126 mg/dL meet the criteria for diagnosis of diabetes. In the absence of unequivocal hyperglycemia, results should be confirmed by repeat testing. In a patient with classic symptoms of hyperglycemia or hyperglycemic crisis, random plasma glucose results greater than or equal to 200 mg/dL meet the criteria for diagnosis of diabetes. Reference: Standards of Medical Care in Diabetes 2016, [place] Diabetes Association. Diabetes Care. 2016.39(Suppl 1). LAB BUN 9-24 mg/dL BUN 24 LAB CRET 0.73-1.22 mg/dL Creatinine 1.18 LAB NA 136-144 mmol/L Sodium 139 LAB K 3.7-5.1 mmol/L Potassium 4.3 LAB CL 97-105 mmol/L Chloride 99 LAB CO2 22-30 mmol/L CO2 28 LAB AGAP 9-18 mmol/L Anion Gap 12 LAB CA 8.5-10.2 mg/dL Calcium, Total 9.2 LAB GFRAA eGFR- Amer. >60 LAB GFRNAA . eGFR-All Other Races >60 Result Comment: eGFR (Estimated GFR) Units of measure: mL/min/1.73 meters squared eGFR is derived from the reexpressed MDRD Study equation using the following parameters: serum creatinine, age, gender and race. The creatinine assay has been calibrated to be traceable to IDMS. An eGFR <60 mL/min/1.73m2 for >3 months is consistent with chronic kidney disease. Refer to KDOQI guidelines for clinical interpretation. In patients with unstable renal function, e.g. those with acute kidney injury, the eGFR may not accurately reflect actual GFR. Performed By: #### PT, BMP, LIPB, MG1 #### [facility] [address] [place], [place] [address] LIPID PANEL, BASIC Collected: 08/11/2017 Status: F Source: [place] 9:55 AM [facility] REPOSITORY TYPE CODE TESTS RESULT OUT OF REFERENCE UNITS RANGE LAB TRIGLY 30-149 mg/dL Triglyceride High 271 LAB CHOL 100-199 mg/dL Cholesterol 174 LAB HDL >45 mg/dL Low HDL-Cholesterol 37 LAB VLDL 6-40 mg/dL VLDL High Cholesterol 54 LAB LDL 60-129 mg/dL LDL-Cholesterol 83 LAB FT hrs Fasting Time 2 LAB TCHDL 1.00-5.00 TC:HDL Ratio 4.70 LAB LDLHDL 0.50-3.55 LDL:HDL Ratio 2.24 LAB NONHDL 90-159 mg/dL Non HDL Cholesterol 137 Performed By: #### PT, BMP, LIPB, MG1 #### [facility] [employer] [address] [place], [place] [address] MAGNESIUM Collected: 08/11/2017 Status: F Source: [place] 9:55 AM [facility] REPOSITORY TYPE CODE TESTS RESULT OUT OF REFERENCE UNITS RANGE LAB MG 1.7-2.3 mg/dL Magnesium 2.1 Performed By: #### PT, BMP, LIPB, MG1 #### [facility] [employer] [address] [place], [place] [address] ALLERGIES ALLERGIES DATE TYPE / CODE NAME / CODE REACTION SEVERITY SOURCE 06/05/2018 Drug shellfish Swelling Unknown [place] Allergy/416 derived/[id number] Community 239996(SNOM 54(RXNORM) Hospital ED CT) Repository 06/05/2018 Drug bee venom Swelling Unknown [place] Allergy/416 protein (honey Community 861367(SNOM bee)/[id number]( Hospital ED CT) RXNORM) Repository 07/19/2015 DRUG/625500 HYDROCODONE-ACET INTOLERANCE [facility] 003(SNOMED AMINOPHEN Other [place] CT) Repository 04/02/2005 Environ/420 BEES UNKNOWN [facility] 359864(SNOM Other [place] ED CT) Repository 02/17/2005 Food/504236 SHELLFISH SWELLING [facility] 000(SNOMED Other [place] CT) Repository NG/49364180 BEES [facility] 6(SNOMED [facility]) Repository NG/52958069 SHELLFISH [facility] 6(SNOMED [facility]) Repository NG/18196826 HYDROCODONE-ACET [facility] 6(SNOMED AMINOPHEN [facility]) Repository ENCOUNTERS ENCOUNTERS ADMIT/DISCHARGE ACCOUNT NUMBER ADMITTING ENCOUNTER LOCATION SOURCE CLASS 07/27/2018/07/27/20 [id number] Ambulatory [address] Main [place] Repository 07/12/2018/07/12/20 [id number] Ambulatory [address] [place] Repository 07/06/2018 [id number] Ambulatory [facility] ding:RAD Repository 06/28/2018 [id number] Ambulatory [facility] ding:MFPLAB Repository 06/28/2018 [id number] Ambulatory Building:[facility] OHIP Practices Repository 06/22/2018 [id number] Ambulatory [facility] ding:PT Repository 06/21/2018/06/21/20 [id number] Ambulatory [address] Repository 06/05/2018/06/05/20 [id number] Emergency [address] ding:ED Repository 05/31/2018/05/31/20 [id number] Ambulatory [address] [place] Repository 05/05/2018/05/05/20 [id number] Ambulatory [address] [place] Repository 04/13/2018/04/14/20 [id number] Ambulatory [address] Main [place] Repository 04/13/2018 [id number] Ambulatory [facility] MEDICAL Repository CENTERBuildi ng:CAGWS 04/06/2018/04/06/20 [id number] Ambulatory [address] Main [place] Repository 03/22/2018/03/22/20 [id number] Ambulatory [address] Main [place] Repository 02/23/2018/02/24/20 [id number] Ambulatory [address] ding:PT Repository 02/12/2018/02/13/20 [id number] Ambulatory [address] Main [place] Repository 01/11/2018/01/12/20 [id number] Ambulatory [address] Main [place] Repository 12/28/2017/12/29/19 [id number] Ambulatory [address] Main [place] Repository 12/15/2017/12/16/19 [id number] Ambulatory [address] Main [place] Repository 12/01/2017/12/02/19 [id number] Ambulatory [address] Main [place] Repository 11/02/2017/11/03/19 [id number] Ambulatory [address] [place] Repository 10/05/2017/10/05/19 [id number] Ambulatory [address] [place] Repository 09/22/2017/09/22/19 [id number] Ambulatory [address] Repository 09/07/2017/09/07/19 [id number] Ambulatory [address] Main [place] Repository 08/11/2017 [id number] Ambulatory [facility] Repository 08/11/2017/08/11/19 [id number] Ambulatory [address] Other [place] Repository 08/11/2017/08/11/19 [id number] Ambulatory [address] MEDICAL Repository CENTERBuildi ng:CAGWS 08/11/2017/08/11/19 [id number] Ambulatory [address] Repository PAYERS PAYERS ENCOUNTER GUARANTOR PAYER SUBSCRIBER SOURCE 07/06/2018 IZABEL Arzate Primary IZABEL [place] [id number] E Insurance:MEDICARE WILSONDOB: Community RICHARD PART A BPolicy Number: [id number] [id number] Repository [address]Rkt: (330) Date:2018-06-28 () 07/06/2018 Secondary IZABEL Carito [place] Insurance:ANTHEMPolicy WILSONDOB: Community Number: [id number] Hospital [id number] Repository Date:5070-05-81XT [address] [place] [address] 34[address]AX: 07/06/2018 Tertiary NOT GIVENUNK [place] Insurance:SELF PAY [facility] Number: Effective Repository Date:2018-06-28 06/28/2018 IZABEL Arzate Primary IZABEL [place] [id number] E Insurance:MEDICARE WILSONDOB: [facility] RICHARD PART A BPolicy Number: [id number], [place] [id number] Repository [address]Iog: (330) Date:2018-06-28711 (HP) 06/28/2018 Secondary IZABEL Marin Insurance:ANTHEMPolicy WILSONDOB: Community Number: [id number] Hospital [id number] Repository Date:8073-09-65EM [address] [place] [address]33[address]BS: 06/28/2018 Tertiary NOT GIVENUNK [place] Insurance:SELF PAY [facility] Number: Effective Repository Date:2018-06-28 06/28/2018 Izabel E Primary Izabel E OHIP Practices WilsonDOB: Insurance:MedicarePoli WilsonDOB: Repository E cy Number: [id number], [id number] [place] [address]Mxn: Date:6996-87-50LmhsMenifee [facility], Name:[facility] [address] () 4317[address]Zhzvtpfe, [place] [address]SR: 06/28/2018 Secondary Izabel E OHIP Practices Insurance:[place]/Suppl WilsonDOB: Repository ementPolmercy[facility] Number: [id number] E Date:5985-26-53NinmMenifee Global [facility], Name:[facility] [address]Mla: [address]Dog[address] [place] [id number]: [phone] (BJ) [phone] 06/28/2018 Tertiary Izabel E OHIP Practices Insurance:The WilsonDOB: Repository Count includes the [facility] [id number] Number: E [id number] [facility], Date:2005-08-10 - [place] [address]Tkx: [id number] Name:[facility] Lizandro [address] [place] [address] () THE [place], [place] [address]FP: 06/28/2018 Tertiary Insurance:The Izabel E OHIP Practices Health [facility] WilsonDOB: Repository Number: [id number] E Date:2009-08-10 - [facility], 3000-26-41Rxdf [place] [address]Ogw: Name:[address] CASSI Franks () [address]RY: 06/28/2018 Tertiary Izabel E OHIP Practices Insurance:Medical WilsonDOB: Repository [facility] [id number] Number: E [id number] [facility], Date:2013-08-10 - [place] [address]Zfp: [id number] Name:[facility] Box () [address]Lzzrxyyrg, [place] [address]BN: 06/28/2018 Tertiary Izabel E [place] Practices Insurance:Cigna WilsonDOB: Repository [facility] Number: [id number] E Date:2015-03-10 - [facility], 4177-19-39[place] [address]Osi: Name:[facility] [address] [address]Aflhxvobuxx, [place] () [id number]: 06/22/2018 Izabel E Primary Izabel E Tania [id number] Insurance:MEDICARE WilsonDOB: Community RICHARD PART A BPolic Number: [id number], [place] [id number] Repository [address]Epb: ([phone]) Date:2015-05-109120 () 06/22/2018 Secondary Izabel E [place] Insurance:ANTHEMPolicy WilsonDOB: Community Number: [id number] Hospital [id number] Repository Date:5527-56-97[address] [place] [address]GH: 06/22/2018 Tertiary NOT GIVENUNK [place] Insurance:SELF PAY [facility] Number: Effective Repository Date:2018-06-09 06/05/2018 Izabel E Primary Izabel E [place] [id number] [address] Insurance:MEDICARE WilsonDOB: [facility] RICHARD PART A olic Number: [id number], [place] [id number] Repository [address]Zlu: 330) Date:2018-06-05-4744 () 06/05/2018 Secondary Izabel E [place] Insurance:ANTHEMPolicy WilsonDOB: Community Number: [id number] Comprehensive Health [id number] Repository Date:2104-24-26[address]UNMRU, [place] [address]FJ: 06/05/2018 Tertiary NOT GIVENUNK [place] Insurance:SELF PAY [facility]: Effective Repository Date:2018-06-05 04/13/2018 IZABEL E Primary IZABEL E [facility] WILSONDOB: Insurance:MEDICARE A WILSONDOB: Health System E AND BPolicy Number: [id number] [facility] [id number] [place], [place] Date: [address]Khh: (HP) 04/13/2018 Secondary IZABEL E [facility] Insurance:ANTHEM WILSONDOB: [facility] MEDICARE [id number] Repository SUPPLEMENTPolicy Number: [id number] Date: 02/23/2018 Izabel E Primary Izabel E Tania [id number] Insurance:MEDICARE WilsonDOB[facility] Number: [id number], [place] [id number] Repository [address]Bdq: (813) Date:2015-05-10 [phone] (HP) 02/23/2018 Secondary Izabel E [place] Insurance:ANTHEMPolicy WilsonDOB: [facility] Number: [id number] Hospital [id number] Repository Date:3555-51-11[address]LPKNW, [place] [address]PG: 02/23/2018 Tertiary NOT GIVENUNK [place] Insurance:SELF PAY [facility] Number: Effective Repository Date:2018-01-22 08/11/2017 IZABEL E Primary IZABEL E [facility] WILSONDOB: Insurance:MEDICARE A WILSONDOB: Health System E AND BPolicy Number: [id number] Medical Center [id number] YORBA [place], [place] Date: [address]Wyx: (HP) 08/11/2017 Secondary IZABEL E [facility] Insurance:ANTHEM WILSONDOB: Health System MEDICARE [id number] Repository SUPPLEMENTPolicy Number: [id number] Date:
== END ==
PROVIDERS: Family Provider Internal Medicine; PCP Internal Medicine; Referring Provider Otolaryngology; Visit Provider Otolaryngology
DX: R13.10 Dysphagia, unspecified (principal); K21.9 Gastro-esophageal reflux disease without esophagitis
CPT/HCPCS: 74220

== ENCOUNTER 2018-08-22 19:50 | Emergency (ER) | payer MEDICARE, BC, SELFPAY ==
[2018-08-22 19:50] VITALS: BP 159/88; PULSE 65; RESP 18; TEMP 36.5; O2SAT 98; BMI 28.8
[2018-08-22 20:03] VITALS: O2SAT 97
--- NOTE | 2018-08-22 20:03 | EKG12_ITS ---
Test Reason : Blood Pressure : / mmHG Vent. Rate : 063 BPM Atrial Rate : 063 BPM P-R Int : 154 ms QRS Dur : 088 ms QT Int : 404 ms P-R-T Axes : 026 070 073 degrees QTc Int : 413 ms Normal sinus rhythm Normal ECG Confirmed by LULI ELIZABETH MD ([id number]), scientific editor GEO WATTERS ([id number]) on 08/24/2018 5:07:59 PM Referred By: JOANNE Confirmed By:LULI ELIZABETH MD
[2018-08-22] MEDS: Aspirin 81 MG TAB.CHEW 324 MG PO (20:13)
--- NOTE | 2018-08-22 20:14 | RAD_ITS ---
STUDY: X-RAY CHEST REASON FOR EXAM: Male, 68 years old. Chest pain TECHNIQUE: Single AP portable view of the chest. COMPARISON: None. FINDINGS: EKG leads overlie the chest The lungs are clear and expanded. There is no demonstrated pleural abnormality. Normal size heart. Normal mediastinum and patricia. Normal visualized pulmonary arteries. Normal visualized aortic arch and descending thoracic aorta. Normal visualized thoracic spine. Normal visualized ribs, clavicles, and shoulders. There is no demonstrated abnormality of the visualized soft tissue structures of the upper abdomen. RAD/Chest 1 View (Portable) IMPRESSION: No acute pulmonary process Electronically Signed: Adrian Victor MD at 21:09 EST , Service support ,
[2018-08-22 20:15] VITALS: BP 162/100; PULSE 70; RESP 18; O2SAT 97
[2018-08-22 20:27] LABS: Absolute Lymphocyte Count 1.74 X10^3/ul (0.83-4.51); Absolute Neutrophil Count 4.6 X10^3/uL (2.0-7.7); Basophil# 0.01 X10^3/uL; Basophil% 0.1 % (0-1); Eosinophil# 0.11 X10^3/uL; Eosinophils% 1.6 % (0-5); Hematocrit 44.7 % (40-54); Hemoglobin 15.4 g/dl (13.0-16.5); Lymphocyte # 1.74 X10^3/ul (4.0); Lymphocyte % 24.7 % (19-41); Mean Corp Hgb Conc 34.5 g/gl (32-36); Mean Corpuscular Volume 90.1 fL (80-94); Mean Platelet Vol. 10.6 fl (6.2-12.0); Monocyte# 0.58 X10^3/uL; Monocyte% 8.2 % (0-10); Neutrophil # 4.58 X10^3/uL (2.7-7.7); Neutrophil % 65.1 % (47-70); Platelet Count 123 K/mm3 (150-450); RBC Distribution Width CV 13.7 % (11.6-14.6); RBC Distribution Width SD 44.9 fl (35.1-43.9); Red Blood Count 4.96 M/mm3 (4.6-6.2)
[2018-08-22 20:29] LABS: POSITIVE COUNT NO; POSITIVE DIFFERENTIAL NO; POSITIVE MORPHOLOGY NO
[2018-08-22 20:35] LABS: International Normalized Ratio 2.4; Prothrombin Time (Protime)PT. 26.2 SECONDS (11.7-14.9)
[2018-08-22 20:50] LABS: Anion Gap 9 (5-15); BUN 21 mg/dL (7-18); BUN/Creat Ratio 18.3 RATIO (10-20); Calcium,Total 8.5 mg/dL (8.5-10.1); Chloride 106 mmol/L (98-107); Creatinine, Serum 1.15 mg/dL (0.70-1.30); EST Glomerular Filtration Rate 67 mL/min (>60); Est Glom Filt Rate - Afr Amer 81 mL/min (>60); Estimated Creatinine Clearance 61.48 ml/min; Glucose 124 mg/dL (74-106); Potassium 4.1 mmol/L (3.5-5.1); Sodium Level 138 mmol/L (136-145)
--- NOTE | 2018-08-22 21:06 | ED.VISSUMM ---
- ER Visit Summary Date of Service: 08/22/18 Chief Complaint: Left arm pain History of Present Illness: The patient is a 68 M who has left arm pain. He states today he noticed some sharp pains in his left arm. They are intermittent in nature. He states it went from the shoulder down to his hand. He denies any neck pain. No chest pain or shortness of breath he does not have a history of any stent in his heart. He has had an aortic valve replaced. He is on Coumadin. He does have a history of hypertension. Last stress test was about 2-1/2 years ago. Physical Examination: Vital signs reviewed. HEENT exam unremarkable. Neck is nontender. Negative Spurling's test. Heart is regular rate and rhythm without murmurs. Lungs are clear to auscultation. Abdomen is soft and nontender. Extremities reveal no edema. Left arm has no tenderness whatsoever. He has full range of motion. Peripheral pulses are equal. Skin exam normal. Neurologic exam normal. Test Results: EKG, lab work and chest x-ray are normal. INR 2.4 Emergency Department Course and Treatment: Patient was given aspirin. I do not find any acute cause for his pain. I do not feel is cardiac in nature. He has had no pain since he has been here. Patient will be discharged to follow-up with Dr. Camarillo his prospecting observer and his primary doctor. Treatment Plan: [] Disposition: Discharge Impression: Intermittent left arm pain This note was generated with [employer] dictation software. It may contain incorrect words, spelling, and punctuation that were not noted in review of the chart prior to signing ED Disposition - Plan for ED Patient: Chief Complaint: Upper Extremity Injury Referrals: Aletha Moon DO [Primary Care Provider] -
--- NOTE | 2018-08-22 21:08 | ED.DEP ---
ED Disposition - Plan for ED Patient: Disposition: Home or Assisted Living Chief Complaint: Upper Extremity Injury Instructions: ED Strain Muscle Ext Referrals: Aletha Moon DO [Primary Care Provider] -
[2018-08-22 21:15] VITALS: BP 121/73; PULSE 62; RESP 21; O2SAT 98
== END 2018-08-22 21:17 | disposition home or self-care (01) ==
PROVIDERS: Emergency Provider Emergency Medicine; Family Provider Internal Medicine; PCP Internal Medicine
DX: M79.602 Pain in left arm (principal); I10 Essential (primary) hypertension; Z79.899 Other long term (current) drug therapy
CPT/HCPCS: 71045; 80048; 84484; 85025; 85610; 93005; 99285; A4216

== ENCOUNTER → 2018-11-23 08:29 | Outpatient (CLI) | payer MEDICARE, BC, SELFPAY ==
[2018-11-03 10:06] VITALS: BMI 27.9
--- NOTE | 2018-11-23 08:31 | ECHOCS_ITS ---
Reason For Study: MVR Procedure This was a 2D Doppler, Color Flow transthoracic echocardiogram. Exam performed in department. Left Ventricle Normal LV size. Left ventricular systolic function is normal. The estimated ejection fraction is 55 %. Diastolic function is indeterminate. No regional wall motion abnormalities noted. Right Ventricle Normal RV size. Normal systolic function. Atria The left atrium is moderately enlarged. Normal right atrium. Mitral Valve Peak transmitral valve gradient 11 mmHg. Mean transmitral valve gradient 3 mmHg. Bioprosthetic mitral valve. Stable appearing bioprosthetic mitral valve apparatus. Tricuspid Valve Normal tricuspid valve. Mild (1+) tricuspid valve insufficiency. Pulmonary artery systolic pressure is 26 mmHg. Aortic Valve The aortic valve is not well visualized. Pulmonic Valve The pulmonic valve is not well visualized. Great Vessels Normal aortic root. The pulmonary artery is normal size. Normal inferior vena cava. Pericardium/Pleural No pericardial effusion. Medication Diluted definity 4ml given slow IV push to enhance endocardial definition. MMode/2D Measurements & Calculations LVIDd: 4.3 cm IVSd: 1.1 cm Ao root diam: 3.8 cm LVIDs: 2.6 cm LVPWd: 1.0 cm RVDd: 4.2 cm FS: 38.9 % LAV(MOD-bp): 81.6 ml LVAd ap4: 31.8 cm2 SV(MOD-sp4): 50.2 ml LAV(MOD-bp) Indexed: 40.4 ml/m2 EDV(MOD-sp4): 99.0 ml LAV(MOD-sp2): 81.0 ml EDV(sp4-el): 103.2 ml LAV(MOD-sp4): 83.1 ml LVAs ap4: 20.4 cm2 ESV(MOD-sp4): 48.8 ml ESV(sp4-el): 48.9 ml EF(MOD-sp4): 50.7 % EF(sp4-el): 52.6 % SV(sp4-el): 54.2 ml LA A4 area: 25.5 cm2 LA dimension(2D): 3.8 cm RA A4 area: 19.7 cm2 Doppler Measurements & Calculations Lat Peak E' José: 4.9 cm/sec Med Peak E' José: 4.7 cm/sec MV V2 max: 169.0 cm/sec MV max P.4 mmHg MV V2 mean: 84.0 cm/sec MV mean P.3 mmHg MV V2 VTI: 54.4 cm Ao V2 max: 108.1 cm/sec LV V1 max: 84.0 cm/sec PA V2 max: 111.5 cm/sec Ao max P.7 mmHg LV V1 max P.8 mmHg Ao V2 mean: 76.5 cm/sec LV V1 mean P.5 mmHg Ao mean P.6 mmHg LV V1 mean: 57.1 cm/sec Ao V2 VTI: 21.4 cm LV V1 VTI: 18.9 cm TR max josé: 238.9 cm/sec MV P1/2t-pr_phl: 180.4 msec TR max P.9 mmHg Interpretation Summary Normal LV size. Left ventricular systolic function is normal. The estimated ejection fraction is 55 %. Diastolic function is indeterminate. Contrast injection was performed. Ordering Physician: Rolly Chamberlain Referring Physician: SPIKE ZAMUDIO Performed By: Jina Mallory, DANNYCS, RVT
== END ==
PROVIDERS: Family Provider Internal Medicine; PCP Internal Medicine; Referring Provider Internal Medicine Cardiovascular Disease; Visit Provider Internal Medicine Cardiovascular Disease
DX: Z98.890 Other specified postprocedural states (principal); Z87.19 Personal history of other diseases of the digestive system
CPT/HCPCS: 93306; Q9957; A4216; C8929

== ENCOUNTER → 2019-01-31 | Outpatient (CLI) | payer MEDICARE, BC, SELFPAY ==
[2018-11-03 10:06] VITALS: BMI 27.9
--- NOTE | 2019-01-31 08:17 | CT_ITS ---
STUDY: CT BRAIN WITHOUT CONTRAST REASON FOR EXAM: Male, 68 years old. Near syncope RADIATION DOSAGE (If Supplied By Facility): CTDIvol = ( 44.99 ) mGy, DLP = ( 829.85 ) mGycm TECHNIQUE: Transaxial CT imaging of the brain was performed without administration of intravenous contrast material. Individualized dose optimization techniques were used for this CT. COMPARISON: No relevant priors. FINDINGS: Normal soft tissue structures. Normal calvarium. Normal size ventricles and extra-axial spaces for the patient's age. Normal white matter tracts of the cerebral hemispheres. Normal basal ganglia and thalami. Normal brainstem. Normal cerebellum. There is no intracranial hemorrhage. There are no findings of an acute ischemic infarction. There is mucosal thickening in the left maxillary sinus bilateral large decompressive antrostomies and prior partial ethmoidectomy. There is opacification of the left sphenoid sinus. Ethmoid and frontal sinuses are clear. Nasopharynx is clear. CT/Brain/Head without Contrast IMPRESSION: Normal unenhanced CT scan of the brain. Electronically Signed: Nereyda Hayward, at 16:08 EDT Tel , Service support ,
--- NOTE | 2019-01-31 08:41 | CDU_ITS ---
Reason For Study: Near Syncope Rt. Velocities/BP Lt. Velocities/BP Prox CCA 83.9/25.2 cm/sec. Prox CCA 85.3/19.2 cm/sec. Mid CCA 81.2/20 cm/sec. Mid CCA 89/28.6 cm/sec. Dist CCA 72.1/20 cm/sec. Dist CCA 70.2/21.1 cm/sec. Prox ICA 53.9/20 cm/sec. Prox ICA 61.7/17.3 cm/sec. Mid ICA 90.4/35.6 cm/sec. Mid ICA 83.4/30.5 cm/sec. Dist ICA 61.7/21.1 cm/sec. Dist ICA 86.3/30.5 cm/sec. Rt. ICA/CCA = 1.1. Lt. ICA/CCA = 1.0. Prox ECA 63/9.5 cm/sec. Prox ECA 92.8/17.3 cm/sec. Rt. Vert. 45.6/12.6 cm/sec. Lt. Vert. 36.2/10.7 cm/sec. Right Extracranial There is homogeneous, smooth atherosclerotic plaque noted in the right common carotid artery. There is heterogeneous, irregular atherosclerotic plaque noted in the right internal carotid artery. There is intimal thickening but no significant atherosclerotic plaque noted in the right external carotid artery. Antegrade flow is noted in the right vertebral artery. There is heterogeneous, irregular atherosclerotic plaque noted in the right bulb. Left Extracranial There is homogeneous, smooth atherosclerotic plaque noted in the left common carotid artery. There is intimal thickening but no significant atherosclerotic plaque noted in the left internal carotid artery. There is intimal thickening but no significant atherosclerotic plaque noted in the left external carotid artery. Antegrade flow is noted in the left vertebral artery. Procedure Carotid Duplex 11265. Exam performed in department. Interpretation Summary Mild (<50%) stenosis right extracranial internal carotid. No significant atherosclerotic plaque or stenosis noted in the left internal carotid artery. Flow within the vertebral arteries is antegrade bilaterally. Ordering Physician: Aletha Moon Referring Physician: Aletha Moon Performed By: Soco Green RVT
== END | disposition home or self-care (01) ==
LOC: CT 08:15
PROVIDERS: Family Provider Internal Medicine; PCP Internal Medicine; Referring Provider Internal Medicine; Visit Provider Internal Medicine
DX: R55 Syncope and collapse (principal)
CPT/HCPCS: 70450; 93225; 93226; 93880

== ENCOUNTER → 2019-06-29 09:38 | Outpatient (CLI) | payer MEDICARE, BC, SELFPAY ==
[2019-05-10 09:47] VITALS: BMI 26.8
[2019-06-29 12:28] LABS: Hematocrit 46.8 % (40-54); Hemoglobin 15.8 g/dL (13.0-16.5); Mean Corp Hgb Conc 33.8 g/dL (32-36); Mean Corpuscular Hgb 30.4 pg (27.0-32.0); Mean Platelet Vol. 11.8 fl (6.2-12.0); Platelet Count 129 K/mm3 (150-450); RBC Distribution Width CV 12.6 % (11.6-14.6); RBC Distribution Width SD 41.1 fl (35.1-43.9); White Blood Count 4.8 K/mm3 (4.4-11.0)
[2019-06-29 13:01] LABS: CRP < 2.90 mg/L (0.0-3.0)
== END ==
PROVIDERS: Family Provider Internal Medicine; PCP Internal Medicine; Referring Provider Internal Medicine Gastroenterology; Visit Provider Internal Medicine Gastroenterology
DX: K52.9 Noninfective gastroenteritis and colitis, unspecified (principal)
CPT/HCPCS: 36415; 85027; 86140

== ENCOUNTER → 2019-08-02 07:08 | Outpatient (CLI) | payer MEDICARE, BC, SELFPAY ==
[2019-05-10 09:47] VITALS: BMI 26.8
--- NOTE | 2019-08-02 07:19 | MRI_ITS ---
STUDY: MRI BRAIN WITHOUT CONTRAST REASON FOR EXAM: Male, 69 years old. MEMORY LOSS,ataxia TECHNIQUE: Standardized multiplanar fat and water weighted pulse sequences were obtained. COMPARISON: January 31, 2019 CT of the head FINDINGS: Normal size of the ventricles and extra-axial spaces for the patient''s age. Normal white matter tracts of the supratentorial brain. Normal bilateral basal ganglia. Normal thalami. There is no extra-axial fluid accumulation. Normal flow voids within the major intracranial circulation suggesting patency by spin echo criteria. Normal sella turcica, pituitary gland, infundibular stalk, optic chiasm and hypothalamus. Normal tectal plate and pineal gland. Normal midbrain, arlette and medulla. Normal cerebellum. Normal basal cisterns. Normal bilateral temporal bones. Normal bilateral internal auditory canals. Again noted is a mild left paranasal sinus disease MRI/Brain without Contrast IMPRESSION: No acute intracranial abnormality. Chronic left paranasal sinus disease. Electronically Signed: Sy Lopez MD at 15:50 EST Tel , Service support ,
== END ==
PROVIDERS: Family Provider Internal Medicine; PCP Internal Medicine; Referring Provider Psychiatry & Neurology Neurology; Visit Provider Psychiatry & Neurology Neurology
DX: R27.0 Ataxia, unspecified (principal); R41.3 Other amnesia
CPT/HCPCS: 70551

== ENCOUNTER → 2019-10-17 | Outpatient (CLI) | payer MEDICARE, BC, SELFPAY ==
[2019-05-10 09:47] VITALS: BMI 26.8
== END | disposition home or self-care (01) ==
LOC: LABSPEC 15:48
PROVIDERS: PCP Internal Medicine; Referring Provider Otolaryngology; Visit Provider Otolaryngology
DX: J32.9 Chronic sinusitis, unspecified (principal)
CPT/HCPCS: 87070; 87077; 87186; 87205

== ENCOUNTER → 2020-01-05 07:33 | Outpatient (CLI) | payer MEDICARE, BC, SELFPAY ==
[2019-05-10 09:47] VITALS: BMI 26.8
--- NOTE | 2020-01-05 07:41 | ECHOD_ITS ---
Reason For Study: MVR Procedure This was a 2D Doppler, Color Flow transthoracic echocardiogram. Exam performed in department. Left Ventricle Normal LV size. Left ventricular systolic function is normal. The estimated ejection fraction is 63 %. Stage 1 diastolic dysfunction. No regional wall motion abnormalities noted. Right Ventricle Normal RV size. Normal systolic function. Atria Normal left atrium. Normal right atrium. Mitral Valve Mean transmitral valve gradient 3.5 mmHg. Mild (1+) eccentric mitral valve insufficiency. Stable appearing mechanical mitral valve apparatus. Tricuspid Valve Normal tricuspid valve. Mild (1+) tricuspid valve insufficiency. Pulmonary artery systolic pressure is 28 mmHg. Aortic Valve Normal aortic valve. Pulmonic Valve Normal pulmonic valve. Great Vessels Mildly dilated aortic root. The pulmonary artery is normal size. Normal inferior vena cava. Pericardium/Pleural No pericardial effusion. MMode/2D Measurements & Calculations LVIDd: 4.3 cm IVSd: 1.1 cm Ao root diam: 3.8 cm LVIDs: 3.0 cm LVPWd: 1.1 cm RVDd: 4.1 cm FS: 28.4 % LAV(MOD-bp): 62.8 ml LA A4 area: 22.1 cm2 LA dimension(2D): 4.1 cm LAV(MOD-bp) Indexed: 30.4 ml/m2 LAV(MOD-sp2): 61.8 ml LAV(MOD-sp4): 60.6 ml RA A4 area: 18.1 cm2 Time Measurements MV dec time: 0.36 sec Doppler Measurements & Calculations MV E max josé: 120.8 cm/sec Lat Peak E' José: 4.9 cm/sec Med Peak E' José: 5.0 cm/sec MV A max josé: 142.9 cm/sec E/E' lat: 24.6 E/E' med: 24.3 MV E/A: 0.85 MV V2 max: 140.8 cm/sec Ao V2 max: 99.8 cm/sec LV V1 max: 79.8 cm/sec MV max P.9 mmHg Ao max P.0 mmHg LV V1 max P.6 mmHg MV V2 mean: 88.7 cm/sec Ao V2 mean: 74.3 cm/sec LV V1 mean P.2 mmHg MV mean P.5 mmHg Ao mean P.4 mmHg LV V1 mean: 51.7 cm/sec MV V2 VTI: 61.8 cm Ao V2 VTI: 21.1 cm LV V1 VTI: 16.8 cm PA V2 max: 105.8 cm/sec PI end-d josé: 105.2 cm/sec TR max josé: 246.4 cm/sec TR max P.3 mmHg MV P1/2t-pr_phl: 159.9 msec Interpretation Summary Normal LV size. Left ventricular systolic function is normal. The estimated ejection fraction is 63 %. Stage 1 diastolic dysfunction. Pulmonary artery systolic pressure is 28 mmHg. Stable appearing mechanical mitral valve apparatus. Ordering Physician: Aletha Moon Referring Physician: Aletha Moon Performed By: Jina Mallory, RDCS, RVT
== END ==
PROVIDERS: PCP Internal Medicine; Referring Provider Internal Medicine; Visit Provider Internal Medicine
DX: R55 Syncope and collapse (principal)
CPT/HCPCS: 93306

== ENCOUNTER → 2020-10-08 | Outpatient (CLI) | payer MEDICARE, BC, SELFPAY ==
[2020-06-15 08:47] VITALS: BMI 29.0
== END | disposition home or self-care (01) ==
LOC: LABSPEC 14:52
PROVIDERS: PCP Internal Medicine; Visit Provider Otolaryngology
DX: J32.9 Chronic sinusitis, unspecified (principal)
CPT/HCPCS: 87070; 87077; 87186; 87205

== ENCOUNTER → 2020-11-09 | Outpatient (CLI) | payer MEDICARE, BC, SELFPAY ==
[2020-06-15 08:47] VITALS: BMI 29.0
--- NOTE | 2020-11-09 08:32 | COLBX_PTH ---
PATIENT: IZABEL WAHL LOC: [facility] U#:[id number] AGE/SX: 70/M ROOM: RE11/09/[address]: Dr. Pavel Ogden MD : 1950 BED: DIS: 11/09/2020 SPEC #: [id number] RECD: 11/09/20 15:02 STATUS: JESU REDeloris #: [id number] DRU: 11/09/20 08:[address]: Pavel Ogden DEPT: SURGICAL PATHOLOGY RECD BY: Екатерина Howe ENTERED: 11/12/20 08:23 SP TYPE: COLON BX ANALY DR: Dr. Aletha Moon, [facility] Tissues: A - COLON BIOPSY B - COLON BIOPSY Procedures: Trichrome (control) Special Stain Group II Surgery Specimen Level IV HEADER OPERATION: Colonoscopy with biopsy PRE-OP DIAGNOSIS: Diarrhea TISSUE SUBMITTED: A - Biopsy right colon, rule out colitis/dysplasia, B - Biopsy left colon, rule out colitis/dysplasia MICROSCOPIC DIAGNOSIS A. Right colon, biopsy: Fragments of colonic mucosa with changes consistent with microscopic/lymphocytic colitis. See comment. B. Left colon, biopsy: Fragments of colonic mucosa with changes consistent with microscopic/lymphocytic colitis. See comment. SJ:vandana 11/13/2020 COMMENT A & B. Trichrome stain with matched control is used in the evaluation of the specimens and does not show significant thickening of subepithelial collagen band. Correlation with clinical, endoscopic findings and appropriate follow up are necessary. Case has been reviewed in consultation with Dr. Mir who concurs with the above diagnosis. IDC:AM MICROSCOPIC DESCRIPTION Slides are reviewed. GROSS DESCRIPTION A - Received in fixative is one container labeled with the patient's name and designated biopsy right colon. The specimen consists of multiple irregular fragments of light valladares soft tissue that in aggregate measure 1.5 x 0.5 x 0.1 cm. The specimen is totally submitted in one cassette. B - Received in fixative is one container labeled with the patient's name and designated biopsy left colon. The specimen consists of multiple irregular fragments of light valladares soft tissue that in aggregate measure 1.5 x 0.5 x 0.1 cm. The specimen is totally submitted in one cassette. / JANE:vandana 11/12/20 TC:3 CPT: 66116 x2, 89826 x2
== END | disposition home or self-care (01) ==
LOC: LABSPEC 15:20
PROVIDERS: PCP Internal Medicine; Referring Provider Internal Medicine Gastroenterology; Visit Provider Internal Medicine Gastroenterology
DX: K51.90 Ulcerative colitis, unspecified, without complications (principal)
CPT/HCPCS: 88305; 88313

== ENCOUNTER → 2020-12-11 15:19 | Outpatient (CLI) | payer MEDICARE, BC, SELFPAY ==
[2020-06-15 08:47] VITALS: BMI 29.0
[2020-12-11 16:09] LABS: Erythrocyte Sedimentation Rate 9 mm/hr (0-20)
[2020-12-11 16:37] LABS: Vitamin B12 309 pg/mL (211-911)
[2020-12-11 16:46] LABS: BUN 26 mg/dL (7-18); CRP < 2.90 mg/L (0.0-3.0); Creatinine, Serum 1.05 mg/dL (0.70-1.30); EST Glomerular Filtration Rate 74 mL/min (>60); Est Glom Filt Rate - Afr Amer 90 mL/min (>60); Thyroid Stim Hormone (TSH) 0.86 uIU/mL (0.358-3.74)
[2020-12-13 15:40] LABS: ANTINUCLEAR ANTIBODIES DIRECT Negative (Negative)
[2020-12-14 20:08] LABS: Cytoplasmic Ab (C-ANCA) <1:20 titer (Neg:<1:20)
== END ==
PROVIDERS: PCP Internal Medicine; Referring Provider Psychiatry & Neurology Neurology; Visit Provider Psychiatry & Neurology Neurology
DX: M31.6 Other giant cell arteritis (principal); F44.89 Other dissociative and conversion disorders; R41.3 Other amnesia
CPT/HCPCS: 36415; 82565; 82607; 84443; 84520; 85652; 86038; 86140; 86256

== ENCOUNTER → 2020-12-25 07:03 | Outpatient (CLI) | payer MEDICARE, BC, SELFPAY ==
[2020-06-15 08:47] VITALS: BMI 29.0
--- NOTE | 2020-12-25 07:08 | MRI_ITS ---
STUDY: MRI BRAIN WITHOUT CONTRAST REASON FOR EXAM: Male, 70 years old. CONFUSION, SHORT UNILAT NEURALGIFORM H/A CONJUNCTIVAL INJ/TEAR TECHNIQUE: Standardized multiplanar fat and water weighted pulse sequences were obtained. COMPARISON: 08/02/2019 FINDINGS: Normal size of the ventricles and extra-axial spaces for the patient''s age. Normal white matter tracts of the supratentorial brain. There is no evidence for recent intracranial ischemia or other cause of cytotoxic edema on diffusion weighted imaging (DWI). Normal T2* images of the brain without demonstrated susceptibility artifact. There is no demonstrated hemosiderin stain. Normal bilateral basal ganglia. Normal thalami. There is no extra-axial fluid accumulation. Normal flow voids within the major intracranial circulation suggesting patency by spin echo criteria. Normal sella turcica, pituitary gland, infundibular stalk, optic chiasm and hypothalamus. Normal tectal plate and pineal gland. Normal midbrain, arlette and medulla. Normal cerebellum. Normal basal cisterns. Normal bilateral temporal bones. Normal bilateral internal auditory canals. No demonstrated orbital abnormality, within the constraints of a routine brain study. Mucosal thickening of the left maxillary sinus consistent with chronic sinusitis. Opacification left sphenoid sinus consistent with sinusitis. Normal calvarium and skull base. Normal visualized soft tissue structures. Normal visualized upper cervical spine. MRI/Brain without Contrast IMPRESSION: Normal unenhanced MRI of the brain. Left sphenoid sinusitis. Electronically Signed: Alex Perez MD at 9:31 EDT Tel , Service support ,
== END ==
PROVIDERS: PCP Internal Medicine; Referring Provider Psychiatry & Neurology Neurology; Visit Provider Psychiatry & Neurology Neurology
DX: R41.3 Other amnesia (principal); G44.059 Short lasting unilateral neuralgiform headache with conjunctival injection and tearing (SUNCT), not intractable
CPT/HCPCS: 70551

== ENCOUNTER → 2021-07-19 14:53 | Outpatient (CLI) | payer MEDICARE, BC, SELFPAY | PROVIDERS: PCP Internal Medicine; Visit Provider Otolaryngology | DX: J32.9 Chronic sinusitis, unspecified (principal) | CPT/HCPCS: 87070; 87077; 87186; 87205 ==

== ENCOUNTER 2022-05-08 06:56 | Day surgery (SDC) | payer MEDICARE, BC, SELFPAY ==
[2022-05-08] VITALS (8 sets, daily range): BP systolic 87–155; BP diastolic 55–76; PULSE 45–60; RESP 14–16; TEMP 36.3–36.6; O2SAT 51–100; BMI 29.2
[2022-05-08] MEDS: Lactated Ringers 1,000 ML 15 ML IV (07:35)
--- NOTE | 2022-05-08 08:00 | EGD_PTH ---
PATIENT: IZABEL WAHL LOC: [facility] U#:[id number] AGE/SX: 71/M ROOM: RE05/08/[address]: Dr. Terry Mercedes DO : 1950 BED: DIS: 05/08/2022 SPEC #: [id number] RECD: 05/08/22 11:41 STATUS: JESU [facility] #: [id number] DRU: 05/08/22 08:[address]: Terry Mercedes DEPT: SURGICAL PATHOLOGY RECD BY: Екатерина Howe ENTERED: 05/08/22 12:36 SP TYPE: EGD BIOPSY OT DR: Dr. Aletha Moon DO Tissues: A - Duodenum, NOS B - Esophagus, NOS C - Ileum, NOS D - Transverse colon E - COLON BIOPSY Procedures: Special Stain Group II Surgery Specimen Level IV Alcian Blue/PAS (control) HEADER OPERATION: Colonoscopy, EGD (MAC), biopsy and esophageal dilation PRE-OP DIAGNOSIS: GERD, dysphagia, ulcerative colitis TISSUE SUBMITTED: A ? Duodenal biopsy, B ? Distal esophageal biopsy, C ? Terminal ileum biopsy, D ? Transverse colon polyp, E ? Random colon biopsies MICROSCOPIC DIAGNOSIS A. Duodenal biopsy: Fragments of duodenal mucosa with gastric metaplasia and mild nonspecific chronic inflammation. B. Distal esophageal biopsy: Fragments of gastroesophageal mucosa with moderate chronic inflammation. Intestinal metaplasia (goblet cell metaplasia) not identified. See comment. C. Terminal ileum, biopsy: Fragments of small intestinal mucosa, no pathologic diagnosis. D. Transverse colon polyp, biopsy: A fragment of colonic mucosa, no pathologic diagnosis. E. Colon, random biopsy: Fragments of colonic mucosa, no pathologic diagnosis. SJ:vandana 05/09/2022 COMMENT B. Alcian blue/PAS stain with matched control is used in the evaluation of the specimen. MICROSCOPIC DESCRIPTION Slides are reviewed. GROSS DESCRIPTION A - Received in fixative is one container labeled with the patient's name and designated duodenal biopsy. The specimen consists of two irregular fragments of light valladares soft tissue that in aggregate measure 0.5 x 0.5 x 0.1 cm. The specimen is totally submitted in one cassette. B - Received in fixative is one container labeled with the patient's name and designated distal esophageal biopsy. The specimen consists of multiple irregular fragments of light valladares soft tissue that in aggregate measure 0.8 x 0.8 x 0.1 cm. The specimen is totally submitted in one cassette. C - Received in fixative is one container labeled with the patient's name and designated terminal ileum biopsy. The specimen consists of multiple irregular fragments of light valladares soft tissue that in aggregate measure 1 x 0.5 x 0.1 cm. The specimen is totally submitted in one cassette. D - Received in fixative is one container labeled with the patient's name and designated transverse colon polyp. The specimen consists of one irregular fragment of light valladares soft tissue that measures 0.3 x 0.3 x 0.1 cm. The specimen is totally submitted in one cassette. E - Received in fixative is one container labeled with the patient's name and designated random colon biopsy. The specimen consists of multiple irregular fragments of light valladares soft tissue that in aggregate measure 2 x 0.5 x 0.1 cm. The specimen is totally submitted in one cassette. / SJ:rg 05/08/2022 TC:3 CPT: 31585 x5, 02902
--- NOTE | 2022-05-08 08:19 | HP.PCM_ITS ---
History and Physical Date of Admission: 05/08/22 IZABEL WAHL, is a 71 M who presents to the office today for Initial consult. Izabel established with this clinic 01.13.22 with referral from his PCP for evaluation of intermittent diarrhea with occasional abdominal pain LLQ. Forty years ago he was diagnosed with microscopic colitis and UC. With increase in lower abdominal pain and loose diarrhea many times a day without blood. Previously established with Dr. gOden who started him on budesonide 9mg QD and balsalazide 2250mg TID; this was changed to mesalamine. Noted triggers include known foods. GERD is also a diagnosis for which he takes omeprazole 20mg QD; if he misses this medication then he has significant symptoms the next day. PMH Early Alzheimer?s; A-Fib, mitral valve replacement ([employer] [facility]). Colonoscopy 4.09.[address] Ogden with no abnormalities or polyps found. Internal hemorrhoids noted. Pathology consistent with microscopic/lymphocytic colitis. ROS Const Constitutional: No other (as above) Exam Const General: cooperative, healthy appearing, comfortable and no acute distress Nutritional Appearance: average body habitus and well nourished Orientation: alert, awake and oriented x3 HENMT Head: normal to inspection Ears: hearing grossly normal bilaterally, external ears normal, TM's normal bilaterally and EAC's normal Nose: external nose normal, nares normal, septum normal and no nasal discharge Face and sinus: normal facial exam, face symmetric and sinus tenderness maxillary (R>L, with bilateral fullness to palpation); not frontal and not ethmoid Mouth: oral mucosae normal, lip normal, tongue normal and moist mucous membranes Throat: posterior oropharynx normal, tonsils normal, uvula midline and no postnasal drainage Eyes General: appearance normal, both eyes and all related structures Neck Neck: normal visual inspection, full ROM, no lymphadenopathy, no meningeal signs and supple Neck mass: No Thyroid: thyroid normal Lymphatic: no lymphadenopathy noted Chest Chest palpation & inspection: normal inspection of the chest Resp Effort & Inspection: normal respiratory effort, able to speak in complete sentences, symmetric chest movement and cough Quality of cough: wet (Nonproductive in office today) Auscultation: Bilateral: Clear to Auscultation Cardio Palpation: normal PMI Rate: regular rate Rhythm: regular rhythm Heart Sounds: S1 normal, S2 normal, no gallops, no murmurs and no rubs Pulses: radial pulses present GI Inspection: normal to inspection Palpation: soft and nontender Skin General: no rashes or lesions noted Neuro General: patient alert, patient awake, patient oriented x3 and gait normal Cognition: normal cognition Speech: speech normal Gait: normal gait Motor: muscle tone normal throughout Sensory Exam: no sensory deficits noted Psych Appearance: grossly normal Mental Status: mental status grossly normal Mood: congruent mood Affect: normal affect Speech and Movement: speech and movement normal Attitude: cooperative Thought Process: normal Thought Content: normal Judgment: judgment good Quality Reporting Tobacco Screening ([facility] [address]) Smoking Status: Never smoker Assessment and Plan Assessment and Plan (1) Ulcerative colitis: ?Status:?Acute ?Plan: He is on mesalamine based therapy and is having some more loose stools than usual.? He also has increased his [id number] omeprazole 20 mg every other day to 20 mg daily.? This can lead to him having worsening looser stools.? Also he has a diagnosis of lymphocytic colitis which is not that common in the setting of ulcerative colitis.? Therefore I am wondering if that is a true diagnosis instead of ulcerative colitis.? We will perform a colonoscopy with biopsies to see the degree of inflammation that is in his colon and hopefully get to a true diagnosis. (2) GERD (gastroesophageal reflux disease): ?Status:?Acute ?Plan: We will continue his omeprazole at 20 mg a day until he has an upper endoscopy.? He may also need a Wilson study in the future.? We will monitor his lower esophageal sphincter so we can possibly do that without sedation if needed in the future. (3) Dysphagia: ?Status:?Acute ?Plan: We will evaluate his upper GI tract for what appears to be esophageal dysphagia by history but it also could be oropharyngeal dysphagia.? We will an upper endoscopy to look for signs of eosinophilic esophagitis, esophageal ring, esophageal narrowing, esophageal web, erosive esophagitis with stricture. I have re-examined the patient. There are no clinical changes since date of exam.
--- NOTE | 2022-05-08 09:03 | OP.EGD_ITS ---
Patient Name: Aayush García Procedure Date: 05/08/2022 8:24 AM Date of : 1950 Age: 71 Procedure: Upper GI endoscopy Indications: Dysphagia, Heartburn Providers: Terry Mercedes DO Medicines: Monitored Anesthesia Care Patient Profile: This is a 71 year old male. Refer to note in patient chart for documentation of history and physical. Patient has symptoms of dysphagia with solids and chronic heartburn. Complications: No immediate complications. Procedure: Pre-Anesthesia Assessment: - Prior to the procedure, a History and Physical was performed, and patient medications and allergies were reviewed. The risks and benefits of the procedure and the sedation options and risks were discussed with the patient. All questions were answered and informed consent was obtained. Patient identification and proposed procedure were verified by the physician in the pre-procedure area. Mental Status Examination: alert and oriented. Airway Examination: normal oropharyngeal airway and neck mobility. Respiratory Examination: clear to auscultation. CV Examination: normal. Prophylactic Antibiotics: The patient does not require prophylactic antibiotics. Prior Anticoagulants: The patient has taken no previous anticoagulant or antiplatelet agents. After reviewing the risks and benefits, the patient was deemed in satisfactory condition to undergo the procedure. The anesthesia plan was to use monitored anesthesia care (MAC). Immediately prior to administration of medications, the patient was re-assessed for adequacy to receive sedatives. The heart rate, respiratory rate, oxygen saturations, blood pressure, adequacy of pulmonary ventilation, and response to care were monitored throughout the procedure. The physical status of the patient was re-assessed after the procedure. After obtaining informed consent, the endoscope was passed under direct vision. Throughout the procedure, the patient's blood pressure, pulse, and oxygen saturations were monitored continuously. The pediatric colonoscope was introduced through the mouth, and advanced to the second part of duodenum. The upper GI endoscopy was accomplished without difficulty. The patient tolerated the procedure well. Moderate Sedation: Moderate (conscious) sedation was personally administered by an anesthesia professional. The following parameters were monitored: oxygen saturation, heart rate, blood pressure, respiratory rate, EKG, adequacy of pulmonary ventilation, and response to care. Total physician intraservice time was 15 minutes. Scope In: 8:33:10 AM Scope Out: 8:40:49 AM Total Procedure Duration Time 0 hours 7 minutes 39 seconds Findings: Mucosal changes including ringed esophagus were found in the middle third of the esophagus and in the lower third of the esophagus. Biopsies were obtained from the proximal and distal esophagus with cold forceps for histology of suspected eosinophilic esophagitis. Verification of patient identification for the specimen was done. Estimated blood loss was minimal. A moderate Schatzki ring was found at the gastroesophageal junction. A guidewire was placed and the scope was withdrawn. Dilation was performed with a Savary dilator with no resistance at 60 Fr. The dilation site was examined following endoscope reinsertion and showed moderate improvement in luminal narrowing. Estimated blood loss was minimal. A medium-sized hiatal hernia was present. The cardia and gastric fundus were normal on retroflexion. Patchy mildly erythematous mucosa without active bleeding and with no stigmata of bleeding was found in the duodenal bulb. Biopsies were taken with a cold forceps for histology. Verification of patient identification for the specimen was done. Estimated blood loss was minimal. Impression: - Esophageal mucosal changes consistent with eosinophilic esophagitis. Biopsied. - Moderate Schatzki ring. Dilated. - Medium-sized hiatal hernia. - Erythematous duodenopathy. Biopsied. Recommendation: - Discharge patient to home. - Resume previous diet. - Continue present medications. - Await pathology results. - Food allergy testing Procedure Code(s): --- Professional --- 42703, Esophagogastroduodenoscopy, flexible, transoral; with insertion of guide wire followed by passage of dilator(s) through esophagus over guide wire 72716, 59,51, Esophagogastroduodenoscopy, flexible, transoral; with biopsy, single or multiple CPT copyright 2017 [employer]. All rights reserved. The codes documented in this report are preliminary and upon death surveys coder review may be revised to meet current compliance requirements. Terry Mercedes DO 05/08/2022 9:03:10 AM This report has been signed electronically. Number of Addenda: 0 Note Initiated On: 05/08/2022 8:24 AM
--- NOTE | 2022-05-08 09:04 | OP.CCLET_ITS ---
05/08/2022 Aletha Moon [address] [place] [address] Re : Upper GI endoscopy procedure for Aayush García Dear Dr. Moon This procedure was performed on April. My impressions and recommendations are as follows: Impressions : - Esophageal mucosal changes consistent with eosinophilic esophagitis. Biopsied. - Moderate Schatzki ring. Dilated. - Medium-sized hiatal hernia. - Erythematous duodenopathy. Biopsied. Recommendations : - Discharge patient to home. - Resume previous diet. - Continue present medications. - Await pathology results. - Food allergy testing My findings are described in the full procedure note, which is enclosed. If I can be of further assistance, please feel free to contact me at . Sincerely, Terry Mercedes, 05/08/2022 9:03:10 AM This report has been signed electronically.
--- NOTE | 2022-05-08 09:11 | OP.COLON_ITS ---
Patient Name: Aayush García Procedure Date: 05/08/2022 8:41 AM Date of : 1950 Age: 71 Procedure: Colonoscopy Indications: Chronic diarrhea Providers: Terry Mercedes DO Medicines: Monitored Anesthesia Care Patient Profile: This is a 71 year old male. Refer to note in patient chart for documentation of history and physical. Patient has symptoms of dysphagia with solids and chronic heartburn. Last Colonoscopy: 3 years ago. Complications: No immediate complications. Procedure: Pre-Anesthesia Assessment: - Prior to the procedure, a History and Physical was performed, and patient medications and allergies were reviewed. The risks and benefits of the procedure and the sedation options and risks were discussed with the patient. All questions were answered and informed consent was obtained. Patient identification and proposed procedure were verified by the physician in the pre-procedure area. Mental Status Examination: alert and oriented. Airway Examination: normal oropharyngeal airway and neck mobility. Respiratory Examination: clear to auscultation. CV Examination: normal. Prophylactic Antibiotics: The patient does not require prophylactic antibiotics. Prior Anticoagulants: The patient has taken no previous anticoagulant or antiplatelet agents. After reviewing the risks and benefits, the patient was deemed in satisfactory condition to undergo the procedure. The anesthesia plan was to use monitored anesthesia care (MAC). Immediately prior to administration of medications, the patient was re-assessed for adequacy to receive sedatives. The heart rate, respiratory rate, oxygen saturations, blood pressure, adequacy of pulmonary ventilation, and response to care were monitored throughout the procedure. The physical status of the patient was re-assessed after the procedure. After I obtained informed consent, the scope was passed under direct vision. Throughout the procedure, the patient's blood pressure, pulse, and oxygen saturations were monitored continuously. The Colonoscope was introduced through the anus and advanced to the terminal ileum. The colonoscopy was performed without difficulty. The patient tolerated the procedure well. The quality of the bowel preparation was good. Moderate Sedation: Moderate (conscious) sedation was personally administered by an anesthesia professional. The following parameters were monitored: oxygen saturation, heart rate, blood pressure, respiratory rate, EKG, adequacy of pulmonary ventilation, and response to care. Total physician intraservice time was 15 minutes. Scope In: 8:43:30 AM Scope Withdrawal Time 0 hours 9 minutes 35 seconds Scope Out: 8:55:55 AM Total Procedure Duration Time 0 hours 12 minutes 25 seconds Findings: The perianal and digital rectal examinations were normal. An area of mildly congested mucosa was found in the recto-sigmoid colon, in the sigmoid colon, at the splenic flexure, in the transverse colon and in the ascending colon. Biopsies were taken with a cold forceps for histology. Verification of patient identification for the specimen was done. Estimated blood loss was minimal. A 5 mm polyp was found in the hepatic flexure. The polyp was sessile. The polyp was removed with a cold snare. Resection and retrieval were complete. Verification of patient identification for the specimen was done. Estimated blood loss was minimal. A patchy area of the terminal ileum was congested. Biopsies were taken with a cold forceps for histology. Verification of patient identification for the specimen was done. Estimated blood loss was minimal. Impression: - Congested mucosa in the recto-sigmoid colon, in the sigmoid colon, at the splenic flexure, in the transverse colon and in the ascending colon. Biopsied. - One 5 mm polyp at the hepatic flexure, removed with a cold snare. Resected and retrieved. - Congested mucosa in the terminal ileum. Biopsied. Recommendation: - Discharge patient to home. - Resume previous diet. - Continue present medications. - Await pathology results. - Repeat colonoscopy in 3 years for surveillance. Procedure Code(s): --- Professional --- 53402, Colonoscopy, flexible; with removal of tumor(s), polyp(s), or other lesion(s) by snare technique 76926, 59, Colonoscopy, flexible; with biopsy, single or multiple CPT copyright 2017 [employer] [place] [employer]. All rights reserved. The codes documented in this report are preliminary and upon efficiency manager review may be revised to meet current compliance requirements. Terry Mercedes DO 05/08/2022 9:10:43 AM This report has been signed electronically. Number of Addenda: 0 Note Initiated On: 05/08/2022 8:41 AM
--- NOTE | 2022-05-08 09:13 | OP.CCLET_ITS ---
05/08/2022 Aletha Moon [address] [place] [address] Re : Colonoscopy procedure for Aayush García Dear Dr. Moon This procedure was performed on April. My impressions and recommendations are as follows: Impressions : - Congested mucosa in the recto-sigmoid colon, in the sigmoid colon, at the splenic flexure, in the transverse colon and in the ascending colon. Biopsied. - One 5 mm polyp at the hepatic flexure, removed with a cold snare. Resected and retrieved. - Congested mucosa in the terminal ileum. Biopsied. Recommendations : - Discharge patient to home. - Resume previous diet. - Continue present medications. - Await pathology results. - Repeat colonoscopy in 3 years for surveillance. My findings are described in the full procedure note, which is enclosed. If I can be of further assistance, please feel free to contact me at . Sincerely, Terry Mercedes DO 05/08/2022 9:10:43 AM This report has been signed electronically.
== END 2022-05-08 10:01 | disposition home or self-care (01) ==
LOC: EN 06:57 → AC 06:58
PROVIDERS: PCP Internal Medicine; Referring Provider Internal Medicine; Visit Provider Internal Medicine Gastroenterology
PROC: 0DJD8ZZ Inspection of Lower Intestinal Tract, Via Natural or Artificial Opening Endoscopic (ICD-10-PCS; CPT 45378; principal; 2022-05-08 07:55)
DX: K22.2 Esophageal obstruction (principal); K51.90 Ulcerative colitis, unspecified, without complications; I48.91 Unspecified atrial fibrillation; K21.9 Gastro-esophageal reflux disease without esophagitis; K63.5 Polyp of colon; I10 Essential (primary) hypertension; I34.0 Nonrheumatic mitral (valve) insufficiency; E78.00 Pure hypercholesterolemia, unspecified; Z79.899 Other long term (current) drug therapy; K44.9 Diaphragmatic hernia without obstruction or gangrene
CPT/HCPCS: 45380; 45385; 43239; 43248; 88305; 88313; J7120; C1769; J2405

== ENCOUNTER → 2022-05-09 | Outpatient (CLI) | payer MEDICARE, BC, SELFPAY ==
[2022-05-09 09:18] LABS: Erythrocyte Sedimentation Rate 3 mm/hr (0-20)
[2022-05-09 09:20] LABS: Absolute Lymphocyte Count 1.57 X10^3/uL (0.83-4.51); Absolute Neutrophil Count 3.2 X10^3/uL (2.0-7.7); Basophil# 0.02 X10^3/uL; Basophil% 0.4 % (0-1); Hemoglobin 16.2 g/dL (13.0-16.5); Lymphocyte # 1.57 X10^3/ul (0.83-4.51); Lymphocyte % 30.1 % (19-41); Mean Corp Hgb Conc 33.8 g/dL (32-36); Mean Corpuscular Hgb 29.8 pg (27.0-32.0); Mean Corpuscular Volume 88.4 fL (80-94); Mean Platelet Vol. 10.3 fl (6.2-12.0); Monocyte# 0.41 X10^3/uL; Monocyte% 7.9 % (0-10); NRBC Flagged by Analyzer 0 % (0-5); Neutrophil # 3.21 X10^3/uL (2.7-7.7); Neutrophil % 61.4 % (47-70); Platelet Count 172 K/mm3 (150-450); RBC Distribution Width CV 12.9 % (11.6-14.6); RBC Distribution Width SD 41.7 fl (35.1-43.9); Red Blood Count 5.43 M/mm3 (4.6-6.2); White Blood Count 5.2 K/mm3 (4.4-11.0)
[2022-05-09 09:41] LABS: CRP < 2.90 mg/L (0.0-3.0); LDH 207 U/L (87-241)
[2022-05-10 18:07] LABS: Endomysial Antibody IgA Negative (Negative)
[2022-05-11 09:37] LABS: Immunoglobulin A 105 mg/dL (61-437); t-Transglutaminase IgA <2 U/mL (0-3)
[2022-05-12 13:07] LABS: Anti-Centromere B Ab <0.2 AI (0.0-0.9); Anti-Chromatin <0.2 AI (0.0-0.9); Anti-Jo <0.2 AI (0.0-0.9); Anti-Scleroderma-70 AB <0.2 AI (0.0-0.9); RNP Ab <0.2 AI (0.0-0.9); SJOGREN'S Anti-SS-A test < 0.2 AI (0.0-0.9); SJOGREN'S Anti-SS-B test < 0.2 AI (0.0-0.9); Smith Ab <0.2 AI (0.0-0.9)
[2022-05-12 14:42] LABS: Anti-dsDNA Ab 1 IU/mL (0-9)
[2022-05-12 18:07] LABS: Albumin 3.6 g/dL (2.9-4.4); Alpha-1-Globulins 0.2 g/dL (0.0-0.4); Alpha-2-Globulins 0.8 g/dL (0.4-1.0); Cytoplasmic Ab (C-ANCA) <1:20 titer (Neg:<1:20); Gamma Globulin 0.9 g/dL (0.4-1.8); Immunoglobulin A 105 mg/dL (61-437); Immunoglobulin G 872 mg/dL (603-1613); Immunoglobulin M 98 mg/dL (15-143); PROEL- TOTAL PROTEIN 6.4 g/dL (6.0-8.5)
[2022-05-13 10:45] LABS: Immunoglobulin E 160 IU/mL (6-495)
[2022-05-13 13:41] LABS: Pancreatic Elastase, Fecal 469 (>200)
[2022-05-15 10:33] LABS: Calprotectin, Stool 25 ug/g (0-120); Fats, Neutral Normal (.); Fats, Total Normal (.)
== END | disposition home or self-care (01) ==
PROVIDERS: PCP Internal Medicine; Referring Provider Internal Medicine Gastroenterology; Visit Provider Internal Medicine Gastroenterology
DX: K51.90 Ulcerative colitis, unspecified, without complications (principal); K21.9 Gastro-esophageal reflux disease without esophagitis
CPT/HCPCS: 36415; 82653; 82705; 82784; 82785; 83516; 83615; 83630; 83993; 84165; 85025; 85652; 86140; 86225; 86235; 86255; 86256; 86334; 87493

== ENCOUNTER → 2022-06-05 | Outpatient (CLI) | payer MEDICARE, BC, SELFPAY ==
[2022-06-15 06:37] LABS: Alternaria tenuis <0.10 kU/L (Class 0); Ash, White <0.10 kU/L (Class 0); Aspergillus fumigatus <0.10 kU/L (Class 0); Bermuda Grass <0.10 kU/L (Class 0); Birch 1.75 kU/L (Class III); Black Walnut <0.10 kU/L (Class 0); Cat Hair / Dander,Stand <0.10 kU/L (Class 0); Cedar, Mountain <0.10 kU/L (Class 0); Cladosporium herbarum <0.10 kU/L (Class 0); Cockroach, American 0.18 kU/L (Class 0/I); Cottonwood <0.10 kU/L (Class 0); D pteronyssinus 0.19 kU/L (Class 0/I); Dog Epithelia 0.14 kU/L (Class 0/I); Elm, American White 0.12 kU/L (Class 0/I); Immunoglobulin E 141 IU/mL (6-495); Maple/Box Elder 1.04 kU/L (Class II); Mulberry, White <0.10 kU/L (Class 0); Oak, White 3.18 kU/L (Class III); Pecan <0.10 kU/L (Class 0); Penicillium Notatum <0.10 kU/L (Class 0); Pigweed, Rough <0.10 kU/L (Class 0); Ragweed, Short/Common 0.15 kU/L (Class 0/I); Russian Thistle <0.10 kU/L (Class 0); Sheep Sorrel <0.10 kU/L (Class 0); Sycamore, American <0.10 kU/L (Class 0); Timothy Grass 0.13 kU/L (Class 0/I)
[2022-06-15 10:58] LABS: Mouse Urine <0.10 kU/L (Class 0)
[2022-06-15 12:07] LABS: Alternaria alternata <0.10 kU/L (Class 0); Aspergillus fumigatus <0.10 kU/L (Class 0); Bahia Grass <0.10 kU/L (Class 0); Beef <0.10 kU/L (Class 0); Bermuda Grass <0.10 kU/L (Class 0); Bluegrass, Kentucky 0.15 kU/L (Class 0/I); Cat Hair/Dander, Standard <0.10 kU/L (Class 0); Cedar, Mountain 0.11 kU/L (Class 0/I); Cladosporium herbarum <0.10 kU/L (Class 0); Cockroach, American 0.36 kU/L (Class I); D farinae Mite 0.27 kU/L (Class 0/I); D pteronyssinus 0.24 kU/L (Class 0/I); Dog Epithelia 0.19 kU/L (Class 0/I); Egg, Whole 0.25 kU/L (Class 0/I); Elm, American White 0.15 kU/L (Class 0/I); Hazelnut Tree 1.08 kU/L (Class II); Hickory, White 0.24 kU/L (Class 0/I); Johnson Grass <0.10 kU/L (Class 0); Maple/Box Elder 0.96 kU/L (Class II); Milk (Cow) 0.67 kU/L (Class II); Mucor racemosus <0.10 kU/L (Class 0); Mugwort <0.10 kU/L (Class 0); Mulberry, White <0.10 kU/L (Class 0); Nettle 0.15 kU/L (Class 0/I); Oak, White 3.85 kU/L (Class III); Peanut 0.16 kU/L (Class 0/I); Penicillium chrysogen <0.10 kU/L (Class 0); Pigweed, Rough <0.10 kU/L (Class 0); Plantain, English <0.10 kU/L (Class 0); Pork <0.10 kU/L (Class 0); Ragweed, Short/Common 0.21 kU/L (Class 0/I); Sheep Sorrel(Dock) <0.10 kU/L (Class 0); Soybean <0.10 kU/L (Class 0); Stemphylium herbarum <0.10 kU/L (Class 0); Sweet Gum 1.47 kU/L (Class III); Sycamore, American <0.10 kU/L (Class 0); Wheat 0.11 kU/L (Class 0/I)
[2022-06-15 14:00] LABS: Chocolate <0.10 kU/L (Class 0)
== END | disposition home or self-care (01) ==
LOC: LAB 08:49
PROVIDERS: PCP Internal Medicine; Referring Provider Internal Medicine Gastroenterology; Visit Provider Internal Medicine Gastroenterology
DX: R19.7 Diarrhea, unspecified (principal)
CPT/HCPCS: 36415; 82785; 86003; 86005

== ENCOUNTER 2022-06-07 10:35 | Emergency (ER) | payer MEDICARE, BC, SELFPAY ==
[2022-06-07 10:36] VITALS: BP 176/81; PULSE 59; RESP 16; TEMP 36.1; O2SAT 95; BMI 30.1
--- NOTE | 2022-06-07 10:51 | EDS_ITS ---
HPI History of Present Illness Chief Complaint: Burn Informant: patient Onset/Context/Timing Onset: Today (Just prior to arrival) Mechanism/Context: Burn (Due to hot scalding water) Location of pain/injuries: Right wrist and Right hand Current Severity: Mild Maximum Severity: Moderate Worsened by: Palpation Relieved by: Leaving alone Narrative Narrative: Ttxye-oiui-xhezeiyg male accidentally spilled hot water that had just recently boiled, fell on his right hand and wrist. He denies any other injury. He is not having a significant amount of pain. Takes baby aspirin daily no anticoagulants or other antiplatelet medications. Has not taken anything for the pain yet. Tetanus Immunization: 5-10 years [facility] Medical History Acute maxillary sinusitis, unspecified Cardiology follow-up encounter Encounter for screening for COVID-19 Essential hypertension High cholesterol History of echocardiogram History of stress test HLD (hyperlipidemia) Non-smoker Nonrheumatic mitral (valve) insufficiency Postoperative atrial fibrillation (02/08/16) Wears glasses Home Medications aspirin 81 mg tablet,delayed release (Adult Aspirin Regimen) 81 mg PO DAILY 10/25/18 [History Last Taken 05/06/22] omeprazole 20 mg capsule,delayed release 20 mg PO DAILY 10/25/18 [History Last Taken Unknown] turmeric 400 mg capsule 400 mg PO DAILY 05/10/19 [History Last Taken Unknown] escitalopram oxalate 20 mg tablet 20 mg PO DAILY 06/15/20 [History Last Taken Unknown] simvastatin 20 mg tablet 20 mg PO QHS 06/15/20 [History Last Taken Unknown] vitamin B complex (B Complex-Vitamin B12 tablet) 1 tab PO DAILY 06/15/20 [History Last Taken Unknown] donepezil 5 mg tablet 5 mg PO QHS 06/14/21 [History Last Taken Unknown] lisinopril 10 mg tablet 10 mg PO DAILY #90 tabs 06/14/21 [Rx Last Taken Unknown] magnesium oxide 400 mg PO DAILY #90 tabs 09/04/21 [Rx Last Taken Unknown] doxepin 10 mg capsule 10 mg PO DAILY 03/24/22 [History Last Taken Unknown] colestipol 1 gram tablet 1 g PO BID #60 tabs 05/09/22 [Rx Last Taken Unknown] Allergy/AdvReac Type Severity Reaction Status Date / Time acetaminophen [From Vicodin] Allergy intolerance Verified 06/07/22 10:37 bee venom protein (honey bee) Allergy Swelling Verified 06/07/22 10:37 hydrocodone [From Vicodin] Allergy intolerance Verified 06/07/22 10:37 shellfish derived Allergy Swelling Verified 06/07/22 10:37 Family History Brother Mitral valve insufficiency Father Heart disease Mother Hypertension Surgical History H/O mitral valve repair (01/31/16) H/O mitral valve replacement (02/08/16) History of left heart catheterization (01/08/16) Hx of hernia repair S/P nasal surgery Social History Smoking Status: Never smoker alcohol intake: current alcohol intake frequency: holidays/special occasions only substance use type: does not use caffeine: Yes Type: carbonated beverages ROS ROS ED Constitutional Constitutional ED: Denies chills or fever(s) Musculoskeletal Musculoskeletal: Reports extremity pain; Denies neck pain Integumentary Reports as per HPI and wounds; Denies Abrasions or rash Neurologic Neurologic: Denies paresthesias or weakness EXAM Physical Exam Const Vital Signs: 06/07/22 10:36 Temperature 97.0 F L Temperature Source Temporal Pulse Rate 59 L Respiratory Rate 16 Blood Pressure 176/81 H Blood Pressure Mean 112 Pulse Ox 95 Oxygen Delivery Method Room Air Positive well nourished and well developed General Appearance ED: well developed and NAD Neck full ROM and supple Back/Spine normal ROM and normal to inspection Extremity Extremity Narrative: Mildly tender burn dorsal right hand and wrist, full range of motion of all joints including the wrist and fingers, no sign of active infection. Neuro oriented x3, no focal motor deficits and no sensory deficits noted Sensorium / Orientation: alert Psych mental status grossly normal and thought process normal Skin Skin Narrative: First and second-degree burn to the dorsum of the right hand and wrist, radial aspect. No fingers involved. Mostly second-degree, very little first-degree involvement, it is all blistered and the blister is ruptured at the proximal aspect with some minimal amount of clear fluid emanating from it. All of the blisters are collapsed as a result of this since it all communicates. All of this is mildly tender. There is no evidence of any necrotic tissue or third/fourth degree involvement, all fairly superficial. Less than 1% TBSA. Rashes: no rashes MDM MDM MDM Narrative Medical decision making narrative: Supportive care and first-aid advised for this fairly straightforward small area of second-degree burn. Blister is already ruptured, and he is not in a lot of pain. Cleansed by nursing and dressed with bacitracin and gauze, instructed with regards to dressing changes. His blood pressure is elevated, he is asymptomatic from it. I suspect this is due to the incident and pain and being here in the emergency department, advised to recheck this and follow-up with his doctor if it does not come back down. We discussed numbers that would be concerning enough to return to the ER. He is comfortable with this plan. Discharge Plan Triage Chief Complaint: Burn ED Provider: Waldo Glover Dx/Rx/DC Orders Clinical Impression: Second degree burn of back of right hand, Episode of hypertension Instructions: ED Burn, Hot Water Prescriptions: No Action aspirin [Adult Aspirin Regimen] 81 mg tablet,delayed release (DR/EC) 81 mg PO DAILY omeprazole 20 mg capsule,delayed release(DR/EC) 20 mg PO DAILY turmeric 400 mg capsule 400 mg PO DAILY simvastatin 20 mg tablet 20 mg PO QHS vitamin B complex [B Complex-Vitamin B12] Tablet 1 tab PO DAILY escitalopram oxalate 20 mg tablet 20 mg PO DAILY donepezil 5 mg tablet 5 mg PO QHS lisinopril 10 mg tablet 10 mg PO DAILY Qty: 90 3RF doxepin 10 mg capsule 10 mg PO DAILY magnesium oxide 400 mg magnesium tablet 400 mg PO DAILY Qty: 90 3RF colestipol 1 gram tablet 1 g PO BID Qty: 60 2RF Primary Care Provider: Aletha Moon Referrals: Aletha Moon DO [Primary Care Provider] - As Needed Disposition Disposition: Home, Self Care
[2022-06-07] MEDS: Ibuprofen 200 MG Tablet 400 MG PO (11:08)
== END 2022-06-07 11:17 | disposition home or self-care (01) ==
LOC: ED 11:03
PROVIDERS: Emergency Provider Emergency Medicine; PCP Internal Medicine; Visit Provider Emergency Medicine
DX: T23.261A Burn of second degree of back of right hand, initial encounter (principal); I10 Essential (primary) hypertension; E78.5 Hyperlipidemia, unspecified; X12.XXXA Contact with other hot fluids, initial encounter
CPT/HCPCS: 99282

== ENCOUNTER 2022-06-23 14:16 | Outpatient (RCR) | payer SELFPAY | END 2022-06-23 23:59 | disposition home or self-care (01) | LOC: NS 14:16 | PROVIDERS: PCP Internal Medicine | DX: R19.7 Diarrhea, unspecified (principal); K51.90 Ulcerative colitis, unspecified, without complications; R13.10 Dysphagia, unspecified; K20.0 Eosinophilic esophagitis | CPT/HCPCS: 97802 ==

== ENCOUNTER → 2022-07-16 | Outpatient (CLI) | payer MEDICARE, BC, SELFPAY ==
--- NOTE | 2022-07-16 08:40 | ECHOD_ITS ---
Reason For Study: PROSTHETIC VALVE (MVr) Procedure This was a 2D Doppler, Color Flow transthoracic echocardiogram. Exam performed in department. Left Ventricle Normal LV size. Left ventricular systolic function is normal. The estimated ejection fraction is 55 %. Stage 1 diastolic dysfunction. No regional wall motion abnormalities noted. Right Ventricle Normal RV size. Normal systolic function. Atria The left atrium is moderately enlarged. The right atrium is mildly enlarged. Mitral Valve Mean transmitral valve gradient 2.3 mmHg. Stable appearing bioprosthetic mitral valve apparatus. Tricuspid Valve Normal tricuspid valve. Mild (1+) tricuspid valve insufficiency. Pulmonary artery systolic pressure is 28 mmHg. Aortic Valve Trisinus/trileaflet aortic valve. Pulmonic Valve Normal pulmonic valve. Great Vessels Normal aortic root. The pulmonary artery is normal size. Normal inferior vena cava. Pericardium/Pleural No pericardial effusion. MMode/2D Measurements & Calculations LVIDd: 3.9 cm IVSd: 1.2 cm Ao root diam: 3.9 cm LVIDs: 2.9 cm LVPWd: 1.2 cm RVDd: 4.2 cm FS: 26.6 % LAV(MOD-bp): 111.2 ml LA A4 area: 29.3 cm2 LA dimension(2D): 4.2 cm LAV(MOD-bp) Indexed: 52.5 ml/m2 LAV(MOD-sp2): 100.6 ml LAV(MOD-sp4): 108.5 ml RA A4 area: 24.6 cm2 Time Measurements MV dec time: 0.51 sec Doppler Measurements & Calculations MV E max josé: 110.2 cm/sec Lat Peak E' José: 4.7 cm/sec Med Peak E' José: 6.4 cm/sec MV A max josé: 123.5 cm/sec E/E' lat: 23.7 E/E' med: 17.2 MV E/A: 0.89 MV V2 max: 145.8 cm/sec MV dec slope: 215.9 cm/sec2 Ao V2 max: 109.0 cm/sec MV max P.5 mmHg Ao max P.8 mmHg MV V2 mean: 66.7 cm/sec Ao V2 mean: 72.9 cm/sec MV mean P.3 mmHg Ao mean P.4 mmHg MV V2 VTI: 56.7 cm Ao V2 VTI: 21.7 cm AV (velocity ratio): 0.95 LV V1 max: 95.0 cm/sec PA V2 max: 106.0 cm/sec TR max josé: 247.9 cm/sec LV V1 max P.6 mmHg TR max P.6 mmHg LV V1 mean P.9 mmHg LV V1 mean: 66.3 cm/sec LV V1 VTI: 20.7 cm ECHO/Echo Complete Interpretation Summary Normal LV size. Left ventricular systolic function is normal. The estimated ejection fraction is 55 %. Stage 1 diastolic dysfunction. The left atrium is moderately enlarged. The right atrium is mildly enlarged. Pulmonary artery systolic pressure is 28 mmHg. Stable appearing bioprosthetic mitral valve apparatus. Ordering Physician: Lucille Will Referring Physician: Aletha Moon Performed By: Ade Justice RDCS, RVT
== END | disposition home or self-care (01) ==
LOC: CVS 08:38
PROVIDERS: PCP Internal Medicine; Referring Provider Physician Assistant Medical; Visit Provider Physician Assistant Medical
DX: Z95.2 Presence of prosthetic heart valve (principal)
CPT/HCPCS: 93306

== ENCOUNTER → 2022-10-24 | Outpatient (CLI) | payer MEDICARE, BC, SELFPAY ==
--- NOTE | 2022-10-24 09:07 | RAD_ITS ---
STUDY: X-RAY CHEST REASON FOR EXAM: Male, 72 years old. NSVT TECHNIQUE: PA and 2 lateral views of the chest. COMPARISON: 2018 FINDINGS: The lungs are clear and expanded. There is no demonstrated pleural abnormality. Normal size heart. Normal mediastinum and patricia. Normal visualized pulmonary arteries. Normal visualized aortic arch and descending thoracic aorta. Normal visualized thoracic spine. Normal visualized ribs, clavicles, and shoulders. There is no demonstrated abnormality of the visualized soft tissue structures of the upper abdomen. RAD/Chest PA and Lateral IMPRESSION: Normal x-ray examination of the chest. Electronically Signed: Adrian Victor MD at 12:30 EDT ,
[2022-10-24 10:13] LABS: Absolute Lymphocyte Count 1.54 X10^3/uL (0.83-4.51); Absolute Neutrophil Count 2.3 X10^3/uL (2.0-7.7); Basophil# 0.02 X10^3/uL; Basophil% 0.5 % (0-1); Hematocrit 49.4 % (40-54); Hemoglobin 16.4 g/dL (13.0-16.5); Lymphocyte # 1.54 X10^3/ul (0.83-4.51); Lymphocyte % 36.3 % (19-41); Mean Corp Hgb Conc 33.2 g/dL (32-36); Mean Corpuscular Hgb 31.4 pg (27.0-32.0); Mean Corpuscular Volume 94.6 fL (80-94); Mean Platelet Vol. 11.3 fl (6.2-12.0); Monocyte# 0.38 X10^3/uL; NRBC Flagged by Analyzer 0 % (0-5); Neutrophil # 2.28 X10^3/uL (2.7-7.7); Neutrophil % 53.7 % (47-70); Platelet Count 146 K/mm3 (150-450); RBC Distribution Width CV 12.8 % (11.6-14.6); RBC Distribution Width SD 44.5 fl (35.1-43.9); Red Blood Count 5.22 M/mm3 (4.6-6.2); White Blood Count 4.2 K/mm3 (4.4-11.0)
[2022-10-24 10:19] LABS: Prothrombin Time (Protime)PT. 12.8 SECONDS (11.7-14.9)
[2022-10-24 10:20] LABS: Partial Thromboplast Time 31.9 Seconds (24.1-36.2)
[2022-10-24 10:38] LABS: Anion Gap 6 (5-15); BUN 20 mg/dL (7-18); BUN/Creat Ratio 17.7 RATIO (10-20); Chloride 105 mmol/L (98-107); Creatinine, Serum 1.13 mg/dL (0.70-1.30); EST Glomerular Filtration Rate 68 mL/min (>60); Est Glom Filt Rate - Afr Amer 82 mL/min (>60); Glucose 102 mg/dL (74-106); Potassium 4.5 mmol/L (3.5-5.1); Sodium Level 139 mmol/L (136-145)
== END | disposition home or self-care (01) ==
LOC: LAB 08:59
PROVIDERS: PCP Internal Medicine; Referring Provider Physician Assistant Medical; Visit Provider Physician Assistant Medical
DX: Z95.2 Presence of prosthetic heart valve (principal); I47.29 Other ventricular tachycardia; Z98.890 Other specified postprocedural states; R55 Syncope and collapse
CPT/HCPCS: 36415; 71046; 80048; 85025; 85610; 85730

== ENCOUNTER 2022-10-30 06:49 | Day surgery (SDC) | payer MEDICARE, BC, SELFPAY ==
--- NOTE | 2022-10-28 15:07 | HP.PCM_ITS ---
History and Physical IZABEL WAHL, is a 72 M who presented to the office today for a follow-up visit for his mitral valve.? He is a gentleman with a history of no significant coronary artery disease following cardiac catheterization in December 2015.? He had presented with features of mitral regurgitation with 4+ mitral regurgitation and P2 prolapse.? He also had a history of hypertension.? He was evaluated and underwent in January 2016 and mitral valve repair via the right thoracotomy.? Approximately a week afterwards he was noted to have continued significant m itral regurgitation noted on predischarge transthoracic echocardiogram.? A MAYLIN performed demonstrated 3+ mitral regurgitation and a repeat operation was indicated. He underwent a mitral valve replacement with a #31 Biocor valve.? Postoperatively he did develop an episode of atrial fibrillation. He underwent an echocardiographic exam on 01/05/2020 which demonstrated an ejection fraction of 63% with a stable mitral valve. When he was last in the office in June 2022 he had noted a few spells of dizziness where her felt like he might pass out.? He did have one near syncopal event this past summer.? He had one last night were he felt unsteady on his feet.? He tells me that when he has checked his Bp it has been normal. He does have ringing in his ears.? He did not notice any palpitations.? He does not have any chest pain/heaviness.? He does not have any worsening SOB. He does keep himself active. He is currently wearing a 30-day event monitor and his event monitor had demonstrated nonsustained ventricular tachycardia. Because of this he is undergoing a diagnostic heart catheterization. [facility] Medical History? Acute maxillary sinusitis, unspecified Cardiology follow-up encounter Encounter for screening for COVID-19 Essential hypertension High cholesterol History of echocardiogram History of stress test HLD (hyperlipidemia) Non-smoker Nonrheumatic mitral (valve) insufficiency Postoperative atrial fibrillation (02/08/16) Wears glasses Surgical History H/O mitral valve repair (01/31/16) H/O mitral valve replacement (02/08/16) History of left heart catheterization (01/08/16) Hx of hernia repair S/P nasal surgery Family History? Brother Mitral valve insufficiencyFather Heart diseaseMother Hypertension Social History? Smoking Status:? Never smoker alcohol intake:? current alcohol intake frequency: holidays/special occasions only substance use type:? does not use caffeine:? Yes Type: carbonated beverages ROS Const Const: Negative for fatigue, weakness, headache(s), frequent falls, excessive sweating, weight gain or weight loss Eyes Eyes: Negative for blind spots, loss of peripheral vision, transient loss of vision, blurry vision, change in vision or double vision ENT ENT: Positive for dizziness; Negative for headache(s), tinnitus, Nosebleed/epistaxis or balance problems Cardio Chest Pain: No Palpitations: No Edema: None Muscle aches with walking: None Resp Respiratory: Negative for SOB with activity, SOB at rest, SOB orthopnea\SOB lying down or Cough GI GI: Negative nausea, vomiting, heartburn, bloating, vomiting blood/hematemesis, bright, red blood in stools or black,tarry stools : Negative for hematuria Musc Musc: Negative for muscle aches/ myalgia, muscle weakness, joint pain or balance problems Skin Skin: Negative rash or wounds Neuro Neuro: Positive for dizziness, lightheadedness and near syncope; Negative for syncope, orthostatic symptoms, frequent falls, headache(s), weakness, confusion, memory loss, restless legs, blurry vision or double vision Ángel Hematologic/Lymphatic: Negative for easy bleeding or easy bruising Endo Endo: Negative for fatigue, cold intolerance, heat intolerance or excessive sweating Psych Psych: Negative for anxiety or depression Allergy Allergy/Immunology: Negative for rash Cardiology Exam Const Appearance: cooperative, healthy appearing, comfortable, no acute distress and well developed Orientation: alert, awake and oriented x3 Head Head: normal to inspection Ears: hearing grossly normal bilaterally Nose: external nose normal Face and Sinus: face symmetric Mouth: oral mucosae normal, lip normal and moist mucous membranes Eyes General: appearance normal, both eyes and all related structures Eyelids: eyelids normal Conjunctivae: conjunctivae normal Pupils: PERRL EOM: EOM intact bilaterally Neck Neck: normal visual inspection and trachea midline; Negative no JVD Carotids: Negative bruit Chest Chest inspection: normal inspection of the chest Auscultation: Bilateral: Clear to Auscultation Cardio Palpation: normal PMI Rate: regular rate Rhythm: regular rhythm Heart sounds: S1 normal and S2 normal; Negative rub, gallop or murmur GI GI: soft, no hepatosplenomegaly and bowel sounds present Neuro General: patient alert, patient awake, patient oriented x3 and CN's II-XI intact bilaterally Extremities Pulses: Normal: Right Posterior Tibial Pulse, Left Posterior Tibial Pulse, Right Radial Pulse and Left Radial Pulse Lower Extremity Edema: None: Bilateral Psych Psychological: normal affect Supplemental Info Supplemental Information Echocardiogram 01/05/2020: Interpretation Summary Normal LV size. Left ventricular systolic function is normal. The estimated ejection fraction is 63 %. Stage 1 diastolic dysfunction. Pulmonary artery systolic pressure is 28 mmHg. Stable appearing mechanical mitral valve apparatus. Assessment & Plan Assessment/Plan (1) NSVT (nonsustained ventricular tachycardia): (2) H/O mitral valve replacement: (3) H/O mitral valve repair: (4) Essential hypertension: (5) HLD (hyperlipidemia): PLAN: Plan With patient's nonsustained ventricular tachycardia he is agreeable to proceed with a diagnostic heart catheterization. Follow-up will be based upon findings.
[2022-10-30 07:06] VITALS: BMI 30.1
--- NOTE | 2022-10-30 08:29 | CL.D_ITS ---
Patient Name: IZABEL WAHL Study Date: 10/30/2022 Performing: Rolly Chamberlain MD Ht: 70 inches 177.8 cm : 1950 Wt: 209.99 lbs 95.25 kg Age: 72 Gender: male BSA: 2.13 PROCEDURE(S) PERFORMED DC02-([id number])LHC/COR CLINICAL PROFILE AND INDICATIONS Indications: Cardiac Arrythmia Heart Failure: None Stress/Imaging Stress/Image Study Performed: No CAD Presentations: Other: Arhythmia CONCLUSIONS Non obstructive coronary arteries Normal LV size, wall motion,and systolic function RECOMMENDATIONS Medical therapy DESCRIPTION OF PROCEDURE The patient arrived to the procedure lab. The risks and benefits of the procedure as well as a full description of our services here and current unavailability of surgical backup were fully explained to the patient and/or their significant other prior to the catheterization. The Timeout was completed, verifying the correct patient and procedure. The patient's procedural site was prepped and draped in the usual fashion. Local anesthetic was given subcutaneously to right radial region with Lidocaine 2%. Using a modified Seldinger technique, arterial access was obtained via the right radial artery, a 6Fr sheath was inserted. Left Coronary Artery selective angiography was performed in multiple views using a 5 Fr. 4.0 Olds catheter. Right Coronary Artery selective angiography was then performed in multiple views using a 5 Fr. 4.0 Olds catheter.The arterial sheath was pulled and a TR Band was applied for hemostasis CORONARY ANGIOGRAPHY DOMINANCE: Right Dominant LEFT HEART ASSESSMENT Left Ventricular Ejection Fraction: by Echo 55 % Normal LV wall motion Normal Left Ventricular systolic function LEFT MAIN: Angiographically normal LEFT ANTERIOR DESCENDING ARTERY: Mild luminal irregularities CIRCUMFLEX ARTERY: No significant disease noted RIGHT CORONARY ARTERY: Mild luminal irregularities COMPLICATIONS No Complications PROCEDURE MEDICATIONS Fentanyl 50 mcg IV Versed 1 mg IV Oxygen: 2 L/min via nasal cannula Benadryl 50 mg IV @ 10/30/2022 07:41:59 Heparin given IA 10/30/2022 08:06:57 Solu-medrol 125 mg IV 10/30/2022 07:41:50 IV Bolus: .9 NaCl 250 ml total 10/30/2022 08:25:07 SUMMARY OF HEMODYNAMIC DATA Time AIR REST ECG 07:12:09 AO 68/42 (53) SA 08:08:58 AO 80/43 (57) 08:13:03 AO 81/43 (57) 08:13:19 AO 83/44 (58) 08:13:32 AO 84/41 (58) 08:13:39 AO 83/44 (58) 08:13:44 AO 84/44 (59) 08:13:52 AO 84/44 (59) 08:13:57 08:27:46 Signed By Rolly Chamberlain MD On 10/30/2022 08:28:42 Rolly Chamberlain MD
== END 2022-10-30 09:50 | disposition home or self-care (01) ==
LOC: CLSP 06:51
PROVIDERS: PCP Internal Medicine; Referring Provider Internal Medicine Cardiovascular Disease; Visit Provider Internal Medicine Cardiovascular Disease
DX: I47.20 Ventricular tachycardia, unspecified (principal); I34.1 Nonrheumatic mitral (valve) prolapse; I10 Essential (primary) hypertension; H93.19 Tinnitus, unspecified ear; Z95.2 Presence of prosthetic heart valve; E78.5 Hyperlipidemia, unspecified; R94.39 Abnormal result of other cardiovascular function study
CPT/HCPCS: 93005; 93454; 99152; 99153; J7040; Q9967; C1769; C1894

== ENCOUNTER → 2023-01-22 | Outpatient (CLI) | payer MEDICARE, BC, SELFPAY | END | disposition home or self-care (01) | LOC: LABSPEC 15:13 | PROVIDERS: PCP Internal Medicine; Referring Provider Otolaryngology; Visit Provider Otolaryngology | DX: J32.8 Other chronic sinusitis (principal) | CPT/HCPCS: 87070; 87077; 87186; 87205 ==

== ENCOUNTER 2023-02-22 08:52 | Emergency (ER) | payer MEDICARE, BC, SELFPAY ==
[2023-02-22 08:53] VITALS: BP 147/74; PULSE 55; RESP 18; TEMP 35.7; O2SAT 100; BMI 30.2
--- NOTE | 2023-02-22 10:23 | EDS_ITS ---
HPI History of Present Illness Chief Complaint: Abscess Narrative Narrative: Patient has had just a small sore area on the side of his left nose for few days. But he woke up this morning and its red and bigger. He has no systemic symptoms. No headache. No nausea vomiting fevers or chills. No history of diabetes. No trouble breathing. [facility] Medical History Acute maxillary sinusitis, unspecified Cardiology follow-up encounter Encounter for screening for COVID-19 Essential hypertension High cholesterol History of echocardiogram History of stress test HLD (hyperlipidemia) Non-smoker Nonrheumatic mitral (valve) insufficiency Postoperative atrial fibrillation (02/08/16) Wears glasses Home Medications aspirin 81 mg tablet,delayed release (Adult Aspirin Regimen) 81 mg PO DAILY 10/25/18 [History Last Taken 10/30/22] omeprazole 20 mg capsule,delayed release 20 mg PO DAILY 10/25/18 [History Last Taken 10/30/22] escitalopram oxalate 20 mg tablet 10 mg PO DAILY 06/15/20 [History Last Taken Unknown] simvastatin 20 mg tablet 20 mg PO QHS 06/15/20 [History Last Taken Unknown] vitamin B complex (B Complex-Vitamin B12 tablet) 1 tab PO DAILY 06/15/20 [History Last Taken Unknown] donepezil 5 mg tablet 5 mg PO QHS 06/14/21 [History Last Taken Unknown] magnesium oxide 400 mg PO DAILY #90 tabs 09/04/21 [Rx Last Taken 10/30/22] colestipol 1 gram tablet 1 g PO BID #180 tabs 06/09/22 [Rx Last Taken Unknown] lisinopril 10 mg tablet 10 mg PO DAILY #90 tabs 06/12/22 [Rx Last Taken Unknown] gabapentin 300 mg capsule 800 mg PO DAILY 07/08/22 [History Last Taken Unknown] cephalexin 500 mg capsule 500 mg PO Q6 #40 CAPSULES 02/22/23 [Rx Last Taken Unknown] sulfamethoxazole 800 mg-trimethoprim 160 mg tablet (Bactrim DS) 1 tab PO BID 10 days #20 tabs 02/22/23 [Rx Last Taken Unknown] Allergy/AdvReac Type Severity Reaction Status Date / Time acetaminophen [From Vicodin] Allergy intolerance Verified 07/08/22 08:44 bee venom protein (honey bee) Allergy Swelling Verified 07/08/22 08:44 hydrocodone [From Vicodin] Allergy intolerance Verified 07/08/22 08:44 shellfish derived Allergy Swelling Verified 07/08/22 08:44 Family History Brother Mitral valve insufficiency Father Heart disease Mother Hypertension Surgical History H/O mitral valve repair (01/31/16) H/O mitral valve replacement (02/08/16) History of left heart catheterization (01/08/16) Hx of hernia repair S/P nasal surgery Social History Smoking Status: Never smoker alcohol intake: current alcohol intake frequency: holidays/special occasions only substance use type: does not use caffeine: Yes Type: carbonated beverages ROS ROS ED Constitutional Constitutional ED: Denies chills, fever(s) or subjective Eyes Eyes: Denies blurry vision, change in vision or diplopia ENT ENT ED: Reports other Details: See history of present illness. ; Denies ear pain, rhinorrhea or sore throat Gastrointestinal Gastrointestinal: Denies nausea or vomiting Musculoskeletal Musculoskeletal: Denies arthralgias Integumentary Reports abscess and rash Neurologic Neurologic: Denies headache(s), paresthesias or weakness Hematologic/Lymphatic Hematologic/Lymphatic: Denies easy bleeding, easy bruising or lymphadenopathy EXAM Physical Exam Narrative Exam Narrative: Patient is awake alert comfortable sitting on bed. HEENT shows some erythema of the external surface of the nose on the left side. Internally I do not see any infection or swelling. There is a small head that appears to be hiding some purulent material. No facial redness or swelling. No involvement of the eyes. Neck shows no lymphadenopathy Lungs are clear bilaterally Heart is regular rate about 60 Rest of the skin exam shows no acute abnormality. Patient awake alert normal speech. Normal stable gait and balance. Const Vital Signs: 02/22/23 08:53 Temperature 96.2 F L Temperature Source Temporal Pulse Rate 55 L Respiratory Rate 18 Blood Pressure 147/74 H Blood Pressure Mean 98 Pulse Ox 100 Oxygen Delivery Method Room Air MDM MDM MDM Narrative Medical decision making narrative: We cleaned the area with alcohol swabs and let them dry. I then used an 18- gauge needle to unroofed the central area. I was able to express some purulent material. But there is not a large abscess. This does not need full incision at this time. But we do need to get him on antibiotics. We discussed initiation of antibiotics to cover MRSA also. We discussed reasons to return. Discharge Plan Triage Chief Complaint: Abscess ED Provider: Jelani Hudson Dx/Rx/DC Orders Clinical Impression: Abscess of external nose Instructions: ED Abscess Incision And Drainage Prescriptions: New cephalexin [cephalexin] 500 mg capsule 500 mg PO Q6 Qty: 40 0RF sulfamethoxazole-trimethoprim [Bactrim DS] 800-160 mg tablet 1 tab PO BID 10 Days Qty: 20 0RF No Action aspirin [Adult Aspirin Regimen] 81 mg tablet,delayed release (DR/EC) 81 mg PO DAILY omeprazole 20 mg capsule,delayed release(DR/EC) 20 mg PO DAILY simvastatin 20 mg tablet 20 mg PO QHS vitamin B complex [B Complex-Vitamin B12] Tablet 1 tab PO DAILY escitalopram oxalate 20 mg tablet 10 mg PO DAILY donepezil 5 mg tablet 5 mg PO QHS gabapentin 300 mg capsule 800 mg PO DAILY magnesium oxide 400 mg magnesium tablet 400 mg PO DAILY Qty: 90 3RF colestipol 1 gram tablet 1 g PO BID Qty: 180 3RF lisinopril 10 mg tablet 10 mg PO DAILY Qty: 90 3RF Primary Care Provider: Aletha Moon Referrals: Aletha Moon DO [Primary Care Provider] - 3-5 Days if not improving Disposition Disposition: Home, Self Care Discharge Date/Time: 02/22/23 10:57
[2023-02-22] MEDS: Cephalexin 250 MG Capsule 500 MG PO (10:52)
[2023-02-22] MEDS: Smz/Tmp Ds Tablet 1 TABLET PO (10:52)
== END 2023-02-22 10:57 | disposition home or self-care (01) ==
PROVIDERS: Emergency Provider Emergency Medicine; PCP Internal Medicine; Visit Provider Emergency Medicine
DX: J34.0 Abscess, furuncle and carbuncle of nose (principal); I10 Essential (primary) hypertension; E78.00 Pure hypercholesterolemia, unspecified; Z79.82 Long term (current) use of aspirin; Z95.2 Presence of prosthetic heart valve
CPT/HCPCS: 10060; 99283

== ENCOUNTER 2023-03-23 11:46 | Emergency (ER) | payer MEDICARE, BC, SELFPAY ==
[2023-03-23 11:48] VITALS: BP 113/71; PULSE 52; RESP 16; TEMP 36.4; O2SAT 97; BMI 31.2
--- NOTE | 2023-03-23 12:12 | EKG12_ITS ---
Test Reason : SYNCOPE Blood Pressure : / mmHG Vent. Rate : 049 BPM Atrial Rate : 049 BPM P-R Int : 174 ms QRS Dur : 088 ms QT Int : 460 ms P-R-T Axes : 037 054 066 degrees QTc Int : 415 ms Sinus bradycardia Otherwise normal ECG Confirmed by HUGH REDD ([id number]), deputy editor in chief ROSENDO CONDE ([id number]) on 03/28/2023 9:26:03 AM Referred By: ANG Confirmed By:HUGH REDD
[2023-03-23 13:00] LABS: Absolute Lymphocyte Count 0.75 X10^3/uL (0.83-4.51); Absolute Neutrophil Count 4.8 X10^3/uL (2.0-7.7); Hematocrit 46.7 % (40-54); Hemoglobin 15.7 g/dL (13.0-16.5); Lymphocyte # 0.75 X10^3/ul (0.83-4.51); Mean Corp Hgb Conc 33.6 g/dL (32-36); Mean Corpuscular Hgb 30.6 pg (27.0-32.0); Mean Platelet Vol. 10.7 fl (6.2-12.0); Monocyte# 0.24 X10^3/uL; Monocyte% 4.2 % (0-10); NRBC Flagged by Analyzer 0 % (0-5); Neutrophil # 4.75 X10^3/uL (2.7-7.7); Neutrophil % 82.5 % (47-70); Platelet Count 126 K/mm3 (150-450); RBC Distribution Width CV 12.7 % (11.6-14.6); RBC Distribution Width SD 42.2 fl (35.1-43.9); Red Blood Count 5.13 M/mm3 (4.6-6.2); White Blood Count 5.8 K/mm3 (4.4-11.0)
[2023-03-23] MEDS: 0.9% Normal Saline 1,000 ML 1000 ML IV (13:03)
[2023-03-23 13:12] LABS: Anion Gap 5 (5-15); BUN 24 mg/dL (7-18); BUN/Creat Ratio 23.3 RATIO (10-20); Calcium,Total 8.6 mg/dL (8.5-10.1); Chloride 107 mmol/L (98-107); Creatinine, Serum 1.03 mg/dL (0.70-1.30); EST Glomerular Filtration Rate 75 mL/min (>60); Est Glom Filt Rate - Afr Amer 91 mL/min (>60); Estimated Creatinine Clearance 66.94 ml/min; Glucose 109 mg/dL (74-106); Potassium 4.1 mmol/L (3.5-5.1); Sodium Level 138 mmol/L (136-145)
--- NOTE | 2023-03-23 14:18 | EDS_ITS ---
HPI History of Present Illness Chief Complaint: Allergic Reaction Informant: patient and spouse/S.O. Narrative Narrative: Patient presents after syncopal episode in doctor's office. He developed a rash late last week that is pruritic. He called his explosives handler this morning but they would not see him in the office so he saw his PCP. PCP gave him a shot of Solu- Medrol. Patient states shortly after this he started feel lightheaded and as if he needed to lie down. He laid down on the floor in the exam room but does not believe he fully passed out. He states symptoms seem to pass and he got up to leave. As he was standing at the desk he got lightheaded again and needed to sit down. He states the next thing he remembers he was on the floor. He reportedly had a blood pressure of 102/64 with a heart rate of 51 at the time. On arrival to the emergency room patient states he feels improved. He denies any new medications or foods. [facility] Medical History Acute maxillary sinusitis, unspecified Cardiology follow-up encounter Encounter for screening for COVID-19 Essential hypertension High cholesterol History of echocardiogram History of stress test HLD (hyperlipidemia) Non-smoker Nonrheumatic mitral (valve) insufficiency Postoperative atrial fibrillation (02/08/16) Wears glasses Home Medications aspirin 81 mg tablet,delayed release (Adult Aspirin Regimen) 81 mg PO DAILY 10/25/18 [History Last Taken 10/30/22] omeprazole 20 mg capsule,delayed release 20 mg PO DAILY 10/25/18 [History Last Taken 10/30/22] escitalopram oxalate 20 mg tablet 10 mg PO DAILY 06/15/20 [History Last Taken Unknown] simvastatin 20 mg tablet 20 mg PO QHS 06/15/20 [History Last Taken Unknown] vitamin B complex (B Complex-Vitamin B12 tablet) 1 tab PO DAILY 06/15/20 [History Last Taken Unknown] donepezil 5 mg tablet 5 mg PO QHS 06/14/21 [History Last Taken Unknown] magnesium oxide 400 mg PO DAILY #90 tabs 09/04/21 [Rx Last Taken 10/30/22] colestipol 1 gram tablet 1 g PO BID #180 tabs 06/09/22 [Rx Last Taken Unknown] lisinopril 10 mg tablet 10 mg PO DAILY #90 tabs 06/12/22 [Rx Last Taken Unknown] gabapentin 300 mg capsule 800 mg PO DAILY 07/08/22 [History Last Taken Unknown] cephalexin 500 mg capsule 500 mg PO Q6 #40 CAPSULES 02/22/23 [Rx Last Taken Unknown] sulfamethoxazole 800 mg-trimethoprim 160 mg tablet (Bactrim DS) 1 tab PO BID 10 days #20 tabs 02/22/23 [Rx Last Taken Unknown] Allergy/AdvReac Type Severity Reaction Status Date / Time acetaminophen [From Vicodin] Allergy intolerance Verified 03/23/23 11:56 bee venom protein (honey bee) Allergy Swelling Verified 03/23/23 11:56 hydrocodone [From Vicodin] Allergy intolerance Verified 03/23/23 11:56 shellfish derived Allergy Swelling Verified 03/23/23 11:56 Family History Brother Mitral valve insufficiency Father Heart disease Mother Hypertension Surgical History H/O mitral valve repair (01/31/16) H/O mitral valve replacement (02/08/16) History of left heart catheterization (01/08/16) Hx of hernia repair S/P nasal surgery Social History Smoking Status: Never smoker alcohol intake: current alcohol intake frequency: holidays/special occasions only substance use type: does not use caffeine: Yes Type: carbonated beverages ROS ROS ED Constitutional Constitutional ED: Denies chills or fever(s) Eyes Eyes: Denies change in vision ENT ENT ED: Denies rhinorrhea or sore throat Cardiovascular Cardiovascular: Denies chest pain or palpitations Respiratory/Chest Respiratory/Chest: Denies cough or dyspnea Gastrointestinal Gastrointestinal: Denies abdominal pain, diarrhea, nausea or vomiting Genitourinary Genitourinary ED: Denies dysuria Musculoskeletal Musculoskeletal: Denies back pain or extremity pain Integumentary Reports rash; Denies Abrasions Neurologic Neurologic: Denies headache(s) or weakness Psychiatric Psychiatric: Denies anxiety or depression Allergic/Immunologic Allergic/Immunologic ED: Denies lip swelling or urticaria EXAM Physical Exam Const Vital Signs: 03/23/23 11:48 03/23/23 15:18 Temperature 97.6 F L Temperature Source Oral Pulse Rate 52 L 88 Respiratory Rate 16 18 Blood Pressure 113/71 144/79 H Blood Pressure Mean 85 100 Pulse Ox 97 99 Oxygen Delivery Method Room Air Room Air Positive well nourished and well developed General Appearance ED: well developed HEENT Reports normocephalic and head/scalp atraumatic Eyes PERRL and EOMs intact bilaterally Neck supple Chest Wall inspection of chest normal and palpation of chest normal Resp normal respiratory effort and clear to auscultation bilaterally Cardio regular rhythm Rate: bradycardia GI normal to inspection, nondistended, normoactive bowel sounds Palpation: soft Extremity normal to inspection Neuro oriented x3 and no sensory deficits noted Sensorium / Orientation: alert Motor Exam: strength 5/5 throughout Psych mental status grossly normal Skin no rashes or lesions noted MDM MDM MDM Narrative Medical decision making narrative: 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 EKG obtained to evaluate for cardiac arrhythmia/ischemia. Labwork obtained to evaluate for leukocytosis, anemia, and electrolyte derangement. Lab Data Attestation: I reviewed the patient's lab results. Labs: Laboratory Results - last 24 hr 03/23/23 12:50 WBC 5.8 RBC 5.13 Hgb 15.7 Hct 46.7 MCV 91.0 MCH 30.6 MCHC 33.6 RDW Std Deviation 42.2 RDW Coeff of Doris 12.7 Plt Count 126 L MPV 10.7 Immature Gran % (Auto) 0.300 Neut % (Auto) 82.5 H Lymph % (Auto) 13.0 L [place] % (Auto) 4.2 Eos % (Auto) 0.0 Baso % (Auto) 0.0 Absolute Neuts (auto) 4.8 Absolute Lymphs (auto) 0.75 L Nucleated RBC % 0 Sodium 138 Potassium 4.1 Chloride 107 Carbon Dioxide 26.0 Anion Gap 5 BUN 24 H Creatinine 1.03 Estim Creat Clear Calc 66.94 Est GFR (MDRD) Af Amer 91 Est GFR (MDRD) Non-Af 75 BUN/Creatinine Ratio 23.3 H Glucose 109 H Calcium 8.6 EKG Initial EKG: Attestation: I personally reviewed and interpreted this EKG as follows: Interpretation: Sinus Bradycardia (Sinus bradycardia at 49 bpm. No acute ischemia.) Treatment and Re-Evaluation :: CBC and chemistry studies are unremarkable. EKG is sinus bradycardia at 49 bpm. No acute ischemia. I did review patient's prior vital signs. Last year during a visit he was noted to have heart rates in the 40s and 50s. After 2 and half hours I went back to reevaluate the patient. He states his itching is now worse and states that she noted his lower lip started to swell. He does have swelling to the left side of lower lip. He is speaking with a strong voice and is tolerating secretions well. He is given Benadryl, Pepcid, and p.o. prednisone which she has tolerated well in the past. On repeat evaluation patient's rash is significantly improved. Lip swelling is still present but significantly improved. He was observed another hour and a half after being given Benadryl, Pepcid, and prednisone. He continues to feel well. He has a prescription for prednisone but they have already picked up for the pharmacy. He has Benadryl and Pepcid at home to take as well. Return instructions are given. Discharge Plan Triage Chief Complaint: Allergic Reaction ED Provider: Janiya Hamilton Dx/Rx/DC Orders Clinical Impression: Vasovagal syncope, Allergic reaction Instructions: ED General Allergic Reactions, ED Fainting, Vagal Reaction Prescriptions: No Action aspirin [Adult Aspirin Regimen] 81 mg tablet,delayed release (DR/EC) 81 mg PO DAILY omeprazole 20 mg capsule,delayed release(DR/EC) 20 mg PO DAILY simvastatin 20 mg tablet 20 mg PO QHS vitamin B complex [B Complex-Vitamin B12] Tablet 1 tab PO DAILY escitalopram oxalate 20 mg tablet 10 mg PO DAILY donepezil 5 mg tablet 5 mg PO QHS gabapentin 300 mg capsule 800 mg PO DAILY cephalexin [cephalexin] 500 mg capsule 500 mg PO Q6 Qty: 40 0RF sulfamethoxazole-trimethoprim [Bactrim DS] 800-160 mg tablet 1 tab PO BID 10 Days Qty: 20 0RF magnesium oxide 400 mg magnesium tablet 400 mg PO DAILY Qty: 90 3RF colestipol 1 gram tablet 1 g PO BID Qty: 180 3RF lisinopril 10 mg tablet 10 mg PO DAILY Qty: 90 3RF Primary Care Provider: Aletha Moon Referrals: Aletha Moon, [Primary Care Provider] - 3-5 Days if not improving Disposition Disposition: Home, Self Care
[2023-03-23] MEDS: DiphenhydrAMINE 50 MG/ML Syringe 25 MG IV (14:28)
[2023-03-23] MEDS: predniSONE 20 MG Tablet 60 MG PO (14:28)
[2023-03-23] MEDS: Famotidine 200 MG/20 ML MDV 20 MG in 0.9% Normal Saline (Pres. free 8 ML 300 MG IV (14:44)
--- NOTE | 2023-03-23 15:14 | ED.RN ---
Patient ambulatory to bathroom, gait steady.
[2023-03-23 15:18] VITALS: BP 144/79; PULSE 88; RESP 18; O2SAT 99
--- NOTE | 2023-03-23 15:19 | ED.RN ---
Itching and rash improved following medications.
== END 2023-03-23 16:20 | disposition home or self-care (01) ==
PROVIDERS: Emergency Provider Emergency Medicine; PCP Internal Medicine; Visit Provider Emergency Medicine
DX: R55 Syncope and collapse (principal); E78.00 Pure hypercholesterolemia, unspecified; I10 Essential (primary) hypertension; Z95.2 Presence of prosthetic heart valve; T38.0X5A Adverse effect of glucocorticoids and synthetic analogues, initial encounter
CPT/HCPCS: 80048; 85025; 93005; 96361; 96374; 96375; 99285; J7030; A4216; J3490

== ENCOUNTER → 2023-04-09 | Outpatient (CLI) | payer MEDICARE, BC, SELFPAY ==
[2023-04-09 08:59] LABS: Erythrocyte Sedimentation Rate 1 mm/hr (0-20)
[2023-04-09 09:02] LABS: Absolute Lymphocyte Count 1.22 X10^3/uL (0.83-4.51); Absolute Neutrophil Count 3.2 X10^3/uL (2.0-7.7); Basophil# 0.01 X10^3/uL; Basophil% 0.2 % (0-1); Eosinophil# 0.02 X10^3/uL; Eosinophils% 0.4 % (0-5); Hematocrit 46.8 % (40-54); Hemoglobin 15.9 g/dL (13.0-16.5); Lymphocyte # 1.22 X10^3/ul (0.83-4.51); Lymphocyte % 24.4 % (19-41); Mean Corpuscular Hgb 31.2 pg (27.0-32.0); Mean Corpuscular Volume 91.9 fL (80-94); Mean Platelet Vol. 10.9 fl (6.2-12.0); Monocyte# 0.57 X10^3/uL; Monocyte% 11.4 % (0-10); NRBC Flagged by Analyzer 0 % (0-5); Neutrophil # 3.15 X10^3/uL (2.7-7.7); Neutrophil % 63.2 % (47-70); Platelet Count 129 K/mm3 (150-450); RBC Distribution Width CV 12.9 % (11.6-14.6); RBC Distribution Width SD 43.7 fl (35.1-43.9); Red Blood Count 5.09 M/mm3 (4.6-6.2)
[2023-04-09 09:19] LABS: ALB/GLOB Ratio 1.1 RATIO (0.9-2.4); AST(SGOT) 26 U/L (15-37); Alanine Aminotransfer ALT/SGPT 49 U/L (16-61); Albumin, Serum 3.5 g/dL (3.2-5.0); Alkaline Phosphatase 67 U/L (45-117); Anion Gap 3 (5-15); BUN 19 mg/dL (7-18); BUN/Creat Ratio 18.3 RATIO (10-20); CRP < 2.90 mg/L (0.0-3.0); Calcium,Total 8.8 mg/dL (8.5-10.1); Chloride 107 mmol/L (98-107); Creatinine, Serum 1.04 mg/dL (0.70-1.30); EST Glomerular Filtration Rate 74 mL/min (>60); Est Glom Filt Rate - Afr Amer 90 mL/min (>60); Globulin 3.1 g/dL (2.2-4.2); Glucose 82 mg/dL (74-106); Potassium 4.1 mmol/L (3.5-5.1); Protein, Total 6.6 g/dL (6.4-8.2); Sodium Level 138 mmol/L (136-145)
[2023-04-15 16:09] LABS: Calprotectin, Stool 284 ug/g (0-120)
[2023-04-16 11:08] LABS: Pancreatic Elastase, Fecal 397 (>200)
== END | disposition home or self-care (01) ==
PROVIDERS: PCP Internal Medicine; Referring Provider Internal Medicine Gastroenterology; Visit Provider Internal Medicine Gastroenterology
DX: K58.9 Irritable bowel syndrome, unspecified (principal)
CPT/HCPCS: 36415; 80053; 82653; 83630; 83993; 85025; 85652; 86140; 87177; 87209; 87329; 87493

== ENCOUNTER → 2023-04-22 | Outpatient (CLI) | payer MEDICARE, BC, SELFPAY ==
--- NOTE | 2023-04-22 09:09 | US_ITS ---
"STUDY: ABDOMINAL ULTRASOUND - RIGHT UPPER QUADRANT; ELASTOGRAPHY REASON FOR VISIT: Male, 72 years old. Hyperlipidemia. TECHNIQUE: Ultrasound evaluation of the right upper quadrant was performed with real-time and static lagunas-scale imaging. Point quantification shear wave elastography was performed ([employer] | Anywhere). TECHNICAL QUALITY: Adequate. COMPARISON: None. FINDINGS: Liver: The liver measures 16.1 cm. There is normal echogenicity of the liver. The bile ducts are within normal limits. There is hepatic color flow. The direction of portal flow is hepatopetal. There is a septated cyst in the left lobe of the liver measuring 1.8 cm x 2.6 cm x 2.3 Median liver stiffness measured 7.8 kPa. Gallbladder: Normal distended gallbladder. The gallbladder wall measures 2.4 mm. There is a negative sonographic Roberto''s sign. There is no pericholecystic fluid. There is a solitary echogenic gallstone within the gallbladder. Common Bile Duct (C.B.D.): The common bile duct measures 3.4 mm. Pancreas: There is increased echogenicity of the pancreas. There is no demonstrated pancreatic mass or cyst. Right Kidney: Normal size of the right kidney. The right kidney measures 11.8 cm x 6.4 cm x 6.8 cm. Normal renal cortex. The right cortex measures 1.6 cm. There is a 1.3 cm x 1 cm x 0.9 cm cyst in the lower pole of the right kidney. There is no right hydronephrosis. US/ABD Limited w/ Elastography IMPRESSION: 1. Liver stiffness measures 7.8 kPa compatible with F2-F3 (Mild to moderate liver fibrosis) Metavir score. Electronically Signed: Tanner Shaffer MD at 15:47 EDT , "
== END | disposition home or self-care (01) ==
LOC: US 09:08
PROVIDERS: PCP Internal Medicine; Referring Provider Internal Medicine Gastroenterology; Visit Provider Internal Medicine Gastroenterology
DX: E78.5 Hyperlipidemia, unspecified (principal)
CPT/HCPCS: 76705; 76981

== ENCOUNTER → 2023-05-28 | Outpatient (CLI) | payer MEDICARE, BC, SELFPAY | END | disposition home or self-care (01) | LOC: LABSPEC 15:26 | PROVIDERS: PCP Internal Medicine; Referring Provider Otolaryngology; Visit Provider Otolaryngology | DX: J32.8 Other chronic sinusitis (principal) | CPT/HCPCS: 87070; 87205 ==

== ENCOUNTER 2023-07-14 08:30 | Outpatient (RCR) | payer MEDICARE, BC, SELFPAY ==
--- NOTE | 2023-06-09 10:12 | HP.PTEVAL ---
Patient's Visit Information Visit Information Visit Information: IZABEL WAHL is a 73 year old M referred to Physical Therapy by DEBORAH Caal with a diagnosis of LOW BACK PAIN. Date of Evaluation: 06/09/23 Physical Therapist: Socorro Dejesus, PT, Cert MDT Visit Plan Frequency: 2x /Week Duration: 4-6 Weeks Plan: Neutral Spine Core Stability Exercises and Margot LE Hip Flexor, Hamstring and Calf Stretching to help reduce stress to the Lumbar Spine with all Daily Activities. Instruction in Proper Posture Control, Body Mechanics, and Appropriate Activity Modifications. HEP Instruction. Subjective Subjective: Work/Leisure: RETIRED. Present symptoms: MARGOT LBP. PATIENT DENIES MARGOT LE SX'S. Present since: ABOUT A MONTH AGO Pain Scale: WORST 5/10, LEAST 1/10 Currently: 1/10 Is it getting better, worse or staying the same: GETTING BETTER Commenced as a result of: CARRYING STUFF AND MISSED A STEP AND WRENCHED BACK AND FELT SOMETHING PULL IN BACK. AND THEN ABOUT A WK AGO LOST FOOTING, ALMOST FELL AND WRENCHED BACK AGAIN AND COULDN'T STAND UP STRAIGHT BUT SAT IN CHAIR WITH HEAT AND IT GOT BETTER. Symptoms at onset: LOW BACK PAIN Worse: IN THE MORNING IT IS STIFF, AVOIDING LIFTING ANYTHING HEAVY Better: BETTER AFTER GETS MOVING AND THEN FEELS PRETTY GOOD THE REST OF THE DAY. HEATING PAD. Disturbed sleep: NO Previous history/Previous treatment: UNREMARKABLE. NO BACK SURGERY OR INJECTIONS. NO CHIROPRACTIC. Treatment this episode: PREDNISONE X 12 DAYS - 2 DAYS LEFT. PT REFERRAL. Coughing/sneezing/straining: NEGATIVE Gait: STIFF IN THE MORNING THEN UNLIMITIED. FEELS PRETTY GOOD WHEN WALKS. WALKS DOG. Bowel or Bladder Dysfunction: NO Accidents: NO Unexplained weight loss: NO Imaging: RECENT LUMBAR X-RAYS - STUDY: X-RAY - LUMBAR SPINE REASON FOR EXAM: Male, 73 years old. Low back pain. TECHNIQUE: 4 view(s) of the lumbar spine were obtained. COMPARISON: None FINDINGS: Osteopenia. Normal lumbar lordosis. No substantial scoliosis. Normal alignment of the vertebrae. Diffuse lower thoracic and lumbosacral facet sclerosis. Diffuse moderate lower thoracic and lumbosacral intervertebral disc space narrowing with osteophyte formation most marked at T12-L1 through L4-5. Multiple coils projected over the pelvis and vascular calcification. RAD/L/S Spine Min 4 Views IMPRESSION: Osteopenia with lower thoracic and lumbosacral spondylosis as described. Electronically Signed: Austin Gruber MD at 14:30 EDT X-RAY - XR Hips Bilateral with Pelvis when performed; 2 Views COMPARISON: No relevant prior comparison study available FINDINGS: PELVIC BONES: No displaced fracture, destructive or sclerotic lesions. Note that overlapping bowel shadows may however obscure fine detail. Mild degenerative arthrosis in the SI joints and hip joints and pubic symphysis. HIPS: Mild degenerative arthrosis. No displaced fracture seen in this frontal view. SOFT TISSUES: No soft tissue swelling or gas. RAD/Hips B/L min 2 views w/ Pelvis IMPRESSION: Mild degenerative arthrosis in the SI joints and hip joints and pubic symphysis. PMH/Recent major surgery: MITRAL VALVE PROLAPSE TREATED WITH SX, EARLY ONSET DEMENTIAL TREATED WITH MEDICATION, HTN, Objective Objective: Sitting/Standing Posture: INCREASED KYPHOSIS. FORWARD HEAD. ROUNDED SHOULDERS. DECREASED LORDOSIS. NO RELEVANT LATERAL SHIFT. ILIAC CREST SYMMETRICAL. Active Correction of posture: INCREASES MARGOT LBP R>L Other Observations: INDEP GAIT WITHOUT AD OR LOB. GOOD CADANCE. INDEP TRANSFER STS WITHOUT UE ASSIST. Sensory deficit: MARGOT LE LIGHT TOUCH SENSATION GROSSLY INTACT AND SYMMETRICAL ROM deficit: MARGOT HIP ROTATOR, HS AND GASTROC SOLEUS COMPLEX TIGHTNESS Motor deficit: MARGOT HIPS 4+/5, KNEES 5/5, ANKLES 5/5. Dural Signs: NEGATIVE MARGOT LE'S. Lumbar mvmt loss: flex - NIL - MILD MARGOT LOW BACK PAIN. ext - RAFAEL R SG - MOD L SG - RAFAEL - C/O INCREASED R LOW BACK PAIN Core strength: FAIR Palpation: NO ACUTE THORACIC, LUMBAR, SACRAL, PELVIC OR HIP TENDERNESS. TREATMENT: NEUROMUSCULAR REEDUCATION - RETRAINING OF MVMT AND POSTURE FOR SITTING, LYING AND STANDING ACTIVITIES. RECOMMENDED ALLOWING INCREASED TRAVEL TIME FOR EXTRA STOPS FOR UPCOMING TRIP. Balance/Special Test Scores Oswestry Low Back Score: 2 Goals Goal 1:: DECREASE C/O LBP BY 25% TO EASE ADL'S Goal Time Frame: 4-6 Weeks Goal 2:: Patient will have increased BLE and core strength increased by 1/2 grade of all effected musculature. Goal Time Frame: 4-6 Weeks Goal 3:: PATIENT WILL BE INDEP WITH A HEP FOR CONTINUED IMPROVEMENT ONCE FORMAL PHYSICAL THERAPY CONCLUDES. Goal Time Frame: 4-6 Weeks Rehabilitation Potential Physical Therapy Diagnosis: BACK PAIN. TRUNK AND LE WEAKNESS AND STIFFNESS. Rehabilitation Potential: Good Anticipated Interventions Patient/Client Instruction: Educate patient on: Condition, Plan of Care and Risk Factors For the Purpose of:: To improve self management Therapeutic Exercise to Include: Strength training, Body mechanics, Postural training, Flexibilty training, Neuromotor development and Dynamic Lumbar Stabilization For the Purpose of:: To decrease pain, To increase ROM, To improve muscle performance and motor function, To increase tolerance to activity/condition/position and To improve ability of physical actions for home/community/work/leisure Text: Thank you for the opportunity to evaluate your patient. For Medicare and Medicare HMO plans, please review the plan of care and approve it. It will need to be FAXED BACK to us at [phone] for Medicare purposes. For Medicare only, by signing this I certify the plan of care. Please let me know if there are questions or concerns regarding this plan of care. Physician Signature: Date:
--- NOTE | 2023-07-14 09:02 | HP.PTDCSUM_ITS ---
Discharge Summary D/C summary: It has been my pleasure to treat IZABEL WAHL referred by Santa Salgado NP-Nael, with the diagnosis of LOW BACK PAIN for a total of 9 visit(s). Discharge Date: 07/14/23 Please see the following information for a summary of their discharge status. Subjective Subjective: PATIENT REPORTS HIS IS PAINFREE AND DOING REALLY GOOD. DOING HEP AND HE AND HIS HAVE BEEN SERIOUSLY CONSIDERING USING THEIR [employer]BER[employer]IP TO [employer]. Overall Improvement % Improvement: 100 Objective Objective/Function: PATIENT WAS SEEN TODAY FOR RE-ASSESSMENT OF PROGRESS TOWARD THE SET PT GOALS AND THE NEED FOR FURTHER PHYSICAL THERAPY VS READINESS FOR DISCHARGE. ALL GOALS MET. PATIENT HAS DONE REALLY WELL WITH PT AND IS APPROPRIATE FOR AND AGREEABLE TO DISCHARGE. UPON EXAM TODAY: Lumbar mvmt loss: flex - NIL ext - MOD TO RAFAEL R SG - MOD L SG - MOD PATIENT DENIES PAIN WITH LUMBAR ROM TESTING ALL PLANES. MARGOT LE STRENGTH 5/5. GYM EX LOG PROVIDED TO PATIENT TODAY. LAST PT VIST 07/09/23 CONSISTED OF: Elliptical with fixed arms: 5/5 x5 min to increase CV endurance and core stability (partially monitored). Back Ext (18): 60# 3x12 - foot bar 4, back pad rotation 4. Seated Hip Abd (4): 45# 3x12. Standing Row (10): 40# 3x12. Straight Arm Pulldowns with t-bar (10): 50# 3x12. Seated Lat Pulldowns (28): 55# 2x15 (wide field tax auditor). Anti-Rotation Press (10): 40# 2x15 ea side. Counter Push Ups: 3x12. Calf Slant Stretch: 3x30 sec. HEP: 07/09: Anti-Rotation Chest Press, Mid Row, Lat Pulls, LAE - all BTB 07/07: Calf and HS Step Stretching. 06/25: Austin stretch 06/23: Hooklying PPT, Banded Bridges, Hooklying Clams, Hooklying March, Lateral Band Walks - all BTB. Goals Goal 1:: DECREASE C/O LBP BY 25% TO EASE ADL'S Goal Progress: Goal Met Goal 2:: Patient will have increased BLE and core strength increased by 1/2 grade of all effected musculature. Goal Progress: Goal Met Goal 3:: PATIENT WILL BE INDEP WITH A HEP FOR CONTINUED IMPROVEMENT ONCE FORMAL PHYSICAL THERAPY CONCLUDES. Goal Progress: Goal Met Plan Plan: D/C TO INDEP EX. PATIENT AGREEABLE. D/C Information d/c sentence: If there are questions or concerns regarding this patient's physical therapy, please feel free to call me at [phone]. Thank you for the referral of this patient. Sincerely, Socorro Dejesus, PT, Cert MDT Balance/Gait/Functional tests Balance/Special Test Scores Oswestry Low Back Score: 0 Improvement % Improvement: 100
== END 2023-07-14 12:45 | disposition home or self-care (01) ==
LOC: PT 08:30
PROVIDERS: PCP Internal Medicine; Referring Provider Nurse Practitioner Family; Visit Provider Nurse Practitioner Family
DX: M54.50 Low back pain, unspecified (principal)
CPT/HCPCS: 97110; 97112; 97162; 97164

== ENCOUNTER → 2023-08-19 | Outpatient (CLI) | payer MEDICARE, BC, SELFPAY | END | disposition home or self-care (01) | PROVIDERS: PCP Internal Medicine; Referring Provider Psychiatry & Neurology Neurology; Visit Provider Psychiatry & Neurology Neurology | DX: I67.9 Cerebrovascular disease, unspecified (principal); E78.2 Mixed hyperlipidemia | CPT/HCPCS: 36415 ==

== ENCOUNTER → 2023-09-22 | Outpatient (CLI) | payer MEDICARE, BC, SELFPAY ==
[2023-09-22 10:26] LABS: PSA,Total - Annual Screen 1.55 ng/mL (0.00-4.00)
== END | disposition home or self-care (01) ==
LOC: LAB 08:57
PROVIDERS: PCP Internal Medicine; Referring Provider Nurse Practitioner; Visit Provider Nurse Practitioner
DX: Z12.5 Encounter for screening for malignant neoplasm of prostate (principal)
CPT/HCPCS: 36415; 84153; G0103

== ENCOUNTER → 2023-09-29 | Outpatient (CLI) | payer MEDICARE, BC, SELFPAY ==
--- NOTE | 2023-09-29 17:11 | CT_ITS ---
STUDY: CT ABDOMEN AND PELVIS WITH AND WITHOUT CONTRAST REASON FOR EXAM: Male, 73 years old. HEMATURIA RADIATION DOSAGE (If Supplied By Facility): CTDIvol = ( 22.08 ) mGy, DLP = ( 1822.27 ) mGycm TECHNIQUE: Transaxial images were obtained from the dome of the diaphragm to the symphysis pubis without oral contrast. 100mL [id number] was administered. Sagittal and coronal images were reconstructed. Individualized dose optimization techniques were used for this CT. COMPARISON: None. FINDINGS: 1.5 mm noncalcified nodule in the peripheral lateral aspect of the right lower lobe as seen on axial image #1. Coronary artery calcification. There is a 1.8 cm cyst in the caudate lobe of the liver. Fatty infiltration of the liver. Normal gallbladder and extrahepatic biliary system. Normal spleen. Normal pancreas. Normal bilateral adrenal glands. There is a 1.2 cm cyst in the lower pole of the right kidney. Normal left kidney. Normal visualized stomach. Normal small intestine. There are scattered colonic diverticula consistent with diverticulosis. The appendix is visualized and appears normal. There is diffuse atherosclerotic calcification of the abdominal aorta and its major visceral branches, without a demonstrated aneurysm. 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 Normal inferior vena cava. Normal retroperitoneum. Bladder wall thickening although the bladder is not completely distended at this time. There is heterogeneous enlargement of the prostate with indentation of the bladder base. The prostate measures 4.7 cm x 4.6 cm. Calcifications are seen along its posterior aspect. There is evidence of prior bilateral inguinal hernia repair with mesh. Normal osseous structures. CT/CT Abd/Pelvis W/WO Contrast IMPRESSION: Heterogeneous enlargement of the prostate with indentation at the bladder base. Thickening of the bladder wall although the bladder is not completely distended at this time. Small cyst in the caudate lobe of the liver. Fatty infiltration of the liver. Small cyst in the lower pole of the right kidney. Electronically Signed: Tanner Shaffer MD at 9:39 EST ,
[2023-09-29 17:32] LABS: CREATININE FINGERSTICK < 1.0 mg/dL (0.70-1.30); EGFR FINGERSTICK > 60.0000 mL/min (>60)
== END | disposition home or self-care (01) ==
LOC: CT 17:07
PROVIDERS: PCP Internal Medicine; Referring Provider Urology; Visit Provider Urology
DX: R35.1 Nocturia (principal); R31.29 Other microscopic hematuria
CPT/HCPCS: 74178; Q9967

== ENCOUNTER 2023-12-13 19:42 | Emergency (ER) | payer MEDICARE, BC, SELFPAY ==
[2023-12-13 19:43] VITALS: BP 166/132; PULSE 65; RESP 16; TEMP 36.2; O2SAT 96; BMI 30.1
[2023-12-13] MEDS: MethylPREDNISolone 125 MG/2 ML Vial 60 MG IV (19:54)
[2023-12-13] MEDS: Famotidine 200 MG/20 ML MDV 20 MG in 0.9% Normal Saline (Pres. free 8 ML 300 MG IV (20:01)
[2023-12-13] MEDS: Ondansetron 4 MG/2 ML Vial IV (20:29)
--- NOTE | 2023-12-13 21:36 | EX.ED.DYSGE1 ---
HPI History of Present Illness Chief Complaint: Allergic Reaction Informant: patient Onset/Context/Timing Onset: Today Context: Sudden Onset Timing: Continuous Quality: Swelling Location: Upper lip, throat Worsened by: Nothing Relieved by: Nothing Narrative Narrative: Patient presents with lip swelling and hoarseness to his voice that began tonight. Patient states he was eating when this began. Patient states he has a history of seafood allergies but does not think there was any seafood in what ever he was eating. Patient states he took 2 Benadryl tablets prior to arrival. Patient states he feels like his throat is swelling. Patient denies any difficulty breathing. Patient denies any chest pain. Patient denies any nausea or vomiting. [facility] Medical History Acute maxillary sinusitis, unspecified Acute sinusitis, unspecified Cardiology follow-up encounter Dementia Encounter for screening for COVID-19 Essential hypertension High cholesterol History of echocardiogram History of stress test HLD (hyperlipidemia) Non-smoker Nonrheumatic mitral (valve) insufficiency Postoperative atrial fibrillation (02/08/16) Wears glasses Home Medications aspirin 81 mg tablet,delayed release (Adult Aspirin Regimen) 81 mg PO DAILY 10/25/18 [History Last Taken 10/30/22] omeprazole 20 mg capsule,delayed release 20 mg PO DAILY 10/25/18 [History Last Taken 10/30/22] escitalopram oxalate 20 mg tablet 10 mg PO DAILY 06/15/20 [History Last Taken Unknown] simvastatin 20 mg tablet 20 mg PO QHS 06/15/20 [History Last Taken Unknown] vitamin B complex (B Complex-Vitamin B12 tablet) 1 tab PO DAILY 06/15/20 [History Last Taken Unknown] magnesium oxide 400 mg PO DAILY #90 tabs 09/04/21 [Rx Last Taken 10/30/22] gabapentin 300 mg capsule 800 mg PO DAILY 07/08/22 [History Last Taken Unknown] lisinopril 10 mg tablet 10 mg PO DAILY #90 tabs 07/21/23 [Rx Last Taken Unknown] colestipol 1 gram tablet 1 g PO DAILY 30 days #30 tabs 08/18/23 [Rx Last Taken Unknown] lactobacillus combination no.4 3 billion cell capsule (Probiotic) 3,000 mmu cells PO DAILY 08/27/23 [History Last Taken Unknown] melatonin 10 mg capsule 10 mg PO HS PRN 08/27/23 [History Last Taken Unknown] rivastigmine 4.6 mg/24 hour transdermal patch 4.6 mg transdermal DAILY 08/27/23 [History Last Taken Unknown] amoxicillin 875 mg-potassium clavulanate 125 mg tablet 1 tab PO BID #20 tabs 09/08/23 [Rx Last Taken Unknown] methylprednisolone 4 mg tablets in a dose pack (Medrol (Star)) See Rx Instructions PO PER PKG DIR #21 tabs 09/08/23 [Rx Last Taken Unknown] prednisone 20 mg tablet 60 mg (3 x 20 mg) PO DAILY #15 TABLETS 12/13/23 [Rx Last Taken Unknown] Allergy/AdvReac Type Severity Reaction Status Date / Time acetaminophen [From Vicodin] Allergy intolerance Verified 12/13/23 19:46 bee venom protein (honey bee) Allergy Swelling Verified 12/13/23 19:46 hydrocodone [From Vicodin] Allergy intolerance Verified 12/13/23 19:46 shellfish derived Allergy Swelling Verified 12/13/23 19:46 Family History Brother Mitral valve insufficiency Father Heart disease Mother Hypertension Surgical History H/O mitral valve repair (01/31/16) H/O mitral valve replacement (02/08/16) History of left heart catheterization (01/08/16) Hx of hernia repair S/P nasal surgery Social History Smoking Status: Never smoker alcohol intake: current alcohol intake frequency: holidays/special occasions only substance use type: does not use caffeine: Yes Type: carbonated beverages ROS ROS ED Constitutional Constitutional ED: Denies chills or fever(s) Eyes Eyes: Denies blurry vision or change in vision ENT ENT ED: Reports sore throat; Denies rhinorrhea Cardiovascular Cardiovascular: Denies chest pain or palpitations Respiratory/Chest Respiratory/Chest: Denies cough or dyspnea Gastrointestinal Gastrointestinal: Denies nausea or vomiting Genitourinary Genitourinary ED: Denies dysuria or hematuria Musculoskeletal Musculoskeletal: Denies back pain or neck pain Integumentary Denies abscess or rash Neurologic Neurologic: Denies headache(s) or weakness Allergic/Immunologic Allergic/Immunologic ED: Denies mouth swelling or urticaria EXAM Physical Exam Const Vital Signs: 12/13/23 19:43 Temperature 97.2 F L Temperature Source Temporal Pulse Rate 65 Respiratory Rate 16 Blood Pressure 166/132 H Blood Pressure Mean 143 Pulse Ox 96 Oxygen Delivery Method Room Air Positive well nourished and well developed General Appearance ED: well developed and NAD HEENT Reports moist mucous membranes HEENT Narrative: There is some mild edema of the left lateral aspect of the upper lip. Oral mucosa is pink and moist. Oropharynx is clear. Airway is patent. There is no pharyngeal edema. There are no exudates noted. Neck supple and no JVD Resp normal respiratory effort and clear to auscultation bilaterally Cardio regular rate and regular rhythm GI non-tender and non-distended Palpation: soft Neuro oriented x3, CN's II-XII intact bilaterally and no sensory deficits noted Sensorium / Orientation: alert Motor Exam: strength 5/5 throughout Psych mental status grossly normal MDM MDM MDM Narrative Medical decision making narrative: Patient was given Solu-Medrol and Pepcid. Since the patient took Benadryl prior to arrival, this was withheld. Patient started having some nausea and vomiting. Patient was given a dose of Zofran. Patient is feeling better on reevaluation. Patient was advised of his findings. Patient was given a prescription for a short course of prednisone. Patient was instructed to follow-up with his primary care physician in 5 to 7 days. Patient understood and was agreeable with the plan. All questions were answered. Discharge Plan Triage Chief Complaint: Allergic Reaction ED Provider: Hal Solis Dx/Rx/DC Orders Clinical Impression: Allergic reaction, Essential hypertension Instructions: ED General Allergic Reactions Prescriptions: New prednisone 20 mg tablet 60 mg PO DAILY Qty: 15 0RF No Action aspirin [Adult Aspirin Regimen] 81 mg tablet,delayed release (DR/EC) 81 mg PO DAILY omeprazole 20 mg capsule,delayed release(DR/EC) 20 mg PO DAILY simvastatin 20 mg tablet 20 mg PO QHS vitamin B complex [B Complex-Vitamin B12] Tablet 1 tab PO DAILY escitalopram oxalate 20 mg tablet 10 mg PO DAILY gabapentin 300 mg capsule 800 mg PO DAILY rivastigmine 4.6 mg/24 hour patch 24 hour 4.6 mg transdermal DAILY melatonin 10 mg capsule 10 mg PO HS PRN Probiotic 3 billion cell capsule 3,000 mmu cells PO DAILY Rx Instructions: administer with a meal ibuprofen 200 mg capsule 0RF methylprednisolone [Medrol (Star)] 4 mg tablets,dose pack See Rx Instructions PO PER PKG DIR Qty: 21 0RF Rx Instructions: PO PER PKG DIR amoxicillin-pot clavulanate 875-125 mg tablet 1 tab PO BID Qty: 20 0RF magnesium oxide 400 mg magnesium tablet 400 mg PO DAILY Qty: 90 3RF lisinopril 10 mg tablet 10 mg PO DAILY Qty: 90 3RF colestipol 1 gram tablet 1 g PO DAILY 30 Days Qty: 30 5RF Primary Care Provider: Aletha Moon Referrals: Aletha Moon DO [Primary Care Provider] - 5-7 Days Disposition Disposition: Home, Self Care
[2023-12-13 21:42] VITALS: BP 143/84; PULSE 61; RESP 18; O2SAT 93
[2023-12-13 22:50] VITALS: BP 166/88; PULSE 60; RESP 18; TEMP 36.4; O2SAT 97
== END 2023-12-13 22:59 | disposition home or self-care (01) ==
PROVIDERS: Emergency Provider Emergency Medicine; PCP Internal Medicine; Visit Provider Emergency Medicine
DX: T78.40XA Allergy, unspecified, initial encounter (principal); F03.90 Unspecified dementia, unspecified severity, without behavioral disturbance, psychotic disturbance, mood disturbance, and anxiety; I10 Essential (primary) hypertension; R49.0 Dysphonia; R22.0 Localized swelling, mass and lump, head; E78.00 Pure hypercholesterolemia, unspecified; Z79.82 Long term (current) use of aspirin; Z79.899 Other long term (current) drug therapy; Z95.3 Presence of xenogenic heart valve; R11.2 Nausea with vomiting, unspecified
CPT/HCPCS: 96374; 96375; 99284; A4216; J2405; J3490

== ENCOUNTER → 2023-12-26 | Outpatient (CLI) | payer MEDICARE, BC, SELFPAY ==
[2023-12-26 07:45] LABS: Absolute Lymphocyte Count 1.53 X10^3/uL (0.83-4.51); Absolute Neutrophil Count 2.9 X10^3/uL (2.0-7.7); Basophil# 0.02 X10^3/uL; Basophil% 0.4 % (0-1); Eosinophil# 0.09 X10^3/uL; Eosinophils% 1.8 % (0-5); Hematocrit 47.8 % (40-54); Hemoglobin 15.9 g/dL (13.0-16.5); Lymphocyte # 1.53 X10^3/ul (0.83-4.51); Lymphocyte % 30.8 % (19-41); Mean Corp Hgb Conc 33.3 g/dL (32-36); Mean Corpuscular Hgb 29.8 pg (27.0-32.0); Mean Corpuscular Volume 89.7 fL (80-94); Mean Platelet Vol. 10.4 fl (6.2-12.0); Monocyte# 0.45 X10^3/uL; Monocyte% 9.1 % (0-10); NRBC Flagged by Analyzer 0 % (0-5); Neutrophil # 2.86 X10^3/uL (2.7-7.7); Neutrophil % 57.7 % (47-70); Platelet Count 119 K/mm3 (150-450); RBC Distribution Width CV 12.6 % (11.6-14.6); RBC Distribution Width SD 41.1 fl (35.1-43.9); Red Blood Count 5.33 M/mm3 (4.6-6.2)
[2023-12-26 08:22] LABS: ALB/GLOB Ratio 1.2 RATIO (0.9-2.4); AST(SGOT) 20 U/L (15-37); Alanine Aminotransfer ALT/SGPT 40 U/L (16-61); Albumin, Serum 3.6 g/dL (3.2-5.0); Alkaline Phosphatase 66 U/L (45-117); Anion Gap 4 (5-15); BUN 25 mg/dL (7-18); BUN/Creat Ratio 21.6 RATIO (10-20); Calcium,Total 8.7 mg/dL (8.5-10.1); Chloride 105 mmol/L (98-107); Cholesterol 152 mg/dL (200); Creatinine, Serum 1.16 mg/dL (0.70-1.30); EST Glomerular Filtration Rate 66 mL/min (>60); Est Glom Filt Rate - Afr Amer 79 mL/min (>60); Globulin 3.1 g/dL (2.2-4.2); Glucose 118 mg/dL (74-106); High Density Lipoprotein 45 mg/dL; Magnesium 2.1 mg/dL (1.6-2.6); Potassium 4.1 mmol/L (3.5-5.1); Protein, Total 6.7 g/dL (6.4-8.2); Sodium Level 137 mmol/L (136-145); T4 Free Direct 0.96 ng/dL (0.76-1.46); Thyroid Stim Hormone (TSH) 0.63 uIU/mL (0.358-3.74); Triglycerides 88 mg/dL; Very Low Density Lipoprotein 18 mg/dL (5-40)
== END | disposition home or self-care (01) ==
LOC: LAB 07:21
PROVIDERS: Nurse Practitioner Family; PCP Internal Medicine; Referring Provider Psychiatry & Neurology Neurology; Visit Provider Psychiatry & Neurology Neurology
DX: I67.9 Cerebrovascular disease, unspecified (principal); E78.2 Mixed hyperlipidemia
CPT/HCPCS: 80053; 80061; 83735; 84439; 84443; 85025

== ENCOUNTER → 2024-01-07 | Outpatient (CLI) | payer MEDICARE, BC, SELFPAY ==
[2024-01-12 03:07] LABS: Clam <0.10 kU/L (Class 0); Codfish <0.10 kU/L (Class 0); Corn 0.12 kU/L (Class 0/I); Egg, White 0.15 kU/L (Class 0/I); Milk (Cow) 0.35 kU/L (Class I); Peanut 0.38 kU/L (Class I); SCALLOP 0.14 kU/L (Class 0/I); SESAME SEED <0.10 kU/L (Class 0); Shrimp 2.41 kU/L (Class III); Soybean <0.10 kU/L (Class 0); Walnut, (Food) <0.10 kU/L (Class 0); Wheat <0.10 kU/L (Class 0)
== END | disposition home or self-care (01) ==
PROVIDERS: PCP Internal Medicine; Referring Provider Otolaryngology; Visit Provider Otolaryngology
DX: T78.40XA Allergy, unspecified, initial encounter (principal)
CPT/HCPCS: 36415; 86003

== ENCOUNTER 2024-01-12 14:30 | Outpatient (RCR) | payer MEDICARE, BC, SELFPAY ==
--- NOTE | 2024-01-08 07:40 | HP.PTEVAL ---
Patient's Visit Information Visit Information Visit Information: IZABEL WAHL is a 73 year old M referred to Physical Therapy by Dr. Aletha Moon DO with a diagnosis of L hip pain. Date of Evaluation: 01/08/24 Physical Therapist: Hal Salgado, DPT, OCS, CSCS Visit Plan Frequency: 2x /Week Duration: 4 Weeks Plan: one more visit to up to 2x/week for 4 weeks if pain returns. Currently doing very well and has one pain med left today. Showed him ITB stretch and HS stretch and will finsih up meds, if still 100% better witll d/c otherwise will treat with US, STM, stretching and strength ex and TENS as needed. Subjective Subjective: L hip started hurting one day after working in the yard a week ago. Started after working in yard. Hard to walk , , could not walk dog and 10/10 pain. Went to doctor Red and got injection which helped. Back a couple days later and got prescription that will finish this am which helped. 100% better today. Hip is pain is lateral. Has been walking dog again but not worked outside [employer]. No numbness or tingling. No back problems. Sleeping is normal for him. No regular ex other than walking. Unemployable. Pain L hip: Pain Intensity (Out of 10): 0 Pain Intensity Range: 0 and 10 Objective Objective: Walks normal without pain or antalgia today. transfer bed and chair normal and painfree. Steps reciprocal with one rail without pain up and down. HS and ITB mod tight B with a -30 90/90 test B. reflexes 2/3 B patella and achilles sensation LE WNL to gross light touch. Hip AROM and PROm symmetrical and painfree except slight IR pain on L. strength in hips is 4- and without pain B abd and ext, 4 in flexion knee adn ankle 5/5 without pain. LB AROM WFL and without pain. - slump and - SLR - JENNIFER, slight pain with FADDIR L. Balance/Special Test Scores Oswestry Low Back Score: 0 Goals Goal 1:: I appropriate HEP for stretching HS and ITB Goal Time Frame: 2-4 Weeks Goal 2:: Pain remain 0/10 and 100% better and back to all activities Goal Time Frame: 2-4 Weeks Rehabilitation Potential Physical Therapy Diagnosis: h/o L hip pain likely bursitis in nature and tightness precipitating. Rehabilitation Potential: Good Anticipated Interventions Patient/Client Instruction: Educate patient on: Condition and Plan of Care For the Purpose of:: To decrease pain, To improve nutrient delivery to tissue and To improve ability of physical actions for home/community/work/leisure Therapeutic Exercise to Include: Strength training and Flexibilty training For the Purpose of:: To decrease pain, To decrease swelling/inflammation, To improve nutrient delivery to tissue, To improve muscle performance and motor function and To increase tolerance to activity/condition/position Manual Therapy Techniques to Include: Mobilization, Passive ROM and Soft tissue mobilization For the Purpose of:: To decrease pain, To decrease swelling/inflammation, To increase ROM and To improve nutrient delivery to tissue TENS: Yes Cryotherapy (ice pack, ice massage): Yes Ultrasound (thermal/non thermal): Yes For the Purpose of:: To decrease pain and To decrease swelling/inflammation Text: Thank you for the opportunity to evaluate your patient. For Medicare and Medicare HMO plans, please review the plan of care and approve it. It will need to be FAXED BACK to us at [phone] for Medicare purposes. For Medicare only, by signing this I certify the plan of care. Please let me know if there are questions or concerns regarding this plan of care. Physician Signature: Date:
--- NOTE | 2024-01-12 14:33 | HP.PTDCSUM ---
Discharge Summary D/C summary: It has been my pleasure to treat IZABEL WAHL referred by Dr. Aletha Moon DO, with the diagnosis of L hip pain for a total of 2 visit(s). Discharge Date: 01/12/24 Please see the following information for a summary of their discharge status. Subjective Subjective: Been doing OK . Back feels good and hip feels good. Pain has not returned and no pain. Activities were normal over the weekend but held off on digging ditches. Walking mowing went well. Pain L hip: Pain Intensity (Out of 10): 0 Overall Improvement % Improvement: 100 Objective Objective/Function: Full aROM L/s And L hip without pain today. Bends and sidesteps adn climbs steps without evidence of pain. Goals Goal 1:: I appropriate HEP for stretching HS and ITB Goal Progress: Goal Met Goal 2:: Pain remain 0/10 and 100% better and back to all activities Goal Progress: Goal Met Plan Plan: d/c to home stretches D/C Information d/c sentence: If there are questions or concerns regarding this patient's physical therapy, please feel free to call me at [phone]. Thank you for the referral of this patient. Sincerely, Hal Salgado, DPT, OCS, CSCS Balance/Gait/Functional tests Balance/Special Test Scores Oswestry Low Back Score: 0 Improvement % Improvement: 100
== END 2024-01-12 17:22 | disposition home or self-care (01) ==
LOC: PT 14:30
PROVIDERS: PCP Internal Medicine; Referring Provider Internal Medicine; Visit Provider Internal Medicine
DX: M25.552 Pain in left hip (principal); M79.18 Myalgia, other site; M43.07 Spondylolysis, lumbosacral region
CPT/HCPCS: 97161; 97530

== ENCOUNTER → 2024-05-17 | Outpatient (CLI) | payer MEDICARE, BC, SELFPAY ==
[2024-05-17 07:19] LABS: Bacteria 0 SEEN /hpf (None Seen); Mucous, Urine 0 SEEN /hpf (<or=2+); Squamous Epithelial Cells - UA 0 SEEN /hpf (0-5); White Blood Cells 0 SEEN /hpf (0-5)
[2024-05-17 07:39] LABS: Absolute Neutrophil Count 2.6 X10^3/uL (2.0-7.7); Basophil# 0.02 X10^3/uL; Basophil% 0.4 % (0-1); Eosinophils% 2.2 % (0-5); Hematocrit 48.3 % (40-54); Hemoglobin 16.1 g/dL (13.0-16.5); Lymphocyte % 30.6 % (19-41); Mean Corp Hgb Conc 33.3 g/dL (32-36); Mean Corpuscular Hgb 30.1 pg (27.0-32.0); Mean Corpuscular Volume 90.3 fL (80-94); Mean Platelet Vol. 10.1 fl (6.2-12.0); Monocyte# 0.43 X10^3/uL; Monocyte% 9.4 % (0-10); NRBC Flagged by Analyzer 0 % (0-5); Platelet Count 153 K/mm3 (150-450); RBC Distribution Width CV 12.7 % (11.6-14.6); RBC Distribution Width SD 41.6 fl (35.1-43.9); Red Blood Count 5.35 M/mm3 (4.6-6.2); White Blood Count 4.6 K/mm3 (4.4-11.0)
[2024-05-17 08:04] LABS: Color, Urine Yellow (Yellow); Glucose, Dipstick Normal (Normal); Ketone-Dipstick Negative (Negative); Leukocyte Esterase-Dipstick Negative /ul (Negative); Nitrite-Dipstick Negative (Negative); Occult Blood-Urine 25 /ul (Negative); Protein-Dipstick 15 mg/dl (Negative); Urine Bilirubin Dipstick Negative (Negative); Urine Clarity Clear (Clear); Urine Urobilinogen Normal (Normal)
[2024-05-17 08:40] LABS: Red Blood Cells-Urine 0-5 SEEN /hpf (0-5)
[2024-05-17 08:41] LABS: ALB/GLOB Ratio 1.2 RATIO (0.9-2.4); AST(SGOT) 31 U/L (15-37); Alanine Aminotransfer ALT/SGPT 42 U/L (16-61); Albumin, Serum 3.8 g/dL (3.2-5.0); Alkaline Phosphatase 81 U/L (45-117); Anion Gap 8 (5-15); BUN 19 mg/dL (7-18); Calcium,Total 9.1 mg/dL (8.5-10.1); Chloride 105 mmol/L (98-107); Cholesterol 157 mg/dL (200); Creatinine, Serum 1.12 mg/dL (0.70-1.30); EST Glomerular Filtration Rate 68 mL/min (>60); Est Glom Filt Rate - Afr Amer 82 mL/min (>60); Globulin 3.3 g/dL (2.2-4.2); Glucose 109 mg/dL (74-106); High Density Lipoprotein 46 mg/dL; Potassium 4.6 mmol/L (3.5-5.1); Protein, Total 7.1 g/dL (6.4-8.2); Sodium Level 140 mmol/L (136-145); Triglycerides 93 mg/dL; Very Low Density Lipoprotein 19 mg/dL (5-40)
[2024-05-17 08:43] LABS: Microalbumin,Random Urine 17.8 mg/L (NO RANGE EST.); Microalbumin:Creatinine Ratio 11.6 mg/g CRE (<30 mg/g CRE)
[2024-05-17 09:33] LABS: Vitamin D,25 Hydroxy 40.7 ng/mL
== END | disposition home or self-care (01) ==
PROVIDERS: PCP Internal Medicine; Referring Provider Internal Medicine; Visit Provider Internal Medicine
DX: I11.9 Hypertensive heart disease without heart failure (principal); E78.5 Hyperlipidemia, unspecified; E55.9 Vitamin D deficiency, unspecified
CPT/HCPCS: 36415; 80053; 80061; 81001; 82043; 82306; 82570; 84443; 85025

== ENCOUNTER 2024-05-26 09:17 | Outpatient (CLI) | payer MEDICARE, BC, SELFPAY | END 2024-05-26 23:59 | disposition home or self-care (01) | PROVIDERS: PCP Internal Medicine; Referring Provider Psychiatry & Neurology Neurology; Visit Provider Psychiatry & Neurology Neurology | DX: J32.9 Chronic sinusitis, unspecified (principal); F02.A0 Dementia in other diseases classified elsewhere, mild, without behavioral disturbance, psychotic disturbance, mood disturbance, and anxiety | CPT/HCPCS: 36415; 87070; 87077; 87186; 87205 ==

== ENCOUNTER → 2024-08-31 | Outpatient (CLI) | payer MEDICARE, BC, SELFPAY ==
--- NOTE | 2024-08-31 07:24 | ECHOD_ITS ---
Reason For Study: MITRAL VALVE REPLACEMENT Procedure This was a 2D Doppler, Color Flow transthoracic echocardiogram. Myocardial strain analysis was performed in this exam to aid in the assessment of cardiac function. Exam performed in department. Left Ventricle Normal LV size. Left ventricular systolic function is normal. The left ventricular ejection fraction is 60 %. No regional wall motion abnormalities noted. Right Ventricle Normal RV size. Normal systolic function. Atria Normal left atrium. Normal right atrium. Mitral Valve Peak transmitral valve gradient 10.6 mmHg. Mean transmitral valve gradient 4 mmHg. Stable appearing bioprosthetic mitral valve apparatus. Tricuspid Valve Normal tricuspid valve. Mild (1+) tricuspid valve insufficiency. Pulmonary artery systolic pressure is 30 mmHg. Aortic Valve Trisinus/trileaflet aortic valve. Pulmonic Valve Normal pulmonic valve. Great Vessels Normal aortic root. The pulmonary artery is normal size. Inferior vena cava collapse with respiration. Pericardium/Pleural No pericardial effusion. MMode/2D Measurements & Calculations LVIDd: 4.5 cm IVSd: 1.1 cm LVOT diam: 2.3 cm LVIDs: 2.7 cm LVPWd: 1.1 cm LVOT area: 4.1 cm2 RVDd: 3.8 cm FS: 39.2 % asc Aorta Diam: 3.5 cm LAV(MOD-bp): 74.9 ml LVAd ap4: 23.2 cm2 LAV(MOD-bp) Indexed: 35.5 ml/m2 LVLd ap4: 7.7 cm LAV(MOD-sp2): 79.0 ml EDV(MOD-sp4): 57.7 ml LAV(MOD-sp4): 71.4 ml EDV(sp4-el): 59.1 ml LVAs ap4: 13.1 cm2 LVLs ap4: 6.4 cm ESV(MOD-sp4): 23.3 ml ESV(sp4-el): 22.5 ml EF(MOD-sp4): 59.5 % EF(sp4-el): 61.9 % LVAd ap2: 23.9 cm2 SV(MOD-sp4): 34.4 ml SV(MOD-sp2): 37.5 ml LVLd ap2: 7.6 cm SI(MOD-sp4): 16.3 ml/m2 SI(MOD-sp2): 17.8 ml/m2 EDV(MOD-sp2): 61.5 ml EDV(sp2-el): 63.2 ml LVAs ap2: 13.2 cm2 LVLs ap2: 6.4 cm ESV(MOD-sp2): 24.0 ml ESV(sp2-el): 23.2 ml EF(MOD-sp2): 61.0 % SV(sp4-el): 36.6 ml Ao sinus diam: 3.[address] Junction: 2.8 cm LA dimension(2D): 4.6 cm LA A4 area: 22.6 cm2 RA A4 area: 14.4 cm2 TAPSE: 1.6 cm Time Measurements MV dec time: 0.45 sec Doppler Measurements & Calculations MV E max josé: 144.7 cm/sec Lat Peak E' José: 5.3 cm/sec Med Peak E' José: 6.8 cm/sec MV A max josé: 136.3 cm/sec E/E' lat: 27.1 E/E' med: 21.4 MV E/A: 1.1 MV V2 max: 162.6 cm/sec MV dec slope: 319.2 cm/sec2 Ao V2 max: 115.2 cm/sec MV max P.6 mmHg Ao max P.3 mmHg MV V2 mean: 91.2 cm/sec Ao V2 mean: 76.2 cm/sec MV mean P.0 mmHg Ao mean P.7 mmHg MV V2 VTI: 61.4 cm Ao V2 VTI: 28.1 cm MVA(VTI): 1.4 cm2 AV (velocity ratio): 0.73 VIPIN(I,D): 3.0 cm2 VIPIN(V,D): 3.4 cm2 LV V1 max: 93.6 cm/sec SV(LVOT): 85.3 ml PA V2 max: 98.2 cm/sec LV V1 max P.5 mmHg LV V1 mean P.7 mmHg LV V1 mean: 59.7 cm/sec LV V1 VTI: 20.7 cm PI end-d josé: 92.6 cm/sec TR max josé: 261.0 cm/sec TR max P.2 mmHg ECHO/Echo Complete Interpretation Summary Normal LV size. Left ventricular systolic function is normal. The left ventricular ejection fraction is 60 %. Stable appearing bioprosthetic mitral valve apparatus. The global longitudinal strain is normal. Ordering Physician: Lucille Will Referring Physician: Aletha Moon M.D. Performed By: Chantel Dempsey RDCS
== END | disposition home or self-care (01) ==
LOC: CVS 07:23
PROVIDERS: PCP Internal Medicine; Referring Provider Physician Assistant Medical; Visit Provider Physician Assistant Medical
DX: Z95.2 Presence of prosthetic heart valve (principal)
CPT/HCPCS: 93306

== ENCOUNTER → 2024-09-23 | Outpatient (CLI) | payer MEDICARE, BC, SELFPAY ==
--- NOTE | 2024-09-23 07:40 | CDU_ITS ---
Reason For Study Reason For Study: Bilateral Carotid Stenosis Rt. Velocities/BP Lt. Velocities/BP Prox CCA 90.4/9.3 cm/sec. Prox CCA 67.6/16.6 cm/sec. Mid CCA 67.7/14.9 cm/sec. Mid CCA 79.9/21.4 cm/sec. Dist CCA 86.4/22.6 cm/sec. Dist CCA 83.7/24.2 cm/sec. Prox ICA 86.4/31.4 cm/sec. Prox ICA 73.3/21.4 cm/sec. Mid ICA 59.4/19.4 cm/sec. Mid ICA 77.2/28.5 cm/sec. Dist ICA 64.8/26.1 cm/sec. Dist ICA 68.6/25.1 cm/sec. Rt. ICA/CCA = 1.3. Lt. ICA/CCA = 1.0. Prox ECA 87.5/10.0 cm/sec. Prox ECA 150.6/16.7 cm/sec. Rt. Vert. 47.8/13.8 cm/sec. Lt. Vert. 44.0/10.0 cm/sec. Right Extracranial There is heterogeneous, irregular atherosclerotic plaque noted in the right common carotid artery. There is heterogeneous, irregular atherosclerotic plaque noted in the right internal carotid artery. The right internal carotid artery is very tortuous. There is intimal thickening but no significant atherosclerotic plaque noted in the right external carotid artery. Antegrade flow is noted in the right vertebral artery. Left Extracranial There is homogeneous, smooth atherosclerotic plaque noted in the left common carotid artery. There is intimal thickening but no significant atherosclerotic plaque noted in the left internal carotid artery. The left internal carotid artery is very tortuous. There is intimal thickening but no significant atherosclerotic plaque noted in the left external carotid artery. Antegrade flow is noted in the left vertebral artery. Procedure Carotid Duplex 49889. This is a Carotid Duplex examination using B-mode, color flow and specral Doppler. The exam was diagnostic. Exam performed in department. VL/Carotid Duplex Ultrasound Interpretation Summary Mild (<50%) stenosis right extracranial internal carotid. Normal left extracranial internal carotid. Patent and antegrade vertebrals bilaterally. Ordering Physician: Aletha Moon Referring Physician: Aletha Moon Performed By: Abdullahi Mace RVT
== END | disposition home or self-care (01) ==
LOC: CVS 07:31
PROVIDERS: PCP Internal Medicine; Referring Provider Internal Medicine; Visit Provider Internal Medicine
DX: I65.23 Occlusion and stenosis of bilateral carotid arteries (principal)
CPT/HCPCS: 93880

== ENCOUNTER → 2024-10-11 | Outpatient (CLI) | payer MEDICARE, BC, SELFPAY ==
[2024-10-11 10:47] LABS: PSA,Total - Annual Screen 0.81 ng/mL (0.02-4.00)
== END | disposition home or self-care (01) ==
LOC: LAB 09:19
PROVIDERS: PCP Internal Medicine; Referring Provider Nurse Practitioner; Visit Provider Nurse Practitioner
DX: Z12.5 Encounter for screening for malignant neoplasm of prostate (principal)
CPT/HCPCS: 36415; 84153; G0103

== ENCOUNTER → 2024-11-28 | Outpatient (CLI) | payer MEDICARE, BC, SELFPAY | END | disposition home or self-care (01) | LOC: LABSPEC 15:15 | PROVIDERS: PCP Internal Medicine | DX: J32.9 Chronic sinusitis, unspecified (principal) | CPT/HCPCS: 87070; 87077; 87186; 87205 ==

== ENCOUNTER 2025-01-25 14:50 | Outpatient (RCR) | payer MEDICARE, BC, SELFPAY ==
--- NOTE | 2025-01-25 15:45 | HP.PTEVAL ---
Patient's Visit Information Visit Information Visit Information: IZABEL WAHL is a 74 year old M referred to Physical Therapy by Dr. Tyron Cortes MD with a diagnosis of Vertigo. Date of Evaluation: 01/25/25 Physical Therapist: Reji Holly, PT, ATC Visit Plan Frequency: 1x/Week Duration: 1 Week Plan: Pt appears to be recovering well at this time from vertigo that does not seem positional in nature. We will follow up with this patient next week to assess progress at that time. 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 Pt reports he took a nap on the couch for about one hour, then needed help getting up secondary to the ceiling was spinning on him. Pt reports he made it to the bathroom where he lyed on the floor for a couple hours. Eventually he threw up. Pt reports he felt much better afterwards, but still felt kind of off. Pt notes he went to see his neurologists which recommended he come here for PT. Pt notes the ceiling is no longer moving, but he feels very unsteady today. Pt denies pain at this time. Pt reports no disturbances with his vision. Pt reports good sensation in his feet. Objective Objective: Neuro: B LE sensation is WNL to light touch. MMT: B LE's are equal and WFL TU.82 sec FGA: 26/30- normal balance Balance/Special Test Scores Functional Gait Assessment Score: 26 % Disability: 13.3400 Goals Goal 1:: To be determined after next visit Goal Time Frame: 1 Week Rehabilitation Potential Physical Therapy Diagnosis: Pt experienced a severe bout of vertigo yesterday which was very disabling. Much improved today Rehabilitation Potential: Good Anticipated Interventions Patient/Client Instruction: Educate patient on: Condition and Plan of Care For the Purpose of:: To improve self management Text: Thank you for the opportunity to evaluate your patient. For Medicare and Medicare HMO plans, please review the plan of care and approve it. It will need to be FAXED BACK to us at [phone] for Medicare purposes. For Medicare only, by signing this I certify the plan of care. Please let me know if there are questions or concerns regarding this plan of care. Physician Signature: Date:
--- NOTE | 2025-04-04 13:18 | HP.PT.NRP ---
Patient Information Patient Information: IZABEL WAHL was seen in my office for initial evaluation on 01/25/25. The following Plan of Care was established for this patient: POC Established Initial Frequency: 1x/Week Initial Duration: 1 Week Anticipated Interventions Patient/Client Instruction: Educate patient on: Condition and Plan of Care For the Purpose of:: To improve self management Last Seen Last Seen: This patient was last seen in our office . Pertinent comments regarding their Physical therapy will appear below: Pt has not returned in greater than 30 days and is discontinued at this time. At this point I will be discontinuing this patient from physical therapy. I would be happy to see this patient again in the future if found appropriate by the physician. Thank you! Reji Holly, PT, ATC Balance/Gait/Functional tests Balance/Special Test Scores Functional Gait Assessment Score: 26 % Disability: 13.1383
== END 2025-01-25 19:00 | disposition home or self-care (01) ==
LOC: PT 14:50
PROVIDERS: PCP Internal Medicine; Referring Provider Psychiatry & Neurology Neurology; Visit Provider Psychiatry & Neurology Neurology
DX: R42 Dizziness and giddiness (principal)
CPT/HCPCS: 97161

== ENCOUNTER 2025-04-05 13:12 | Emergency (ER) | payer MEDICARE, BC, SELFPAY ==
[2025-04-05 13:12] VITALS: BP 134/84; PULSE 68; RESP 22; TEMP 36.7; O2SAT 98; BMI 29.7
--- NOTE | 2025-04-05 14:07 | EX.ED.DYSGE1 ---
HPI History of Present Illness Chief Complaint: Allergic Reaction Narrative Narrative: 74-year-old male past medical history of hypertension mitral valve repair previous bee sting allergy presents after being stung multiple times by bees. His EpiPen was . He does state that he has never really had to use an epinephrine pen. His reaction is to get swelling. He currently denies any tongue swelling, difficulty breathing, or difficulty swallowing. He states that earlier today he was working outside and removed a board that had a bees nest contained behind it. He ran away but was stung near the left eye, on the right forehead, on the bilateral knees, and the left ankle. He may have been stung in the right ear as well. He states that his dog was also stung, and had to be taken to the vet. His was concerned because of the multiple bee stings. He states that he has never had to use an epinephrine pen, and that he has never really had tongue swelling or throat closing with bee stings. However, his states that the bodily injury adjuster tested him and he is allergic to bees. [facility] Medical History MRSA (methicillin resistant staph aureus) culture positive Acute sinusitis, unspecified Dementia Wears glasses High cholesterol Non-smoker History of echocardiogram History of stress test Cardiology follow-up encounter Encounter for screening for COVID-19 Acute maxillary sinusitis, unspecified Postoperative atrial fibrillation (02/08/16) Nonrheumatic mitral (valve) insufficiency Essential hypertension HLD (hyperlipidemia) Home Medications ?Medication ?Instructions ?Recorded ?Last Taken ?Type aspirin 81 mg tablet,delayed 81 mg PO DAILY 10/25/18 10/30/22 History release (Adult Aspirin Regimen) omeprazole 20 mg capsule,delayed 20 mg PO DAILY 10/25/18 10/30/22 History release simvastatin 20 mg tablet 20 mg PO QHS 06/15/20 Unknown History magnesium oxide 400 mg PO DAILY #90 tabs 09/04/21 10/30/22 Rx lactobacillus combination no.4 3 3,000 mmu cells PO DAILY 08/27/23 Unknown History billion cell capsule (Probiotic) tamsulosin 0.4 mg capsule 0.4 mg PO QDAY 08/25/24 Unknown History trazodone 50 mg tablet 50 mg PO QDAY 08/25/24 Unknown History colestipol 1 gram tablet 2 g (2 x 1 gram) PO DAILY 90 days 12/21/24 Unknown Rx #360 tabs escitalopram oxalate 20 mg tablet 5 mg PO DAILY 12/21/24 Unknown History gabapentin 300 mg capsule 400 mg PO DAILY 12/21/24 Unknown History galantamine 4 mg tablet 4 mg PO ONCE 12/21/24 Unknown History lisinopril 10 mg tablet 20 mg PO DAILY 12/21/24 Unknown History melatonin 10 mg tablet 10 mg PO HS PRN 12/21/24 Unknown History ondansetron HCl 4 mg tablet 4 mg PO .COMPLEX #5 tabs 12/21/24 Unknown Rx epinephrine 0.3 mg/0.3 mL 0.3 mg (0.3 mL) IM Q10M PRN PRN 04/05/25 Unknown Rx injection, auto-injector (EpiPen anaphylaxis #2 ea 2-Star) Allergy/AdvReac Type Severity Reaction Status Date / Time acetaminophen (From Vicodin) Allergy intolerance Verified 04/05/25 13:23 bee venom protein (honey bee) Allergy Swelling Verified 04/05/25 13:23 hydrocodone (From Vicodin) Allergy intolerance Verified 04/05/25 13:23 shellfish derived Allergy Swelling Verified 04/05/25 13:23 Family History Brother Mitral valve insufficiency Father Heart disease Mother Hypertension Surgical History H/O mitral valve replacement (02/08/16) History of left heart catheterization (01/08/16) Hx of hernia repair S/P nasal surgery H/O mitral valve repair (01/31/16) Social History Smoking Status: Never smoker alcohol intake: current alcohol intake frequency: holidays/special occasions only substance use type: does not use caffeine: Yes Type: carbonated beverages ROS ROS ED ROS Narrative Review of systems positive for multiple areas of swelling and itching from bee stings, mainly on his right forehead, under his left eye, right ear, bilateral knees, and left ankle. No throat closing, no difficulty swallowing, no stridor, no difficulty breathing. EXAM Physical Exam Narrative Exam Narrative: Afebrile. Vital signs noted. Nontoxic-appearing. Cardiovascular examination reveals a regular rate and rhythm. Lungs are clear to auscultation bilaterally. Abdomen is soft and nontender with positive bowel sounds. Multiple areas of mild swelling and erythema consistent with localized reactions to bee stings mainly on right forehead, right ear, under left eye, PERRL EOMI. Other stings on bilateral knees but full range of motion bilateral knees, mild swelling and erythema of left ankle. No noted stingers in place. No swelling of the lips, no angioedema of tongue. Airway patent. No drooling or trismus. No stridor of neck. Const Vital Signs: 04/05/25 13:12 04/05/25 14:13 04/05/25 15:19 Temperature 98.1 F Temperature Source Temporal Pulse Rate 68 55 L 56 L Respiratory Rate 22 H 15 18 Blood Pressure 134/84 H 134/67 H Blood Pressure Mean 100 89 Pulse Ox 98 96 99 Oxygen Delivery Method Room Air Room Air 04/05/25 15:48 Temperature 98.2 F Temperature Source Pulse Rate 52 L Respiratory Rate 18 Blood Pressure 134/67 H Blood Pressure Mean 89 Pulse Ox 100 Oxygen Delivery Method MDM MDM MDM Narrative Medical decision making narrative: Patient is having more localized reactions than anaphylaxis. I feel he can take oral Benadryl as well as oral prednisone. I do not feel epinephrine is indicated. He is not hypotensive, nor is he tachycardic. Pulse ox 98% on room air. Patient is agreeable to the plan. He will be monitored in the ED even after antihistamine and steroids. I will write him for new epinephrine pens. On repeat examination after approximately 2-1/2 hours of observation in the ED, patient feels well and would like to be discharged. There is no evidence of anaphylaxis. I feel he be discharged safely home with follow-up. He will take [id number] Benadryl. I do not feel he needs a steroid burst for the small localized areas of swelling. Patient is agreeable to the plan. Return instructions reviewed. Disposition is discharged home in stable condition. History & Record Review Discussion w/independent historian: Patient Additional record(s) reviewed:: Prior ED visit (Previous allergic reaction in 2023) Discharge Plan Triage Chief Complaint: Allergic Reaction ED Provider: Phill Abbott Dx/Rx/DC Orders Clinical Impression: History of bee sting allergy, Bee sting, Allergic reaction to bee sting Instructions: ED BEE STING General Allergic Rxn, ED Bee Sting Local React Prescriptions: New epinephrine [EpiPen 2-Star] 0.3 mg/0.3 mL auto-injector 0.3 mg IM Q10M PRN PRN (Reason: anaphylaxis) Qty: 2 0RF Rx Instructions: for 2 doses No Action aspirin [Adult Aspirin Regimen] 81 mg tablet,delayed release (DR/EC) 81 mg PO DAILY omeprazole 20 mg capsule,delayed release(DR/EC) 20 mg PO DAILY simvastatin 20 mg tablet 20 mg PO QHS escitalopram oxalate 20 mg tablet 5 mg PO DAILY gabapentin 300 mg capsule 400 mg PO DAILY Probiotic 3 billion cell capsule 3,000 mmu cells PO DAILY Rx Instructions: administer with a meal trazodone 50 mg tablet 50 mg PO QDAY tamsulosin 0.4 mg capsule 0.4 mg PO QDAY lisinopril 10 mg tablet 20 mg PO DAILY galantamine 4 mg tablet 4 mg PO ONCE Rx Instructions: administer with AM and PM meals melatonin 10 mg tablet 10 mg PO HS PRN ondansetron HCl 4 mg tablet 4 mg PO .COMPLEX Qty: 5 0RF Rx Instructions: 4 mg orally; take two tablets PO two hours prior to start of bowel prep and one every 4 hours as needed for N/V magnesium oxide 400 mg magnesium tablet 400 mg PO DAILY Qty: 90 3RF colestipol 1 gram tablet 2 g PO DAILY 90 Days Qty: 360 1RF Primary Care Provider: Aletha Moon Referrals: Aletha Moon, [Primary Care Provider] - 3-5 Days if not improving Activity Restrictions/Additional Instructions: Use Benadryl 25 mg every 4-6 hours as needed for swelling and itchiness. Return to the emergency department with difficulty breathing, throat closing sensation, tongue swelling new or worsening symptoms. Print Language: Lao Disposition Disposition: Home, Self Care Discharge Date/Time: 04/05/25 15:54
[2025-04-05 14:13] VITALS: BP 134/67; PULSE 55; RESP 15; O2SAT 96
[2025-04-05 15:19] VITALS: PULSE 56; RESP 18; O2SAT 99
[2025-04-05 15:48] VITALS: BP 134/67; PULSE 52; RESP 18; TEMP 36.8; O2SAT 100
== END 2025-04-05 15:54 | disposition home or self-care (01) ==
PROVIDERS: Emergency Provider Emergency Medicine; PCP Internal Medicine; Visit Provider Emergency Medicine
DX: T63.441A Toxic effect of venom of bees, accidental (unintentional), initial encounter (principal); F03.90 Unspecified dementia, unspecified severity, without behavioral disturbance, psychotic disturbance, mood disturbance, and anxiety; I10 Essential (primary) hypertension; E78.00 Pure hypercholesterolemia, unspecified; Z79.82 Long term (current) use of aspirin; Z79.899 Other long term (current) drug therapy; Z95.2 Presence of prosthetic heart valve
CPT/HCPCS: 99282; A4216

== ENCOUNTER 2025-04-12 07:54 | Day surgery (SDC) | payer MEDICARE, BC, SELFPAY ==
--- NOTE | 2025-04-07 09:11 | PAT.ANE_ITS ---
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 When Was Last Pacemaker Check QUESTION #4 FULL TEXT: You/Your Family Experience fever (hyperthermia) with Anesthesia Last Oral Intake Last Oral intake: Last Oral Intake NPO since Meds taken in AM with sips of water? 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 Has anyone observed you stop No 04/07/25 08:52 breathing during sleep? STOP Results Negative 04/07/25 08:52 QUESTION #5 FULL TEXT : Do you snore loudly (louder than talking or can be heard through closed doors)? 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 Specify any problems Hx of Preganancy in last 3 N/A 04/07/25 08:52 Months Nurse Filling Out Transfusion MGRIFFITH 04/07/25 08:52 & Questions: Date: 04/07/25 04/07/25 08:52 Time: 08:54 04/07/25 08:52 Patient unable to answer at this time (ie. confused, unrespo /Reproduction History /Reproductive History - prec[employer] police [employer]: /Reproductive Hx- [employer] police [employer] Hx Now Gestational Age (in weeks): EDC: Hx Hx Para Hx Section SAB No 04/07/25 08:52 PFSH Medical History (Updated 04/07/25 @ 09:06 by Mamta Foss) History of MRSA infection History of Clostridium difficile infection Cancer History of steroid therapy Prostate disease History of Crohn's disease Gastric reflux History of atrial fibrillation Hypertension MRSA (methicillin resistant staph aureus) culture positive Acute sinusitis, unspecified Dementia Wears glasses High cholesterol Non-smoker History of echocardiogram History of stress test Cardiology follow-up encounter Encounter for screening for COVID-19 Acute maxillary sinusitis, unspecified Postoperative atrial fibrillation (02/08/16) Nonrheumatic mitral (valve) insufficiency Essential hypertension HLD (hyperlipidemia) Home Medications ?Medication ?Instructions ?Recorded ?Last Taken ?Type aspirin 81 mg tablet,delayed 81 mg PO DAILY 10/25/18 0 10/30/22 History release (Adult Aspirin Regimen) omeprazole 20 mg capsule,delayed 20 mg PO DAILY 10/30/22 History release simvastatin 20 mg tablet 20 mg PO QHS 06/15/20 Unknow n History magnesium oxide 400 mg PO DAILY #90 tabs 10/30/22 Rx lactobacillus combination no.4 3 3,000 mmu cells PO DA KEISHA 08/27/23 Unknown History billion cell capsule (Probiotic) tamsulosin 0.4 mg capsule 0.4 mg PO QDAY 08/25/24 Unkn own History trazodone 50 mg tablet 100 mg PO QHS 08/25/24 Unkno wn History colestipol 1 gram tablet 2 g (2 x 1 gram) PO DAILY 90 days 12/21/24 Unknown Rx #360 tabs escitalopram oxalate 20 mg tablet 5 mg PO DAILY Unknown History gabapentin 300 mg capsule 400 mg PO DAILY 12/21/24 Unk nown History galantamine 4 mg tablet 4 mg PO ONCE 12/21/24 Unknow n History lisinopril 10 mg tablet 20 mg PO DAILY 12/21/24 Unkn own History melatonin 10 mg tablet 10 mg PO HS PRN sleep Unknown History ondansetron HCl 4 mg tablet 4 mg PO .COMPLEX #5 tabs 0 12/21/24 Unknown Rx epinephrine 0.3 mg/0.3 mL 0.3 mg (0.3 mL) IM Q10M PRN PRN 04/05/25 Unknown Rx injection, auto-injector (EpiPen anaphylaxis #2 ea 2-Star) diphenhydramine HCl 25 mg capsule 25 mg PO Q8H PRN itc su 04/07/25 Unknown History (Benadryl) Allergy/AdvReac Type Severity Reaction Status Date / Time bee venom protein (honey bee) Allergy Swelling Verified 04/07/25 08:47 hydrocodone (From Vicodin) Allergy intolerance Verified 04/07/25 08:47 shellfish derived Allergy Swelling Verified 04/07/25 08:47 Family History Brother Mitral valve insufficiency Father Heart disease Mother Hypertension Surgical History (Updated 04/07/25 @ 08:52 by Mamta Foss) History of esophagogastroduodenoscopy (EGD) History of colonoscopy H/O mitral valve replacement (02/08/16) History of left heart catheterization (01/08/16) Hx of hernia repair S/P nasal surgery H/O mitral valve repair (01/31/16) Social History Smoking Status: Never smoker alcohol intake: current alcohol intake frequency: holidays/special occasions only substance use type: does not use caffeine: Yes Type: carbonated beverages Recommendation Anesthesia Recommendation Anesthesia recommendation: OPTIMIZED for anesthesia
[2025-04-12] VITALS (7 sets, daily range): BP systolic 112–140; BP diastolic 64–76; PULSE 51–56; RESP 14–16; TEMP 36.2–36.4; O2SAT 95–100; BMI 28.0
[2025-04-12] MEDS: Lactated Ringers 1,000 ML 15 ML IV (08:21)
--- NOTE | 2025-04-12 08:38 | PCM.PRE.AN2 ---
ASA Classification* ASA Classification ASA Classification: 3 (hx Afib UC, dementia,HTN ,GERD, early onset-dementia (limit propofol as much as possible -- patient gets confused after anesthesia)) Assessment & Plan Anesthesia* Anesthesia Assessment Anesthesia Assessment: Discussed sedation and/or anesthesia options, risks, benefits, and alternatives with patient/parents/legal guardian/POA. Questions invited. The patient/parents/legal guardian/POA seems to understand and agrees to proceed with anesthesia plan. Reviewed the physical assessment, medical history, allergy history and patient home medications list prior to surgery/procedure/anesthetic and documented any changes. Performed airway and anesthesia risk assessments. Anesthesia Type Anesthesia Type: MAC History Source History Obtained from:: Patient and Chart Anesthesia Focused Assessment* Temperature: 97.6 F Pulse Rate: 56 Blood Pressure: 140/76 Respiratory Rate: 16 Pulse Ox: 100 Oxygen Delivery Method: Room Air Airway Assessment Mouth opens: >3 cm Mallampati Score: II Neck Range of motion (ROM): Full ROM Labs Anesthesia Preop lab: CBC WBC 4.6 K/mm3 (4.4-11.0) 05/17/24 07:18 05/17/24 RBC 5.35 M/mm3 (4.6-6.2) 05/17/24 07:18 05/17/24 Hgb 16.1 g/dL (13.0-16.5) 05/17/24 07:18 05/17/24 Hct 48.3 % (40-54) 05/17/24 07:18 05/17/24 Plt Count 153 K/mm3 (150-450) 05/17/24 07:18 05/17/24 CHEMISTRY Potassium 4.6 mmol/L (3.5-5.1) 05/17/24 07:18 05/17/24 Sodium 140 mmol/L (136-145) 05/17/24 07:18 05/17/24 Magnesium 2.1 mg/dL (1.6-2.6) 12/26/23 07:24 12/26/23 BUN 19 mg/dL (7-18) H 05/17/24 07:18 05/17/24 Creatinine 1.12 mg/dL (0.70-1.30) 05/17/24 07:18 05/17/24 Glucose 109 mg/dL (74-106) H 05/17/24 07:18 05/17/24 TSH 1.030 uIU/mL (0.358-3.740) 05/17/24 07:18 05/17/24 COAG PT 12.8 SECONDS (11.7-14.9) 10/24/22 09:00 10/24/22 Pre-Assessment Diagnosis/Proposed Procedure Planned Operative Procedure(s): COLONOSCOPY Anesthesia History Anesthesia History - data processing consultant: Anesthesia History - data processing consultant Hx Hospitalization No 04/07/25 08:52 Any Problems With Anesthesia No 04/07/25 08:52 Cholinesterase deficiency No 04/07/25 08:52 You/Your Family Experience No 04/07/25 08:52 fever (hyperthermia) with Relationship Recent Exposure to Contagious No 04/12/25 08:14 Disease Does patient have nerve No 04/07/25 08:52 stimulator Patient instructed to have device shut off --Does patient have Pacemaker No 04/12/25 08:14 or ICD? When Was Last Pacemaker Check QUESTION #4 FULL TEXT: You/Your Family Experience fever (hyperthermia) with Anesthesia Last Oral Intake Last Oral intake: Last Oral Intake NPO since 05:00 04/12/25 08:14 Meds taken in AM with sips of No 04/12/25 08:14 water? Meds patient instructed to take am of surgery PONV PONV - data processing consultant: PONV - data processing consultant Female No 04/07/25 08:52 HX of Motion Sickness Yes 04/07/25 08:52 HX of N/V After Surgery No 04/07/25 08:52 Non-Smoker Yes 04/07/25 08:52 Duration of Surgery greater No 04/07/25 08:52 than 60 minutes Number of Risk Factors 2 04/07/25 08:52 PONV Score Moderate Risk 04/07/25 08:52 Height & Weight Height & Weight: Anesthesia: Height & Weight Height 5 ft 10.08 in 04/12/25 08:14 Weight: 89 kg 04/12/25 08:14 Body Mass Index (BMI) 28.0 04/12/25 08:14 Respiratory Assessment Respiratory Assessment - data processing consultant: Respiratory Tract Infection Hx - data processing consultant Hx Respiratory Tract Infection No 04/07/25 08:52 STOP Sleep Apnea STOP Sleep Apnea - data processing consultant: STOP Sleep Apnea - data processing consultant Hx Hypertension Yes: PER PT, CONTROLLED WITH 04/07/25 08:52 MED Hx Sleep Apnea No 04/07/25 08:52 CPAP BIPAP Do you snore loudly (louder No 04/07/25 08:52 than talking or can be heard Do you often feel tired/ No 04/07/25 08:52 fatigued/ sleepy during daytime? Has anyone observed you stop No 04/07/25 08:52 breathing during sleep? STOP Results Negative 04/07/25 08:52 QUESTION #5 FULL TEXT : Do you snore loudly (louder than talking or can be heard through closed doors)? Tobacco Use History Tobacco Use History - data processing consultant: Tobacco Use History - data processing consultant Tobacco Use Smoking Status Never smoker 04/07/25 08:52 Hx Tobacco Use No 04/07/25 08:52 Years Smoking Packs Smoked per Day Smoking Cessation Date was within the last 15 years Hx Smoking Cessation Date Hx Smoking Cessation Counseling Hematologic Medial History Hematologic Hx - data processing consultant: Hematologic Medical Hx - manager billing Hx of Blood Transfusion No 04/07/25 08:52 Hx of Transfusion in last 3 No 04/07/25 08:52 Months Date of Last Transfusion (if within last 3 months) Ever experience any problems No 04/07/25 08:52 with transfusion(s)? Specify any problems Hx of Preganancy in last 3 N/A 04/07/25 08:52 Months Nurse Filling Out Transfusion MGRIFFITH 04/07/25 08:52 & Questions: Date: 04/07/25 04/07/25 08:52 Time: 08:54 04/07/25 08:52 Patient unable to answer at this time (ie. confused, unrespo /Reproduction History /Reproductive History - data processing consultant: /Reproductive Hx- data processing consultant Hx Now Gestational Age (in weeks): EDC: Hx Hx Para Hx Section SAB No 04/07/25 08:52 Active Medications Active Medications: Current Medications Generic Name Dose Route Start Last Admin Trade Name Freq PRN Reason Stop Dose Admin Lactated Ringer's 1,000 mls @ 15 mls/hr 04/12/25 08:15 04/12/25 08:21 IV 15 mls/hr .Q48H GENNY Administration PFSH Medical History (Updated 04/07/25 @ 09:06 by Mamta Foss) History of MRSA infection History of Clostridium difficile infection Cancer History of steroid therapy Prostate disease History of Crohn's disease Gastric reflux History of atrial fibrillation Hypertension MRSA (methicillin resistant staph aureus) culture positive Acute sinusitis, unspecified Dementia Wears glasses High cholesterol Non-smoker History of echocardiogram History of stress test Cardiology follow-up encounter Encounter for screening for COVID-19 Acute maxillary sinusitis, unspecified Postoperative atrial fibrillation (02/08/16) Nonrheumatic mitral (valve) insufficiency Essential hypertension HLD (hyperlipidemia) Home Medications ?Medication ?Instructions ?Recorded ?Last Taken ?Type aspirin 81 mg tablet,delayed 81 mg PO DAILY 10/25/18 04/10/25 History release (Adult Aspirin Regimen) omeprazole 20 mg capsule,delayed 20 mg PO DAILY 10/25/18 04/11/25 History release simvastatin 20 mg tablet 20 mg PO QHS 06/15/20 04/11/25 History magnesium oxide 400 mg PO DAILY #90 tabs 09/04/21 04/11/25 Rx lactobacillus combination no.4 3 3,000 mmu cells PO DAILY 08/27/23 04/11/25 History billion cell capsule (Probiotic) tamsulosin 0.4 mg capsule 0.4 mg PO QDAY 08/25/24 04/11/25 History trazodone 50 mg tablet 100 mg PO QHS 08/25/24 04/11/25 History colestipol 1 gram tablet 2 g (2 x 1 gram) PO DAILY 90 days 12/21/24 04/11/25 Rx #360 tabs escitalopram oxalate 20 mg tablet 5 mg PO DAILY 12/21/24 04/11/25 History gabapentin 300 mg capsule 400 mg PO DAILY 12/21/24 04/11/25 History galantamine 4 mg tablet 4 mg PO ONCE 12/21/24 04/11/25 History lisinopril 10 mg tablet 20 mg PO DAILY 12/21/24 04/11/25 History melatonin 10 mg tablet 10 mg PO HS PRN sleep 12/21/24 04/11/25 History ondansetron HCl 4 mg tablet 4 mg PO .COMPLEX #5 tabs 12/21/24 Unknown Rx epinephrine 0.3 mg/0.3 mL 0.3 mg (0.3 mL) IM Q10M PRN PRN 08/27/25 Unknown Rx injection, auto-injector (EpiPen anaphylaxis #2 ea 2-Star) diphenhydramine HCl 25 mg capsule 25 mg PO Q8H PRN itching 04/07/25 04/11/25 History (Benadryl) Allergy/AdvReac Type Severity Reaction Status Date / Time bee venom protein (honey bee) Allergy Swelling Verified 04/07/25 08:47 hydrocodone (From Vicodin) Allergy intolerance Verified 04/07/25 08:47 shellfish derived Allergy Swelling Verified 04/07/25 08:47 Family History Brother Mitral valve insufficiency Father Heart disease Mother Hypertension Surgical History (Updated 04/07/25 @ 08:52 by Mamta Foss) History of esophagogastroduodenoscopy (EGD) History of colonoscopy H/O mitral valve replacement (02/08/16) History of left heart catheterization (01/08/16) Hx of hernia repair S/P nasal surgery H/O mitral valve repair (01/31/16) Social History Smoking Status: Never smoker alcohol intake: current alcohol intake frequency: holidays/special occasions only substance use type: does not use caffeine: Yes Type: carbonated beverages Review of Systems (Anesthesia) ROS Narrative System reviewed and no additional complaints, except as documented. Physical Exam Const alert, oriented x3 and average body habitus Resp normal respiratory effort, normal air movement and clear to auscultation bilaterally Cardio regular rate, regular rhythm, no murmurs and diaphoretic
--- NOTE | 2025-04-12 08:43 | PCM.HP.STD ---
HPI - General General Date of Admission: 04/12/25 Date of Service: 04/12/25 Chief Complaint: ulcerative colitis HPI Narrative IZABEL WAHL, is a 74 M who presentsMICBEBE WAHL, is a 74 M who presents to the office today for OV 07/24/2023 - Dr. Mercedes Diarrhea secondary to bile acid diarrhea with a history of ulcerative colitis and Microscopic Colitis. Random biopsies in the colon and in the small bowel did not show any active disease. He is on Budesonide 3mg and doing very well. He had a positive fecal leukocytes, fecal calprotectin and he was PCR positive for C. difficile. We treated him for C. difficile colitis with vancomycin. He was also started on a probiotic. He is doing very well in his last colonoscopy did not show any signs of quiescent or chronically active colitis. He admits to 1-2 normal bowel movements per day. Therefore we will stop his budesonide and continue the probiotic. Medications: Discontinued budesonide ER Discontinued Reason: Order Completed 3 mg PO DAILY 90 ea 1RF INITIAL DIAGNOSIS: 40+ years ago Presenting symptoms: abdominal pain, loose diarrhea Previously established with Dr. Ogden who started him on budesonide 9mg QD and balsalazide 2250mg TID; this was changed to mesalamine. Noted triggers include known foods. GERD is also a diagnosis for which he takes omeprazole 20mg QD; if he misses this medication then he has significant symptoms the next day. 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 EGD/Colon: 05/08/2022 negative Pena's, celiac sprue, negative for active inflammation Colon: 11/09/2020 random biopsies with microscopic/lymphocytic colitis - treated with budesonide taper - reports he is doing good - he is on Colestipol daily, 1g - he is having a BM couple times a day, 98% of the time stools are formed - denies any bleeding - denies any pain - denies any weight loss - Omeprazole 20mg daily to control HB - he has been on this for a long time - cannot miss a pill - denies any dysphagia - denies any N/V - leaving [place] Follow Up: 1 Year [facility] Medical History History of MRSA infection History of Clostridium difficile infection Cancer History of steroid therapy Prostate disease History of Crohn's disease Gastric reflux History of atrial fibrillation Hypertension MRSA (methicillin resistant staph aureus) culture positive Acute sinusitis, unspecified Dementia Wears glasses High cholesterol Non-smoker History of echocardiogram History of stress test Cardiology follow-up encounter Encounter for screening for COVID-19 Acute maxillary sinusitis, unspecified Postoperative atrial fibrillation (02/08/16) Nonrheumatic mitral (valve) insufficiency Essential hypertension HLD (hyperlipidemia) Home Medications ?Medication ?Instructions ?Recorded ?Last Taken ?Type aspirin 81 mg tablet,delayed 81 mg PO DAILY 10/25/18 04/10/25 History release (Adult Aspirin Regimen) omeprazole 20 mg capsule,delayed 20 mg PO DAILY 10/25/18 04/11/25 History release simvastatin 20 mg tablet 20 mg PO QHS 06/15/20 04/11/25 History magnesium oxide 400 mg PO DAILY #90 tabs 09/04/21 04/11/25 Rx lactobacillus combination no.4 3 3,000 mmu cells PO DAILY 08/27/23 04/11/25 History billion cell capsule (Probiotic) tamsulosin 0.4 mg capsule 0.4 mg PO QDAY 08/25/24 04/11/25 History trazodone 50 mg tablet 100 mg PO QHS 08/25/24 04/11/25 History colestipol 1 gram tablet 2 g (2 x 1 gram) PO DAILY 90 days 12/21/24 04/11/25 Rx #360 tabs escitalopram oxalate 20 mg tablet 5 mg PO DAILY 12/21/24 04/11/25 History gabapentin 300 mg capsule 400 mg PO DAILY 12/21/24 04/11/25 History galantamine 4 mg tablet 4 mg PO ONCE 12/21/24 04/11/25 History lisinopril 10 mg tablet 20 mg PO DAILY 12/21/24 04/11/25 History melatonin 10 mg tablet 10 mg PO HS PRN sleep 12/21/24 04/11/25 History ondansetron HCl 4 mg tablet 4 mg PO .COMPLEX #5 tabs 12/21/24 Unknown Rx epinephrine 0.3 mg/0.3 mL 0.3 mg (0.3 mL) IM Q10M PRN PRN 04/05/25 Unknown Rx injection, auto-injector (EpiPen anaphylaxis #2 ea 2-Star) diphenhydramine HCl 25 mg capsule 25 mg PO Q8H PRN itching 04/07/25 04/11/25 History (Benadryl) Allergy/AdvReac Type Severity Reaction Status Date / Time bee venom protein (honey bee) Allergy Swelling Verified 04/07/25 08:47 hydrocodone (From Vicodin) Allergy intolerance Verified 04/07/25 08:47 shellfish derived Allergy Swelling Verified 04/07/25 08:47 Family History Brother Mitral valve insufficiency Father Heart disease Mother Hypertension Surgical History History of esophagogastroduodenoscopy (EGD) History of colonoscopy H/O mitral valve replacement (02/08/16) History of left heart catheterization (01/08/16) Hx of hernia repair S/P nasal surgery H/O mitral valve repair (01/31/16) Social History Smoking Status: Never smoker alcohol intake: current alcohol intake frequency: holidays/special occasions only substance use type: does not use caffeine: Yes Type: carbonated beverages ROS Constitutional Constitutional: Denies fatigue, fever(s), poor appetite, weight gain or weight loss Gastrointestinal Gastrointestinal: Denies belching, bloating, change in bowel habits, change in stool character, chewing difficulty, coffee ground emesis, constipation, cramping, diarrhea, dyspepsia, dysphagia, early satiety, excessive flatus, fecal incontinence, heartburn, hematemesis, hematochezia, hemorrhoids, loose stools, melena, nausea, odynophagia, rectal bleeding, tenesmus, vomiting or weight changes Vital Signs Vital Signs Vital Signs: 04/12/25 08:14 04/12/25 08:14 04/12/25 08:38 Temperature 97.6 F L 97.6 F L Temperature Source Temporal Pulse Rate 56 L 56 L Respiratory Rate 16 16 Respiratory Pattern Normal Blood Pressure 140/76 H 140/76 H Blood Pressure Mean 97 Blood Pressure Source Monitor Blood Pressure Position Semi-Fowlers Blood Pressure Location Right Arm Pulse Ox 100 100 Oxygen Delivery Method Room Air Weight Weight: 196 lb 3.382 oz Body Mass Index (BMI) 28.0 Physical Exam Const alert, oriented x3, no apparent distress and healthy appearing General Appearance: cooperative GI normal to inspection, nondistended, normoactive bowel sounds, soft to palpation, non-tender and non-distended Percussion: normal to percussion Rectal Exam: deferred Assessment & Plan Assessment/Plan (1) Ulcerative colitis: QUALIFIERS: Ulcerative colitis location: unspecified ulcerative colitis location Digestive disease complication type: without complication Qualified Code(s): K51.90 - Ulcerative colitis, unspecified, without complications PLAN: Assessment and Plan Assessment and Plan (1) Ulcerative colitis: Status: Chronic Qualifiers: Ulcerative colitis location: unspecified ulcerative colitis location Digestive disease complication type: without complication Qualified Code(s): K51.90 - Ulcerative colitis, unspecified, without complications Comment: Diagnosed Medications: New ondansetron HCl 4 mg orally; take two tablets PO two hours prior to start of bowel prep and one every 4 hours as needed for N/V 5 tabs 0RF Z95.2 - Presence of prosthetic heart valve Plan 74-year-old male with a longstanding history of ulcerative colitis, initially diagnosed in his 30s, presenting for routine annual follow-up. He is currently not on any maintenance therapy for UC but was previously treated with budesonide, balsalazide and mesalamine. He reports stable gastrointestinal symptoms, endorsing 1-2 formed stools per day without associated bleeding, abdominal pain, or weight loss. CBC and transaminases were unremarkable May 2024. He was last evaluated with colonoscopy and EGD in 2021, which showed no active inflammation, no evidence of Pena's esophagus and negative testing for celiac disease. His history is also notable for GERD, managed with omeprazole 20 mg daily, and diarrhea managed with cholestyramine 1 g daily. Given his history of ulcerative colitis and increased risk for colorectal cancer, he is due for surveillance colonoscopy at this time, which has been discussed with him in detail. He is currently asymptomatic and doing well, and no changes to his current medical regimen are indicated at this time. Surveillance colonoscopy will be scheduled. He will continue to follow-up annually or sooner if symptoms change. Note: [employer] speech recognition public relations analyst software was used to create portions of this document. Sound-alike and misspelled words, as well as other public relations analyst errors may be contained in the documentation. Patient Instructions: Continue colestipol 1 g daily, may increase to 2 g daily as needed. Colonoscopy-Suflave bowel prep sample provided Plan Details
--- NOTE | 2025-04-12 09:00 | COLBX_PTH ---
PATIENT: IZABEL WAHL LOC: [facility] U#:[id number] AGE/SX: 74/M ROOM: RE04/12/[address]: Dr. Terry Mercedes DO : 1950 BED: DIS: 04/12/2025 SPEC #: [id number] RECD: 04/12/25 09:51 STATUS: JSEU KINGSLEY #: [id number] DRU: 04/12/25 09:[address]: Terry Mercedes DEPT: SURGICAL PATHOLOGY RECD BY: Hitesh Aden ENTERED: 04/12/25 10:26 SP TYPE: COLON BX ANALY DR: Dr. Aletha Moon DO Tissues: A - COLON BIOPSY B - COLON BIOPSY C - Rectum, NOS Procedures: Surgery Specimen Level IV HEADER OPERATION: Colonoscopy with biopsy PRE-OP DIAGNOSIS: Ulcerative colitis TISSUE SUBMITTED: A- Right colon biopsy, B- Left colon biopsy, C- Rectum biopsy MICROSCOPIC DIAGNOSIS A. Colon, right, biopsy: - no specific pathologic change. B. Colon, left, biopsy: - no specific pathologic change. C. Rectum, biopsy: - focal prolapse changes. MICROSCOPIC DESCRIPTION Slides are reviewed. GROSS DESCRIPTION A. Received in fixative is one container labeled with the patient's name and designated Right colon biopsy. The specimen consists of multiple irregular fragments of light valladares soft tissue that in aggregate measure 1 x 0.5 x 0.1 cm. The specimen is totally submitted in one cassette. B. Received in fixative is one container labeled with the patient's name and designated Left colon biopsy. The specimen consists of multiple irregular fragments of light valladares soft tissue that in aggregate measure 1.5 x 0.6 x 0.1 cm. The specimen is totally submitted in one cassette. C. Received in fixative is one container labeled with the patient's name and designated Rectum biopsy. The specimen consists of multiple irregular fragments of light valladares soft tissue that in aggregate measure 0.9 x 0.8 x 0.1 cm. The specimen is totally submitted in one cassette. TN 04/12/2025 CPT:43465n1
--- NOTE | 2025-04-12 09:45 | OP.COLON_ITS ---
Patient Name: Aayush García Procedure Date: 04/12/2025 9:14 AM Date of : 1950 Age: 74 Procedure: Colonoscopy Indications: Left-sided chronic ulcerative colitis Providers: Terry Mercedes DO Referring MD: Aletha Moon Medicines: Monitored Anesthesia Care Patient Profile: This is a 74 year old male. Refer to note in patient chart for documentation of history and physical. Last Colonoscopy: several years ago. Complications: No immediate complications. Procedure: Pre-Anesthesia Assessment: - Prior to the procedure, a History and Physical was performed, and patient medications and allergies were reviewed. The patient is competent. The risks and benefits of the procedure and the sedation options and risks were discussed with the patient. All questions were answered and informed consent was obtained. Patient identification and proposed procedure were verified by the physician in the pre-procedure area. Mental Status Examination: alert and oriented. Airway Examination: normal oropharyngeal airway and neck mobility. Respiratory Examination: clear to auscultation. CV Examination: normal. Prophylactic Antibiotics: The patient does not require prophylactic antibiotics. Prior Anticoagulants: The patient has taken no anticoagulant or antiplatelet agents. ASA Grade Assessment: II - A patient with mild systemic disease. After reviewing the risks and benefits, the patient was deemed in satisfactory condition to undergo the procedure. The anesthesia plan was to use monitored anesthesia care (MAC). Immediately prior to administration of medications, the patient was re-assessed for adequacy to receive sedatives. The heart rate, respiratory rate, oxygen saturations, blood pressure, adequacy of pulmonary ventilation, and response to care were monitored throughout the procedure. The physical status of the patient was re-assessed after the procedure. After I obtained informed consent, the scope was passed under direct vision. Throughout the procedure, the patient's blood pressure, pulse, and oxygen saturations were monitored continuously. The Colonoscope was introduced through the anus and advanced to the cecum, identified by appendiceal orifice and ileocecal valve. The colonoscopy was performed without difficulty. The patient tolerated the procedure well. The quality of the bowel preparation was adequate. The terminal ileum, ileocecal valve, appendiceal orifice, and rectum were photographed. Scope In: 9:25:35 AM Scope Withdrawal Time 0 hours 10 minutes 29 seconds Scope Out: 9:38:30 AM Total Procedure Duration Time 0 hours 12 minutes 55 seconds Findings: The perianal and digital rectal examinations were normal. Multiple small and large-mouthed diverticula were found in the recto-sigmoid colon and sigmoid colon. Inflammation was not found based on the endoscopic appearance of the mucosa in the colon. This was graded as Beasley Score 0 (normal or inactive disease), and when compared to the previous examination, the findings are improved. Biopsies were taken with a cold forceps for histology. Verification of patient identification for the specimen was done. Estimated blood loss was minimal. Impression: - Diverticulosis in the recto-sigmoid colon and in the sigmoid colon. - Inactive (Beasley Score 0) ulcerative colitis, improved since the last examination. Biopsied. Recommendation: - Discharge patient to home. - Resume previous diet. - Continue present medications. - Await pathology results. - Repeat colonoscopy in 3 years for surveillance. Procedure Code(s): --- Professional --- 50952, Colonoscopy, flexible; with biopsy, single or multiple CPT copyright 2021 [employer]. All rights reserved. The codes documented in this report are preliminary and upon policy service coordinator review may be revised to meet current compliance requirements. Terry Mercedes DO 04/12/2025 9:45:12 AM This report has been signed electronically. Number of Addenda: 0 Note Initiated On: 04/12/2025 9:14 AM
--- NOTE | 2025-04-12 09:45 | OP.PROVAT_ITS ---
04/12/2025 Aletha Moon [address] [place] [address] Re : Colonoscopy procedure for Aayush García Dear Dr. Moon This procedure was performed on Saturday, April 12, 2025. My impressions and recommendations are as follows: Impressions : - Diverticulosis in the recto-sigmoid colon and in the sigmoid colon. - Inactive (Beasley Score 0) ulcerative colitis, improved since the last examination. Biopsied. Recommendations : - Discharge patient to home. - Resume previous diet. - Continue present medications. - Await pathology results. - Repeat colonoscopy in 3 years for surveillance. My findings are described in the full procedure note, which is enclosed. If I can be of further assistance, please feel free to contact me at . Sincerely, Terry Mercedes, 04/12/2025 9:45:12 AM This report has been signed electronically.
--- NOTE | 2025-04-12 09:52 | PCM.POST.ANE ---
Anesthesia: Postop Eval I Current Vital Signs Temperature: 97.4 F Pulse Rate: 52 Blood Pressure: 137/74 Respiratory Rate: 16 Pulse Ox: 100 Oxygen Delivery Method: Room Air Assessment Airway patent: Yes Spontaneous unlabored respirations: Yes Mental status: Awake and Calm nausea: No Vomiting: No Anesthesia Complication: No Fluid Hydration Crystalloid volume administer (ml): 500 Total IV fluid infused: 500 Progress Note Anesthesia document: Postop Eval 1 completed: Yes
--- NOTE | 2025-04-12 12:51 | PCM.POSTANE2 ---
Anesthesia Postop Eval I Sum Postop Eval Completion status Anesthesia document: Postop Eval 1 completed: Yes Anesthesia Postop Eval I Summary Anesthesia Postop Eval I Summary: Anesthesia Postop Eval I: Assessment Summary Airway patent Yes 04/12/25 09:53 [email or web address] Spontaneous unlabored Yes 04/12/25 09:53 [email or web address] respirations Mental status Awake,Calm 04/12/25 09:53 [email or web address] nausea No 04/12/25 09:53 [email or web address] Vomiting No 04/12/25 09:53 [email or web address] Anesthesia Postop Eval I: Fluid Summary Crystalloid volume administer 500 04/12/25 09:53 [email or web address] (ml) Colloids volume administered ( ml) Blood Product volume administered (ml) Total IV fluid infused 500 04/12/25 09:53 [email or web address] Anesthesia Postop Eval I: Summary Notes Anesthesia Complication No 04/12/25 09:53 [email or web address] Anesthesia Complication Comment: Post-operative progress note Anesthesia: Postop Eval II Evaluation Mental status: Awake Pain Level: 0 nausea: No Vomiting: No Complications Anesthesia Complication: No
== END 2025-04-12 10:18 | disposition home or self-care (01) ==
LOC: EN 07:55 → AC 07:57
PROVIDERS: PCP Internal Medicine; Referring Provider Internal Medicine; Visit Provider Internal Medicine Gastroenterology
PROC: 0DJD8ZZ Inspection of Lower Intestinal Tract, Via Natural or Artificial Opening Endoscopic (ICD-10-PCS; CPT 45378; principal; 2025-04-12 08:55)
DX: K57.30 Diverticulosis of large intestine without perforation or abscess without bleeding (principal); I48.91 Unspecified atrial fibrillation; E78.00 Pure hypercholesterolemia, unspecified; K21.9 Gastro-esophageal reflux disease without esophagitis; I10 Essential (primary) hypertension; Z79.82 Long term (current) use of aspirin; Z79.899 Other long term (current) drug therapy; Z86.19 Personal history of other infectious and parasitic diseases; Z87.19 Personal history of other diseases of the digestive system; Z95.2 Presence of prosthetic heart valve; Z86.14 Personal history of Methicillin resistant Staphylococcus aureus infection
CPT/HCPCS: 45380; 88305; J2405

== ENCOUNTER → 2025-05-15 | Outpatient (CLI) | payer MEDICARE, BC, SELFPAY ==
--- NOTE | 2025-05-15 08:11 | EKG12_ITS ---
Test Reason : PREOP Blood Pressure : */* mmHG Vent. Rate : 52 BPM Atrial Rate : 52 BPM P-R Int : 176 ms QRS Dur : 98 ms QT Int : 448 ms P-R-T Axes : 43 66 73 degrees QTcB Int : 416 ms Sinus bradycardia Otherwise normal ECG Confirmed by CLARA LEAVITT, LULI ([id number]), magazine editor ANIKET BALDWIN ([id number]) on 05/15/2025 11:41:17 AM Referred By: Satinder Chavez Confirmed By: LULI ELIZABETH MD
[2025-05-15 09:23] LABS: Hematocrit 41.9 % (40-54); Hemoglobin 14.9 g/dL (13.0-16.5); Mean Corp Hgb Conc 35.6 g/dL (32-36); Mean Corpuscular Volume 87.8 fL (80-94); Mean Platelet Vol. 10.2 fl (6.2-12.0); Platelet Count 125 K/mm3 (150-450); RBC Distribution Width CV 12.8 % (11.6-14.6); RBC Distribution Width SD 41.2 fl (35.1-43.9); Red Blood Count 4.77 M/mm3 (4.6-6.2); White Blood Count 4.1 K/mm3 (4.4-11.0)
[2025-05-15 09:54] LABS: Anion Gap 10 (5-15); BUN 21 mg/dL (4-19); BUN/Creat Ratio 21.7 RATIO (10-20); Calcium,Total 9.1 mg/dL (7.6-11.0); Carbon Dioxide 25.5 mmol/L (21.0-32.0); Chloride 103 mmol/L (98-108); Glucose 93 mg/dL (70-99); Potassium 4.4 mmol/L (3.3-5.1)
== END | disposition home or self-care (01) ==
PROVIDERS: PCP Internal Medicine; Referring Provider Otolaryngology; Visit Provider Otolaryngology
DX: Z01.812 Encounter for preprocedural laboratory examination (principal); Z01.810 Encounter for preprocedural cardiovascular examination
CPT/HCPCS: 36415; 80048; 85027; 93005

== ENCOUNTER → 2025-06-06 | Outpatient (CLI) | payer MEDICARE, BC, SELFPAY | END | disposition home or self-care (01) | LOC: LABSPEC 15:46 | PROVIDERS: PCP Internal Medicine; Referring Provider Otolaryngology; Visit Provider Otolaryngology | DX: J32.8 Other chronic sinusitis (principal) | CPT/HCPCS: 87070; 87077; 87186; 87205 ==